=== PATIENT | female | born 1965 | race African-American/Black ===

== ENCOUNTER → 2020-03-05 09:41 | Outpatient (BNVA) | payer MEDICARE, MEDICAID, SELFPAY | PROVIDERS: PCP Internal Medicine; Visit Provider Physician Assistant | DX: K21.9 Gastro-esophageal reflux disease without esophagitis (principal); K59.09 Other constipation; Z79.899 Other long term (current) drug therapy | CPT/HCPCS: 99213 ==

== ENCOUNTER 2020-04-01 09:31 | Outpatient (REF) | payer OTHER, SELFPAY ==
[2020-04-01 11:05] LABS: TSH reflex Free T4 2.88 mIU/mL (0.32-4.0)
== END 2020-04-01 09:32 | disposition home or self-care (01) ==
LOC: HO.LAB 09:31
PROVIDERS: Visit Provider Internal Medicine
DX: E03.9 Hypothyroidism, unspecified (principal)
CPT/HCPCS: 84443

== ENCOUNTER → 2020-04-30 09:16 | Outpatient (BNVA) | payer OTHER, SELFPAY | PROVIDERS: PCP Internal Medicine; Referring Provider Internal Medicine; Visit Provider Physician Assistant | DX: K21.9 Gastro-esophageal reflux disease without esophagitis (principal); K59.09 Other constipation | CPT/HCPCS: 99212 ==

== ENCOUNTER → 2020-06-10 12:30 | Outpatient (BNVA) | payer MEDICARE, MEDICAID, SELFPAY | PROVIDERS: PCP Internal Medicine; Visit Provider Physician Assistant | DX: Z76.89 Persons encountering health services in other specified circumstances (principal) | CPT/HCPCS: Q3014 ==

== ENCOUNTER 2020-09-10 10:40 | Emergency (ER) | payer MEDICARE, MEDICAID, SELFPAY ==
--- NOTE | ~2020-09-10 | XR_ITS ---
EXAMINATION: XR ABDOMEN KUB CLINICAL INDICATION: Constipation COMPARISON: None TECHNIQUE: AP view of the abdomen. FINDINGS: There is stool throughout the colon suggestive of constipation. There are no dilated loops of bowel to suggest obstruction. There is no evidence of free air. There are surgical clips in the right upper quadrant suggestive of cholecystectomy. There are bilateral pelvic calcifications suggestive of calcified phleboliths. There are degenerative changes of the lower lumbar spine. XR/XR KUB IMPRESSION: Constipation. No evidence of obstruction.
[2020-09-10 11:15] VITALS: BP 147/82; PULSE 80; RESP 16; TEMP 36.6; O2SAT 98; BMI 31.8
[2020-09-10 12:53] LABS: MANUAL DIFF FLAG NO
[2020-09-10 12:55] LABS: Basophils Percent Auto 0.5 % (0-2); Eosinophils Absolute Auto 0.2 X10*3/uL (0.0-0.4); Eosinophils Percent Auto 2.9 % (0-4); Hematocrit 39.9 % (37-47); Hemoglobin 12.6 g/dl (12.0-16.0); Imm Gran Abs Auto 0.02 X10*3/uL (0.00-0.03); Imm Gran Pct Auto 0.3 % (0.0-0.4); Lymphocytes Absolute Auto 1.7 X10*3/uL (1.2-4.9); Lymphocytes Percent Auto 26.8 % (20-40); Mean Corpuscular HGB Conc 31.6 g/dl (31.0-35.0); Mean Corpuscular Hemoglobin 28.8 pg (27.0-33.0); Mean Corpuscular Volume 91.1 fL (80-98); Mean Platelet Volume 9.4 fL (9.4-12.3); Monocytes Absolute Auto 0.5 X10*3/uL (0.1-1.2); Monocytes Percent Auto 8.2 % (2-11); Neutrophils Percent Auto 61.3 % (45-73); Platelet Count 277 X10*3/uL (160-400); Red Blood Count 4.38 X10*6/uL (4.20-5.50); Red Cell Distribution Width 12.8 % (11.0-16.0); White Blood Count 6.5 X10*3/uL (4.8-10.8)
[2020-09-10 13:06] LABS: INTERNATIONAL NORM RATIO 1.1 (0.9-1.1); Prothrombin Time 12.6 SEC (10.8-13.0)
[2020-09-10 13:08] LABS: Partial Thromboplastin Time 36.9 SEC (24.1-38.0)
[2020-09-10 13:14] LABS: C Reactive Protein 0.49 mg/dL (< or = 0.50)
[2020-09-10 13:17] LABS: Alanine Aminotransferase 76 U/L (0-31); Albumin Level 4.4 g/dL (3.5-5.0); Alkaline Phosphatase 92 U/L (39-117); Anion Gap 13 (12-20); Aspartate Amino Transferase 37 U/L (5-31); Bilirubin Direct 0.3 mg/dL (0.0-0.5); Bilirubin Total 0.9 mg/dL (0.0-1.0); Blood Urea Nitrogen 10 mg/dL (9-16); Calcium 9.2 mg/dL (8.4-10.2); Carbon Dioxide 27 mmol/L (22-29); Chloride 104 mmol/L (96-108); Estimated Glomerular Filt Rate > 60; Glucose Random 92 mg/dL (60-115); Potassium 4.1 mmol/L (3.3-5.1); Sodium 140 mmol/L (135-145); Total Protein 7.6 g/dL (6.5-8.0)
[2020-09-10 13:40] LABS: Erythrocyte Sedimentation Rate 14 MM/HR (0-20)
--- NOTE | 2020-09-10 13:40 | ED_ITS ---
HPI - General Adult General Chief complaint: General Medical <KM Can - Last Filed: 09/10/20 16:51> Stated complaint: rash <KM Can - Last Filed: 09/10/20 16:51> Time Seen by Provider: 09/10/20 11:40 <KM Can - Last Filed: 09/10/20 16:51> Source: patient <KM Can - Last Filed: 09/10/20 16:51> Mode of arrival: ambulatory <KM Can - Last Filed: 09/10/20 16:51> History of Present Illness HPI narrative: 54-year-old female with a past medical history of hypothyroid, GERD, chronic constipation, presenting to the ED complaining of constipation x2 days, and worsening petechial rash to lower extremities x1 week. Denies having BM in 2 days, admits to passing flatness. Reports has to manually disimpact herself. States rash started as small diffuse red dots, nonpruritic, and noticed spread today to abdomen. Denies fever, chills, nausea/vomiting, diarrhea, recent travel, new medications/exposures, others with similar symptoms, history of blood disorders <KM Can - Last Filed: 09/10/20 16:51> Onset (ago): day(s) <KM Can - Last Filed: 09/10/20 16:51> Related Data Home medications: Home Medications Medication Instructions Recorded Confirmed albuterol sulfate 90 mcg/actuation 2 puff INHALATION Q6H PRN 03/02/20 04/30/20 aerosol inhaler clonazepam 0.5 mg tablet 0.5 mg PO DAILY tab 03/02/20 06/10/20 docusate sodium 100 mg capsule 100 mg PO BID cap 03/02/20 06/10/20 levothyroxine 125 mcg tablet 125 mcg PO DAILY 03/02/20 06/10/20 oxcarbazepine 300 mg tablet 300 mg PO .COMPLEX tab 03/02/20 06/10/20 polyethylene glycol 3350 17 gram 17 g PO DAILY 03/02/20 06/10/20 oral powder packet quetiapine 100 mg tablet 100 mg PO BEDTIME tab 03/02/20 06/10/20 sennosides 8.6 mg capsule 17.2 mg PO BEDTIME cap 03/02/20 03/28/20 trazodone 100 mg tablet 200 mg PO BEDTIME 03/02/20 06/10/20 Previous Rx's Medication Instructions Recorded omeprazole 20 mg capsule,delayed 20 mg PO DAILY #90 cap 04/04/20 release walker #1 ea 04/04/20 bisacodyl 10 mg rectal suppository 10 mg NJ DAILY PRN #20 ea 06/10/20 mineral oil [Fleet Mineral Oil] 118 ml NJ DAILY PRN #135 ml 09/10/20 polyethylene glycol 3350 [Miralax] 17 g PO DAILY PRN #119 g 09/10/20 prednisone 40 mg PO DAILY 5 Days #10 tab 09/10/20 sennosides [senna] 8.6 mg PO DAILY PRN #10 cap 09/10/20 <KM Can - Last Filed: 09/10/20 16:51> Allergies/adverse reactions: Allergies Allergy/AdvReac Type Severity Reaction Status Date / Time SEAFOOD Allergy Unknown DOESNT Uncoded 03/28/20 10:25 TAKE BECAUSE OF THYROID <KM Can Last Filed: 09/10/20 16:51> Review of Systems Review of Systems: Constitutional: No Fever, No Chills, No Fatigue, No Malaise Cardiovascular: No Chest Pain, No SOB Respiratory: No Cough, No Dyspnea Gastrointestinal: No Nausea, No Vomiting, No Diarrhea, + Constipation, No Abdominal pain Genitourinary: No Dysuria, No Urinary Frequency, No Hematuria, No Flank Pain Musculoskeletal: No joint pain, No Myalgias, No Joint Swelling Skin: No Skin Lesions, + rash Neuro: No Weakness, No Headache Heme/Lymph: No Bruising, No Bleeding <KM Can Last Filed: 09/10/20 16:51> Yes all other systems are reviewed and are negative <KM Can Last Filed: 09/10/20 16:51> PMFSH Past Medical History Attestation statement: The following information was validated with the patient. <KM Can Last Filed: 09/10/20 16:51> Medical History: Medical History Chronic constipation Chronic GERD Hypothyroidism Pap smear of cervix shows high risk HPV present <KM Can - Last Filed: 09/10/20 16:51> Surgical History: Surgical History (Updated 03/27/20 @ 09:30 by KIM España) History of bladder surgery History of colonoscopy History of partial hysterectomy <KM Can - Last Filed: 09/10/20 16:51> Family History Family History: Family History Father HTN (hypertension) Mother Asthma HTN (hypertension) Sister Heart disease Brother Liver cancer Son Asthma <KM Can - Last Filed: 09/10/20 16:51> Social History Social History: Social History Alcohol intake: never Smoking Status: Never smoker Advance Directives: No Advance Directives Information Provided: Yes <KM Can - Last Filed: 09/10/20 16:51> Physical Exam Vital Signs: Vital Signs: Last Vital Signs Temp 98.4 F 09/10/20 15:48 Pulse 84 09/10/20 15:48 Resp 18 09/10/20 15:48 BP 109/67 09/10/20 15:48 Pulse Ox 96 09/10/20 15:48 Body Mass Index 31.8 <KM Can - Last Filed: 09/10/20 16:51> Vital Signs: Last Vital Signs Temp 98.4 F 09/10/20 15:48 Pulse 84 09/10/20 15:48 Resp 18 09/10/20 15:48 BP 109/67 09/10/20 15:48 Pulse Ox 96 09/10/20 15:48 Body Mass Index 31.8 <Placido Hernandez MD - Last Filed: 09/10/20 14:48> Const: General: cooperative, healthy appearing, well developed, alert and awake <KM Can - Last Filed: 09/10/20 16:51> Orientation/consciousness: patient oriented x3 <KM Can - Last Filed: 09/10/20 16:51> Limitations: no limitations <KM Can - Last Filed: 09/10/20 16:51> HENMT: Other: No mucous membrane involvement <Magaly Segura MO - Last Filed: 09/10/20 16:51> Head: Yes normal to inspection <Magaly Segura PA - Last Filed: 09/10/20 16:51> Ears: hearing grossly normal bilaterally <Magaly Segura MO - Last Filed: 09/10/20 16:51> General nose exam: Normal external nose present <Magaly Segura MO - Last Filed: 09/10/20 16:51> Face and sinus: Yes normal facial exam <Magaly Segura MO - Last Filed: 09/10/20 16:51> Throat: Yes tonsils normal <Magaly Segura MO - Last Filed: 09/10/20 16:51> Eyes: General: appearance normal, both eyes and all related structures <Magaly Segura MO - Last Filed: 09/10/20 16:51> Pupils: Equal, round and reactive pupils present <Magaly Segura MO - Last Filed: 09/10/20 16:51> EOM: EOMs intact bilaterally <Magaly Segura MO - Last Filed: 09/10/20 16:51> Neck: Neck: Yes normal visual inspection and Yes no meningeal signs <Magaly Segura MO - Last Filed: 09/10/20 16:51> Resp: Effort & Inspection: normal respiratory effort <Magaly Segura [facility] Last Filed: 09/10/20 16:51> Auscultation: clear to auscultation bilaterally, no rhonchi and no wheezes <Magaly Segura MO - Last Filed: 09/10/20 16:51> Cardio: Rate: regular rate <Magaly Segura MO - Last Filed: 09/10/20 16:51> Heart sounds: S1 normal heart sound present and S2 normal heart sound present <Magaly Segura PA - Last Filed: 09/10/20 16:51> GI: Inspection: Yes normal to inspection <Magaly Segura MO - Last Filed: 09/10/20 16:51> Palpation (GI): Soft to palpation, nontender and no guarding <Magaly Segura PA - Last Filed: 09/10/20 16:51> Skin: Other: refer to images <KM Can - Last Filed: 09/10/20 16:51> Rashes: no rashes <KM Can - Last Filed: 09/10/20 16:51> Wounds: no wounds <KM Can - Last Filed: 09/10/20 16:51> Neuro: General: patient oriented x3 and no meningeal signs <KM Can - Last Filed: 09/10/20 16:51> Cranial nerves: Yes Equal, round and reactive pupils present <KM Can - Last Filed: 09/10/20 16:51> Gait exam (Neuro): Normal gait present <KM Can - Last Filed: 09/10/20 16:51> Extrem: Other: <KM Can - Last Filed: 09/10/20 16:51> General: Yes normal to inspection <KM Can - Last Filed: 09/10/20 16:51> Course Course Course Narrative: -No leukocytosis. Platelets/coags wnl, ESR/CRP wnl, AST/ALT mildly elevated labs otherwise unremarkable XR KUB IMPRESSION: Constipation. No evidence of obstruction Consulted hematology Dr. Sherman who recommended adding on collagen vascular wo rkup, initiate short course of steroids, have patient follow-up with rheumatology. This was all discussed with patient with seismic interpreter including worrisome signs and symptoms and strict return precautions. Patient was given 1st dose of prednisone in the ED <KM Can - Last Filed: 09/10/20 16:51> I agree with history, patient with vasculitic type of rash to abdomen and legs. Platelets, coags, sed rate all normal. Will discuss with rheum or heme/onc <Placido Hernandez MD - Last Filed: 09/10/20 14:48> Medical Decision Making [facility] Narrative Medical decision making narrative: 54-year-old female with a past medical history of hypothyroid, GERD, chronic constipation, presenting to the ED complaining of constipation x2 days, and worsening petechial rash to lower extremities x1 week. On exam VSS, NAD/nontoxic appearing, physical exam as above, concern for vasculitic rash and constipation vs SBO. Plan: Labs, KUB, Consult Rheum/heme/onc <KM Can - Last Filed: 09/10/20 16:51> Lab Data Result diagrams: : 09/10/20 12:46 09/10/20 12:46 <KM Can - Last Filed: 09/10/20 16:51> Labs: Lab Results 09/10/20 09/10/20 09/10/20 Range/Units 12:46 12:46 12:46 WBC 6.5 (4.8-10.8) X10*3/uL RBC 4.38 (4.20-5.50) X10*6/uL Hgb 12.6 (12.0-16.0) g/dl Hct 39.9 (37-47) % MCV 91.1 (80-98) fL MCH 28.8 (27.0-33.0) pg MCHC 31.6 (31.0-35.0) g/dl RDW 12.8 (11.0-16.0) % Plt Count 277 (160-400) X10*3/uL MPV 9.4 (9.4-12.3) fL Immature Gran % (Auto) 0.3 (0.0-0.4) % Neut % (Auto) 61.3 (45-73) % Lymph % (Auto) 26.8 (20-40) % Crenshaw % (Auto) 8.2 (2-11) % Eos % (Auto) 2.9 (0-4) % Baso % (Auto) 0.5 (0-2) % Lymph # (Auto) 1.7 (1.2-4.9) X10*3/uL Crenshaw # (Auto) 0.5 (0.1-1.2) X10*3/uL Eos # (Auto) 0.2 (0.0-0.4) X10*3/uL Baso # (Auto) 0.0 (0.0-0.2) X10*3/uL Abs Immat Gran (auto) 0.02 (0.00-0.03) X10*3/uL Absolute Neuts (auto) 4.0 (2.0-8.3) X10*3/uL Absolute Nucleated RBC 0.000 (0.0-0.012) X10*3/uL Nucleated RBC % (auto) 0.0 (0.0-0.2) /100WBC ESR (0-20) MM/HR PT 12.6 (10.8-13.0) SEC INR 1.1 (0.9-1.1) APTT 36.9 (24.1-38.0) SEC Sodium 140 (135-145) mmol/L Potassium 4.1 (3.3-5.1) mmol/L Chloride 104 (96-108) mmol/L Carbon Dioxide 27 (22-29) mmol/L Anion Gap 13 (12-20) BUN 10 (9-16) mg/dL Creatinine 0.71 (0.5-1.4) mg/dL Estim Creat Clear Calc 86.0 Estimated GFR > 60 Random Glucose 92 (60-115) mg/dL Calcium 9.2 (8.4-10.2) mg/dL Total Bilirubin 0.9 (0.0-1.0) mg/dL Direct Bilirubin 0.3 (0.0-0.5) mg/dL AST 37 H (5-31) U/L ALT 76 H (0-31) U/L Alkaline Phosphatase 92 (39-117) U/L C-Reactive Protein (< or = 0.50) mg/dL Total Protein 7.6 (6.5-8.0) g/dL Albumin 4.4 (3.5-5.0) g/dL 09/10/20 09/10/20 Range/Units 12:46 12:46 WBC (4.8-10.8) X10*3/uL RBC (4.20-5.50) X10*6/uL Hgb (12.0-16.0) g/dl Hct (37-47) % MCV (80-98) fL MCH (27.0-33.0) pg MCHC (31.0-35.0) g/dl RDW (11.0-16.0) % Plt Count (160-400) X10*3/uL MPV (9.4-12.3) fL Immature Gran % (Auto) (0.0-0.4) % Neut % (Auto) (45-73) % Lymph % (Auto) (20-40) % Crenshaw % (Auto) (2-11) % Eos % (Auto) (0-4) % Baso % (Auto) (0-2) % Lymph # (Auto) (1.2-4.9) X10*3/uL Crenshaw # (Auto) (0.1-1.2) X10*3/uL Eos # (Auto) (0.0-0.4) X10*3/uL Baso # (Auto) (0.0-0.2) X10*3/uL Abs Immat Gran (auto) (0.00-0.03) X10*3/uL Absolute Neuts (auto) (2.0-8.3) X10*3/uL Absolute Nucleated RBC (0.0-0.012) X10*3/uL Nucleated RBC % (auto) (0.0-0.2) /100WBC ESR 14 (0-20) MM/HR PT (10.8-13.0) SEC INR (0.9-1.1) APTT (24.1-38.0) SEC Sodium (135-145) mmol/L Potassium (3.3-5.1) mmol/L Chloride (96-108) mmol/L Carbon Dioxide (22-29) mmol/L Anion Gap (12-20) BUN (9-16) mg/dL Creatinine (0.5-1.4) mg/dL Estim Creat Clear Calc Estimated GFR Random Glucose (60-115) mg/dL Calcium (8.4-10.2) mg/dL Total Bilirubin (0.0-1.0) mg/dL Direct Bilirubin (0.0-0.5) mg/dL AST (5-31) U/L ALT (0-31) U/L Alkaline Phosphatase (39-117) U/L C-Reactive Protein 0.49 (< or = 0.50) mg/dL Total Protein (6.5-8.0) g/dL Albumin (3.5-5.0) g/dL <KM Can - Last Filed: 09/10/20 16:51> Lab Results 09/10/20 09/10/20 09/10/20 Range/Units 12:46 12:46 12:46 WBC 6.5 (4.8-10.8) X10*3/uL RBC 4.38 (4.20-5.50) X10*6/uL Hgb 12.6 (12.0-16.0) g/dl Hct 39.9 (37-47) % MCV 91.1 (80-98) fL MCH 28.8 (27.0-33.0) pg MCHC 31.6 (31.0-35.0) g/dl RDW 12.8 (11.0-16.0) % Plt Count 277 (160-400) X10*3/uL MPV 9.4 (9.4-12.3) fL Immature Gran % (Auto) 0.3 (0.0-0.4) % Neut % (Auto) 61.3 (45-73) % Lymph % (Auto) 26.8 (20-40) % Crenshaw % (Auto) 8.2 (2-11) % Eos % (Auto) 2.9 (0-4) % Baso % (Auto) 0.5 (0-2) % Lymph # (Auto) 1.7 (1.2-4.9) X10*3/uL Crenshaw # (Auto) 0.5 (0.1-1.2) X10*3/uL Eos # (Auto) 0.2 (0.0-0.4) X10*3/uL Baso # (Auto) 0.0 (0.0-0.2) X10*3/uL Abs Immat Gran (auto) 0.02 (0.00-0.03) X10*3/uL Absolute Neuts (auto) 4.0 (2.0-8.3) X10*3/uL Absolute Nucleated RBC 0.000 (0.0-0.012) X10*3/uL Nucleated RBC % (auto) 0.0 (0.0-0.2) /100WBC ESR (0-20) MM/HR PT 12.6 (10.8-13.0) SEC INR 1.1 (0.9-1.1) APTT 36.9 (24.1-38.0) SEC Sodium 140 (135-145) mmol/L Potassium 4.1 (3.3-5.1) mmol/L Chloride 104 (96-108) mmol/L Carbon Dioxide 27 (22-29) mmol/L Anion Gap 13 (12-20) BUN 10 (9-16) mg/dL Creatinine 0.71 (0.5-1.4) mg/dL Estim Creat Clear Calc 86.0 Estimated GFR > 60 Random Glucose 92 (60-115) mg/dL Calcium 9.2 (8.4-10.2) mg/dL Total Bilirubin 0.9 (0.0-1.0) mg/dL Direct Bilirubin 0.3 (0.0-0.5) mg/dL AST 37 H (5-31) U/L ALT 76 H (0-31) U/L Alkaline Phosphatase 92 (39-117) U/L C-Reactive Protein (< or = 0.50) mg/dL Total Protein 7.6 (6.5-8.0) g/dL Albumin 4.4 (3.5-5.0) g/dL 09/10/20 09/10/20 Range/Units 12:46 12:46 WBC (4.8-10.8) X10*3/uL RBC (4.20-5.50) X10*6/uL Hgb (12.0-16.0) g/dl Hct (37-47) % MCV (80-98) fL MCH (27.0-33.0) pg MCHC (31.0-35.0) g/dl RDW (11.0-16.0) % Plt Count (160-400) X10*3/uL MPV (9.4-12.3) fL Immature Gran % (Auto) (0.0-0.4) % Neut % (Auto) (45-73) % Lymph % (Auto) (20-40) % Crenshaw % (Auto) (2-11) % Eos % (Auto) (0-4) % Baso % (Auto) (0-2) % Lymph # (Auto) (1.2-4.9) X10*3/uL Crenshaw # (Auto) (0.1-1.2) X10*3/uL Eos # (Auto) (0.0-0.4) X10*3/uL Baso # (Auto) (0.0-0.2) X10*3/uL Abs Immat Gran (auto) (0.00-0.03) X10*3/uL Absolute Neuts (auto) (2.0-8.3) X10*3/uL Absolute Nucleated RBC (0.0-0.012) X10*3/uL Nucleated RBC % (auto) (0.0-0.2) /100WBC ESR 14 (0-20) MM/HR PT (10.8-13.0) SEC INR (0.9-1.1) APTT (24.1-38.0) SEC Sodium (135-145) mmol/L Potassium (3.3-5.1) mmol/L Chloride (96-108) mmol/L Carbon Dioxide (22-29) mmol/L Anion Gap (12-20) BUN (9-16) mg/dL Creatinine (0.5-1.4) mg/dL Estim Creat Clear Calc Estimated GFR Random Glucose (60-115) mg/dL Calcium (8.4-10.2) mg/dL Total Bilirubin (0.0-1.0) mg/dL Direct Bilirubin (0.0-0.5) mg/dL AST (5-31) U/L ALT (0-31) U/L Alkaline Phosphatase (39-117) U/L C-Reactive Protein 0.49 (< or = 0.50) mg/dL Total Protein (6.5-8.0) g/dL Albumin (3.5-5.0) g/dL <Placido Hernandez MD - Last Filed: 09/10/20 14:48> Discharge Plan Discharge Clinical Impression: Constipation, Vasculitis <KM Can - Last Filed: 09/10/20 16:51> Patient Disposition: Home, Self-Care <KM Can - Last Filed: 09/10/20 16:51> Instructions: [place] (ED) <KM Can - Last Filed: 09/10/20 16:51> Additional Instructions: Your blood work was reassuring today in the ED. It is suspected that you have a vasculitis. Additional blood work was added which will come back in a couple days, you need to follow-up with a director of nuclear medicine. Prednisone as a steroid, take as prescribed. You also very constipated, senna and MiraLax will help you have a bowel movement. In addition use Fleet enema. If he do not improve in the next 48 hours return to the ED. If he develops fever, rashes spreading/worsening, or you have persistent nausea/vomiting return to the ED [place] an?lisis de mark fue reconfortante hoy en el servicio de urgencias. Se sospecha que tiene vasculitis. Se agregaron an?lisis de mark adicionales que volver?n en un par de d?as, debe hacer un seguimiento con un reumat?logo. Prednisona drea esteroide, t?wayne seg?n lo prescrito. Tambi?n est?s muy estre?pretty, senna y MiraLax te ayudar?n a defecar. Adem?s, use el enema Fleet. Si no mejora en las pr?ximas 48 horas regrese a urgencias. Si tiene fiebre, erupciones que se extienden / empeoran, o tiene n?useas / v?mitos persistentes, regrese al servicio de urgencias. <KM Can - Last Filed: 09/10/20 16:51> Prescriptions: New prednisone 20 mg tablet 40 mg PO DAILY 5 Days Qty: 10 RF: 0 senna 8.6 mg capsule 8.6 mg PO DAILY PRN (Reason: constipation) Qty: 10 RF: 0 polyethylene glycol 3350 [Miralax] 17 gram/dose powder 17 g PO DAILY PRN (Reason: constipation) Qty: 119 RF: 0 mineral oil [Fleet Mineral Oil] Enema 118 ml NJ DAILY PRN (Reason: constipation) Qty: 135 RF: 0 No Action omeprazole 20 mg capsule,delayed release(DR/EC) 20 mg PO DAILY Qty: 90 RF: 2 (DME) Ultra-Light Rollator Misc See Rx Instructions .ROUTE .MEDSUPPLY Qty: 1 RF: 0 docusate sodium [Colace] 100 mg capsule 100 mg PO BID RF: 0 polyethylene glycol 3350 [Miralax] 17 gram powder in packet 17 g PO DAILY RF: 0 senna 8.6 mg capsule 17.2 mg PO BEDTIME RF: 0 trazodone 100 mg tablet 200 mg PO BEDTIME RF: 0 quetiapine [Seroquel] 100 mg tablet 100 mg PO BEDTIME RF: 0 clonazepam [Klonopin] 0.5 mg tablet 0.5 mg PO DAILY RF: 0 oxcarbazepine 300 mg tablet 300 mg PO .COMPLEX RF: 0 albuterol sulfate [ProAir HFA] 90 mcg/actuation HFA aerosol inhaler 2 puff inhalation Q6H PRNRF: 0 levothyroxine [Synthroid] 125 mcg tablet 125 mcg PO DAILY RF: 0 bisacodyl [Dulcolax (bisacodyl)] 10 mg suppository 10 mg NJ DAILY PRN (Reason: constipation) Qty: 20 RF: 0 <KM Can - Last Filed: 09/10/20 16:51> Referrals: Micaela Bradford MD [Primary Care Provider] - 2 days Fredo Kuo MD [Physician] - 2 days <KM Can - Last Filed: 09/10/20 16:51> Print Language: Kyrgyz <KM Can - Last Filed: 09/10/20 16:51>
[2020-09-10 15:48] VITALS: BP 109/67; PULSE 84; RESP 18; TEMP 36.9; O2SAT 96
[2020-09-10] MEDS: predniSONE 20 MG TABLET 40 MG PO (16:24)
[2020-09-10] MEDS: Sennosides 8.6 MG TABLET PO (16:24)
[2020-09-10 17:15] LABS: Glucose Urine UA NEG (NEG); Leukocyte Esterase Urine NEG (NEG); Nitrite Urine POS (NEG); Specific Gravity - Urine 1.025 (1.005-1.025); UACC Culture Trigger YES; Urine Blood 1+ (NEG); Urine Ketones NEG (NEG); Urine Protein NEG (NEG-TRACE)
[2020-09-10 17:20] LABS: Appearance Urine HAZY; Color Urine YELLOW
[2020-09-10 17:50] LABS: Bacteria Urine 2+ /LPF; RBC Urine 0-2 /HPF (0); Squamous Epithelial Cell Urine 1+ /LPF; WBC Urine 0 /HPF (0-4)
[2020-09-11 09:22] LABS: HBS Num1 0.85 mIU/mL (0-7.99); HBsAGNum1 0.31 S/CO (0.00-0.99); Hepatitis B Surface Antigen Negative (Negative); ~Hepatitis B Surface Antibody NONREACTIVE (Nonreactive)
[2020-09-11 09:55] LABS: HBc Num1 0.06 S/CO (0.00-0.79); HIV AB/AG Nonreactive (Nonreactive); HIV Num 1 0.08 S/CO (0.00-0.99); Hepatitis B Core Antibody Nonreactive (Nonreactive); ~HepC Num1 0.09 S/CO (0.00-0.79); ~Hepatitis C Antibody Nonreactive (Nonreactive)
[2020-09-11 14:22] LABS: Myeloperoxidase Antibody <1.0 AI; Proteinase 3 PR3 Antibodies <1.0 AI
[2020-09-11 15:11] LABS: Complement C3 157 mg/dL (83-193)
[2020-09-12 13:56] LABS: PTT (LAC) Screen 29 sec (< OR = 40)
[2020-09-12 14:22] LABS: Anti Nuclear Antibody Screen POSITIVE (NEGATIVE)
== END 2020-09-10 17:27 | disposition home or self-care (01) ==
PROVIDERS: Physician Assistant; Emergency Provider Emergency Medicine; PCP Internal Medicine
DX: K59.00 Constipation, unspecified (principal); I77.6 Arteritis, unspecified
CPT/HCPCS: 36415; 74018; 80048; 80076; 81001; 81003; 85025; 85597; 85610; 85613; 85652; 85730; 86021; 86038; 86039; 86140; 86160; 86704; 86706; 86803; 87086; 87088; 87186; 87340; 87389; 99283; 99284

== ENCOUNTER → 2020-10-02 09:49 | Outpatient (BNVA) | payer OTHER, SELFPAY | PROVIDERS: PCP Internal Medicine; Visit Provider Physician Assistant | CPT/HCPCS: Q3014 ==

== ENCOUNTER 2020-10-21 11:25 | Outpatient (REF) | payer OTHER, SELFPAY | END 2020-10-21 11:26 | disposition home or self-care (01) | LOC: HO.LAB 11:25 | PROVIDERS: Visit Provider Internal Medicine | DX: Z20.822 Contact with and (suspected) exposure to COVID-19 (principal) | CPT/HCPCS: C9803; U0003; U0005 ==

== ENCOUNTER → 2020-12-17 08:03 | Outpatient (BNVA) | payer OTHER, SELFPAY | PROVIDERS: Visit Provider Physician Assistant | DX: K59.09 Other constipation (principal); K62.9 Disease of anus and rectum, unspecified | CPT/HCPCS: Q3014 ==

== ENCOUNTER → 2021-01-20 15:23 | Outpatient (BNVA) | payer MEDICARE, SELFPAY | PROVIDERS: PCP Internal Medicine; Visit Provider Surgery | DX: K64.4 Residual hemorrhoidal skin tags (principal); K64.8 Other hemorrhoids | CPT/HCPCS: 46600; 99202 ==

== ENCOUNTER 2021-03-03 09:26 | Outpatient (REF) | payer MEDICARE, SELFPAY ==
[2021-03-03 11:19] LABS: Estimated Average Glucose 117 mg/dL; Hemoglobin A1c % 5.7 %
[2021-03-03 11:33] LABS: Alanine Aminotransferase 40 U/L (0-31); Alkaline Phosphatase 99 U/L (39-117); Anion Gap 12 (12-20); Aspartate Amino Transferase 28 U/L (5-31); Bilirubin Total < 0.2 mg/dL (0.0-1.0); Blood Urea Nitrogen 11 mg/dL (9-16); Carbon Dioxide 24 mmol/L (22-29); Chloride 108 mmol/L (96-108); Cholesterol 154 mg/dL; Estimated Glomerular Filt Rate > 60; Glucose Random 85 mg/dL (60-115); HDL Cholesterol 35 mg/dL; LDL Cholesterol Calculated 71 mg/dl; Sodium 140 mmol/L (135-145); Total Protein 6.9 g/dL (6.5-8.0); Triglycerides 242 mg/dL
== END 2021-03-03 09:27 | disposition home or self-care (01) ==
LOC: HO.LAB 09:26
PROVIDERS: Visit Provider Nurse Practitioner Adult Health
DX: Z51.81 Encounter for therapeutic drug level monitoring (principal)
CPT/HCPCS: 36415; 80053; 80061; 83036

== ENCOUNTER 2021-04-21 11:14 | Outpatient (REF) | payer OTHER, SELFPAY | END 2021-04-21 11:15 | disposition home or self-care (01) | LOC: HO.LAB 11:14 | PROVIDERS: PCP Internal Medicine; Visit Provider Internal Medicine | DX: Z20.822 Contact with and (suspected) exposure to COVID-19 (principal) | CPT/HCPCS: C9803; U0003; U0005 ==

== ENCOUNTER 2021-05-26 09:52 | Outpatient (REF) | payer OTHER, SELFPAY ==
--- NOTE | ~2021-05-26 | MM_ITS ---
EXAMINATION: MM SCREENING DIGITAL BREAST TOMOSYNTHESIS, BILATERAL CLINICAL INFORMATION: Screening. Asymptomatic. The lifetime risk of breast cancer based on the Tyrer-Cuzick Model is 6%. COMPARISON: Mammography: 07/19/2018, 08/24/2017; outside mammography 03/11/2017 and 03/03/2017 ([facility]). TECHNIQUE: Digital breast tomosynthesis is performed in both the craniocaudal and mediolateral oblique views along with computer-aided detection (CAD). Synthesized 2D images are generated from the tomosynthesis. FINDINGS: The breasts are heterogeneously dense, which may obscure small masses (ACR BI-RADS breast composition Category c). There are no significant masses, abnormal calcifications, or other abnormalities. Parenchymal pattern is similar to prior studies. There is no developing density or architectural abnormality. The axilla and skin contours are unremarkable. No significant changes. MM/MM tomosynthesis screening BI IMPRESSION: No mammographic evidence of malignancy. ASSESSMENT: BI-RADS 1: Negative RECOMMENDATION: Routine annual mammography screening. This patient's information was entered into a reminder system with a target due date for their next mammogram.
== END 2021-05-26 09:53 | disposition home or self-care (01) ==
LOC: HO.MAMMO 09:52
PROVIDERS: Visit Provider Internal Medicine
DX: Z12.31 Encounter for screening mammogram for malignant neoplasm of breast (principal)
CPT/HCPCS: 77063; 77067

== ENCOUNTER 2021-12-04 09:41 | Outpatient (REF) | payer OTHER, SELFPAY ==
[2021-12-04 11:21] LABS: Thyroid Stimulating Hormone 4.62 uIU/mL (0.32-4.0)
[2021-12-09 13:20] LABS: Vitamin D 25-OH, D2 <4 ng/mL; Vitamin D 25-OH, D3 23 ng/mL; Vitamin D 25-OH, Total 23 ng/mL (30-100)
== END 2021-12-04 09:42 | disposition home or self-care (01) ==
LOC: HO.LAB 09:41
PROVIDERS: PCP Internal Medicine; Visit Provider Internal Medicine
DX: E03.9 Hypothyroidism, unspecified (principal); E55.9 Vitamin D deficiency, unspecified
CPT/HCPCS: 36415; 82306; 84443

== ENCOUNTER 2021-12-25 08:50 | Outpatient (REF) | payer OTHER, SELFPAY ==
--- NOTE | 2021-12-25 08:56 | ECG_ITS ---
Test Reason : cp Blood Pressure : / mmHG Vent. Rate : 073 BPM Atrial Rate : 073 BPM P-R Int : 130 ms QRS Dur : 092 ms QT Int : 408 ms P-R-T Axes : 011 016 013 degrees QTc Int : 449 ms Normal sinus rhythm Normal ECG When compared with ECG of 24-MAR-2018 22:06, No significant change was found Referred By: Micaela Fuchs Electronically Signed By:RAJ REID
[2021-12-25 10:09] LABS: Thyroid Stimulating Hormone 2.07 uIU/mL (0.32-4.0)
[2021-12-31 16:06] LABS: Vitamin D 25-OH, D2 <4 ng/mL; Vitamin D 25-OH, D3 24 ng/mL; Vitamin D 25-OH, Total 24 ng/mL (30-100)
== END 2021-12-25 08:51 | disposition home or self-care (01) ==
LOC: HO.LAB 08:50
PROVIDERS: PCP Internal Medicine; Visit Provider Internal Medicine
DX: E03.9 Hypothyroidism, unspecified (principal); E55.9 Vitamin D deficiency, unspecified; R07.9 Chest pain, unspecified
CPT/HCPCS: 36415; 82306; 84443; 93005

== ENCOUNTER 2022-03-13 10:00 | Outpatient (REF) | payer OTHER, SELFPAY ==
[2022-03-13 12:02] LABS: Free T4 (Free Thyroxine) 1.13 ng/dL (0.71-1.85); Thyroid Stimulating Hormone 3.96 uIU/mL (0.32-4.0)
== END 2022-03-13 10:01 | disposition home or self-care (01) ==
LOC: HO.LAB 10:00
PROVIDERS: PCP Internal Medicine; Visit Provider Internal Medicine
DX: E03.9 Hypothyroidism, unspecified (principal)
CPT/HCPCS: 36415; 84439; 84443

== ENCOUNTER 2022-04-08 09:00 | Outpatient (REF) | payer OTHER, SELFPAY ==
[2022-04-08 10:42] LABS: Alanine Aminotransferase 42 U/L (0-31); Albumin Level 4.6 g/dL (3.5-5.0); Alkaline Phosphatase 99 U/L (39-117); Anion Gap 16 (12-20); Aspartate Amino Transferase 22 U/L (5-31); Bilirubin Total 0.4 mg/dL (0.0-1.0); Blood Urea Nitrogen 12 mg/dL (9-16); Calcium 9.5 mg/dL (8.4-10.2); Carbon Dioxide 26 mmol/L (22-29); Chloride 105 mmol/L (96-108); Cholesterol 143 mg/dL; Estimated Glomerular Filt Rate > 60; Glucose Fasting 95 mg/dL (60-99); HDL Cholesterol 38 mg/dL; LDL Cholesterol Calculated 81 mg/dl; Potassium 4.6 mmol/L (3.3-5.1); Sodium 142 mmol/L (135-145); Total Protein 7.6 g/dL (6.5-8.0); Triglycerides 124 mg/dL
== END 2022-04-08 09:01 | disposition home or self-care (01) ==
LOC: HO.LAB 09:00
PROVIDERS: PCP Internal Medicine; Visit Provider Internal Medicine
DX: Z00.00 Encounter for general adult medical examination without abnormal findings (principal); E55.9 Vitamin D deficiency, unspecified
CPT/HCPCS: 36415; 80053; 80061; 82306

== ENCOUNTER 2022-05-28 10:12 | Outpatient (REF) | payer OTHER, SELFPAY ==
--- NOTE | ~2022-05-28 | MM_ITS ---
EXAMINATION: MM SCREENING DIGITAL BREAST TOMOSYNTHESIS, BILATERAL CLINICAL INFORMATION: Screening. Asymptomatic. The lifetime risk of breast cancer based on the Tyrer-Cuzick Model is 6%. COMPARISON: Mammography: May 26, 2021 and studies dating back to February 21, 2016 TECHNIQUE: Digital breast tomosynthesis is performed in both the craniocaudal and mediolateral oblique views along with computer-aided detection (CAD). Synthesized 2D images are generated from the tomosynthesis. FINDINGS: The breasts are heterogeneously dense, which may obscure small masses (ACR BI-RADS breast composition Category c). There are no significant masses, abnormal calcifications, or other abnormalities. MM/MM tomosynthesis screening BI IMPRESSION: No significant changes from prior exam. ASSESSMENT: BI-RADS 1: Negative RECOMMENDATION: Routine annual mammography screening. This patient's information was entered into a reminder system with a target due date for their next mammogram.
== END 2022-05-28 10:13 | disposition home or self-care (01) ==
LOC: HO.MAMMO 10:12
PROVIDERS: Visit Provider Internal Medicine
DX: Z12.31 Encounter for screening mammogram for malignant neoplasm of breast (principal)
CPT/HCPCS: 77063; 77067

== ENCOUNTER 2022-12-08 10:05 | Outpatient (REF) | payer OTHER, SELFPAY ==
[2022-12-08 13:16] LABS: Thyroid Stimulating Hormone 1.03 uIU/mL (0.32-4.0)
== END 2022-12-08 10:06 | disposition home or self-care (01) ==
LOC: HO.LAB 10:05
PROVIDERS: PCP Internal Medicine; Visit Provider Internal Medicine
DX: E03.9 Hypothyroidism, unspecified (principal)
CPT/HCPCS: 36415; 84443

== ENCOUNTER 2023-01-03 18:02 | Emergency (ER) | payer OTHER, SELFPAY ==
--- NOTE | ~2023-01-03 | XR_ITS ---
EXAMINATION: XR KNEE, LEFT CLINICAL INFORMATION: Status post fall COMPARISON: None available. TECHNIQUE: Four views of the left knee. FINDINGS: There is loss of patellofemoral and medial compartment joint space with periarticular spurring. No visible acute fracture, dislocation or subluxation seen. There is mild suprapatellar joint effusion. XR/XR knee LT 3V IMPRESSION: Degenerative arthritic changes medial and patellofemoral compartment with mild suprapatellar joint effusion. No visible acute fracture or dislocation seen.
[2023-01-03 18:15] VITALS: BP 134/80; PULSE 80; RESP 20; TEMP 36.8; O2SAT 96
[2023-01-03 18:24] LABS: Glucose, Whole Blood 120 mg/dL (60-115)
[2023-01-03 18:27] VITALS: BP 118/78; BP 134/80; PULSE 80; PULSE 99; RESP 20; TEMP 36.8; O2SAT 96; O2SAT 99; BMI 32.5
[2023-01-03] MEDS: oxyCODONE HCl Immed Release 5 MG TABLET PO (18:58)
--- NOTE | 2023-01-03 19:33 | ED.FALL ---
HPI - Fall General Chief Complaint: Fall Stated Complaint: fall head and knee pain Time Seen by Provider: 01/03/23 18:18 Source: patient Mode of arrival: ambulatory Limitations: no limitations History of Present Illness HPI Narrative: Patient was walking on a sidewalk tripped on a drain fell down striking her left knee to the ground hitting a metal bar complaining of pain in the patella of left knee also abrasion on the right elbow no significant head injury no loss of consciousness has mild headache complaining of pain all over the body Related Data Home Medications Medication Instructions Recorded Confirmed clonazepam 0.5 mg tablet (Klonopin) 0.5 mg PO DAILY 03/02/20 08/06/22 oxcarbazepine 300 mg tablet 300 mg PO .COMPLEX 03/02/20 08/06/22 quetiapine 100 mg tablet (Seroquel) 100 mg PO BEDTIME 03/02/20 08/06/22 trazodone 100 mg tablet 200 mg PO BEDTIME 03/02/20 08/06/22 Previous Rx's Medication Instructions Recorded walker (Ultra-Light Rollator misc) #1 ea 04/04/20 sennosides 8.6 mg capsule (senna) 17.2 mg PO BEDTIME #30 caps 09/25/20 amoxicillin 500 mg tablet 500 mg PO Q12H 7 days #14 tabs 08/06/22 omeprazole 20 mg capsule,delayed 20 mg PO DAILY #90 caps 08/06/22 release Ventolin HFA 90 mcg/actuation 2 puff inhalation Q6H PRN for 11/23/22 aerosol inhaler (albuterol sulfate) wheezing #18 ea Synthroid 137 mcg tablet 137 mcg PO DAILY 90 days #90 tabs 12/05/22 (levothyroxine) oxycodone 5 mg tablet 5 mg PO Q6H PRN pain #20 tabs 01/03/23 Allergies Allergy/AdvReac Type Severity Reaction Status Date / Time levothyroxine sodium AdvReac Mild inadequeate Verified 08/06/22 08:03 [From Synthroid] response SEAFOOD Allergy Intermediate DOESNT Uncoded 08/06/22 08:03 TAKE BECAUSE OF THYROID Review of Systems Review of Systems: Yes all other systems are reviewed and are negative PMFSH Past Medical History Medical History Bloody stools Chronic constipation Chronic GERD Hypothyroidism Internal and external hemorrhoids without complication Mild persistent asthma, uncomplicated Pap smear of cervix shows high risk HPV present Surgical History History of bladder surgery History of colonoscopy History of partial hysterectomy Family History Family History Father HTN (hypertension) Mother Asthma HTN (hypertension) Sister Heart disease Brother Liver cancer Son Asthma Social History Social History Household Members: Children Housing: Apartment Alcohol intake: former Patient Tobacco Use Status: Former Tobacco user Tobacco use type: Cigarette e-Cigarette/Vaping Use: Never Used Second Hand Smoke Exposure: No Advance Directives: No Advance Directives Information Provided: No service: No Current occupational status: disabled Cognitive needs: Yes Hearing needs: No Vision needs: No Physical Exam Vital Signs: Vital Signs: Last Vital Signs Temp 98.2 F 01/03/23 18:27 Pulse 80 01/03/23 18:27 Resp 20 01/03/23 18:27 BP 134/80 01/03/23 18:27 Pulse Ox 96 01/03/23 18:27 O2 Del Method Room Air 01/03/23 18:27 BMI result Body Mass Index 32.5 Appearance: Alert. Oriented X3. No acute distress. Eyes: PERRLA, No Nystagmus ENT: Pharynx normal. Oral Mucosa moist Head AT NC Neck: Normal inspection. Neck supple. No midline tenderness CVS: Normal heart rate and rhythm. Pulses normal. Respiratory: No respiratory distress. Equal air entry bilateral, no wheezing/rales/rhonchi Abdomen: Soft and nontender. Bowel sounds are present, no mass palpable, no CVA tenderness Skin: Skin warm and dry. Normal skin color. Normal skin turgor. Extremities: No lower extremity edema. No calf tenderness mild tenderness of the patella of left knee, good range of movement of the left knee no effusion no deformity , abrasion right elbow Neuro: Oriented X 3. No motor deficit. No sensory deficit.No cerebellar signs , cranial nerves II-XII intact Medications Administered Discontinued Medications Generic Name Dose Route Start Last Admin Trade Name Freq PRN Reason Stop Dose Admin Oxycodone HCl 5 mg 01/03/23 18:42 01/03/23 18:58 Oxycodone Hcl Immed Release 5 Mg Tablet PO 01/03/23 18:43 5 mg ONCE ONE Administration Medical Decision Making Medical Decision Making MDM Narrative: Patient x-ray negative for any fracture of the left knee able to ambulate without any significant distress discharge patient home on pain management Lab Data Labs: Lab Results 01/03/23 Range/Units 18:19 POC Glucose 120 H (60-115) mg/dL Discharge Plan Discharge Clinical Impression: Contusion of knee, left Patient Disposition: Home, Self-Care Instructions: Knee Pain (ED) Additional Instructions: Wear Isiah wrap for support Tramadol for pain Follow-up PCP is needed Prescriptions: New oxycodone 5 mg tablet 5 mg PO Q6H PRN (Reason: pain) Qty: 20 0RF Rx Instructions: Partial Fill upon patient request. No Action (DME) Ultra-Light Rollator Misc See Rx Instructions .ROUTE .MEDSUPPLY Qty: 1 0RF Rx Instructions: As directed senna 8.6 mg capsule 17.2 mg PO BEDTIME Qty: 30 0RF albuterol sulfate [Ventolin HFA] 90 mcg/actuation HFA aerosol inhaler 2 puff inhalation Q6H PRN (Reason: for wheezing) Qty: 18 1RF levothyroxine [Synthroid] 137 mcg tablet 137 mcg PO DAILY 90 Days Qty: 90 0RF amoxicillin 500 mg tablet 500 mg PO Q12H 7 Days Qty: 14 0RF omeprazole 20 mg capsule,delayed release(DR/EC) 20 mg PO DAILY Qty: 90 2RF trazodone 100 mg tablet 200 mg PO BEDTIME quetiapine [Seroquel] 100 mg tablet 100 mg PO BEDTIME Patient Comments: 1/2-1 tablet PRN clonazepam [Klonopin] 0.5 mg tablet 0.5 mg PO DAILY Patient Comments: 1/2-1 tablet oxcarbazepine 300 mg tablet 300 mg PO .COMPLEX Patient Comments: 1 tablet every morning and 2 tablets at bedtime Rx Instructions: 300 mg PO take 1 tablet every morning and 2 tablets at bedtime;
[2023-01-03 20:58] VITALS: BP 124/82; PULSE 79; RESP 16; O2SAT 96
== END 2023-01-03 21:03 | disposition home or self-care (01) ==
PROVIDERS: Emergency Provider Internal Medicine; PCP Internal Medicine
DX: S80.02XA Contusion of left knee, initial encounter (principal); M25.562 Pain in left knee; W01.10XA Fall on same level from slipping, tripping and stumbling with subsequent striking against unspecified object, initial encounter; Y93.9 Activity, unspecified; Y92.480 Sidewalk as the place of occurrence of the external cause; Y99.9 Unspecified external cause status; Z79.899 Other long term (current) drug therapy
CPT/HCPCS: 73562; 82947; 99284

== ENCOUNTER 2023-02-22 13:40 | Outpatient (AMB) | payer OTHER, SELFPAY ==
[2023-02-22 13:43] VITALS: BP 132/80; BMI 31.7
--- NOTE | 2023-02-22 13:43 | MHC.PC.OV ---
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 Accompanied by: Self / Same As Patient Allergies levothyroxine sodium [From Synthroid] Adverse Reaction (Mild, Verified 02/22/23 13:58) inadequeate response SEAFOOD Allergy (Intermediate, Uncoded 02/22/23 13:58) DOESNT TAKE BECAUSE OF THYROID Medication List - Last Reconciled 02/22/23 by Micaela Fuchs MD clonazepam (Klonopin) 0.5 mg PO DAILY omeprazole 20 mg PO DAILY oxcarbazepine 300 mg PO take 1 tablet every morning and 2 tablets at bedtime; oxycodone 5 mg PO Q6H PRN quetiapine (Seroquel) 100 mg PO BEDTIME sennosides (senna) 17.2 mg (2 x 8.6 mg) PO BEDTIME Synthroid (levothyroxine) 137 mcg PO DAILY 90 days NS trazodone 200 mg PO BEDTIME Ventolin HFA 90 mcg/actuation (albuterol sulfate) 2 puffs inhalation Q6H PRN NS walker (Ultra-Light Rollator misc) As directed Tobacco use date assessed: 08/06/22 Dental Screening Dental Screen Date: 02/22/23 Did you have a dental visit in the last 12 months?: No Did you have a dental problem in the last 6 months where you did not have access to dental care?: No Was dental information given to patient?: Patient has dentist HPI HPI Comments History of Present Illness Details This is a 57-year-old female with mild persistent asthma, hypothyroidism and chronic GERD that complains of left knee pain that started about a month ago after she fell. Has full active range of motion. Right knee x-ray was discussed. Last TSH was within normal limits. GERD stable with PPIs as needed. She use rescue inhaler as needed for her asthma. [facility] Medical History Mild persistent asthma, uncomplicated Internal and external hemorrhoids without complication Bloody stools Hypothyroidism Chronic GERD Chronic constipation Pap smear of cervix shows high risk HPV present Surgical History History of bladder surgery History of colonoscopy History of partial hysterectomy Family History Father HTN (hypertension) Mother Asthma HTN (hypertension) Sister Heart disease Brother Liver cancer Son Asthma Social History Household Members: Children Housing: Apartment Alcohol intake: never Patient Tobacco Use Status: Former Tobacco user Tobacco use type: Cigarette e-Cigarette/Vaping Use: Never Used Second Hand Smoke Exposure: No service: No Current occupational status: disabled Cognitive needs: Yes Hearing needs: No Vision needs: No Questionnaire Thrive Questionnaire Date Thrive assessed: 08/06/22 STEVEN-7 AMB Questionnaire STEVEN-7 Date STEVEN - 7 assessed: 08/06/22 Source: Developed by Drs. Bacilio Rodriguez, Padmaja Peacock, Mj Ochoa and colleagues, with an educational adalberto from [employer]. Review of Systems Const All systems reviewed & are unremarkable except as noted in HPI and below Eyes Reports no additional complaints, Denies change in vision and Denies other visual disturbances Card Denies chest pain at rest, Denies chest pain with activity, Denies edema, Denies irregular heart rhythm, Denies claudication, Denies dyspnea, Denies dyspnea on exertion, Denies orthopnea, Denies paroxysmal nocturnal dyspnea and Denies slow heart rate Resp Denies cough, Denies dyspnea and Denies dyspnea on exertion GI Denies abdominal pain, Denies change in bowel habits, Denies excessive flatus, Denies nausea and Denies vomiting Denies urinary incontinence, Denies urinary hesitancy and Denies urinary urgency Musc Denies abnormal gait, Denies atrophy, Denies deformity and Reports arthralgias Skin/Breast Denies bleeding lesions, Denies changing lesions and Denies rash Neuro Denies abnormal gait Physical exam (Primary Care) Vital Signs: Last Vital Signs BP 132/80 02/22/23 13:43 BMI result Body Mass Index 31.7 Tobacco/Smoking Status: Tobacco use Status Tobacco use date assessed 08/06/22 02/22/23 13:56 Patient Tobacco Use Status Former Tobacco user 02/22/23 13:56 Tobacco use type Cigarette 02/22/23 13:56 e-Cigarette/Vaping Use Never Used 02/22/23 13:56 Thrive Assessment: Date of Thrive Assessment Date Thrive assessed 08/06/22 02/22/23 13:56 Eyes General: appearance normal, both eyes and all related structures Eyelids: Yes eyelids normal Conjunctivae: conjunctivae normal Neck Neck: Yes normal visual inspection and Yes supple Resp Effort & Inspection: normal respiratory effort Auscultation: clear to auscultation bilaterally Cardio Jugular venous distension: no JVD Rate: regular rate Rhythm: regular rhythm Heart sounds: S1 normal heart sound present and S2 normal heart sound present Extrem General: Yes full ROM Assessment and Plan Assessment & Plan (1) Left knee pain: Code(s): M25.562 - Pain in left knee Plan: X-ray ordered (2) Mild persistent asthma, uncomplicated: Code(s): J45.30 - Mild persistent asthma, uncomplicated Plan: Use rescue inhaler as needed (3) Hypothyroidism: Code(s): E03.9 - Hypothyroidism, unspecified Qualifiers: Hypothyroidism type: unspecified Qualified Code(s): E03.9 - Hypothyroidism, unspecified Plan: Continue Synthroid. (4) Chronic GERD: Comment: acid reflux well controlled with PPI and dietary modifications Code(s): K21.9 - Gastro-esophageal reflux disease without esophagitis Plan: Continue PPIs. Orders: Orders XR knee LT 2V Today M25.562 - Pain in left knee Coding Level of Care Code Est Pt Level 4 (04469) Diagnoses Left knee pain M25.562 Mild persistent asthma, uncomplicated J45.30 Hypothyroidism, unspecified type E03.9 Hypothyroidism type: unspecified Chronic GERD K21.9 Time Spent (min) 22
== END 2023-02-22 14:08 | disposition home or self-care (01) ==
PROVIDERS: PCP Internal Medicine; Visit Provider Internal Medicine
DX: M25.562 Pain in left knee (principal); J45.30 Mild persistent asthma, uncomplicated; E03.9 Hypothyroidism, unspecified; K21.9 Gastro-esophageal reflux disease without esophagitis
CPT/HCPCS: 99214

== ENCOUNTER 2023-02-23 10:20 | Outpatient (REF) | payer OTHER, SELFPAY ==
--- NOTE | ~2023-02-23 | XR_ITS ---
EXAMINATION: XR KNEE, LEFT CLINICAL INFORMATION: Pain in left knee COMPARISON: X-ray the left knee December 2022 and standing AP view both knees November 2019 TECHNIQUE: 3 views of the left knee including AP upright FINDINGS: There are marginal osteophytes without joint space narrowing involving all compartments. There is no effusion. Surrounding bone and soft tissues unremarkable XR/XR knee LT 2V IMPRESSION: Mild tricompartmental osteoarthritis unchanged
== END 2023-02-23 10:21 | disposition home or self-care (01) ==
LOC: HO.XRAY 10:20
PROVIDERS: PCP Internal Medicine; Visit Provider Internal Medicine
DX: M25.562 Pain in left knee (principal)
CPT/HCPCS: 73560

== ENCOUNTER 2023-04-26 08:14 | Outpatient (AMB) | payer OTHER, SELFPAY ==
[2023-04-26 08:24] VITALS: BP 120/80; BMI 31.4
--- NOTE | 2023-04-26 08:24 | A.OFFPC_ITS ---
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 Accompanied by: Self / Same As Patient Allergies levothyroxine sodium [From Synthroid] Adverse Reaction (Mild, Verified 04/26/23 08:41) inadequeate response SEAFOOD Allergy (Intermediate, Uncoded 04/26/23 08:41) DOESNT TAKE BECAUSE OF THYROID Medication List - Last Reconciled 04/26/23 by Micaela Fuchs MD clonazepam (Klonopin) 0.5 mg PO DAILY omeprazole 20 mg PO DAILY oxcarbazepine 300 mg PO take 1 tablet every morning and 2 tablets at bedtime; oxycodone 5 mg PO Q6H PRN quetiapine (Seroquel) 100 mg PO BEDTIME sennosides (senna) 17.2 mg (2 x 8.6 mg) PO BEDTIME Synthroid (levothyroxine) 137 mcg PO DAILY 90 days NS trazodone 200 mg PO BEDTIME Ventolin HFA 90 mcg/actuation (albuterol sulfate) 2 puffs inhalation Q6H PRN NS walker (Ultra-Light Rollator misc) As directed Tobacco use date assessed: 08/06/22 Dental Screening Dental Screen Date: 04/26/23 Did you have a dental visit in the last 12 months?: Yes Did you have a dental problem in the last 6 months where you did not have access to dental care?: No Was dental information given to patient?: Patient has dentist HPI HPI Comments History of Present Illness Details This is a 57-year-old female that comes for her physical exam. Last mammogram was April 2022. Last colonoscopy was 2019 and she complains of blood in the stool and I will order Cologuard. No need for Pap smears due to hysterectomy for benign reasons. No chest pain or shortness of breath. [facility] Medical History Mild persistent asthma, uncomplicated Internal and external hemorrhoids without complication Bloody stools Hypothyroidism Chronic GERD Chronic constipation Pap smear of cervix shows high risk HPV present Surgical History History of bladder surgery History of colonoscopy History of partial hysterectomy Family History Father HTN (hypertension) Mother Asthma HTN (hypertension) Sister Heart disease Brother Liver cancer Son Asthma Household Members: Children Housing: Apartment Alcohol intake: never Patient Tobacco Use Status: Former Tobacco user Tobacco use type: Cigarette e-Cigarette/Vaping Use: Never Used Second Hand Smoke Exposure: No service: No Current occupational status: disabled Cognitive needs: Yes Hearing needs: No Vision needs: No Questionnaire Thrive Questionnaire Date Thrive assessed: 08/06/22 STEVEN-7 AMB Questionnaire STEVEN-7 Date STEVEN - 7 assessed: 08/06/22 Source: Developed by Drs. Bacilio Rodriguez, Padmaja Peacock, Mj Ochoa and colleagues, with an educational adalberto from [employer]. Review of Systems Const All systems reviewed & are unremarkable except as noted in HPI and below Eyes Reports no additional complaints, Denies change in vision and Denies other visual disturbances Card Denies chest pain at rest, Denies chest pain with activity, Denies edema, Denies irregular heart rhythm, Denies claudication, Denies dyspnea, Denies dyspnea on exertion, Denies orthopnea, Denies paroxysmal nocturnal dyspnea and Denies slow heart rate Resp Denies cough, Denies dyspnea and Denies dyspnea on exertion GI Denies abdominal pain, Denies change in bowel habits, Denies excessive flatus, Denies nausea and Denies vomiting Denies urinary incontinence, Denies urinary hesitancy and Denies urinary urgency Musc Denies abnormal gait, Denies atrophy, Denies deformity and Denies limited range of motion Skin/Breast Denies bleeding lesions, Denies changing lesions and Denies rash Neuro Denies abnormal gait and Denies lack of coordination Physical exam (Primary Care) Vital Signs: Last Vital Signs BP 120/80 04/26/23 08:24 BMI result Body Mass Index 31.4 Tobacco/Smoking Status: Tobacco use Status Tobacco use date assessed 08/06/22 04/26/23 08:28 Patient Tobacco Use Status Former Tobacco user 04/26/23 08:28 Tobacco use type Cigarette 04/26/23 08:28 e-Cigarette/Vaping Use Never Used 04/26/23 08:28 Thrive Assessment: Date of Thrive Assessment Date Thrive assessed 08/06/22 04/26/23 08:28 Const Orientation/consciousness: patient oriented x3 HENMT Head: Yes normal to inspection, Yes normocephalic and Yes atraumatic Ears: external ears normal Eyes General: appearance normal, both eyes and all related structures Eyelids: Yes eyelids normal Conjunctivae: conjunctivae normal Neck Neck: Yes normal visual inspection and Yes supple Resp Effort & Inspection: normal respiratory effort Auscultation: clear to auscultation bilaterally Cardio Jugular venous distension: no JVD Rate: regular rate Rhythm: regular rhythm Heart sounds: S1 normal heart sound present and S2 normal heart sound present GI Inspection: Yes normal to inspection Palpation (GI): Soft to palpation and nontender Auscultation: normal bowel sounds Skin General skin exam: no rashes or lesions noted Neuro General: patient oriented x3 and no focal motor deficits Extrem General: Yes full ROM Psych Appearance: grossly normal Office Procedures Flu Questionnaire Does the patient have a severe egg allergy?: No Immunizations flu vacc [id number] 6mos up(PF) 60 mcg(15 mcgx4)/0.5 mL IM syringe Performing Provider: Micaela Fuchs MD [facility] Documented (not given) by: KIM Peña on 04/26/23 08:32 Reason Not Given: Patient Refused Assessment and Plan Assessment & Plan (1) Physical exam: Code(s): Z00.00 - Encounter for general adult medical examination without abnormal findings Plan: Repeat in a year. Orders: Orders Lipid Panel Today E78.5 - Hyperlipidemia, unspecified, Z00.00 - Encounter for general adult medical examination without abnormal findings Influenza [id number] Immunization Today Z23 - Encounter for immunization Comprehensive [place]. Panel Fast Today Z00.00 - Encounter for general adult medical examination without abnormal findings Thyroid Stimulating Hormone Today E03.9 - Hypothyroidism, unspecified Referrals Cologuard Test Z12.11 - Encounter for screening for malignant neoplasm of colon, Z12.12 - Encounter for screening for malignant neoplasm of rectum Coding Level of Care Code Est Pt Prev Care 40-64y(02392) Diagnoses Physical exam Z00.00 Time Spent (min) 32
== END 2023-04-26 08:52 | disposition home or self-care (01) ==
PROVIDERS: Visit Provider Internal Medicine
DX: Z00.00 Encounter for general adult medical examination without abnormal findings (principal)
CPT/HCPCS: 99396

== ENCOUNTER 2023-05-04 09:05 | Outpatient (REF) | payer OTHER, SELFPAY ==
[2023-05-04 11:25] LABS: Alanine Aminotransferase 42 U/L (0-31); Albumin Level 4.3 g/dL (3.5-5.0); Alkaline Phosphatase 90 U/L (39-117); Anion Gap 12 (12-20); Aspartate Amino Transferase 27 U/L (5-31); Bilirubin Total 0.8 mg/dL (0.0-1.0); Blood Urea Nitrogen 12 mg/dL (9-16); Calcium 9.6 mg/dL (8.4-10.2); Carbon Dioxide 27 mmol/L (22-29); Chloride 108 mmol/L (96-108); Cholesterol 131 mg/dL (<200); Estimated Glomerular Filt Rate > 60; Glucose Fasting 96 mg/dL (60-99); HDL Cholesterol 38 mg/dL (>40); LDL Cholesterol Calculated 75 mg/dL (<100); Potassium 4.2 mmol/L (3.3-5.1); Sodium 143 mmol/L (135-145); Total Protein 7.7 g/dL (6.5-8.0); Triglycerides 94 mg/dL (<150)
== END 2023-05-04 09:06 | disposition home or self-care (01) ==
LOC: HO.LAB 09:05
PROVIDERS: PCP Internal Medicine; Visit Provider Internal Medicine
DX: Z00.00 Encounter for general adult medical examination without abnormal findings (principal); E78.5 Hyperlipidemia, unspecified; E03.9 Hypothyroidism, unspecified
CPT/HCPCS: 36415; 80053; 80061; 84443

== ENCOUNTER 2023-06-01 11:14 | Outpatient (REF) | payer OTHER, SELFPAY ==
--- NOTE | ~2023-06-01 | MM_ITS ---
EXAMINATION: MM SCREENING DIGITAL BREAST TOMOSYNTHESIS, BILATERAL CLINICAL INFORMATION: Screening. Asymptomatic. COMPARISON: Mammography: 05/28/2022, 05/26/2021, 07/19/2018, 08/24/2017; outside mammography 03/11/2017 and 03/03/2017 ([facility]). TECHNIQUE: Digital breast tomosynthesis is performed in both the craniocaudal and mediolateral oblique views along with computer-aided detection (CAD). Synthesized 2D images are generated from the tomosynthesis. FINDINGS: The breasts are heterogeneously dense, which may obscure small masses (ACR BI-RADS breast composition Category c). There are no suspicious masses, suspicious grouped calcifications, or areas of architectural distortion in either breast. The parenchymal pattern is stable from prior exams. No skin or axillary abnormalities. MM/MM tomosynthesis screening BI IMPRESSION: No mammographic evidence of malignancy. ASSESSMENT: BI-RADS BI-RADS 1 - Negative RECOMMENDATION: Routine annual mammography screening. 1 year F/U This examination should not preclude the clinical evaluation of a suspicious palpable abnormality. This patient's information was entered into a reminder system with a target due date for their next mammogram.
== END 2023-06-01 11:15 | disposition home or self-care (01) ==
LOC: HO.MAMMO 11:14
PROVIDERS: PCP Internal Medicine; Visit Provider Internal Medicine
DX: Z12.31 Encounter for screening mammogram for malignant neoplasm of breast (principal)
CPT/HCPCS: 77063; 77067

== ENCOUNTER → 2023-06-01 11:15 | Outpatient (BNV) | payer OTHER, SELFPAY | PROVIDERS: PCP Internal Medicine; Visit Provider Radiology Diagnostic Radiology | DX: Z12.31 Encounter for screening mammogram for malignant neoplasm of breast (principal) | CPT/HCPCS: 77063; 77067 ==

== ENCOUNTER 2023-08-23 15:34 | Outpatient (AMB) | payer OTHER, SELFPAY ==
[2023-08-23 15:41] VITALS: BP 122/84; BMI 32.1
--- NOTE | 2023-08-23 15:41 | A.OFFPC_ITS ---
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 Required: No Accompanied by: Self / Same As Patient Allergies levothyroxine sodium [From Synthroid] Adverse Reaction (Mild, Verified 08/23/23 15:54) inadequeate response SEAFOOD Allergy (Intermediate, Uncoded 08/23/23 15:54) DOESNT TAKE BECAUSE OF THYROID Medication List - Last Reconciled 08/23/23 by Micaela Fuchs MD clonazepam (Klonopin) 0.5 mg PO DAILY omeprazole 20 mg PO DAILY oxcarbazepine 300 mg PO take 1 tablet every morning and 2 tablets at bedtime; oxycodone 5 mg PO Q6H PRN quetiapine (Seroquel) 100 mg PO BEDTIME sennosides (senna) 17.2 mg (2 x 8.6 mg) PO BEDTIME Synthroid (levothyroxine) 137 mcg PO DAILY 90 days NS Synthroid (levothyroxine) 125 mcg PO DAILY 90 days NS trazodone 200 mg PO BEDTIME Ventolin HFA 90 mcg/actuation (albuterol sulfate) 2 puffs inhalation Q6H PRN NS walker (Ultra-Light Rollator misc) As directed Tobacco use date assessed: 08/23/23 Dental Screening Dental Screen Date: 08/23/23 Did you have a dental visit in the last 12 months?: No Did you have a dental problem in the last 6 months where you did not have access to dental care?: No Was dental information given to patient?: Patient has dentist HPI HPI Comments History of Present Illness Details This is a 57-year-old female with hypothyroidism, chronic GERD, chronic constipation and mild persistent asthma comes today for follow-up on her conditions. TSH will be done today. GERD has been stable with PPIs as needed. Constipation stable with senna as needed. She is rescue inhaler once a month. Denies any chest pain or shortness for breath. Doing well. [facility] Medical History Mild persistent asthma, uncomplicated Internal and external hemorrhoids without complication Bloody stools Hypothyroidism Chronic GERD Chronic constipation Pap smear of cervix shows high risk HPV present Surgical History History of bladder surgery History of colonoscopy History of partial hysterectomy Family History Father HTN (hypertension) Mother Asthma HTN (hypertension) Sister Heart disease Brother Liver cancer Son Asthma Social History Household Members: Children Housing: Apartment Alcohol intake: never Patient Tobacco Use Status: Former Tobacco user Tobacco use type: Cigarette e-Cigarette/Vaping Use: Never Used Second Hand Smoke Exposure: No service: No Current occupational status: disabled Cognitive needs: Yes Hearing needs: No Vision needs: No Questionnaire PHQ-9 Over the last 2 weeks, how often have you been bothered by any of the following problems? 1. Little interest or pleasure in doing things: not at all 2. Feeling down, depressed, or hopeless: not at all 3. Trouble falling or staying asleep, or sleeping too much: not at all 4. Feeling tired or having little energy: not at all 5. Poor appetite or overeating: several days 6. Feeling bad about yourself - or that you are a failure or have let yourself or your family down: not at all 7. Trouble concentrating on things, such as reading the newspaper or watching television: not at all 8. Moving or speaking so slowly that other people could have noticed. Or the opposite - being so fidgety or restless that you have been moving around a lot more than usual: not at all 9. Thoughts that you would be better off or of hurting yourself in some way: not at all Total score: 1 Depression Screening Interpretation: Negative Depression Screening Done: Yes 81310 - PHQ-9 Billing: Yes Source: Developed by Drs. Bacilio Rodriguez, Padmaja Peacock, Mj Ochoa and colleagues, with an educational adalberto from [employer]. Thrive Questionnaire Date Thrive assessed: 08/23/23 I am a: Patient What is your living situation today?: I have a steady place to live Within the past 12 months, did the food you bought not last and you didn't have the money to get more?: Never true Within the past 12 months, did you worry whether your food would run out before you got money to buy more?: Never true Do you have trouble paying for medicines?: No Do you have trouble getting transportation to medical appointments?: No Do you have trouble paying your heating and electricity bill?: No Do you have trouble taking care of your child, family member or friend?: No Do you have trouble with day-to-day activities such as bathing, preparing meals, shopping, managing finances, etc.?: No Are you currently unemployed and looking for a job?: No Are you interested in more education?: No Please select the resources that you would like help with: None Currently or been in a relationship where the following occur: no concerns reported THRIVE Score: 0 AUDIT C Alcohol Use Questionnaire (AUDIT-C) 1. How often do you have a drink containing alcohol?: Never Total Score: 0 STEVEN-7 AMB Questionnaire STEVEN-7 Date STEVEN - 7 assessed: 08/23/23 Feeling nervous, anxious, or on edge: 1 = Several days Not being able to stop or control worryin = Not at all Worrying too much about different things: 0 = Not at all Trouble relaxin = Not at all Being so restless that it is hard to sit still: 0 = Not at all Becoming easily annoyed or irritable: 0 = Not at all Feeling afraid as if something awful might happen: 0 = Not at all Total STEVEN-7 score (0-4 normal; 5-9 mild; 10-14 moderate; 15-21 severe): 1 Source: Developed by Drs. Bacilio Rodriguez, Padmaja Peacock, Mj Ochoa and colleagues, with an educational adalberto from [employer]. STEVEN-7 Assessment Billing STEVEN-7 Assessment Tool: STEVEN-7 Assessment 37007 Review of Systems Const All systems reviewed & are unremarkable except as noted in HPI and below Eyes Reports no additional complaints, Denies change in vision and Denies other visual disturbances Card Denies chest pain at rest, Denies chest pain with activity, Denies edema, Denies irregular heart rhythm, Denies claudication, Denies dyspnea, Denies dyspnea on exertion, Denies orthopnea, Denies paroxysmal nocturnal dyspnea and Denies slow heart rate Resp Denies cough, Denies dyspnea and Denies dyspnea on exertion GI Denies abdominal pain, Denies change in bowel habits, Denies excessive flatus, Denies nausea and Denies vomiting Denies urinary incontinence, Denies urinary hesitancy and Denies urinary urgency Physical exam (Primary Care) Vital Signs: Last Vital Signs BP 122/84 08/23/23 15:41 BMI result Body Mass Index 32.1 Tobacco/Smoking Status: Tobacco use Status Tobacco use date assessed 08/23/23 08/23/23 15:48 Patient Tobacco Use Status Former Tobacco user 08/23/23 15:48 Tobacco use type Cigarette 08/23/23 15:48 e-Cigarette/Vaping Use Never Used 08/23/23 15:48 PHQ-9: PHQ-9 Score PHQ-9: Total score 1 08/23/23 15:57 Depression Screening Interpretation: Negative Thrive Assessment: Date of Thrive Assessment Date Thrive assessed 08/23/23 08/23/23 15:48 Currently or been in a relationship where the following occur: no concerns reported Resp Effort & Inspection: normal respiratory effort Auscultation: clear to auscultation bilaterally Cardio Jugular venous distension: no JVD Rate: regular rate Rhythm: regular rhythm Heart sounds: S1 normal heart sound present and S2 normal heart sound present Extrem General: Yes full ROM Assessment and Plan Assessment & Plan (1) Mild persistent asthma, uncomplicated: Code(s): J45.30 - Mild persistent asthma, uncomplicated Plan: Use rescue inhaler as needed. (2) Hypothyroidism: Code(s): E03.9 - Hypothyroidism, unspecified Qualifiers: Hypothyroidism type: unspecified Qualified Code(s): E03.9 - Hypothyroidism, unspecified Plan: Monitor TSH. Continue levothyroxine. (3) Chronic GERD: Comment: acid reflux well controlled with PPI and dietary modifications Code(s): K21.9 - Gastro-esophageal reflux disease without esophagitis Plan: Continue PPIs as needed. (4) Chronic constipation: Comment: A pleasant -54-year-old female with chronic constipation- She is up-to-date on EGD-colonoscopy, May [address] Flores-no hemorrhoids She will be due for asymptomatic screening colonoscopy no later than 2026- Fit test years 3 and 5 Encouraged to call with questions or concerns Continue to follow bowel regimen as we discussed-maintain high-fiber diet Code(s): K59.09 - Other constipation Plan: Continue senna as needed. Orders: Orders Thyroid Stimulating Hormone Today E03.9 - Hypothyroidism, unspecified Medications: Discontinued Synthroid (levothyroxine) Discontinued Reason: Patient Completed Course 137 mcg PO DAILY 90 days 90 tabs 0RF NS E03.9 - Hypothyroidism, unspecified Coding Level of Care Code Est Pt Level 4 (19780) Diagnoses Mild persistent asthma, uncomplicated J45.30 Hypothyroidism, unspecified type E03.9 Hypothyroidism type: unspecified Chronic GERD K21.9 Chronic constipation K59.09 Additional Codes STEVEN-7 Assessment Billing - STEVEN-7 Assessment Tool: STEVEN-7 Assessment 83195 ([id number]) Time Spent (min) 23
== END 2023-08-23 16:05 | disposition home or self-care (01) ==
PROVIDERS: PCP Internal Medicine; Visit Provider Internal Medicine
DX: J45.30 Mild persistent asthma, uncomplicated (principal); E03.9 Hypothyroidism, unspecified; K21.9 Gastro-esophageal reflux disease without esophagitis; K59.09 Other constipation
CPT/HCPCS: 99214

== ENCOUNTER 2023-08-23 16:10 | Outpatient (REF) | payer OTHER, SELFPAY ==
[2023-08-23 18:44] LABS: Thyroid Stimulating Hormone 2.67 uIU/mL (0.32-4.0)
== END 2023-08-23 16:11 | disposition home or self-care (01) ==
LOC: HO.LAB 16:10
PROVIDERS: PCP Internal Medicine; Visit Provider Internal Medicine
DX: E03.9 Hypothyroidism, unspecified (principal)
CPT/HCPCS: 36415; 84443

== ENCOUNTER 2023-11-01 16:52 | Outpatient (AMB) | payer OTHER, SELFPAY ==
--- NOTE | 2023-11-01 16:53 | A.OFFPC_ITS ---
Intake Visit Reasons: Bad cough, congestion Intake Note: Telehealth for cough and congestion Child Psychometrist Required: No Accompanied by: Self / Same As Patient Allergies levothyroxine sodium [From Synthroid] Adverse Reaction (Mild, Verified 11/01/23 17:11) inadequeate response SEAFOOD Allergy (Intermediate, Uncoded 11/01/23 17:11) DOESNT TAKE BECAUSE OF THYROID Medication List - Last Reconciled 11/01/23 by Micaela Fuchs MD [adult diapers pull-ups As directed] azithromycin 250 mg PO DIRECTED 5 days clonazepam (Klonopin) 0.5 mg PO DAILY omeprazole 20 mg PO DAILY oxcarbazepine 300 mg PO take 1 tablet every morning and 2 tablets at bedtime; oxycodone 5 mg PO Q6H PRN quetiapine (Seroquel) 100 mg PO BEDTIME sennosides (senna) 17.2 mg (2 x 8.6 mg) PO BEDTIME Synthroid (levothyroxine) 125 mcg PO DAILY 90 days NS trazodone 200 mg PO BEDTIME Ventolin HFA 90 mcg/actuation (albuterol sulfate) 2 puffs inhalation Q6H PRN NS walker (Ultra-Light Rollator misc) As directed Tobacco use date assessed: 08/23/23 Dental Screening Dental Screen Date: 08/23/23 HPI HPI Comments History of Present Illness Details This is a 58-year-old female with chronic GERD, chronic constipation and hypothyroidism that has tele health visit by video complaining of dry cough, nasal congestion and joint pain that started 2 days ago. No fever. No chronic contacts. GERD has been stable with PPIs. Last TSH was normal. Constipation well controlled with senna as needed. [facility] Medical History (Updated 11/01/23 @ 17:23 by Micaela Fuchs MD) Mild persistent asthma, uncomplicated Internal and external hemorrhoids without complication Bloody stools Hypothyroidism Chronic GERD Chronic constipation Pap smear of cervix shows high risk HPV present Surgical History History of bladder surgery History of colonoscopy History of partial hysterectomy Family History Father HTN (hypertension) Mother Asthma HTN (hypertension) Sister Heart disease Brother Liver cancer Son Asthma Social History Household Members: Children Housing: Apartment Alcohol intake: never Patient Tobacco Use Status: Former Tobacco user Tobacco use type: Cigarette e-Cigarette/Vaping Use: Never Used Second Hand Smoke Exposure: No service: No Current occupational status: disabled Cognitive needs: Yes Hearing needs: No Vision needs: No Questionnaire Thrive Questionnaire Date Thrive assessed: 08/23/23 STEVEN-7 AMB Questionnaire STEVEN-7 Date STEVEN - 7 assessed: 08/23/23 Source: Developed by Drs. Bacilio Rodriguez, Padmaja Peacock, Mj Ochoa and colleagues, with an educational adalberto from [employer]. Review of Systems Const All systems reviewed & are unremarkable except as noted in HPI and below Card Denies chest pain at rest, Denies chest pain with activity, Denies edema, Denies irregular heart rhythm, Denies claudication, Denies dyspnea, Denies dyspnea on exertion, Denies orthopnea, Denies paroxysmal nocturnal dyspnea and Denies slow heart rate Resp Denies cough, Denies dyspnea and Denies dyspnea on exertion Physical exam (Primary Care) Tobacco/Smoking Status: Tobacco use Status Tobacco use date assessed 08/23/23 11/01/23 16:56 Patient Tobacco Use Status Former Tobacco user 11/01/23 16:56 Tobacco use type Cigarette 11/01/23 16:56 e-Cigarette/Vaping Use Never Used 11/01/23 16:56 Thrive Assessment: Date of Thrive Assessment Date Thrive assessed 08/23/23 11/01/23 16:56 Eyes General: appearance normal, both eyes and all related structures Eyelids: Yes eyelids normal Conjunctivae: conjunctivae normal Neck Neck: Yes normal visual inspection and Yes supple Extrem General: Yes full ROM Telehealth Telehealth Telehealth Platform: Other (please specify) ([employer] [facility]) Location of provider rendering services: practice address Location of patient: address on file Patient Identification confirmed using: Name, : Yes Telehealth method: video Patient verbally consented to treatment: Yes Patient verbally consented to billing insurance company: Yes Patient informed of any privacy concerns related to visit: Yes Minutes spent on Phone/Video with Pt.: 15 Assessment and Plan Assessment & Plan (1) URI (upper respiratory infection): Code(s): J06.9 - Acute upper respiratory infection, unspecified Qualifiers: URI type: unspecified URI Qualified Code(s): J06.9 - Acute upper respiratory infection, unspecified Plan: COVID, flu and RSV ordered to be done tomorrow. If negative start Z-Anthony. (2) Chronic GERD: Comment: acid reflux well controlled with PPI and dietary modifications Code(s): K21.9 - Gastro-esophageal reflux disease without esophagitis Plan: Continue PPIs. (3) Chronic constipation: Comment: A pleasant -54-year-old female with chronic constipation- She is up-to-date on EGD-colonoscopy, May [address] Flores-no hemorrhoids She will be due for asymptomatic screening colonoscopy no later than 2026- Fit test years 3 and 5 Encouraged to call with questions or concerns Continue to follow bowel regimen as we discussed-maintain high-fiber diet Code(s): K59.09 - Other constipation Plan: Continue senna as needed. (4) Hypothyroidism: Code(s): E03.9 - Hypothyroidism, unspecified Qualifiers: Hypothyroidism type: unspecified Qualified Code(s): E03.9 - Hypothyroidism, unspecified Plan: Continue Synthroid. Monitor TSH. Orders: Orders SARS-CoV2/FLU/RSV Today R09.89 - Other specified symptoms and signs involving the circulatory and respiratory systems Medications: New azithromycin Take 2 tabs the first day,then 1 tab for the next 4 days 250 mg PO DIRECTED 6 tabs 0RF 5 days Coding Level of Care Code Tele Est Pt Level 4 (63519) Complex EM visit Add On G2211 Diagnoses Upper respiratory tract infection, unspecified type J06.9 URI type: unspecified URI Chronic GERD K21.9 Chronic constipation K59.09 Hypothyroidism, unspecified type E03.9 Hypothyroidism type: unspecified Time Spent (min) 15
== END 2023-11-01 17:35 | disposition home or self-care (01) ==
LOC: HO.HMGH 16:52
PROVIDERS: PCP Internal Medicine; Visit Provider Internal Medicine
DX: J06.9 Acute upper respiratory infection, unspecified (principal); K21.9 Gastro-esophageal reflux disease without esophagitis; K59.09 Other constipation; E03.9 Hypothyroidism, unspecified
CPT/HCPCS: 99214; G2211

== ENCOUNTER 2023-11-02 08:49 | Outpatient (REF) | payer OTHER, SELFPAY ==
[2023-11-02 09:40] LABS: Influenza A PCR NEGATIVE (Negative); Influenza B PCR NEGATIVE (Negative); Resp Syncy Virus RNA Qual PCR NEGATIVE (Negative); SARS COV2 PCR INHOUSE NEGATIVE (Negative)
== END 2023-11-02 08:50 | disposition home or self-care (01) ==
LOC: HO.LAB 08:49
PROVIDERS: PCP Internal Medicine; Visit Provider Internal Medicine
DX: R09.89 Other specified symptoms and signs involving the circulatory and respiratory systems (principal)
CPT/HCPCS: 0241U

== ENCOUNTER 2024-02-12 20:16 | Emergency (ER) | payer OTHER, SELFPAY ==
--- NOTE | ~2024-02-12 | CT_ITS ---
EXAMINATION: CT HEAD WITHOUT CONTRAST CLINICAL INFORMATION: Headache. Nausea. Lightheadedness. Change in vision. COMPARISON: CT head from 10/20/2017. TECHNIQUE: Contiguous axial imaging was performed from the skull base to vertex without intravenous administration of contrast. This CT examination was performed using dose optimization techniques as appropriate, variously including the following: *Automated exposure control. *Adjustment of mA and/or kV according to patient size (this includes techniques or standardized protocols for targeted exams where dose is matched to indication/reason for exam; i.e. extremities or head). *Use of iterative reconstruction technique. DLP: 605 mGy-cm FINDINGS: There is no evidence of acute intracranial hemorrhage or edematous territorial infarction. Campbell-white matter differentiation is preserved. A few foci of hypoattenuation in the periventricular and deep white matter are consistent with mild microangiopathy. The ventricles are normal in morphology and size. No evidence for obstructive hydrocephalus. The cerebellar tonsils are mildly low lying, positioned 0.4 cm below the foramen magnum. The suprasellar cistern remains widely patent. The CSF space of the foramen magnum is maintained. No abnormal mass effect or midline shift. No extra-axial fluid collections. No acute soft tissue or osseous abnormalities. Mild mucosal thickening of the paranasal sinuses. The mastoid air cells and middle ear cavities are clear. CT/CT head/brain wo IV con IMPRESSION: 1. No evidence of acute intracranial hemorrhage or edematous territorial infarction. 2. Mild underlying microangiopathy. 3. Mild cerebellar tonsillar ectopia. Electronically signed by: Solo Aceves DO 02/12/2024 11:57 PM EDT
[2024-02-12 20:21] VITALS: BP 138/86; BP 146/85; PULSE 88; PULSE 95; RESP 22; TEMP 36.6; O2SAT 98; BMI 26.6
[2024-02-12 22:38] VITALS: BP 118/62; PULSE 72; RESP 19; TEMP 36.4; O2SAT 97
--- NOTE | 2024-02-12 22:54 | ED.HA ---
HPI - Headache General Chief Complaint: Headache Stated Complaint: Migraine Time Seen by Provider: 02/12/24 21:24 Source: patient Mode of arrival: ambulatory Limitations: language barrier (Malay speaking only, official court interpreter used) History of Present Illness ED Provider: Dr. Guillermo Shafer HPI Narrative: 58-year-old female with a history of migraines, asthma, thyroid disease who presents emergency department for evaluation of headache with visual change, nausea and dizziness. Patient states that for the past 2 days she has had a intermittent headache. She points to the occipital area and right side of her head when asked to localize the pain. She states the pain is a pressure-like pain which was 8/10 at its worst. She states that she had associated nausea with no vomiting and occasional room spinning. Patient was at a republican when the headache came back she states that she had nausea but no vomiting. She states that she then lost her vision briefly. She closed her eyes and when she opened her eyes her vision was blurred in both eyes. She denied double vision. She states that she had a room spinning sensation. She states that noises and bright lights were bothering her eyes. Her symptoms got worse so an ambulance was called. She was given Zofran 4 mg IV and fentanyl 75 mg IV in route by the paramedics. At the time my evaluation she states that her headache is come back. She states that her vision is normal but she does have nausea and feels lightheaded. Related Data Home Medications ?Medication ?Instructions ?Recorded ?Confirmed clonazepam 0.5 mg tablet (Klonopin) 0.5 mg PO DAILY 03/02/20 11/01/23 oxcarbazepine 300 mg tablet 300 mg PO .COMPLEX 03/02/20 11/01/23 quetiapine 100 mg tablet (Seroquel) 100 mg PO BEDTIME 03/02/20 11/01/23 trazodone 100 mg tablet 200 mg PO BEDTIME 03/02/20 11/01/23 Previous Rx's ?Medication ?Instructions ?Recorded walker (Ultra-Light Rollator misc) #1 ea 04/04/20 sennosides 8.6 mg capsule (senna) 17.2 mg (2 x 8.6 mg) PO BEDTIME 09/25/20 #30 caps oxycodone 5 mg tablet 5 mg PO Q6H PRN pain #20 tabs 01/03/23 Ventolin HFA 90 mcg/actuation 2 puff inhalation Q6H PRN for 05/06/23 aerosol inhaler (albuterol sulfate) wheezing #18 ea adult diapers pull-ups #120 ea 10/05/23 Synthroid 125 mcg tablet 125 mcg PO DAILY 90 days #90 tabs 10/27/23 (levothyroxine) azithromycin 250 mg tablet 250 mg PO DIRECTED 5 days #6 11/01/23 tabs omeprazole 20 mg capsule,delayed 20 mg PO DAILY #90 caps 02/04/24 release metoclopramide HCl 10 mg tablet 10 mg PO Q6H PRN nausea and 02/13/24 (Reglan) vomiting #14 tabs Allergies Allergy/AdvReac Type Severity Reaction Status Date / Time levothyroxine sodium AdvReac Mild inadequeate Verified 02/12/24 20:26 [From Synthroid] response SEAFOOD Allergy Intermediate DOESNT Uncoded 02/12/24 20:26 TAKE BECAUSE OF THYROID Review of Systems Review of Systems: Yes all other systems are reviewed and are negative [facility] Past Medical History [facility] Narrative: Social history: She denies tobacco, alcohol and drug use. Medical History Mild persistent asthma, uncomplicated Internal and external hemorrhoids without complication Bloody stools Hypothyroidism Chronic GERD Chronic constipation Pap smear of cervix shows high risk HPV present Surgical History History of bladder surgery History of colonoscopy History of partial hysterectomy Family History Family History Father HTN (hypertension) Mother Asthma HTN (hypertension) Sister Heart disease Brother Liver cancer Son Asthma Social History Social History Household Members: Children Housing: Apartment Alcohol intake: never Patient Tobacco Use Status: Former Tobacco user Tobacco use type: Cigarette e-Cigarette/Vaping Use: Never Used Second Hand Smoke Exposure: No Advance Directives: No Advance Directives Information Provided: No Do you have a plan to hurt others: No Plan service: No Current occupational status: disabled Cognitive needs: Yes Hearing needs: No Vision needs: No Physical Exam Vital Signs: Vital Signs: Last Vital Signs Temp 97.5 F 02/13/24 00:57 Pulse 71 02/13/24 00:57 Resp 18 02/13/24 00:57 BP 111/70 02/13/24 00:57 Pulse Ox 98 02/13/24 00:57 O2 Del Method Room Air 02/13/24 00:57 BMI result Body Mass Index 26.6 Vital signs were normal Exam: General: Awake, alert in no distress Head: Normocephalic, atraumatic, no tenderness palpation over the temporal regions bilaterally, she does have tenderness palpation of the occipital region of her head EENT: PERRL, Lids normal, sclera normal, conjunctiva normal, nose normal , ears normal, throat without erythema or exudates Neck: Supple, no adenopathy Lung: breath sounds symmetric, no wheezing, rales or rhonchi Chest: symmetric movement, nontender Heart: regular rate and rhythm, normal S1, S2 no murmurs or rubs Abdomen: soft, non-tender, nondistended, normal bowel sounds Back: no vertebral tenderness, no CVAT Extremities: no deformities, moves all extremities symmetrically Neuro: Awake, alert, oriented, normal speech, cranial nerves intact, moves all extremities symmetrically Psych: Pleasant, cooperative Medications Administered Discontinued Medications Generic Name Dose Route Start Last Admin Trade Name Michelle PRN Reason Stop Dose Admin Diphenhydramine HCl 50 mg 02/12/24 22:54 02/12/24 23:10 Diphenhydramine Hcl 50 Mg/Ml Vial IVPUSH 02/12/24 22:55 50 mg ONCE STA Administration Sodium Chloride 1,000 mls @ 999 mls/hr 02/12/24 22:54 02/13/24 00:28 Ns IV 02/12/24 23:54 Infused .Q1H1M STA Infusion Ketorolac Tromethamine 15 mg 02/12/24 22:54 02/12/24 23:10 Ketorolac Tromethamine 15 Mg/Ml Vial IVPUSH 02/12/24 22:55 15 mg ONCE STA Administration Metoclopramide HCl 10 mg 02/12/24 22:54 02/12/24 23:10 Metoclopramide Hcl 10 Mg/2 Ml Vial IVPUSH 02/12/24 22:55 10 mg ONCE STA Administration Medical Decision Making Medical Decision Making MDM Narrative: 58-year-old female with a history of migraines, asthma, thyroid disease who presents emergency department for evaluation of headache with visual change, nausea and dizziness. Patient was been experiencing in his occipital headache intermittently for the past 2 days, headache occurred while she was at a republican, she lost vision briefly then developed blurred vision, nausea, photophobia, phonophobia and room spinning dizziness. At the time my evaluation the patient was having a headache which was 8/10 associated with nausea, photophobia photophobia and lightheadedness. Vital signs were normal. Physical examination was unremarkable. Differential diagnosis: ?Includes but is not limited to: Migraine headache, giant cell arteritis, intracranial bleed, stroke, TIA, electrolyte abnormalities, anemia Following evaluation was ordered: CBC, CMP, CRP, ESR, CT scan of the head without IV contrast Patient was initially treated with the following: Normal saline 1 L IV, Benadryl 50 mg IV, Toradol 15 mg IV, Reglan 10 mg IV Course: 00:[address] scan of the head without IV contrast did not reveal any significant abnormalities to explain the patient's headache. Patient's headache is completely resolved with the above treatment and her other symptoms have resolved as well. Patient's laboratory evaluation was also unremarkable. Patient will be discharged home with the following migraine regimen, Reglan 10 mg, Benadryl 50 mg and Excedrin migraine 2 tablets every 6 hours as needed for pain. She was given printed and verbal instructions and discharged home. Admission/Observation Consideration of admission/observation: Escalation of care including admission/observation considered (Yes) Lab Data [facility] Lab Attestation statement: I reviewed the patient's lab results. My interpretation patient's laboratory evaluation as follows: CBC was normal. CMP was normal. CRP is normal at 0.32. ESR was normal-giant cell arteritis is unlikely. 02/12/24 23:35 02/12/24 23:35 Labs: Lab Results 02/12/24 Range/Units 23:35 WBC 9.5 (4.8-10.8) X10*3/uL RBC 3.90 L (4.20-5.50) X10*6/uL Hgb 12.2 (12.0-16.0) g/dl Hct 37.8 (37.0-47.0) % MCV 96.9 (80.0-98.0) fL MCH 31.3 (27.0-33.0) pg MCHC 32.3 (31.0-35.0) g/dl RDW 14.5 (11.0-16.0) % Plt Count 242 (160-400) X10*3/uL MPV 9.7 (9.4-12.3) fL Immature Gran % (Auto) 0.2 (0.0-0.4) % Neut % (Auto) 77.3 H (45-73) % Lymph % (Auto) 14.3 L (20-40) % [place] % (Auto) 6.4 (2-11) % Eos % (Auto) 1.5 (0-4) % Baso % (Auto) 0.3 (0-2) % Lymph # (Auto) 1.4 (1.2-4.9) X10*3/uL [place] # (Auto) 0.6 (0.1-1.2) X10*3/uL Eos # (Auto) 0.1 (0.0-0.4) X10*3/uL Baso # (Auto) 0.0 (0.0-0.2) X10*3/uL Abs Immat Gran (auto) 0.02 (0.00-0.03) X10*3/uL Absolute Neuts (auto) 7.3 (2.0-8.3) x10*3/uL Absolute Nucleated RBC 0.000 (0.0-0.012) X10*3/uL Nucleated RBC % (auto) 0.0 (0.0-0.2) /100WBC ESR 14 (0-20) MM/HR APTT 32.2 (26.0-36.8) SEC Sodium 143 (135-145) mmol/L Potassium 4.4 (3.3-5.1) mmol/L Chloride 110 H (96-108) mmol/L Carbon Dioxide 26 (22-29) mmol/L Anion Gap 11 L (12-20) BUN 12 (9-16) mg/dL Creatinine 0.71 (0.5-1.4) mg/dL Estim Creat Clear Calc 93.2 Estimated GFR > 60 Random Glucose 104 (60-115) mg/dL Calcium 9.6 (8.4-10.2) mg/dL Total Bilirubin 0.5 (0.0-1.0) mg/dL AST 26 (5-31) U/L ALT 41 H (0-31) U/L Alkaline Phosphatase 89 (39-117) U/L C-Reactive Protein 0.32 (< or = 0.50) mg/dL Total Protein 7.3 (6.5-8.0) g/dL Albumin 4.3 (3.5-5.0) g/dL Radiology Impression Discussion of test interpretation with radiology: I have reviewed the radiologist's reading. Radiologist Impression: CT head/brain wo IV con IMPRESSION: 1. No evidence of acute intracranial hemorrhage or edematous territorial infarction. 2. Mild underlying microangiopathy. 3. Mild cerebellar tonsillar ectopia. Electronically signed by: Solo Aceves DO 02/12/2024 11:57 PM EDT RP Dictated By: Arron Aceves DO Discharge Plan Discharge Clinical Impression: Migraine Qualifiers: Status migrainosus presence: without status migrainosus Intractability: not intractable Patient Disposition: Home, Self-Care Additional Instructions: The CT scan of your head did not reveal any significant abnormalities to explain your headache. Your blood work was unremarkable. Your symptoms are consistent with a migraine.I want you to take the following 3 medications together every 6 hours as needed for headache, nausea or vomiting. Reglan (metoclopramide) in 10 mg, 1 pill Benadry (diphenhydramine) l 25 mg, 2 pills Excedrin migraine (acetaminophen, aspirin, caffeine), 2 pills. After you take these medications, lie down in a dark quiet room and try to fall asleep. ?These medications will make you sleepy, do not drive or work after taking these medications. Follow-up with your doctor in 2 days. Please return to the emergency department if your symptoms get worse or if you develop any symptoms that are concerning to you. Prescriptions: New metoclopramide HCl [Reglan] 10 mg tablet 10 mg PO Q6H PRN (Reason: nausea and vomiting) Qty: 14 0RF No Action (DME) Ultra-Light Rollator Misc See Rx Instructions .ROUTE .MEDSUPPLY Qty: 1 0RF Rx Instructions: As directed senna 8.6 mg capsule 17.2 mg PO BEDTIME Qty: 30 0RF albuterol sulfate [Ventolin HFA] 90 mcg/actuation HFA aerosol inhaler 2 puff inhalation Q6H PRN (Reason: for wheezing) Qty: 18 3RF (DME) adult diapers pull-ups large See Rx Instructions .Route .MEDSUPPLY Qty: 120 11RF Rx Instructions: As directed levothyroxine [Synthroid] 125 mcg tablet 125 mcg PO DAILY 90 Days Qty: 90 1RF omeprazole 20 mg capsule,delayed release(DR/EC) 20 mg PO DAILY Qty: 90 2RF oxycodone 5 mg tablet 5 mg PO Q6H PRN (Reason: pain) Qty: 20 0RF Rx Instructions: Partial Fill upon patient request. azithromycin 250 mg tablet 250 mg PO DIRECTED 5 Days Qty: 6 0RF Rx Instructions: Take 2 tabs the first day,then 1 tab for the next 4 days trazodone 100 mg tablet 200 mg PO BEDTIME quetiapine [Seroquel] 100 mg tablet 100 mg PO BEDTIME Patient Comments: 1/2-1 tablet PRN clonazepam [Klonopin] 0.5 mg tablet 0.5 mg PO DAILY Patient Comments: 1/2-1 tablet oxcarbazepine 300 mg tablet 300 mg PO .COMPLEX Patient Comments: 1 tablet every morning and 2 tablets at bedtime Rx Instructions: 300 mg PO take 1 tablet every morning and 2 tablets at bedtime; Interventions: ED Discharge Assessment Last Done: 02/13/24 00:57 Discharge Date/Time: 02/13/24 00:57 Print Language: Malay
[2024-02-12] MEDS: Metoclopramide HCl 10 MG/2 ML VIAL IVPUSH (23:10)
[2024-02-12] MEDS: diphenhydrAMINE HCL 50 MG/ML VIAL IVPUSH (23:10)
[2024-02-12] MEDS: Ketorolac Tromethamine 15 MG/ML VIAL IVPUSH (23:10)
[2024-02-12] MEDS: 0.9 % Sodium Chloride 1,000 ML 999 ML IV (23:27)
[2024-02-12 23:39] LABS: MANUAL DIFF FLAG NO
[2024-02-12 23:41] LABS: Basophils Percent Auto 0.3 % (0-2); Eosinophils Absolute Auto 0.1 X10*3/uL (0.0-0.4); Eosinophils Percent Auto 1.5 % (0-4); Hematocrit 37.8 % (37.0-47.0); Hemoglobin 12.2 g/dl (12.0-16.0); Imm Gran Abs Auto 0.02 X10*3/uL (0.00-0.03); Imm Gran Pct Auto 0.2 % (0.0-0.4); Lymphocytes Absolute Auto 1.4 X10*3/uL (1.2-4.9); Lymphocytes Percent Auto 14.3 % (20-40); Mean Corpuscular HGB Conc 32.3 g/dl (31.0-35.0); Mean Corpuscular Hemoglobin 31.3 pg (27.0-33.0); Mean Corpuscular Volume 96.9 fL (80.0-98.0); Mean Platelet Volume 9.7 fL (9.4-12.3); Monocytes Absolute Auto 0.6 X10*3/uL (0.1-1.2); Monocytes Percent Auto 6.4 % (2-11); Neutrophils Absolute Auto 7.3 x10*3/uL (2.0-8.3); Neutrophils Percent Auto 77.3 % (45-73); Platelet Count 242 X10*3/uL (160-400); Red Cell Distribution Width 14.5 % (11.0-16.0); White Blood Count 9.5 X10*3/uL (4.8-10.8)
[2024-02-12 23:50] LABS: Partial Thromboplastin Time 32.2 SEC (26.0-36.8)
[2024-02-12 23:55] LABS: Alanine Aminotransferase 41 U/L (0-31); Albumin Level 4.3 g/dL (3.5-5.0); Alkaline Phosphatase 89 U/L (39-117); Anion Gap 11 (12-20); Aspartate Amino Transferase 26 U/L (5-31); Bilirubin Total 0.5 mg/dL (0.0-1.0); Blood Urea Nitrogen 12 mg/dL (9-16); C Reactive Protein 0.32 mg/dL (< or = 0.50); Calcium 9.6 mg/dL (8.4-10.2); Carbon Dioxide 26 mmol/L (22-29); Chloride 110 mmol/L (96-108); Creatinine Clr Calc Pharmacy 93.2; Estimated Glomerular Filt Rate > 60; Glucose Random 104 mg/dL (60-115); Potassium 4.4 mmol/L (3.3-5.1); Sodium 143 mmol/L (135-145); Total Protein 7.3 g/dL (6.5-8.0)
[2024-02-13 00:56] VITALS: BP 111/70; PULSE 71; RESP 18; TEMP 36.4; O2SAT 98
[2024-02-13 00:57] VITALS: BP 111/70; PULSE 71; RESP 18; TEMP 36.4; O2SAT 98
[2024-02-13 01:11] LABS: Erythrocyte Sedimentation Rate 14 MM/HR (0-20)
== END 2024-02-13 00:57 | disposition home or self-care (01) ==
PROVIDERS: Emergency Provider Emergency Medicine Emergency Medical Services; PCP Internal Medicine
DX: G43.909 Migraine, unspecified, not intractable, without status migrainosus (principal); R42 Dizziness and giddiness; H53.8 Other visual disturbances; R11.0 Nausea; E03.9 Hypothyroidism, unspecified; J45.909 Unspecified asthma, uncomplicated; Z87.891 Personal history of nicotine dependence; Z79.899 Other long term (current) drug therapy; R53.1 Weakness
CPT/HCPCS: 36415; 70450; 80053; 85025; 85652; 85730; 86140; 96361; 96374; 96375; 99284; J1200; J1885; J2765

== ENCOUNTER 2024-02-17 08:49 | Outpatient (AMB) | payer OTHER, SELFPAY ==
--- NOTE | 2024-02-17 08:56 | MHC.PC.OV ---
Vital Signs 02/17/24 08:57 Height 5 ft 1 in Weight 164 lb BMI 31.0 BP 142/90 H Blood Pressure Location Lt brachial Position Sitting Intake Visit Reasons: [facility] [place] Required: No Accompanied by: Self / Same As Patient Allergies levothyroxine sodium [From Synthroid] Adverse Reaction (Mild, Verified 02/17/24 09:12) inadequeate response SEAFOOD Allergy (Intermediate, Uncoded 02/17/24 09:12) DOESNT TAKE BECAUSE OF THYROID Medication List - Last Reconciled 02/17/24 by Micaela Fuchs MD [adult diapers pull-ups As directed] clonazepam (Klonopin) 0.5 mg PO DAILY metoclopramide HCl (Reglan) 10 mg PO Q6H PRN omeprazole 20 mg PO DAILY oxcarbazepine 300 mg PO take 1 tablet every morning and 2 tablets at bedtime; quetiapine (Seroquel) 100 mg PO BEDTIME sennosides (senna) 17.2 mg (2 x 8.6 mg) PO BEDTIME Synthroid (levothyroxine) 125 mcg PO DAILY 90 days NS trazodone 200 mg PO BEDTIME Ventolin HFA 90 mcg/actuation (albuterol sulfate) 2 puffs inhalation Q6H PRN NS walker (Ultra-Light Rollator misc) As directed Tobacco use date assessed: 08/23/23 Dental Screening Dental Screen Date: 02/17/24 Did you have a dental visit in the last 12 months?: No Did you have a dental problem in the last 6 months where you did not have access to dental care?: No Was dental information given to patient?: Patient has dentist HPI HPI Comments History of Present Illness Details This is a 58-year-old female with hypothyroidism, chronic GERD and chronic constipation that comes today as hospital discharge follow-up with discharge date 02/12/2024 due to a severe headache pressure like in quality associated with photosensitivity and nausea most likely due to a migraine. Head CT was done showing no acute abnormality. I will start her on sumatriptan as needed and magnesium at bedtime. Will also refer her to Neurology. There was no neurological deficit. Last TSH was normal. GERD stable with PPIs. Constipation stable with senna as needed. [facility] Medical History (Updated 02/17/24 @ 09:20 by Micaela Fuchs MD) Mild persistent asthma, uncomplicated Internal and external hemorrhoids without complication Bloody stools Hypothyroidism Chronic GERD Chronic constipation Pap smear of cervix shows high risk HPV present Surgical History History of bladder surgery History of colonoscopy History of partial hysterectomy Family History Father HTN (hypertension) Mother Asthma HTN (hypertension) Sister Heart disease Brother Liver cancer Son Asthma Social History Household Members: Children Housing: Apartment Alcohol intake: never Patient Tobacco Use Status: Former Tobacco user Tobacco use type: Cigarette e-Cigarette/Vaping Use: Never Used Second Hand Smoke Exposure: No service: No Current occupational status: disabled Cognitive needs: Yes Hearing needs: No Vision needs: No Questionnaire Thrive Questionnaire Date Thrive assessed: 08/23/23 STEVEN-7 AMB Questionnaire STEVEN-7 Date STEVEN - 7 assessed: 08/23/23 Source: Developed by Drs. Bacilio Rodriguez, Padmaja Peacock, Mj Ochoa and colleagues, with an educational adalberto from [employer]. Review of Systems Const All systems reviewed & are unremarkable except as noted in HPI and below Reports headache(s) ENT Reports headache(s) Card Denies chest pain at rest, Denies chest pain with activity, Denies edema, Denies irregular heart rhythm, Denies claudication, Denies dyspnea, Denies dyspnea on exertion, Denies orthopnea, Denies paroxysmal nocturnal dyspnea and Denies slow heart rate Resp Denies cough, Denies dyspnea and Denies dyspnea on exertion GI Denies abdominal pain, Denies change in bowel habits, Denies excessive flatus, Denies nausea and Denies vomiting Denies urinary incontinence, Denies urinary hesitancy and Denies urinary urgency Musc Denies atrophy, Denies deformity and Denies limited range of motion Skin/Breast Denies bleeding lesions, Denies changing lesions and Denies rash Neuro Reports headache(s) Physical exam (Primary Care) Vital Signs: Last Vital Signs BP 142/90 H 02/17/24 08:57 BMI result Body Mass Index 31.0 BMI Assessment/Plan discussion: High BMI High, discussed plan: lifestyle, weight reduction, dietary and physical activity Tobacco/Smoking Status: Tobacco use Status Tobacco use date assessed 08/23/23 02/17/24 09:09 Patient Tobacco Use Status Former Tobacco user 02/17/24 09:09 Tobacco use type Cigarette 02/17/24 09:09 e-Cigarette/Vaping Use Never Used 02/17/24 09:09 Thrive Assessment: Date of Thrive Assessment Date Thrive assessed 08/23/23 02/17/24 09:09 Resp Effort & Inspection: normal respiratory effort Auscultation: clear to auscultation bilaterally Cardio Jugular venous distension: no JVD Rate: regular rate Rhythm: regular rhythm Heart sounds: S1 normal heart sound present and S2 normal heart sound present Extrem General: Yes full ROM Assessment and Plan Assessment & Plan (1) Migraine: Code(s): G43.909 - Migraine, unspecified, not intractable, without status migrainosus Plan: Start sumatriptan as needed. Start magnesium at bedtime. Referred to neurology. (2) Hypothyroidism: Code(s): E03.9 - Hypothyroidism, unspecified Qualifiers: Hypothyroidism type: unspecified Qualified Code(s): E03.9 - Hypothyroidism, unspecified Plan: Continue Synthroid. Monitor TSH. (3) Chronic GERD: Comment: acid reflux well controlled with PPI and dietary modifications Code(s): K21.9 - Gastro-esophageal reflux disease without esophagitis Plan: Continue PPIs. (4) Chronic constipation: Comment: A pleasant -54-year-old female with chronic constipation- She is up-to-date on EGD-colonoscopy, May [address] Flores-no hemorrhoids She will be due for asymptomatic screening colonoscopy no later than 2026- Fit test years 3 and 5 Encouraged to call with questions or concerns Continue to follow bowel regimen as we discussed-maintain high-fiber diet Code(s): K59.09 - Other constipation Plan: Continue senna as needed. Orders: Referrals Neurology Referral G43.909 - Migraine, unspecified, not intractable, without status migrainosus Medications: New magnesium oxide 400 mg PO BEDTIME 90 days 90 caps 1RF sumatriptan succinate do not exceed 8 doses per 24 hrs 25 mg PO Q2-4H 30 days PRN 9 tabs 1RF migraine headache Coding Level of Care Code Est Pt Level 4 (24596) Complex EM visit Add On G2211 Diagnoses Migraine G43.909 Hypothyroidism, unspecified type E03.9 Hypothyroidism type: unspecified Chronic GERD K21.9 Chronic constipation K59.09 Time Spent (min) 23
[2024-02-17 08:57] VITALS: BP 142/90; BMI 31.0
== END 2024-02-17 09:31 | disposition home or self-care (01) ==
PROVIDERS: PCP Internal Medicine; Visit Provider Internal Medicine
DX: G43.909 Migraine, unspecified, not intractable, without status migrainosus (principal); E03.9 Hypothyroidism, unspecified; K21.9 Gastro-esophageal reflux disease without esophagitis; K59.09 Other constipation

== ENCOUNTER → 2024-02-17 08:49 | Outpatient (BNVA) | payer OTHER, SELFPAY | PROVIDERS: PCP Internal Medicine; Visit Provider Internal Medicine | DX: G43.909 Migraine, unspecified, not intractable, without status migrainosus (principal); E03.9 Hypothyroidism, unspecified; K21.9 Gastro-esophageal reflux disease without esophagitis; K59.09 Other constipation | CPT/HCPCS: 99212 ==

== ENCOUNTER → 2024-03-02 08:38 | Outpatient (BNVA) | payer OTHER, SELFPAY | PROVIDERS: PCP Internal Medicine ==

== ENCOUNTER 2024-06-02 10:23 | Outpatient (REF) | payer OTHER, SELFPAY ==
--- NOTE | ~2024-06-02 | MM_ITS ---
EXAMINATION: MM SCREENING DIGITAL BREAST TOMOSYNTHESIS, BILATERAL CLINICAL INFORMATION: Screening. Asymptomatic. COMPARISON: Mammography: Comparison is made with available priors TECHNIQUE: Digital breast mammography with tomosynthesis is performed in both the craniocaudal and mediolateral oblique views along with computer-aided detection (CAD). FINDINGS: The breasts are heterogeneously dense, which may obscure small masses (ACR BI-RADS breast composition Category c). There are no significant masses, abnormal calcifications, or other abnormalities. MM/MM tomosynthesis screening BI IMPRESSION: No mammographic evidence of malignancy. ASSESSMENT: BI-RADS BI-RADS 1 - Negative RECOMMENDATION: Routine annual mammography screening. 1 year F/U This examination should not preclude the clinical evaluation of a suspicious palpable abnormality. This patient's information was entered into a reminder system with a target due date for their next mammogram. Electronically signed by: Irene Jeff DO 06/11/2024 09:01 AM EDUARDA
== END 2024-06-02 10:24 | disposition home or self-care (01) ==
LOC: HO.MAMMO 10:23
PROVIDERS: PCP Internal Medicine; Visit Provider Internal Medicine
DX: Z12.31 Encounter for screening mammogram for malignant neoplasm of breast (principal)
CPT/HCPCS: 77063; 77067

== ENCOUNTER → 2024-06-02 11:00 | Outpatient (BNV) | payer OTHER, SELFPAY | PROVIDERS: PCP Internal Medicine; Visit Provider Internal Medicine | DX: Z12.31 Encounter for screening mammogram for malignant neoplasm of breast (principal) | CPT/HCPCS: 77063; 77067 ==

== ENCOUNTER 2024-06-20 08:11 | Outpatient (AMB) | payer OTHER, SELFPAY ==
[2024-06-20 08:24] VITALS: BP 128/80; BMI 30.8
--- NOTE | 2024-06-20 08:24 | A.OFFPC_ITS ---
Vital Signs 06/20/24 08:24 Height 5 ft 1 in Weight 163 lb BMI 30.8 BP 128/80 Blood Pressure Location Lt brachial Position Sitting Intake Visit Reasons: F/U, concerns about results Wind Turbine Electrical Engineer Required: Yes Wind Turbine Electrical Engineer Language: Farm Equipment Engineer Name: Micaela Fuchs MD Information Interpreted: non-clinical & clinical Accompanied by: Self / Same As Patient Allergies levothyroxine sodium [From Synthroid] Adverse Reaction (Mild, Verified 06/20/24 08:46) inadequeate response SEAFOOD Allergy (Intermediate, Uncoded 06/20/24 08:46) DOESNT TAKE BECAUSE OF THYROID Medication List - Last Reconciled 06/20/24 by Micaela Fuchs MD [adult diapers pull-ups As directed] clonazepam (Klonopin) 0.5 mg PO DAILY magnesium oxide 400 mg PO BEDTIME 90 days metoclopramide HCl (Reglan) 10 mg PO Q6H PRN omeprazole 20 mg PO DAILY oxcarbazepine 300 mg PO take 1 tablet every morning and 2 tablets at bedtime; quetiapine (Seroquel) 100 mg PO BEDTIME sennosides (senna) 17.2 mg (2 x 8.6 mg) PO BEDTIME sumatriptan succinate 25 mg PO Q2-4H PRN 30 days Synthroid (levothyroxine) 125 mcg PO DAILY 90 days NS trazodone 200 mg PO BEDTIME Ventolin HFA 90 mcg/actuation (albuterol sulfate) 2 puffs inhalation Q6H PRN NS walker (Ultra-Light Rollator misc) As directed Tobacco use date assessed: 06/20/24 Dental Screening Dental Screen Date: 06/20/24 Did you have a dental visit in the last 12 months?: No Did you have a dental problem in the last 6 months where you did not have access to dental care?: No Was dental information given to patient?: Patient has dentist HPI HPI Comments History of Present Illness Details The patient is a 58-year-old female presenting with cerebellar tonsillar ectopia. She experiences headaches associated with her diagnosed condition of migraines which has been ongoing. The migraines have been managed by a neurologist who has previously discharged her with medications. The patient reports occasional dizziness episodes that may be linked to her cerebellar tonsillar ectopia. A head CT conducted in January confirmed this diagnosis. Currently, she is seeking a surgical evaluation as advised. The patient also has a history of hypothyroidism, for which management details were not discussed during the visit. Additionally, she suffers from chronic constipation and insomnia. The patient reports experiencing anxiety and has been followed by psychiatry for mild major depression. She has urge urinary incontinence and I will start her on oxybutynin. Will also refer her to Urology. [facility] Medical History (Updated 06/20/24 @ 10:14 by Micaela Fuchs MD) Mild persistent asthma, uncomplicated Internal and external hemorrhoids without complication Bloody stools Hypothyroidism Chronic GERD Chronic constipation Pap smear of cervix shows high risk HPV present Surgical History History of bladder surgery History of colonoscopy History of partial hysterectomy Family History Father HTN (hypertension) Mother Asthma HTN (hypertension) Sister Heart disease Brother Liver cancer Son Asthma Social History Household Members: Children Housing: Apartment Alcohol intake: never Patient Tobacco Use Status: Former Tobacco user Tobacco use type: Cigarette e-Cigarette/Vaping Use: Never Used Second Hand Smoke Exposure: No service: No Current occupational status: disabled Cognitive needs: Yes Hearing needs: No Vision needs: No Questionnaire PHQ-9 Over the last 2 weeks, how often have you been bothered by any of the following problems? 1. Little interest or pleasure in doing things: not at all 2. Feeling down, depressed, or hopeless: several days 3. Trouble falling or staying asleep, or sleeping too much: several days 4. Feeling tired or having little energy: not at all 5. Poor appetite or overeating: not at all 6. Feeling bad about yourself - or that you are a failure or have let yourself or your family down: not at all 7. Trouble concentrating on things, such as reading the newspaper or watching television: not at all 8. Moving or speaking so slowly that other people could have noticed. Or the opposite - being so fidgety or restless that you have been moving around a lot more than usual: not at all 9. Thoughts that you would be better off or of hurting yourself in some way: not at all Total score: 2 Depression Screening Interpretation: Positive Depression Screening Follow-up: Existing condition, In treatment, Community Mental Health Worker F/U and Follow- up Visit Requested Depression Screening Done: Yes 20899 - PHQ-9 Billing: Yes Source: Developed by Drs. Bacilio Rodriguez, Padmaja Peacock, Mj Ochoa and colleagues, with an educational adalberto from [employer]. Thrive Questionnaire Date Thrive assessed: 06/20/24 I am a: Patient What is your living situation today?: I have a steady place to live Within the past 12 months, did the food you bought not last and you didn't have the money to get more?: Never true Within the past 12 months, did you worry whether your food would run out before you got money to buy more?: Never true Do you have trouble paying for medicines?: No Do you have trouble getting transportation to medical appointments?: No Do you have trouble paying your heating and electricity bill?: No Do you have trouble taking care of your child, family member or friend?: No Do you have trouble with day-to-day activities such as bathing, preparing meals, shopping, managing finances, etc.?: No Are you currently unemployed and looking for a job?: No Are you interested in more education?: No Please select the resources that you would like help with: None Currently or been in a relationship where the following occur: No concerns reported THRIVE Score: 0 AUDIT C Alcohol Use Questionnaire (AUDIT-C) 1. How often do you have a drink containing alcohol?: Never Total Score: 0 STEVEN-7 AMB Questionnaire STEVEN-7 Date STEVEN - 7 assessed: 06/20/24 Feeling nervous, anxious, or on edge: 1 = Several days Not being able to stop or control worryin = Not at all Worrying too much about different things: 0 = Not at all Trouble relaxin = Not at all Being so restless that it is hard to sit still: 0 = Not at all Becoming easily annoyed or irritable: 0 = Not at all Feeling afraid as if something awful might happen: 0 = Not at all Total STEVEN-7 score (0-4 normal; 5-9 mild; 10-14 moderate; 15-21 severe): 1 Source: Developed by Drs. Bacilio Rodriguez, Padmaja Peacock, Mj Ochoa and colleagues, with an educational adalberto from [employer]. STEVEN-7 Assessment Billing STEVEN-7 Assessment Tool: STEVEN-7 Assessment 57716 Review of Systems Const All systems reviewed & are unremarkable except as noted in HPI and below Card Denies chest pain at rest, Denies chest pain with activity, Denies edema, Denies irregular heart rhythm, Denies claudication, Denies dyspnea, Denies dyspnea on exertion, Denies orthopnea, Denies paroxysmal nocturnal dyspnea and Denies slow heart rate Resp Denies cough, Denies dyspnea and Denies dyspnea on exertion GI Denies abdominal pain, Denies change in bowel habits, Denies excessive flatus, Denies nausea and Denies vomiting Physical exam (Primary Care) Vital Signs: Last Vital Signs BP 128/80 06/20/24 08:24 BMI result Body Mass Index 30.8 Tobacco/Smoking Status: Tobacco use Status Tobacco use date assessed 06/20/24 06/20/24 08:30 Patient Tobacco Use Status Former Tobacco user 06/20/24 08:30 Tobacco use type Cigarette 06/20/24 08:30 e-Cigarette/Vaping Use Never Used 06/20/24 08:30 PHQ-9: PHQ-9 Score PHQ-9: Total score 2 06/20/24 08:50 Depression Screening Interpretation: Positive Depression Screening Follow-up: Existing condition, In treatment, Community Mental Health Worker F/U and Follow- up Visit Requested Thrive Assessment: Date of Thrive Assessment Date Thrive assessed 06/20/24 06/20/24 08:30 Currently or been in a relationship where the following occur: No concerns reported Resp Effort & Inspection: normal respiratory effort Auscultation: clear to auscultation bilaterally Cardio Jugular venous distension: no JVD Rate: regular rate Rhythm: regular rhythm Heart sounds: S1 normal heart sound present and S2 normal heart sound present Extrem General: Yes full ROM Office Procedures Flu Questionnaire Does the patient have a severe egg allergy?: No Immunizations Fluarix Triv [id number] (PF) 45 mcg (15 mcg x 3)/0.5 mL IM syringe Performing Provider: Micaela Fuchs MD [facility] [place] [facility] Documented (not given) by: KIM Peña on 06/20/24 08:30 Reason Not Given: Patient Refused Coding Level of Care Code Est Pt Level 4 (18165) Complex EM visit Add On G2211 Diagnoses Cerebellar tonsillar ectopia Q04.8 Migraine G43.909 Hypothyroidism, unspecified type E03.9 Hypothyroidism type: unspecified Chronic constipation K59.09 STEVEN (generalized anxiety disorder) F41.1 Insomnia G47.00 Mild major depression F32.0 Urge urinary incontinence N39.41 Additional Codes STEVEN-7 Assessment Billing - STEVEN-7 Assessment Tool: STEVEN-7 Assessment 99273 ([id number]) PHQ-9 - 90695 - PHQ-9 Billing: Yes ([id number]) Time Spent (min) 24 Assessment & Plan Assessment & Plan (1) Cerebellar tonsillar ectopia: Code(s): Q04.8 - Other specified congenital malformations of brain Category: Medical (2) Migraine: Code(s): G43.909 - Migraine, unspecified, not intractable, without status migrainosus Category: Medical (3) Hypothyroidism: Code(s): E03.9 - Hypothyroidism, unspecified Category: Medical Qualifiers: Hypothyroidism type: unspecified Qualified Code(s): E03.9 - Hypothyroidism, unspecified (4) Chronic constipation: Comment: A pleasant -54-year-old female with chronic constipation- She is up-to-date on EGD-colonoscopy, May [address] Flores-no hemorrhoids She will be due for asymptomatic screening colonoscopy no later than 2026- Fit test years 3 and 5 Encouraged to call with questions or concerns Continue to follow bowel regimen as we discussed-maintain high-fiber diet Code(s): K59.09 - Other constipation Category: Medical (5) STEVEN (generalized anxiety disorder): Code(s): F41.1 - Generalized anxiety disorder Category: Medical (6) Insomnia: Code(s): G47.00 - Insomnia, unspecified Category: Medical (7) Mild major depression: Code(s): F32.0 - Major depressive disorder, single episode, mild Category: Medical (8) Urge urinary incontinence: Code(s): N39.41 - Urge incontinence Category: Medical Plan - A surgical evaluation is planned for cerebellar tonsillar ectopia following confirmation via CT imaging. - Continue current management for hypothyroidism, constipation, insomnia, anxi ety, and mild major depression as previously established, with follow-up with respective care providers. - Reinforce adherence to neurologist-recommended medications for migraine management. Patient was informed and verbally consented to the use of an ambient scribe for clinic note documentation during this visit. I discussed the diagnosis of cerebellar tonsillar ectopia with the patient and t he potential need for surgical intervention. The patient understands the condition as confirmed by CT imaging. We reviewed the normal mammogram results from April, and I reassured her regarding these findings. I emphasized coordinating with the surgeon for further evaluation and intervention. Follow-up care with neurology and psychiatry was advised for continuous management of migraines and depression, respectively. Orders: Orders Vitamin B12 and Folate Today E53.8 - Deficiency of other specified B group vitamins Complete Blood Count Auto Diff Today D64.9 - Anemia, unspecified Comprehensive [place]. Panel Fast Today K21.9 - Gastro-esophageal reflux disease without esophagitis Influenza 5065-8560 Immunization Today Z23 - Encounter for immunization Lipid Panel Today E78.5 - Hyperlipidemia, unspecified Vitamin D 25-OH Total Today E55.9 - Vitamin D deficiency, unspecified IRON PROFILE Today D64.9 - Anemia, unspecified Thyroid Stimulating Hormone Today E03.9 - Hypothyroidism, unspecified Referrals Urology Referral N39.41 - Urge incontinence Neurosurgery Referral Q04.8 - Other specified congenital malformations of brain Medications: New oxybutynin chloride ER 10 mg PO DAILY 90 tabs 0RF 90 days Patient Instructions: - Follow up with the surgical department for evaluation and potential intervention for cerebellar tonsillar ectopia. - Continue current treatments for hypothyroidism, constipation, insomnia, and mental health conditions. - Ensure adherence to prescribed medications for migraines as advised by the neurologist. - Engage in follow-up appointments with respective specialists and report any exacerbations of symptoms promptly.
== END 2024-06-20 08:56 | disposition home or self-care (01) ==
PROVIDERS: PCP Internal Medicine; Visit Provider Internal Medicine
DX: G43.909 Migraine, unspecified, not intractable, without status migrainosus (principal); Q04.8 Other specified congenital malformations of brain; F32.0 Major depressive disorder, single episode, mild; E03.9 Hypothyroidism, unspecified; K59.09 Other constipation; F41.1 Generalized anxiety disorder; G47.00 Insomnia, unspecified; N39.41 Urge incontinence; Z23 Encounter for immunization

== ENCOUNTER → 2024-06-20 08:11 | Outpatient (BNVA) | payer OTHER, SELFPAY | PROVIDERS: PCP Internal Medicine; Visit Provider Internal Medicine | DX: Q04.8 Other specified congenital malformations of brain (principal); G43.909 Migraine, unspecified, not intractable, without status migrainosus; E03.9 Hypothyroidism, unspecified; K59.09 Other constipation; F41.1 Generalized anxiety disorder; G47.00 Insomnia, unspecified; F32.0 Major depressive disorder, single episode, mild; N39.41 Urge incontinence | CPT/HCPCS: 96127; 99212 ==

== ENCOUNTER 2024-07-03 12:32 | Outpatient (AMB) | payer OTHER, SELFPAY ==
--- NOTE | 2024-07-03 13:28 | AM.OFFWIN_ITS ---
Intake Vital Signs 07/03/24 13:29 Height 5 ft 1 in Weight 162 lb BMI 30.6 BP 122/80 Blood Pressure Location Lt brachial Position Sitting Pulse 115 H Pulse Source Pulse Oximeter Temp 102.7 F H Temp Source Oral Pulse Oximetry (%) 98 Oxygen Delivery Method Room Air Intake Visit Reasons: EP-cough, headaches, body & stomach ache Intake Note: Patient here for cough headaches and body aches that has been present since beginning of May. 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 History - The patient is a 58-year-old female pr esenting with flu-like symptoms for three days. - Symptoms include cough, fatigue, heada juliet, body and stomach aches, high fever, and nausea, with no vomiting or diarrhea. - She has asthma, managed partially with an inhaler for shortness of breath. One episode of sob last evening with relief after using inhaler. Reports swollen vein on left forehead with headaches. - The patient?s fever contributes to tac hycardia, with dehydration as a concern. - Reports of longstanding insomnia and c ough-induced sleep disturbances; history of frequent Tylenol use has made it ineffective . - A previous emergency visit indicated a possible congenital head issue, with neurology follow-up pending. Patient wants follow up on the issue. Physical Exam General: Cooperative, healthy appearing, comfortable and no acute distress Orientation/consciousness: Patient oriented x3 Limitations: romanian speaking Head: Normal to inspection, no TTP along temporal vein on left side Ears: Hearing grossly normal bilaterally, external ears normal and TM's normal bilaterally Nose: Normal external nose present, Normal nares present and No nasal discharge present Face and sinus: Normal facial exam and No sinuses nontender, patient reports pain on one side when pressure is applied Mouth: Normal oral and palatal mucosa present and moist mucous membranes Throat: Yes tonsils normal, Yes uvula midline. Posterior oropharynx erythema Eyes: Appearance normal, both eyes and all related structures Neck: Normal visual inspection Respiratory: Clear to auscultation bilaterally. Normal respiratory effort, able to speak in complete sentences, Actively coughing, no respiratory distress, not tachypneic, no tripod positioning and no use of accessory muscles Cardiovascular: tachycardic rate and regular rhythm. Normal S1 and S2 Skin: No rashes or lesions noted Neuro: Patient oriented x3 Extremities: Normal to inspection and Yes no clubbing, cyanosis or edema PFSH Medical History Mild persistent asthma, uncomplicated Internal and external hemorrhoids without complication Bloody stools Hypothyroidism Chronic GERD Chronic constipation Pap smear of cervix shows high risk HPV present Surgical History History of bladder surgery History of colonoscopy History of partial hysterectomy Family History Father HTN (hypertension) Mother Asthma HTN (hypertension) Sister Heart disease Brother Liver cancer Son Asthma Social History Household Members: Children Housing: Apartment Alcohol intake: never Patient Tobacco Use Status: Former Tobacco user Tobacco use type: Cigarette e-Cigarette/Vaping Use: Never Used Second Hand Smoke Exposure: No service: No Current occupational status: disabled Cognitive needs: Yes Hearing needs: No Vision needs: No Review of Systems Const All systems reviewed & are unremarkable except as noted in HPI and below Physical Exam Vital Signs: Last Vital Signs Temp 102.7 F H 07/03/24 13:29 Pulse 122 H 07/03/24 13:29 BP 122/80 07/03/24 13:29 Pulse Ox 98 07/03/24 13:29 Oxygen Delivery Method Room Air 07/03/24 13:29 BMI result Body Mass Index 30.6 Assessment & Plan Assessment & Plan (1) Acute viral syndrome: Code(s): B34.9 - Viral infection, unspecified Plan: Likely influenza based on symptoms, I will prescribe Xofluza as an antiviral treatment. Sent flu, covid and rsv testing, advised if not flu positive to not take the Xofluza. Increasing fluid intake is essential to address current dehydration concerns with elevated HR and fevers. Merry-D or Benadryl may be utilized to mitigate congestion and associated sleep disturbances. To alleviate the patient's nocturnal cough, Tessalon Perles will be dispensed. The patient should continue her asthma management plan with available inhalers to prevent respiratory exacerbations. Tylenol is recommended for fever control, pt was given 975mg acetaminophen in office for 102.7F. Educated pt that it may not work for her headaches but it will help reduce her fevers. Further evaluation will be required if the patient's respiratory status worsens by either returning to this clinic or ED visit. Follow-up with her primary care provider for insomnia and thyroid medication refills is necessary. Neurology referral concerning her previous head issue should be pursued. Gave pt referral info to follow up. Patient was informed and verbally consented to the use of an ambient scribe for clinic note documentation during this visit Orders: Orders AMB Acetaminophen Adult Dose Today B34.9 - Viral infection, unspecified SARS-CoV2/FLU/RSV Today B34.9 - Viral infection, unspecified Medications: New acetaminophen 325 mg PO ONCE 3 tabs 0RF fever B34.9 - Viral infection, unspecified baloxavir marboxil (Xofluza) 40 mg PO ONCE 1 tab 0RF benzonatate 200 mg PO TID PRN 14 caps 0RF cough Coding Level of Care Code Est Pt Level 4 (40539) Diagnoses Acute viral syndrome B34.9
[2024-07-03 13:29] VITALS: BP 122/80; PULSE 115; TEMP 39.3; O2SAT 98; BMI 30.6
--- OUTSIDE RECORDS SUMMARY | 2024-07-03 13:51 | XMS_ITS | Clinical Summary ---
Author Organization [address] [place] [address] [address] [place] [address] Phone Care Team Providers Care Oil Well Driller Name Role Phone Micaela Fuchs MD Primary Care Provider [phone] Social History Tobacco Use Types Packs/Day Years Used Date Smoking Tobacco: Never Assessed Sex and Gender Information Value Date Recorded Sex Assigned at Not on file Gender Identity Not on file Sexual Orientation Not on file Job Start Date Occupation Industry Not on file Not on file Not on file Plan of Treatment Upcoming Encounters Date Type Department Care Team ([facility] Contact Info) Description 07/07/2024 10:30 AM EST Consult Neurosurgery [address] [id number] Lee Ann Kraus PA [address] [place] [address] [phone] Health Maintenance Due Date Last Done Comments Breast Cancer Screening 1965 DTaP,Tdap,and Td Vaccines (1 - Tdap) 10/28/1982 Cervical Cancer Screening: P ap Smear 10/28/1984 Zoster Vaccines (1 of 2) 10/28/2013 COVID-19 Vaccine ( - 2023-2 5 season) 2024 Influenza Vaccine (#1) 2024 Colorectal Cancer Screening: Colonoscopy 06/27/2024 Depression Screening 06/27/2024 HIV Screening 06/27/2024 Hepatitis C Screening 06/27/2024 Medicare Annual Wellness Visit 06/27/2024 Social Influencers of Health Screening 06/27/2024 RSV Immunization Patients 60 + Years Old (1 - 1-dose 75+ series) 10/28/2038 HIB Vaccines Aged Out No longer eligi ble based on patient's age to complete this topic HPV Vaccines Aged Out No longer eligi ble based on patient's age to complete this topic Hepatitis A Vaccines Aged Out No long er eligible based on patient's age to complete this topic Hepatitis B Vaccines Aged Out No long er eligible based on patient's age to complete this topic IPV Vaccines Aged Out No longer eligi ble based on patient's age to complete this topic MMR Vaccines Aged Out No longer eligi ble based on patient's age to complete this topic Meningococcal ACWY Vaccine Aged Out N o longer eligible based on patient's age to complete this topic Pneumococcal Vaccine: Pediat rics (0 to 5 Years) and At-Risk Patients (6 to 64 Years) Aged Out No longer eligible b ased on patient's age to complete this topic RSV Immunization Patients Un khushboo 20 months Aged Out No longer eligible b ased on patient's age to complete this topic Varicella Vaccines Aged Out No longer eligible based on patient's age to complete this topic Care Teams Oil Well Driller Relationship Specialty Start Date End Date Micaela Fuchs MD [address] [place] [address] , [address] [facility] D/B/A: [facility] FERNANDO Stuart PCP - General Internal Medicine 06/26/24
--- OUTSIDE RECORDS SUMMARY | 2024-07-03 13:51 | XMS_ITS | Clinical Summary ---
Author Organization [facility] Address [address] [place] [address] Care Team Providers Care Gluing Machine Operator Automatic Name Role Phone Faye Adams PA-C Primary Care Provider Source Comments PLEASE NOTE, if this patient is a minor, it may be UNLAWFUL to discuss sensitive information that is contained in these records (such as FAMILY PLANNING, MENTAL HEALTH or SUBSTANCE ABUSE) with the minor patient's parent or other person without the patient's specific authorization.[facility] Allergies No known active allergies Medications spacerIndication s:Asthma exacerbation For use with albuterol inhaler 1 Inhaler 0 03/20/20 14 Active albuterol sulfate hfa (PROVENTIL,TABITHA KANNAN,PROAIR) 90 mcg/actuation inhalerIndicatio ns:Asthma in adult Inhale 2 Puffs into the lungs every 6 (six) hours as needed for shortness of breath or wheezing. 1 Inhaler 6 03/20/20 14 Active polyethylene glycol (GLYCOLAX, MIRALAX) 17 gram/dose powderIndication s:Constipation - functional Take 17 g by mouth once daily. Dissolve in a glass (8 oz) of water. 510 g 6 06/12/19 15 Active docusate sodium (COLACE) 100 mg capsuleIndicatio ns:Constipation - functional Take 2 Caps by mouth nightly at bedtime. 60 Cap 5 06/12/19 15 Active omeprazole (PRILOSEC OTC) 20 mg EC tabletIndication s:Dyspepsia Take 1 Tab by mouth once daily. Swallow whole. Do not crush or chew. 30 Tab 2 06/12/19 15 Active traZODone (DESYREL) 50 mg tablet 07/26/19 15 Active sertraline (ZOLOFT) 50 mg tablet 07/26/19 15 Active albuterol (PROVENTIL) 2.5 mg /3 mL (0.083 %) nebulizer solutionIndicati ons:Asthma exacerbation,Ast hma, mild intermittent Take 3 mL by nebulization every 6 (six) hours as needed for wheezing. 30 Vial 1 09/11/19 15 Active beclomethasone (QVAR) 80 mcg/actuation inhalerIndicatio ns:Asthma, mild intermittent Inhale 1 Puff into the lungs 2 (two) times daily. 1 Inhaler 1 09/11/19 15 Active lidocaine 5 % ointIndications: Plantar fasciitis of left foot Apply 1 g topically once daily. 35.44 g 5 12/14/19 15 Active Miscellaneous Medical Supply miscIndications: Plantar fasciitis of left foot by miscellaneous route once daily. Heel cups, disp 1 pair, dx bilateral plantar fasciits 1 Each 0 12/14/19 15 Active gabapentin (NEURONTIN) 300 mg capsuleIndicatio ns:Bilateral low back pain with sciatica, sciatica laterality unspecified,Gene ralized muscle ache Take 1 Cap by mouth 3 (three) times daily. 90 Cap 0 03/13/20 15 Active QUEtiapine (SEROQUEL) 25 mg tabletIndication s:Anxiety and depression TAKE 1/2 - 2 TABS AT BEDTIME NEEDED FOR SLEEP 1 12/19/19 16 Active oxCARBAZEPINE (TRILEPTAL) 300 mg tabletIndication s:Anxiety and depression TOME CALEB TABLETA CADA MANANA AND TOME DOS TABLETAS AL ACOSTARSE 1 12/19/19 16 Active clonazePAM (KLONOPIN) 0.5 mg tabletIndication s:Anxiety and depression TAKE 1/2 -1 TAB TWICE A DAY NEEDED FOR ANXIETY 1 12/19/19 16 Active aspirin 81 mg chewable tablet CHEW 1 TABLET BY MOUTH DAILY 0 01/28/20 16 Active nabumetone (RELAFEN) 500 mg tablet Take 1 Tab by mouth 2 (two) times daily. HOLD MELOXICAM 60 Tab 0 02/05/20 16 Active diclofenac (VOLTAREN) 1 % gelIndications:P lantar fasciitis of left foot Apply topically 2 (two) times daily. Apply to most painful area. 100 g 5 03/06/20 16 Active orphenadrine (NORFLEX ER) 100 mg 12 hr tablet Take 1 Tab by mouth nightly at bedtime Swallow whole. Do not crush or chew. 30 Tab 0 05/26/20 16 Active SYNTHROID 150 mcg tablet Take 1 tablet by mouth once daily. 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 TECHNIQUE: Grayscale and color ultrasound evaluation of the thyroid. COMPARISONS: None FINDINGS: Thyroid Gland: Normal homogeneous echotexture and vascularity. Right lobe measurements: 3.7 x 0.9 x 1.3 cm, volume 2.3 cm3. Left lobe measurements: 4 x 0.7 x 1.1 cm, volume 1.6 cm3. There is a 0.5 cm well-circumscribed homogeneous, hypoechoic nodule in the left upper pole. No microcalcifications were demonstrated within the lesion. Isthmus thickness: 0.2 cm. Lymph Nodes: No cervical lymphadenopathy noted. IMPRESSION: 1. Small thyroid gland bilaterally, compatible with burned-out Collette's disease. 2. 0.5 cm homogeneous, hypoechoic nodule in the left thyroid. This is almost certainly benign in etiology. No need for follow up. By undersigning and finalizing the report, the attending radiologist has personally reviewed the images and the resident's interpretation and agrees with the description of the findings. Signature Line Dictated By: An MD , Montse Dictated Date/Time: 04/12/13 11:25 a Reviewed By: Shanw Grover MD Signed By: Shawn Grover MD Signed Date/Time: 04/12/13 12:06 pm Transcribed By: SUZANNA Transcribed Date/Time: 04/12/13 12:01 pm US Soft Tissue Head/Neck This document has an image H/O: hysterectomy 2011 due to fibroid in [place] 03/01 Diverticulosis 03/28/2013 Overview (12/07/2013): Colonoscopy Done Int and Ext hemorrhoids Immunizations Name Administration Dates Next Due INFLUENZA, SEASONAL, INJECTABLE 03/28/2013 Social History Tobacco Use Types Packs/Day Years Used Date Smoking Tobacco: Never Smokeless Tobacco: Never Alcohol Use Standard Drinks/Week Comments No 0 (1 standard drink = 0.6 oz pur e alcohol) Social Connections Answer Date Recorded Social Connections and Isolation 0 01/21/2019 Financial Resource Strain Answer Date R ecorded Financial Resource Strain 0 2018 Stress Answer Date Recorded Stress 0 01/21/2019 Physical Activity Answer Date Recorded Physical Activity 0 01/21/2019 Food Insecurity Answer Date Recorded Food 0 01/21/2019 Transportation Needs Answer Date Record ed Transportation 0 01/21/2019 Housing Stability Answer Date Recorded Housing 0 01/21/2019 Safety and Environment Answer Date Hamzah rded Safety 0 01/21/2019 Utilities Answer Date Recorded Utilities 0 01/21/2019 Employment Answer Date Recorded Employment 0 01/21/2019 Comments No Sex and Gender Information Value Date Recorded Sex Assigned at Not on file Legal Sex Female 5:43 PM PDT Gender Identity Not on file Sexual Orientation Not on file Last Filed Vital Signs Vital Sign Reading Time Taken Comments Blood Pressure 112/64 05/05/2016 2:51 PM EST Pulse 78 05/05/2016 2:51 PM EST Temperature 36.7 ??C (98 ??F) 05/05/2016 2:51 PM EST Respiratory Rate 18 05/05/2016 2:51 PM EST Oxygen Saturation 95% 12/13/2014 2:56 PM EDT Inhaled Oxygen Concentration - - Weight 73.9 kg (163 lb) 05/05/2016 2:51 PM EST Height 154.9 cm (5' 1 ) 08/15/2015 3:07 PM EDT Body Mass Index 30.8 08/15/2015 3:07 PM EDT Plan of Treatment Not on file Insurance [place] MEDICAID Care Teams Gluing Machine Operator Automatic Relationship Specialty Start Date End Date Faye Adams PA-C [address] [place] [address] PCP - General 03/28/13
== END 2024-07-03 14:37 | disposition home or self-care (01) ==
PROVIDERS: PCP Internal Medicine; Visit Provider Physician Assistant
DX: B34.9 Viral infection, unspecified (principal)

== ENCOUNTER 2024-07-03 12:32 | Outpatient (REF) | payer OTHER, SELFPAY ==
--- OUTSIDE RECORDS SUMMARY | 2024-07-03 15:42 | XMS_ITS | Clinical Summary ---
Author Organization [facility] Address [address] [place] [address] Care Team Providers Care Sheet Metal Shop Foreman Name Role Phone Faye Adams PA-C Primary Care Provider [phone] Source Comments PLEASE NOTE, if this patient [...] on 12 April 2013 12:06 Encounter info: [id number], [facility] [facility] [place]12[place] - 04/12/2013 * [...] Dictated Date/Time: 04/12/13 11:25 a Reviewed By: Shawn Grover MD Signed By: Shawn Grover MD Signed Date/Time: 04/12/13 12:06 pm Transcribed By: SUZANNA Transcribed Date/Time: 04/12/13 12:01 pm US Soft Tissue Head/Neck This document has an image H/O: hysterectomy 2011 due to fibroid in [place] 03/01 Diverticulosis 03/28/2013 Overview (12/07/2013): Colonoscopy Done [...] on file Insurance [place] Care Teams Sheet Metal Shop Foreman Relationship Specialty Start Date End Date Faye Adams PA-C [address] [place] [address] PCP - General 03/28/13
--- OUTSIDE RECORDS SUMMARY | 2024-07-03 15:42 | XMS_ITS | Clinical Summary ---
Author Organization [address] [place] [address] Address [address] [place] [address] Phone Care Team Providers Care Mud Mixer Helper Name Role Phone Micaela Fuchs MD Primary Care Provider [phone] Social History Tobacco Use Types Packs/Day Years Used Date Smoking Tobacco: Never Assessed Sex and Gender Information Value Date Recorded Sex Assigned at Not on file Gender Identity Not on file Sexual Orientation Not on file Job Start Date Occupation Industry Not on file Not on file Not on file Plan of Treatment Upcoming Encounters Date Type Department Care Team ([facility] Contact Info) Description 07/07/2024 10:30 AM EST Consult Neurosurgery [address] [id number] Lee Ann Kraus PA [address] [place] [address] [phone] Health Maintenance Due Date Last Done Comments [...] age to complete this topic Care Teams Mud Mixer Helper Relationship Specialty Start Date End Date Micaela Fuchs MD [address] [place] [address] , [address] [facility] D[facility]A: [facility] FERNANDO Stuart PCP - General Internal Medicine 06/26/24
[2024-07-03 18:23] LABS: Influenza A PCR POSITIVE (Negative); Influenza B PCR NEGATIVE (Negative); Resp Syncy Virus RNA Qual PCR NEGATIVE (Negative); SARS COV2 PCR INHOUSE NEGATIVE (Negative)
== END 2024-07-03 12:33 | disposition home or self-care (01) ==
LOC: HO.LAB 12:32
PROVIDERS: PCP Internal Medicine; Visit Provider Physician Assistant
DX: B34.9 Viral infection, unspecified (principal); R05.8 Other specified cough
CPT/HCPCS: 0241U; 99212

== ENCOUNTER → 2024-07-06 12:39 | Outpatient (BNVA) | payer OTHER, SELFPAY | PROVIDERS: PCP Internal Medicine; Visit Provider Internal Medicine | DX: Z00.00 Encounter for general adult medical examination without abnormal findings (principal); E03.9 Hypothyroidism, unspecified; J45.30 Mild persistent asthma, uncomplicated | CPT/HCPCS: 99396 ==

== ENCOUNTER 2024-07-11 13:07 | Inpatient (IN) | payer OTHER, SELFPAY ==
--- NOTE | ~2024-07-11 | NM_ITS ---
EXAMINATION: CO LUNG IMAGE PERFUSION CLINICAL INFORMATION: Tachycardia, hypoxia, elevated d-dimer, rule out PE. COMPARISON: None available. Chest radiograph dated 07/11/2024. TECHNIQUE: Pulmonary perfusion nuclear examination performed after the IV administration of 4.6 mCi technetium 99m-MAA. Images obtained in anterior, posterior, bilateral lateral, BYRD, RPO, BOLIVIAN, and LPO positions. No corresponding ventilation study was obtained. FINDINGS: Perfusion examination demonstrates no perfusion deficits. Examination is normal. CO/CO pul perfusion IMPRESSION: 1. No perfusion defects. Normal examination. Electronically signed by: Abimael Linares MD 07/12/2024 11:59 AM [facility] [place]
--- NOTE | ~2024-07-11 | XR_ITS ---
CLINICAL HISTORY: cough, sob 2 view chest x-ray Comparison: CR/HI - CHEST 1 VIEW [id number] - 01/27/16 12:42 EDT Findings: No pleural effusion. There is opacity of the lung base. Normal size heart. No acute fracture. IMPRESSION: Atelectasis/infiltrate of the lung base. This document has been electronically signed by: Mike Cazares MD on 07/11/2024 17:37:19
--- NOTE | 2024-07-11 13:10 | ECG_ITS ---
Test Reason : DYSPNEA Blood Pressure : */* mmHG Vent. Rate : 130 BPM Atrial Rate : 130 BPM P-R Int : 118 ms QRS Dur : 86 ms QT Int : 322 ms P-R-T Axes : 35 18 28 degrees QTcB Int : 473 ms Sinus tachycardia Nonspecific ST and T wave abnormality Abnormal ECG When compared with ECG of 25-Dec-2021 09:05, Vent. rate has increased by [address] now depressed in Lateral leads Referred By: Aldo Meredith Electronically Signed By: AD KINNEY MD
--- NOTE | 2024-07-11 13:10 | ED_ITS ---
HPI - General Adult General Chief complaint: Dyspnea Stated complaint: chest pain, sob Time Seen by Provider: 07/11/24 13:24 Source: patient, RN notes reviewed and old records reviewed Mode of arrival: ambulatory History of Present Illness ED Provider: Magaly Ceja PA-C HPI narrative: 58-year-old female with a past medical history of asthma, GERD, hypothyroid, chronic constipation, recent Influenza A and B infection on 07/07/24, presenting to ED complaining of persistent cough, SOB, and chest tightness worsening over the past few days. Also reports abdominal pain, nausea and vomiting. Denies fever, pedal edema, recent travel. Finished Tamiflu without relief Related Data Home Medications ?Medication ?Instructions ?Recorded ?Confirmed clonazepam 0.5 mg tablet (Klonopin) 0.5 mg PO DAILY 03/02/20 07/06/24 oxcarbazepine 300 mg tablet 300 mg PO .COMPLEX 03/02/20 07/06/24 quetiapine 100 mg tablet (Seroquel) 100 mg PO BEDTIME 03/02/20 07/06/24 trazodone 100 mg tablet 200 mg PO BEDTIME 03/02/20 07/06/24 Previous Rx's ?Medication ?Instructions ?Recorded walker (Ultra-Light Rollator misc) #1 ea 04/04/20 sennosides 8.6 mg capsule (senna) 17.2 mg (2 x 8.6 mg) PO BEDTIME 09/25/20 #30 caps omeprazole 20 mg capsule,delayed 20 mg PO DAILY #90 caps 02/04/24 release metoclopramide HCl 10 mg tablet 10 mg PO Q6H PRN nausea and 02/13/24 (Reglan) vomiting #14 tabs magnesium oxide 400 mg PO BEDTIME 90 days #90 caps 02/17/24 adult diapers pull-ups #120 ea 02/21/24 Synthroid 125 mcg tablet 125 mcg PO DAILY 90 days #90 tabs 04/21/24 (levothyroxine) sumatriptan succinate 25 mg tablet 25 mg PO Q2-4H PRN migraine 04/23/24 headache 30 days #9 tabs Ventolin HFA 90 mcg/actuation 2 puff inhalation Q6H PRN for 06/04/24 aerosol inhaler (albuterol sulfate) wheezing #18 ea oxybutynin chloride 10 mg 10 mg PO DAILY 90 days #90 tabs 06/20/24 tablet,extended release 24 hr benzonatate 200 mg capsule 200 mg PO TID PRN cough #14 caps 07/03/24 Allergies Allergy/AdvReac Type Severity Reaction Status Date / Time levothyroxine sodium AdvReac Mild inadequeate Verified 07/11/24 13:14 [From Synthroid] response SEAFOOD Allergy Intermediate DOESNT Uncoded 07/06/24 12:54 TAKE BECAUSE OF THYROID Review of Systems 2 Review of Systems: Yes all other systems are reviewed and are negative Constitutional: Constitutional: Reports as per [facility] Past Medical History Attestation statement: The following information was validated with the patient. Source: old records reviewed Medical History Mild persistent asthma, uncomplicated Internal and external hemorrhoids without complication Bloody stools Hypothyroidism Chronic GERD Chronic constipation Pap smear of cervix shows high risk HPV present Surgical History History of bladder surgery History of colonoscopy History of partial hysterectomy Family History Family History Father HTN (hypertension) Mother Asthma HTN (hypertension) Sister Heart disease Brother Liver cancer Son Asthma Social History Social History Household Members: Children Housing: Apartment Unable to assess alcohol history related to: Unknown Alcohol intake: never Patient Tobacco Use Status: Former Tobacco user Tobacco use type: Cigarette e-Cigarette/Vaping Use: Never Used Second Hand Smoke Exposure: No Use of substances other than those prescribed or required for medical reasons: Unknown Advance Directives: No Advance Directives Information Provided: Yes service: No Current occupational status: disabled Cognitive needs: Yes Hearing needs: No Vision needs: No Physical Exam ED Vital Signs: Vital Signs - 24 hr 07/11/24 13:12 07/11/24 13:36 07/11/24 16:00 Temperature 97.6 F 99.3 F Pulse Rate 129 H 124 H 115 H Respiratory Rate 22 H 26 H 16 Blood Pressure 145/92 H 136/74 Pulse Oximetry 90 L 95 Oxygen Delivery Method Room Air Nasal Cannula Oxygen Flow Rate 2 07/11/24 19:12 07/11/24 19:16 Temperature 98.0 F 97.9 F Pulse Rate 96 97 Respiratory Rate 25 H 22 H Blood Pressure 126/77 122/77 Pulse Oximetry 90 L 88 L Oxygen Delivery Method Room Air Room Air Oxygen Flow Rate BMI result Body Mass Index 25.0 Const General: cooperative, healthy appearing and no acute distress Orientation/consciousness: patient oriented x3 Limitations: no limitations HENMT Head: Yes normal to inspection and Yes atraumatic Ears: hearing grossly normal bilaterally General nose exam: Normal external nose present Face and sinus: Yes normal facial exam Eyes General: appearance normal, both eyes and all related structures EOM: EOMs intact bilaterally Neck Neck: Yes normal visual inspection and Yes no meningeal signs Resp Effort & Inspection: normal respiratory effort and no respiratory distress Auscultation: clear to auscultation bilaterally and no wheezes Cardio Rate: regular rate and tachycardic Heart sounds: S1 normal heart sound present and S2 normal heart sound present GI Inspection: Yes normal to inspection Palpation (GI): Soft to palpation, nontender, no guarding and not rigid General: Yes no CVA tenderness Back/Spine/Pelvis Back: no CVA tenderness Skin Rashes: no rashes Wounds: no wounds Neuro General: patient oriented x3, tone normal and no meningeal signs Cranial nerves: Yes CN's II-XII intact bilaterally Gait exam (Neuro): Normal gait present Extrem General: Yes normal to inspection, Yes no pedal edema and Yes no calf tenderness Course Course Course Narrative: RME: 58-year-old female recently treated with fluids presents to ED with shortness of breath. Patient is hypoxic tachycardic. Lungs are tight. Patient has history of asthma. Nurse went to talk to charge nurse to bring patient to the ED meds ordered. -1538--leukocytosis of 13.2. Infection now suspected. Will obtain lactic and give empiric Rocephin. -T bilirubin, AST/ALT mildly elevated. -initial troponin negative. COVID/flu/RSV negative -1608--D-dimer elevated to 353 > will obtain CTA to rule out PE 1800--XR chest 2V IMPRESSION: Atelectasis/infiltrate of the lung base. > Azithromycin added to regimen. CTA pending. -1900--ED care transferred to [facility] pending CTA and admission Reevaluation(s) Reevaluation #1: Person staff has may be aware that when CT cane to bring the patient for imaging she endorses history of anaphylaxis with IV contrast in the past. V/Q scan has been ordered. I have spoke with hospitalist service, Dr. Eric about admission to medicine, patient and family updated with plan of care Time: 19:45 Medications Administered Discontinued Medications Generic Name Dose Route Start Last Admin Trade Name Michelle PRN Reason Stop Dose Admin Acetaminophen 650 mg 07/11/24 15:13 07/11/24 15:54 Acetaminophen 325 Mg Tablet PO 07/11/24 15:14 650 mg ONCE ONE Administration Ceftriaxone Sodium 1 gm 07/11/24 15:36 07/11/24 15:53 Ceftriaxone Sodium 1 Gm Vial IVPUSH 07/11/24 15:37 1 gm ONCE ONE Administration Levalbuterol HCl 3.75 mg/ 0 mg 07/11/24 13:30 07/11/24 13:35 Ipratropium [place] 0.5 mg INHALE 07/11/24 13:31 1 dose ONCE ONE Administration Magnesium Sulfate 2 gm in 50 mls @ 25 mls/hr 07/11/24 13:08 07/11/24 19:13 Magnesium Sulfate/H2o IV 07/11/24 15:07 Infused ONCE ONE Infusion Sodium Chloride 1,000 mls @ 999 mls/hr 07/11/24 15:45 07/11/24 19:13 Ns IV 07/11/24 16:45 Infused .Q1H1M JUDSON Infusion Azithromycin 500 mg/ Sodium 250 mls @ 125 mls/hr 07/11/24 18:03 07/11/24 19:09 Chloride IV 07/11/24 20:02 125 mls/hr ONCE ONE Administration Methylprednisolone Sodium Succinate 60 mg 07/11/24 13:29 07/11/24 14:51 Methylprednisolone Sod Succ 125 Mg/2 Ml Vial IVPUSH 07/11/24 13:30 60 mg ONCE ONE Administration Medical Decision Making Medical Decision Making [facility] Narrative: 1425: 58-year-old female with a past medical history of asthma, GERD, hypothyroid, chronic constipation, recent Influenza A and B infection on 07/07/24, presenting to ED complaining of persistent cough, SOB, and chest tightness worsening over the past few days. Also reports abdominal pain, nausea and vomiting. On exam tachycardic, tachypneic, hypoxic desats to 84% on RA with cough, lungs CTA, no pedal edema/calf tenderness, abdomen soft/nontender. Concern for continued viral illness vs pneumonia vs bronchitis vs pulmonary embolism. Lower suspicion for DVT/dissection or intra-abdominal pathology including cholecystitis/pancreatitis appendicitis/diverticulitis without acute abdominal tenderness. Low suspicion for severe sepsis as likely viral etiology Plan: EKG, labs, UA, CXR, viral testing, IV Solu-Medrol, IV magnesium, anticipated admission Please refer to course for remaining clinical decision making, interpretation of labs/imaging results, and discussions with consultants and/or family members. Differential Diagnosis Differential Diagnoses: The differential diagnosis associated with the presentation includes As above Admission/Observation Consideration of admission/observation: Escalation of care including admission/observation considered Lab Data MDM Lab Attestation statement: I reviewed the patient's lab results. 07/11/24 14:30 07/11/24 14:30 Labs: Lab Results 07/11/24 07/11/24 07/11/24 Range/Units 14:30 15:57 18:59 WBC 13.2 H (4.8-10.8) X10*3/uL RBC 4.17 L (4.20-5.50) X10*6/uL Hgb 12.7 (12.0-16.0) g/dl Hct 38.9 (37.0-47.0) % MCV 93.3 (80.0-98.0) fL MCH 30.5 (27.0-33.0) pg MCHC 32.6 (31.0-35.0) g/dl RDW 12.9 (11.0-16.0) % Plt Count 261 (160-400) X10*3/uL MPV 10.3 (9.4-12.3) fL Immature Gran % (Auto) 0.6 H (0.0-0.4) % Neut % (Auto) 82.3 H (45-73) % Lymph % (Auto) 10.2 L (20-40) % Tucker % (Auto) 6.5 (2-11) % Eos % (Auto) 0.2 (0-4) % Baso % (Auto) 0.2 (0-2) % Lymph # (Auto) 1.4 (1.2-4.9) X10*3/uL Tucker # (Auto) 0.9 (0.1-1.2) X10*3/uL Eos # (Auto) 0.0 (0.0-0.4) X10*3/uL Baso # (Auto) 0.0 (0.0-0.2) X10*3/uL Abs Immat Gran (auto) 0.08 H (0.00-0.03) X10*3/uL Absolute Neuts (auto) 10.9 H (2.0-8.3) x10*3/uL Absolute Nucleated RBC 0.000 (0.0-0.012) X10*3/uL Nucleated RBC % (auto) 0.0 (0.0-0.2) /100WBC PT 13.9 H (10.9-12.4) SEC INR 1.2 H (0.9-1.1) APTT 25.5 L D (26.0-36.8) SEC D-Dimer High Sensitivty 353 NG/ML Sodium 141 (135-145) mmol/L Potassium 3.7 (3.3-5.1) mmol/L Chloride 107 (96-108) mmol/L Carbon Dioxide 24 (22-29) mmol/L Anion Gap 14 (12-20) BUN 9 (9-16) mg/dL Creatinine 0.76 (0.5-1.4) mg/dL Estim Creat Clear Calc 70.8 Estimated GFR > 60 Random Glucose 110 (60-115) mg/dL Lactic Acid 0.9 (0.5-2.0) mmol/L Calcium 9.3 (8.4-10.2) mg/dL Magnesium 2.0 (1.6-2.6) mg/dL Total Bilirubin 1.4 H (0.0-1.0) mg/dL AST 46 H (5-31) U/L ALT 95 H (0-31) U/L Alkaline Phosphatase 81 (39-117) U/L Troponin I High Sens 3.6 5.0 (<3.5-17.0) ng/L B-Natriuretic Peptide < 10 (<100) pg/mL Total Protein 8.5 H (6.5-8.0) g/dL Albumin 4.1 (3.5-5.0) g/dL Influenza Type A (PCR) NEGATIVE (Negative) Influenza Type B (PCR) NEGATIVE (Negative) RSV RNA Qual (PCR) NEGATIVE (Negative) SARS-CoV-2 RNA (RT-PCR) NEGATIVE (Negative) Independent Interpretation I performed an independent interpretation of an: EKG (My interpretation EKG sinus tachycardia rate of 130. ST no depressant lateral leads. No STEMI. ) and Plain X-Ray Radiology Impression Discussion of test interpretation with radiology: I have reviewed the radiologist's reading. Independent Historian Clinical information obtained from an independent historian. History obtained from or confirmed by: Other External Record Review External record reviewed: Inpatient record, Office record, Outpatient record, Prior outpatient labs, Prior outpatient radiology, Primary care record and Outside ED record Tests considered The following testing was considered but not selected: As above Prescription Management I considered prescription management with: Other Chronic Conditions Patient?s care impacted by: Other Social Determinants Patient?s care significantly limited by Social Determinants of Health including: Other Social Determinant of Health Critical Care Time Critical Care Time Critical Care Time: Yes Total Critical Care Time: 40 Attestation: I have personally provided critical care time exclusive of time spent on separately billable procedures. Time includes review of lab data, radiology results, discussion with consultants, and monitoring for potential decompensation. Intervention performed as documented. Discharge Plan Discharge Clinical Impression: Pneumonia, Hypoxia, Shortness of breath Patient Disposition: Admitted As Inpatient Print Language: Chinese
[2024-07-11 13:12] VITALS: BP 145/92; PULSE 129; RESP 22; TEMP 36.4; O2SAT 90; BMI 25.0
[2024-07-11] MEDS: levalbuterol HCL 3.75 MG, Ipratropium Bromide 0.5 MG INHALE (13:35)
[2024-07-11 13:36] VITALS: PULSE 124; RESP 26; O2SAT 90
[2024-07-11 14:37] LABS: MANUAL DIFF FLAG NO
[2024-07-11 14:40] LABS: Basophils Percent Auto 0.2 % (0-2); Eosinophils Percent Auto 0.2 % (0-4); Hematocrit 38.9 % (37.0-47.0); Hemoglobin 12.7 g/dl (12.0-16.0); Imm Gran Abs Auto 0.08 X10*3/uL (0.00-0.03); Imm Gran Pct Auto 0.6 % (0.0-0.4); Lymphocytes Absolute Auto 1.4 X10*3/uL (1.2-4.9); Lymphocytes Percent Auto 10.2 % (20-40); Mean Corpuscular HGB Conc 32.6 g/dl (31.0-35.0); Mean Corpuscular Hemoglobin 30.5 pg (27.0-33.0); Mean Corpuscular Volume 93.3 fL (80.0-98.0); Mean Platelet Volume 10.3 fL (9.4-12.3); Monocytes Absolute Auto 0.9 X10*3/uL (0.1-1.2); Monocytes Percent Auto 6.5 % (2-11); Neutrophils Absolute Auto 10.9 x10*3/uL (2.0-8.3); Neutrophils Percent Auto 82.3 % (45-73); Platelet Count 261 X10*3/uL (160-400); Red Blood Count 4.17 X10*6/uL (4.20-5.50); Red Cell Distribution Width 12.9 % (11.0-16.0); White Blood Count 13.2 X10*3/uL (4.8-10.8)
--- OUTSIDE RECORDS SUMMARY | 2024-07-11 14:42 | XMS_ITS | Clinical Summary ---
Author Organization [facility] Address [address] [place] [address] Phone Care Team Providers Care Institutional Commodity Analyst Name Role Phone Micaela Fuchs MD Primary Care Provider [phone] Allergies Active Allergy Reactions Criticality Noted Date Comments Iodine 07/07/2024 Iodinated contrast media Medications clonazePAM (KlonoPIN) 0.5 mg tablet Take 1 tablet (0.5 mg total) by mouth 2 (two) times a day. Active magnesium oxide (MAG-OX) 400 mg magnesium tablet Take 1 tablet (400 mg total) by mouth 1 (one) time each day. Active metoclopramide (REGLAN) 10 mg tablet Take by mouth. Active omeprazole (PriLOSEC) [address] capsule Take 1 capsule (20 mg total) by mouth 1 (one) time each day. Do not crush or chew. Active OXcarbazepine (TRILEPTAL) 300 mg tablet Take 1 tablet (300 mg total) by mouth 2 (two) times a day. Active QUEtiapine (SEROquel) 100 mg tablet Take 1 tablet (100 mg total) by mouth at bedtime. Active senna (SENOKOT) 8.6 mg tablet Take 1 tablet (8.6 mg total) by mouth 1 (one) time each day. Active SUMAtriptan (IMITREX) 25 mg tablet Take 1 tablet (25 mg total) by mouth 1 (one) time if needed for migraine. May repeat dose once in 2 hours if no relief. Do not exceed 2 doses in 24 hours. Active levothyroxine (SYNTHROID, LEVOTHROID) 125 mcg tablet Take by mouth 1 (one) time each day before breakfast. Active traZODone (DESYREL) 100 mg tablet Take 1 tablet (100 mg total) by mouth at bedtime. Active albuterol HFA (PROAIR HFA ; PROVENTIL HFA ; VENTOLIN HFA) 90 mcg/actuation inhaler Inhale 2 puffs by mouth every 6 (six) hours if needed for wheezing. Active walker misc Active Active Problems Problem Noted Date Diagnosed Date Cerebellar tonsillar ectopia 07/07/2024 Assessment & Plan (07/07/2024 4:20 PM EST): Patient describes posterior and temporal head pressure, worse with laying down, has seen neurology for migraines. She states when she gets the temporal headaches her head feels swollen. She states the head pressure has been worse since approximately 4 months ago, she went to the ED because her head felt full of air and inflated, was blind for a moment , had 1 episode of vomiting. Symptoms have not been that severe since the ED visit, no further nausea or vomiting or vision issues. She states that she did see her eye doctor after this episode and was cleared for any abnormalities on exam. She denies neck pain, swallowing difficulty, choking, balance issues, bowel incontinence. She does have history of urinary incontinence, had bladder lift 2 years ago but does not feel it helped her symptoms, is on oxybutynin and was referred to urology for urge urinary incontinence. She wears an adult diaper. Patient had head CT [place] [facility] acute findings at the time, there was mention of low-lying cerebellar tonsils, mild, measured 4 mm below foramen magnum. I reviewed head CT images with Dr. Pabon and patient. On the sagittal view there did not appear to be Chiari malformation or compression on the tonsils, but image was cut off just toward the bottom of the tonsils. Ms. Riki Hillman has posterior and temporal head pressure, is not really complaining of Chiari symptoms other than headache, mild findings on imaging, neuro exam intact. For thorough evaluation, I will order C-spine MRI with cine flow to rule out Chiari malformation. She also seems to be describing occipital neuralgia, has some tenderness and spasm in the upper trapezius, I gave her a prescription for physical therapy to see if that can help. She is Turkish-speaking, we used [employer] compliance officer Haseeb #[id number]. Chronic left-sided low back pain 03/06/2016 Anxiety and depression 06/12/2014 Asthma, mild intermittent 06/12/2014 Hypothyroid 05/23/2013 Overview (07/07/2024): Result type: US Soft Tissue Head/Neck Result date: 12 April 2013 10:47 Result status: Auth (Verified) Result title: US Soft Tissue Head/Neck Performed by: Montse Hernandez MD on 12 April 2013 12:01 Verified by: Shawn Grover MD on 12 April 2013 12:06 Encounter info: [id number], [facility] [place], One Time OP, 04/12/2013 - 04/12/2013 * [...] of the findings. Signature Line Dictated By: Montse Hernandez MD Dictated Date/Time: 04/12/13 11:25 a Reviewed By: Shawn Grover MD Signed By: Shawn Grover MD Signed Date/Time: 04/12/13 12:06 pm Transcribed By: SUZANNA Transcribed Date/Time: 04/12/13 12:01 pm US Soft Tissue Head/Neck This document has an image H/O: hysterectomy 03/28/2013 Encounters Date Type Department Care Team Description 07/11/2024 Telephone Neurosurgery [facility] [address] [place] [address] Sarah Acevedo MA Appointment ([facility] Auth # [id number] for C/Spine MRI faxed over to [facility] MRI. Will contact pt w/appt) 07/07/2024 10:30 AM EST Consult Neurosurgery [facility] [address] [place] [address] Lee Ann Kraus PA Cerebellar tonsillar ectopia (CMS/HCC) from Last 3 Months Immunizations Name Administration Dates Next Due Influenza Quadrivalent, 0.5m l, preservative free (Fluarix; FluLaval; Fluzone) ages 6mo and older (Afluria) 3yo and older 04/07/2021 Influenza Quadrivalent, with preservative (Fluzone; Afluria) 6mo and older 03/20/2019 Influenza trivalent, with pr eservative (Fluzone; Afluria) 6mo and older 03/28/2013 Tdap Tetanus diptheria acell ular pertussis (Boostrix; Adacel) 7yo and older 03/20/2019 Surgical History Surgery Date Site/Laterality Comments BLADDER SURGERY 05/31/2022 - 05/30/2023 N/A bladder lift, + persistent urinary incontinence COLONOSCOPY N/A PARTIAL HYSTERECTOMY N/A Medical History Medical History Date Comments Mild persistent asthma Internal and external hemorrhoids without compli cation Bloody stools Hypothyroidism Chronic GERD Chronic constipation Pap smear of cervix shows high risk HPV present Cerebellar tonsillar ectopia (CMS/HCC) Migraine STEVEN (generalized anxiety disorder) Mild major depression (CMS/HCC) Insomnia Chronic constipation Urge urinary incontinence Family History Medical History Relation Name Comments Liver cancer Brother Hypertension Father Asthma Mother Hypertension Mother Heart disease Sister Relation Name Status Comments Brother Father Mother Sister Social History Tobacco Use Types Packs/Day Years Used Date Smoking Tobacco: Former Cigarettes Smokeless Tobacco: Never Comments Unknown Sex and Gender Information Value Date Recorded Sex Assigned at Not on file Legal Sex Female 3:37 PM EST Gender Identity Not on file Sexual Orientation Not on file Obstetrics History Last Filed Vital Signs Vital Sign Reading Time Taken Comments Blood Pressure - - Pulse - - Temperature - - Respiratory Rate - - Oxygen Saturation - - Inhaled Oxygen Concentration - - Weight 73.9 kg (163 lb) 07/07/2024 10:34 AM EST Height 157.5 cm (5' 2 ) 07/07/2024 10:34 AM EST Body Mass Index 29.81 07/07/2024 10:34 AM EST Plan of Treatment Health Maintenance Due Date Last Done Comments Breast Cancer Screening 1965 Pneumococcal Vaccine: 50+ Years (1 of 2 - PCV) 10/28/1982 Pneumococcal Vaccine: Pediatrics (0 to 5 Years) and At-Risk Patients (6 to 64 Years) (1 of 2 - PCV) 10/28/1982 Cervical Cancer Screening: P ap Smear 10/28/1984 Zoster Vaccines (1 of 2) 10/28/2013 DTaP,Tdap,and Td Vaccines (2 - Td or Tdap) 04/17/2019 03/20/2019 RSV Immunization Patients 60 + Years Old (1 - Risk 60-74 years 1-dose series) 2023 COVID-19 Vaccine (1 - 2023-2 5 season) 2024 Influenza Vaccine (#1) 2024 , 03/20/2019, 03/28/2013 Colorectal Cancer Screening: Colonoscopy 06/27/2024 Depression Screening 06/27/2024 HIV Screening 06/27/2024 Hepatitis C Screening 06/27/2024 Medicare Annual Wellness Visit 06/27/2024 Social Influencers of Health Screening 06/27/2024 HIB Vaccines Aged Out No longer eligi [...] patient's age to complete this topic Meningococcal B Vacine Aged Out No lo nger eligible based on patient's age to complete this topic RSV Immunization Patients Under 20 months Aged Out No longer eligible b ased on patient's age to complete this topic Varicella Vaccines Aged Out No longer eligible based on patient's age to complete this topic Insurance [employer] MEDICARE Member Subscriber Plan / Payer (Ef fective 2020-Present) Name:Sharon Hahn Relation to Subscriber:Self Name:Sharon Hahn Payer ID:[id number] Group ID:[id number] Type:Not on file Address: [place] [address] [address] [place] [id number] Care Teams Institutional Commodity Analyst Relationship Specialty Start Date End Date Micaela Fuchs MD [address] [place] [address] , [address] [facility] Physician Associ D/B/A: [facility] FERNANDO Stuart PCP - General Internal Medicine 06/26/24
--- OUTSIDE RECORDS SUMMARY | 2024-07-11 14:43 | XMS_ITS | Encounter Summary ---
Author Organization [facility] Address [address] [place] [address] Care Team Providers Care Explosive Operator Fuse Name Role Phone Micaela Fuchs MD Primary Care Provider [phone] Reason for Referral * Imaging (Routine) - Authorized Specialty Diagnoses / Procedures Referred By Pollo haines Referred To Contact Radiology Diagnoses Cerebellar tonsillar ectopia (CMS/HCC) Procedures MR Cervical Spine wo Contrast Yogesh Kraus PA [address] [facility], [address] [address] Phone: tel: fax: [facility] [address] [place] [address] Phone: tel: Referral ID Status Reason Start Date Expiration Date V isits Requested Visits Authorized [id number] Authorized 07/10/2024 07/10/2025 1 1 * Consultation (Routine) - Pending Review Specialty Diagnoses / Procedures Referred By Pollo haines Referred To Contact Physical Therapy Diagnoses Other specified congenital malformations of brain (CMS/HCC) Yogesh Kraus PA [address] [facility], [address] [place] [address] Phone: tel: fax: Referral ID Status Reason Start Date Expiration Date Visits Requested Visits Authorized [id number] Pending Review Consult and Treat 07/07/2024 07/07/2025 1 1 Reason for Visit * Reason Comments congenital malformation of brain Headach es, nauseas, blurred vision * Consultation (Routine) - Closed Specialty Diagnoses / Procedures Referred By Contac t Referred To Contact Neurosurgery Diagnoses Other specified congenital malformations of brain (CMS/HCC) Micaela Fuchs MD [address] [place] [address] [address], [address] [facility] Physician Associ D/B/A: [facility] [place], [place] Phone: tel: fax: Praveena Pabon MD [address] [place] [address] Phone: tel: fax: Referral ID Status Reason Start Date Expiration Date V isits Requested Visits Authorized [id number] Closed Specialty Services Required 06/26/2024 06/26/2025 1 1 Encounter Details Date Type Department Care Team ([facility] Contact Info) Description 07/07/2024 10:30 AM EST Consult Neurosurgery [place] [facility] [address] [address] Yogesh Kraus PA [address] [facility] [address] [place] [address] Cerebellar tonsillar ectopia (CMS/HCC) Social History Tobacco Use Types Packs/Day Years Used Date Smoking Tobacco: Former Cigarettes Smokeless Tobacco: Never Comments Unknown Sex and Gender Information Value Date Recorded Sex Assigned at Not on file Legal Sex Female 3:37 PM EST Gender Identity Not on file Sexual Orientation Not on file documented as of this encounter Last Filed Vital Signs Vital Sign Reading Time Taken Comments Blood Pressure - - Pulse - - Temperature - - Respiratory Rate - - Oxygen Saturation - - Inhaled Oxygen Concentration - - Weight 73.9 kg (163 lb) 07/07/2024 10:34 AM EST Height 157.5 cm (5' 2 ) 07/07/2024 10:34 AM EST Body Mass Index 29.81 07/07/2024 10:34 AM EST documented in this encounter Progress Notes * KM Isaac - 07/07/2024 4:20 PM ESTAssociated Problem(s): Cerebellar tonsillar ectopia (CMS/HCC) Patient describes posterior and temporal head pressure, [...] was cleared for any abnormalities on exam. Shedenies neck pain, swallowing difficulty, choking, balance issues, bowel incontinence. She does havehistory of urinary incontinence, had bladder lift 2 years ago but does not feel it helped her symptoms, is on oxybutynin and was referred to urology for urge urinary incontinence. She wears an adult diaper. Patient had head CT 02/12/2024 at [facility] [place], no acute findings at the time, there was mention of low-lyingcerebellar tonsils, mild, measured 4 mm below foramen [...] see if that can help. She is Citizen [place]- speaking, we used [employer] adult basic education teacher Haseeb #[id number]. * KM Isaac - 07/07/2024 10:30 AM ESTAddended by: YOGESH KRAUS on: 07/10/2024 03:50 PM Modules accepted: Orders * KM Isaac - 07/07/2024 10:30 AM EST NEW PATIENT CONSULTATION Date of Visit: 07/07/2024 Referring Physician: Micaela Fuchs MD Primary Care Physician: Micaela Fuchs MD RE: Sharon Hillman : 1965 Chief Complaint Patient presents with congenital malformation of brain Headaches, nauseas, blurred vision Dear Micaela Hudson MD Thank you for referring Riki Hillman to our office today. Sharon Hillman is a 58 y.o. female who presents to our office with posterior and temporal head pressure, worse with [...] no further nausea or vomiting or vision issues.She states that she did see her eye doctor after this episode and was cleared for any abnormalitieson exam. She denies neck pain, swallowing difficulty, choking, balance issues, bowel incontinence. She does have history of urinary incontinence, had bladder lift 2 years ago but does not feel it helped her symptoms, is on oxybutynin and was referred to urology for urge urinary incontinence. She wears an adult diaper. Past Medical History: Diagnosis Date Bloody stools Cerebellar tonsillar ectopia (CMS/HCC) Chronic constipation Chronic constipation Chronic GERD STEVEN (generalized anxiety disorder) Hypothyroidism Insomnia Internal and external hemorrhoids without complication Migraine Mild major depression (CMS/HCC) Mild persistent asthma Pap smear of cervix shows high risk HPV present Urge urinary incontinence Past Surgical History: Procedure Laterality Date BLADDER SURGERY N/A 2022 bladder lift, + persistent urinary incontinence COLONOSCOPY N/A PARTIAL HYSTERECTOMY N/A Allergies Allergen Reactions Iodine Iodinated contrast media Current Outpatient Medications Medication Instructions albuterol HFA (PROAIR HFA ; PROVENTIL HFA ; VENTOLIN HFA) 90 mcg/actuation inhaler 2 puffs, inhalation, Every 6 hours PRN clonazePAM (KLONOPIN) 0.5 mg, oral, 2 times daily levothyroxine (SYNTHROID, LEVOTHROID) 125 mcg tablet oral, Every morning before breakfast magnesium oxide (MAG-OX) 400 mg, oral, Daily metoclopramide (REGLAN) 10 mg tablet oral omeprazole (PRILOSEC) 20 mg, oral, Daily, Do not crush or chew. OXcarbazepine (TRILEPTAL) 300 mg, oral, 2 times daily QUEtiapine (SEROQUEL) 100 mg, oral, Nightly senna (SENOKOT) 8.6 mg tablet 1 tablet, oral, Daily SUMAtriptan (IMITREX) 25 mg, oral, Once as needed, May repeat dose once in 2 hours if no relief. Donot exceed 2 doses in 24 hours. traZODone (DESYREL) 100 mg, oral, Nightly walker misc miscellaneous Social History Tobacco Use Smoking status: Former Types: Cigarettes Smokeless tobacco: Never Vaping Use Vaping status: Never Used Social History Social History Narrative Not on file Family History Problem Relation Name Age of Onset Hypertension Mother Asthma Mother Hypertension Father Heart disease Sister Liver cancer Brother Review of Systems + Depression and anxiety, thyroid disease, arthritis, asthma Physical Exam Pt is awake and alert. Speech and comprehension is intact. Respirations are unlabored, heart has regular rate. CN 2-12 grossly intact. No pronator drift. Motor exam reveals 5/5 strength to resistencebilaterally in UE's and Le's. Reflexes are WNL, no hyperreflexia, Sawyer's or clonus. No cutaneous abnormalities noted over the neck. + pain with palpation over the upper trapezius muscles b/l, posterior scalp. Good cervical ROM- without cervical spine pain. Pt is ambulating independently. Imaging Full report scanned into media section. Assessment/Plan Problem List Items Addressed This Visit Cerebellar tonsillar ectopia (CMS/HCC) Patient describes posterior and temporal head pressure, [...] was cleared for any abnormalities on exam. Shedenies neck pain, swallowing difficulty, choking, balance issues, bowel incontinence. She does havehistory of urinary incontinence, had bladder lift 2 years ago but does not feel it helped her symptoms, is on oxybutynin and was referred to urology for urge urinary incontinence. She wears an adult diaper. Patient had head CT 02/12/2024 at [facility] [place], no acute findings at the time, there was mention of low-lyingcerebellar tonsils, mild, measured 4 mm below foramen [...] see if that can help. She is Citizen [place]- speaking, we used [employer] adult basic education teacher [employer] #[id number]. Relevant Orders Ambulatory referral to Physical Therapy and Athletic Training Thank you for allowing us to care for your patient. The total time spent was 45 minutes, time spent includes reviewing history, outside notes, imaging,exam, plan, patient counseling. KM Isaac on 07/07/2024 at 4:20 PM EST CC: Micaela Fuchs MD Ana R Mattei, MD [facility] Neuro[facility] [place] documented in this encounter Plan of Treatment Scheduled Orders Name Type Priority Associated Diagnoses Orde r Schedule MR Cervical Spine wo Contrast Imaging Routine Cerebellar tonsillar ectopia (CMS/HCC) Expected: 07/10/2024, Expires: 07/10/2025 Scheduled Referrals Name Type Priority Associated Diagnoses Order Schedule Ambulatory referral to Physical Therapy and Athletic Training Outpatient Referral Routine Cerebellar tonsillar ectopia (CMS/HCC) Expected: 07/07/2024, Expires: 07/07/2025 documented as of this encounter Visit Diagnoses Diagnosis Cerebellar tonsillar ectopia (CMS/HCC) documented in this encounter Historical Medications * This list may reflect changes made after this encounter. walker misc albuterol HFA (PROAIR HFA ; PROVENTIL HFA ; VENTOLIN HFA) 90 mcg/actuation inhaler Inhale 2 puffs by mouth every 6 (six) hours if needed for wheezing. traZODone (DESYREL) 100 mg tablet Take 1 tablet (100 mg total) by mouth at bedtime. levothyroxine (SYNTHROID, LEVOTHROID) 125 mcg tablet Take by mouth 1 (one) time each day before breakfast. SUMAtriptan (IMITREX) 25 mg tablet Take 1 tablet (25 mg total) by mouth 1 (one) time if needed for migraine. May repeat dose once in 2 hours if no relief. Do not exceed 2 doses in 24 hours. senna (SENOKOT) 8.6 mg tablet Take 1 tablet (8.6 mg total) by mouth 1 (one) time each day. QUEtiapine (SEROquel) 100 mg tablet Take 1 tablet (100 mg total) by mouth at bedtime. OXcarbazepine (TRILEPTAL) 300 mg tablet Take 1 tablet (300 mg total) by mouth 2 (two) times a day. omeprazole (PriLOSEC) [address] capsule Take 1 capsule (20 mg total) by mouth 1 (one) time each day. Do not crush or chew. metoclopramide (REGLAN) 10 mg tablet Take by mouth. magnesium oxide (MAG-OX) 400 mg magnesium tablet Take 1 tablet (400 mg total) by mouth 1 (one) time each day. clonazePAM (KlonoPIN) 0.5 mg tablet Take 1 tablet (0.5 mg total) by mouth 2 (two) times a day. added in this encounter Orders Outpatient Referral Count Last Ordered Date Fir st Ordered Date AMB REFERRAL TO NEUROSURGERY 07/07/2024 documented in this encounter Care Teams Explosive Operator Fuse Relationship Specialty Start Date End Date Micaela Fuchs MD [address] [place] [address] , [address] [facility] Physician Associ D/B/A: [facility] FERNANDO Stuart PCP - General Internal Medicine 06/26/24 documented as of this encounter
--- OUTSIDE RECORDS SUMMARY | 2024-07-11 14:43 | XMS_ITS | Clinical Summary ---
Author Organization [facility] Address [address] [place] [address] Care Team Providers Care Patient Accounts Specialist Name Role Phone Faye Adams PA-C Primary [...] on 12 April 2013 12:06 Encounter info: [id number], [facility] [place], 04/12/2013 [...] H/O: hysterectomy 2011 due to fibroid in [place] 03/01 Diverticulosis 03/28/2013 Overview (12/07/2013): Colonoscopy Done [...] on file Insurance [place] MEDICAID Care Teams Patient Accounts Specialist Relationship Specialty Start Date End Date Faye Adams PA-C [address] [place] [address] PCP - General 03/28/13
--- OUTSIDE RECORDS SUMMARY | 2024-07-11 14:43 | XMS_ITS | Encounter Summary ---
Author Organization [facility] Address [address] [place] [address] Care Team Providers Care Mines Inspector Name Role Phone Micaela Fuchs MD Primary Care Provider [phone] Reason for Visit * Reason Onset Date Comments Appointment 07/11/2024 [facility] Auth # [id number] for C/Spine MRI faxed over to [facility] MRI. Will contact pt w/appt Encounter Details Date Type Department Care Team ([facility] st Contact Info) Description 07/11/2024 Telephone Neurosurgery [facility] [address] [place] [address] Sarah Acevedo [place] Appointment ([facility] Auth # [id number] for C/Spine MRI faxed over to [facility] MRI. Will contact pt w/appt) Social History Tobacco Use Types Packs/Day Years Used Date Smoking Tobacco: Former Cigarettes Smokeless Tobacco: Never Comments Unknown Sex and Gender Information Value Date Recorded Sex Assigned at Not on file Legal Sex Female 3:37 PM EST Gender Identity Not on file Sexual Orientation Not on file documented as of this encounter Plan of Treatment Not on file documented as of this encounter Visit Diagnoses Not on filedocumented in this encounter Care Teams Mines Inspector Relationship Specialty Start Date End Date Micaela Fuchs MD [facility] , [facility] [address] [facility] Physician Associ D/B/A: [facility] In Internal Medicine FERNANDO Stuart PCP - General Internal Medicine 06/26/24 documented as of this encounter
[2024-07-11 14:46] LABS: INTERNATIONAL NORM RATIO 1.2 (0.9-1.1); Prothrombin Time 13.9 SEC (10.9-12.4)
[2024-07-11 14:48] LABS: Partial Thromboplastin Time 25.5 SEC (26.0-36.8)
[2024-07-11] MEDS: methylPREDNISolone Sod Succ 125 MG/2 ML VIAL 60 MG IVPUSH (14:51)
[2024-07-11 15:03] LABS: B Type Natriuretic Peptide < 10 pg/mL (<100)
[2024-07-11 15:07] LABS: Troponin-I High Sensitivity 3.6 ng/L (<3.5-17.0)
[2024-07-11] MEDS: Magnesium Sulfate/H2O 2 GM/50 ML PIGGYBACK IV (15:09)
[2024-07-11 15:16] LABS: Influenza A PCR NEGATIVE (Negative); Influenza B PCR NEGATIVE (Negative); Resp Syncy Virus RNA Qual PCR NEGATIVE (Negative); SARS COV2 PCR INHOUSE NEGATIVE (Negative)
[2024-07-11 15:20] LABS: Alanine Aminotransferase 95 U/L (0-31); Albumin Level 4.1 g/dL (3.5-5.0); Anion Gap 14 (12-20); Aspartate Amino Transferase 46 U/L (5-31); Bilirubin Total 1.4 mg/dL (0.0-1.0); Blood Urea Nitrogen 9 mg/dL (9-16); Calcium 9.3 mg/dL (8.4-10.2); Carbon Dioxide 24 mmol/L (22-29); Chloride 107 mmol/L (96-108); Creatinine Clr Calc Pharmacy 70.8; Estimated Glomerular Filt Rate > 60; Glucose Random 110 mg/dL (60-115); Potassium 3.7 mmol/L (3.3-5.1); Sodium 141 mmol/L (135-145); Total Protein 8.5 g/dL (6.5-8.0)
[2024-07-11 15:38] LABS: D Dimer High Sensitivity 353 NG/ML
[2024-07-11] MEDS: cefTRIAXone sodium 1 GM VIAL IVPUSH (15:53)
[2024-07-11] MEDS: Acetaminophen 325 MG TABLET 650 MG PO (15:54)
[2024-07-11] MEDS: 0.9 % Sodium Chloride 1,000 ML 999 ML IV (15:54)
[2024-07-11 16:00] VITALS: BP 136/74; PULSE 115; RESP 16; TEMP 37.4; O2SAT 95
--- NOTE | 2024-07-11 16:06 | PC.NURSE ---
report taken from emc rn. pt is in stach in lead 2 and her resps are nonlabored with clear ls in all paulino she was medicated for headche a sepsis alert has been initiated per report bcx2 were sent. 2nd iv 22 ga in r hand was started and lactic was sent. a cxr has to be performed.
[2024-07-11 16:24] LABS: Lactic Acid 0.9 mmol/L (0.5-2.0)
[2024-07-11 17:10] LABS: Alkaline Phosphatase 81 U/L (39-117)
--- NOTE | 2024-07-11 18:59 | PC.NURSE ---
assumed care of the pt at 1900. report received from Juan BINGHAM.
[2024-07-11] MEDS: Azithromycin 500 MG in 0.9 % Sodium Chloride 250 ML 125 MG IV (19:09)
[2024-07-11 19:12] VITALS: BP 126/77; PULSE 96; RESP 25; TEMP 36.7; O2SAT 90
[2024-07-11 19:16] VITALS: BP 122/77; PULSE 97; RESP 22; TEMP 36.6; O2SAT 88
--- NOTE | 2024-07-11 19:53 | MHC.EDTECH ---
This tech took over care of pt at 1900,rounded and introduced self to pt,vitals taken,patient's O2 is at 88% on room air,RN aware and placed pt back on 2L VNC,pt is at 94% at this time,pt appears comfortable family at bedside call araujo in reach
--- NOTE | 2024-07-11 21:38 | PM.IMHP ---
History of Present Illness Date of Service: 07/11/24 Attending physician on admission: Reji Eric Chief Complaint: Worsening shortness of breath, cough Patient is a 58-year-old Latvian-speaking female with a past medical history significant for asthma unspecified, GERD, hypothyroid, chronic constipation and recent influenza a/B infection on 07/07/2024, who presented to the ED complaining of persistent cough, worsening shortness of breath and chest tightness over the past few days. She is also reporting abdominal soreness, nausea and vomiting phlegm with her cough. She denies any hematemesis or hematochezia. She has had some solitary episodes of diarrhea. No hemoptysis. She has been unable to tolerate much by mouth for the past few days due to her nausea and abdominal discomfort. Additionally she complains of malodorous urine and dysuria. Her history was difficult to obtain due to multiple family members giving history well associate program manager also present. Review of Systems Constitutional: Constitutional: Denies body ache(s), Denies chills, Denies fatigue and Denies headache(s) Eyes: Eyes: Denies change in vision and Denies photophobia ENT: Denies headache(s), Denies nasal congestion, Denies nasal discharge and Denies sore throat Cardiovascular: Cardiovascular: Reports chest pain (with cough), Denies rapid heart rate, Denies leg edema and Reports dyspnea Respiratory: Respiratory: Reports chest congestion, Reports cough, Reports dyspnea and Reports wheezing Gastrointestinal: Gastrointestinal: Reports abdominal pain, Denies melena, Denies hematochezia, Denies coffee ground emesis, Denies constipation, Reports diarrhea, Reports nausea, Reports vomiting and Denies hematemesis Genitourinary: Genitourinary: Reports dysuria Musculoskeletal: Musculoskeletal: Denies myalgias Integumentary/Breasts: Skin/Breast: Denies rash Neurologic: Denies confusion and Denies headache(s) Psychiatric: Psychiatric: Denies confusion Endocrine: Endocrine: Denies fatigue Hematologic/Lymphatic: Hematologic/Lymphatic: Denies easy bleeding and Denies easy bruising Allergic/Immunologic: Allergic/Immunologic: Reports wheezing [facility] Medical History Mild persistent asthma, uncomplicated Internal and external hemorrhoids without complication Bloody stools Hypothyroidism Chronic GERD Chronic constipation Pap smear of cervix shows high risk HPV present Family History Father HTN (hypertension) Mother Asthma HTN (hypertension) Sister Heart disease Brother Liver cancer Son Asthma Surgical History History of bladder surgery History of colonoscopy History of partial hysterectomy Social History Household Members: Children Housing: Apartment Unable to assess alcohol history related to: Unknown Alcohol intake: never Patient Tobacco Use Status: Former Tobacco user Tobacco use type: Cigarette e-Cigarette/Vaping Use: Never Used Second Hand Smoke Exposure: No Use of substances other than those prescribed or required for medical reasons: Unknown Advance Directives: No Advance Directives Information Provided: Yes Do you have a plan to hurt others: No Plan service: No Current occupational status: disabled Cognitive needs: Yes Hearing needs: No Vision needs: No Narrative: No smoking, alcohol or drug use Meds Allergies Allergy/AdvReac Type Severity Reaction Status Date / Time levothyroxine sodium AdvReac Mild inadequeate Verified 07/11/24 13:14 [From Synthroid] response SEAFOOD Allergy Intermediate DOESNT Uncoded 07/06/24 12:54 TAKE BECAUSE OF THYROID Active Medications: Current Medications Acetaminophen (Acetaminophen 325 Mg Tablet) 650 mg PO Q6H PRN PRN Reason: Pain, Mild 1-3,fever,headache Albuterol/Ipratropium (Albuterol/Iprat 2.5/0.5mg 3 Ml Ampul.Neb) 3 ml INHALE Q4H PRN PRN Reason: Shortness of Breath/Wheezing Albuterol/Ipratropium (Albuterol/Iprat 2.5/0.5mg 3 Ml Ampul.Neb) 3 ml INHALE RQ4H WHILE AWAKE [facility] Benzonatate (Benzonatate 100 Mg Capsule) 100 mg PO TID PRN PRN Reason: Cough Calcium Carbonate (Calcium Carbonate 750 Mg Tab.Chew) 750 mg PO Q4H PRN PRN Reason: Heartburn Ceftriaxone Sodium (Ceftriaxone Sodium 1 Gm Vial) 1 gm IVPUSH Q24H [place] Enoxaparin Sodium (Enoxaparin Sodium 40 Mg/0.4 Ml Syringe) 40 mg SUBCUT Q24H [place] Azithromycin 500 mg/ Sodium (Chloride) 250 mls @ 125 mls/hr IV Q24H ON LICENSE OF [facility] Magnesium Hydroxide (Milk Of Magnesia 30 Ml Oral.Susp) 30 ml PO DAILY PRN PRN Reason: Constipation Melatonin (Melatonin 3 Mg Tablet) 6 mg PO BEDTIME PRN PRN Reason: Insomnia Ondansetron HCl (Ondansetron Hcl 4 Mg/2 Ml Vial) 4 mg IVPUSH Q8H PRN PRN Reason: Nausea and Vomiting Prednisone (Prednisone 20 Mg Tablet) 40 mg PO DAILY ON LICENSE OF [facility] Sodium Chloride (0.9 % Sodium Chloride Flush 3 Ml Syringe) 3 ml IVFLUSH QSHIFT ON LICENSE OF [facility] Home Medications ?Medication ?Instructions ?Recorded ?Confirmed ?Last Taken ?Type acetaminophen 325 mg tablet 325 mg PO Q4H PRN Migraine 07/11/24 07/11/24 Unknown History rlmryun-qwtftzsarderw-xbvxycnt 250 1 tab PO Q4H PRN Migraine Headache 07/11/24 07/11/24 07/11/24 History mg-250 mg-65 mg tablet (Excedrin Migraine) levothyroxine 125 mcg tablet 125 mcg PO DAILY@0600 07/11/24 07/11/24 Unknown History (Synthroid) Physical Exam Vital Signs and Narrative: Vital Signs: Last Vital Signs Temp 97.9 F 07/11/24 19:16 Pulse 97 07/11/24 19:16 Resp 22 H 07/11/24 19:16 BP 122/77 07/11/24 19:16 Pulse Ox 88 L 07/11/24 19:16 O2 Del Method Room Air 07/11/24 19:16 O2 Flow Rate 2 07/11/24 16:00 BMI result Body Mass Index 25.0 General: AOx3, no acute distress, to family members assisting with history as well as associate program manager present, patient able to give history herself as well Resp: Rhonchi bilaterally, no crackles, mild expiratory wheezing CVS: Tachycardic, normal rhythm, no murmur GI: +BS, NT, no distention Skin: Warm, dry Neuro: Cranial nerves II-XII grossly intact bilaterally. Motor grossly intact bilaterally Extremities: No lower extremity edema Psych: Appropriate affect Const: General: No confusion Orientation/consciousness: No confusion Eyes: Direct Ophthalmoscopy: No photophobia Neuro: General: No confusion Results Labs 07/11/24 14:30 07/11/24 14:30 Labs: Laboratory Results - last 24 hr 07/11/24 07/11/24 14:30 15:57 MCV 93.3 MCH 30.5 MCHC 32.6 RDW 12.9 Plt Count 261 MPV 10.3 Immature Gran % (Auto) 0.6 H Neut % (Auto) 82.3 H Lymph % (Auto) 10.2 L [place] % (Auto) 6.5 Eos % (Auto) 0.2 Baso % (Auto) 0.2 Lymph # (Auto) 1.4 [place] # (Auto) 0.9 Eos # (Auto) 0.0 Baso # (Auto) 0.0 Abs Immat Gran (auto) 0.08 H Absolute Neuts (auto) 10.9 H Absolute Nucleated RBC 0.000 Nucleated RBC % (auto) 0.0 PT 13.9 H INR 1.2 H APTT 25.5 L D D-Dimer High Sensitivty 353 Anion Gap 14 Estim Creat Clear Calc 70.8 Estimated GFR > 60 Random Glucose 110 Lactic Acid 0.9 Calcium 9.3 Magnesium 2.0 Total Bilirubin 1.4 H AST 46 H ALT 95 H Alkaline Phosphatase 81 B-Natriuretic Peptide < 10 Total Protein 8.5 H Albumin 4.1 Influenza Type A (PCR) NEGATIVE Influenza Type B (PCR) NEGATIVE RSV RNA Qual (PCR) NEGATIVE SARS-CoV-2 RNA (RT-PCR) NEGATIVE Assessment and Plan (1) Acute respiratory failure with hypoxia: Status: Acute (2) Sepsis: Status: Acute (3) Pneumonia: Status: Acute (4) Acute asthma exacerbation: Status: Acute (5) Dysuria: Status: Acute Plan Patient is a 58-year-old Latvian-speaking female with a past medical history significant for asthma unspecified, GERD, hypothyroid, chronic constipation and recent influenza a/B infection on 07/07/2024, who presented to the ED complaining of persistent cough, worsening shortness of breath and chest tightness over the past few days. Acute hypoxic respiratory failure, sepsis secondary to recent influenza with superimposed bacterial pneumonia - WBC 13.2, lactic acid 0.9, tachycardic and tachypneic, blood cultures x2 pending, not severe sepsis - chest x-ray with pneumonia - COVID/flu/RSV negative now - unable to obtain CTA to rule out PE due to contrast allergy, V/Q scan ordered - started on ceftriaxone and azithromycin in ED, continue - given 1 L NS in ED - monitor CBC and BMP Acute asthma exacerbation - received levalbuterol/ipratropium in ED, continue Q4H PRN - started on Solu-Medrol 60 mg, continue 40mg PO QD Dysuria - UA with reflex culture ordered GERD - continue home meds Hypothyroid - continue home meds Chronic constipation - continue home meds DNR/DNI VTE prophylaxis: Lovenox Patient with acute hypoxic respiratory failure and sepsis secondary to recent influenza with superimposed bacterial pneumonia as well as acute asthma exacerbation, requiring admission for at least 2 midnights stay for IV antibiotics, breathing treatments and monitoring. Quality Stroke Does the patient have a stroke diagnosis?: No VTE Prior VTE?: No VTE Risk Level:: Medical - moderate - high VTE Device Contraindication: Treatment Not Indicated VTE Drug Contraindication: N/A - Med Ordered
[2024-07-11 22:00] VITALS: BP 113/68; PULSE 97; RESP 18; TEMP 36.7; O2SAT 96
--- NOTE | 2024-07-11 22:08 | PHA.MEDREC ---
Addendum entered by Ollie Tarango [facility] 07/11/24 22:20: med rec reviewed Original Note: Pharmacy Consult ? Medication Reconciliation Pharmacy has completed the medication reconciliation. Spoke with patient and family at bedside who was able to interpret. The family stated the patient has not been taking any psych/mood medications in a while due to the patient having problems with her prescriber and not finding a new one yet. The patient confirmed she has not been taking the Oxybutanin 10mg tab due to having problems while taking it. She confirmed she is still taking the Synthroid 125mcg tab and confirmed she took it this morning.
--- NOTE | 2024-07-11 22:11 | MHC.EDTECH ---
Rounds,vitals and belongings list completed
[2024-07-12] VITALS (11 sets, daily range): BP systolic 110–135; BP diastolic 63–83; PULSE 74–97; RESP 13–25; TEMP 36.1–37.1; O2SAT 92–97
[2024-07-12 00:40] LABS: Appearance Urine Clear; Color Urine Yellow; Glucose Urine UA 500 mg/dL (Negative); Leukocyte Esterase Urine Negative (Negative); Nitrite Urine Positive (Negative); PH 6.5 (5.0-9.0); UMIC TRIGGER UACC YES; Urine Blood Small (1+) (Negative); Urine Ketones 15 mg/dL (Negative); Urine Protein 30 (1+) mg/dL (Neg-Trace)
[2024-07-12 00:42] LABS: Bacteria Urine 1+ (None Seen); Hyaline Casts Urine 0-2 /LPF (0-2); UACC Culture Trigger YES
[2024-07-12] MEDS: Enoxaparin Sodium 40 MG/0.4 ML SYRINGE SUBCUT ×2 (00:42→19:47)
--- NOTE | 2024-07-12 06:11 | PC.NURSE ---
pt resting comfortably on stretcher in no apparent distress, wearing 2L O2 via NC. denies current pain or complaints. family at bedside. call araujo within reach, plan of care ongoing
[2024-07-12 06:13] LABS: MANUAL DIFF FLAG NO
[2024-07-12 06:14] LABS: Basophils Percent Auto 0.1 % (0-2); Hemoglobin 11.6 g/dl (12.0-16.0); Imm Gran Abs Auto 0.11 X10*3/uL (0.00-0.03); Imm Gran Pct Auto 0.8 % (0.0-0.4); Lymphocytes Absolute Auto 0.9 X10*3/uL (1.2-4.9); Lymphocytes Percent Auto 6.2 % (20-40); Mean Corpuscular HGB Conc 33.1 g/dl (31.0-35.0); Mean Corpuscular Hemoglobin 30.9 pg (27.0-33.0); Mean Corpuscular Volume 93.1 fL (80.0-98.0); Monocytes Absolute Auto 1.1 X10*3/uL (0.1-1.2); Monocytes Percent Auto 7.3 % (2-11); Neutrophils Absolute Auto 12.4 x10*3/uL (2.0-8.3); Neutrophils Percent Auto 85.6 % (45-73); Platelet Count 280 X10*3/uL (160-400); Red Blood Count 3.76 X10*6/uL (4.20-5.50); White Blood Count 14.5 X10*3/uL (4.8-10.8)
[2024-07-12 06:30] LABS: Anion Gap 10 (12-20); Blood Urea Nitrogen 13 mg/dL (9-16); Carbon Dioxide 24 mmol/L (22-29); Chloride 111 mmol/L (96-108); Creatinine Clr Calc Pharmacy 80.3; Estimated Glomerular Filt Rate > 60; Glucose Random 127 mg/dL (60-115); Potassium 3.9 mmol/L (3.3-5.1); Sodium 141 mmol/L (135-145)
--- NOTE | 2024-07-12 07:07 | MHC.EDTECH ---
this tech assumed care of pt at 0700, breakfast tray given, pt eating and comfortable, all needs met at this time
[2024-07-12] MEDS: Albuterol/Iprat 2.5/0.5MG 3 ML AMPUL.NEB INHALE ×4 (07:36→19:23)
[2024-07-12] MEDS: 0.9 % Sodium Chloride Flush 3 ML SYRINGE IVFLUSH ×2 (08:09→19:52)
[2024-07-12] MEDS: predniSONE 20 MG TABLET 40 MG PO (09:35)
[2024-07-12] MEDS: Benzonatate 100 MG CAPSULE PO (09:37)
--- NOTE | 2024-07-12 11:00 | MHC.CM.PN ---
IMM 07/12/24, Pt lives with her dtr and gr dtrs, her dtr is her WORKING FOREMAN, and she takes care of her all of the time. For DME, she has a walker, and a cane. She has a nurse that comes to the home once a month from [facility]. HCP is on file, her dtr: Meir Gamble. PCP is Micaela Lanier. Family to transport home at DC. DCP: home with services. CM to follow for DC needs.
--- NOTE | 2024-07-12 13:29 | P.PNIM_ITS ---
Subjective Subjective Date of Service: 07/12/24 Review of Systems Follow up resp failure flu, PNA still feeling weak and congested Physical Exam 2 Vital Signs: Vital Signs: Last Vital Signs Temp 98.1 F 07/12/24 11:47 Pulse 82 07/12/24 11:47 Resp 25 H 07/12/24 11:47 BP 135/83 07/12/24 11:47 Pulse Ox 96 07/12/24 11:47 O2 Del Method Aerosol Mask 07/12/24 11:47 O2 Flow Rate 2 07/12/24 07:13 BMI result Body Mass Index 25.0 Appearing in no acute distress lung sounds are clear to auscultation heart regular rate rhythm, clear S1, S2 positive bowel sounds, abdomen is soft, nontender neuro patient is alert x3, no focal deficits Objective Data Active Medications Acetaminophen (Acetaminophen 325 Mg Tablet) 650 mg PO Q6H PRN PRN Reason: Pain, Mild 1-3,fever,headache Albuterol/Ipratropium (Albuterol/Iprat 2.5/0.5mg 3 Ml Ampul.Neb) 3 ml INHALE Q4H PRN PRN Reason: Shortness of Breath/Wheezing Albuterol/Ipratropium (Albuterol/Iprat 2.5/0.5mg 3 Ml Ampul.Neb) 3 ml INHALE RQ4H WHILE AWAKE [facility] Last Admin: 07/12/24 11:37 Dose: 3 ml Documented By: KIMANI Benzonatate (Benzonatate 100 Mg Capsule) 100 mg PO TID PRN PRN Reason: Cough Last Admin: 07/12/24 09:37 Dose: 100 mg Documented By: EBEN Calcium Carbonate (Calcium Carbonate 750 Mg Tab.Chew) 750 mg PO Q4H PRN PRN Reason: Heartburn Ceftriaxone Sodium (Ceftriaxone Sodium 1 Gm Vial) 1 gm IVPUSH Q24H [facility] Enoxaparin Sodium (Enoxaparin Sodium 40 Mg/0.4 Ml Syringe) 40 mg SUBCUT Q24H [facility] Last Admin: 07/12/24 00:42 Dose: 40 mg Documented By: FÁTIMA Guaifenesin (Guaifenesin [place] 600 Mg Tab.Er.12h) 600 mg PO BID [facility] Azithromycin 500 mg/ Sodium (Chloride) 250 mls @ 125 mls/hr IV Q24H [facility] Levothyroxine Sodium (Levothyroxine Sodium 125 Mcg Tablet) 125 mcg PO DAILY@0600 [facility] Magnesium Hydroxide (Milk Of Magnesia 30 Ml Oral.Susp) 30 ml PO DAILY PRN PRN Reason: Constipation Magnesium Oxide (Magnesium Oxide 400 Mg Tablet) 400 mg PO BEDTIME [facility] Melatonin (Melatonin 3 Mg Tablet) 6 mg PO BEDTIME PRN PRN Reason: Insomnia Omeprazole (Omeprazole 20 Mg Capsule.Dr) 20 mg PO DAILY [facility] Ondansetron HCl (Ondansetron Hcl 4 Mg/2 Ml Vial) 4 mg IVPUSH Q8H PRN PRN Reason: Nausea and Vomiting Oxcarbazepine (Oxcarbazepine 300 Mg Tablet) 300 mg PO DAILY [facility] Oxcarbazepine (Oxcarbazepine 300 Mg Tablet) 600 mg PO BEDTIME [facility] Prednisone (Prednisone 20 Mg Tablet) 40 mg PO DAILY [facility] Last Admin: 07/12/24 09:35 Dose: 40 mg Documented By: EBEN Quetiapine Fumarate (Quetiapine Fumarate 100 Mg Tablet) 100 mg PO BEDTIME [facility] Sodium Chloride (0.9 % Sodium Chloride Flush 3 Ml Syringe) 3 ml IVFLUSH QSHIFT [facility] Last Admin: 07/12/24 08:09 Dose: 3 ml Documented By: EBEN Labs 07/12/24 06:09 07/12/24 06:09 Labs: Laboratory Results - last 24 hr 07/11/24 07/11/24 07/12/24 14:30 15:57 00:33 MCV 93.3 MCH 30.5 MCHC 32.6 RDW 12.9 Plt Count 261 MPV 10.3 Immature Gran % (Auto) 0.6 H Neut % (Auto) 82.3 H Lymph % (Auto) 10.2 L [place] % (Auto) 6.5 Eos % (Auto) 0.2 Baso % (Auto) 0.2 Lymph # (Auto) 1.4 [place] # (Auto) 0.9 Eos # (Auto) 0.0 Baso # (Auto) 0.0 Abs Immat Gran (auto) 0.08 H Absolute Neuts (auto) 10.9 H Absolute Nucleated RBC 0.000 Nucleated RBC % (auto) 0.0 PT 13.9 H INR 1.2 H APTT 25.5 L D D-Dimer High Sensitivty 353 Anion Gap 14 Estim Creat Clear Calc 70.8 Estimated GFR > 60 Random Glucose 110 Lactic Acid 0.9 Calcium 9.3 Magnesium 2.0 Total Bilirubin 1.4 H AST 46 H ALT 95 H Alkaline Phosphatase 81 B-Natriuretic Peptide < 10 Total Protein 8.5 H Albumin 4.1 Urine Color Yellow Urine Appearance Clear Urine pH 6.5 Ur Specific [place] 1.020 Urine Protein 30 (1+) H Urine Glucose (UA) 500 H Urine Ketones 15 Urine Blood Small (1+) H Urine Nitrite Positive H Ur Leukocyte Esterase Negative Urine RBC 6-10 H Urine WBC 6-10 H Ur Squamous Epith Cells 3-5 Urine Bacteria 1+ Hyaline Casts 0-2 Influenza Type A (PCR) NEGATIVE Influenza Type B (PCR) NEGATIVE RSV RNA Qual (PCR) NEGATIVE SARS-CoV-2 RNA (RT-PCR) NEGATIVE 07/12/24 06:09 MCV 93.1 MCH 30.9 MCHC 33.1 RDW 13.0 Plt Count 280 MPV 10.0 Immature Gran % (Auto) 0.8 H Neut % (Auto) 85.6 H Lymph % (Auto) 6.2 L [place] % (Auto) 7.3 Eos % (Auto) 0.0 Baso % (Auto) 0.1 Lymph # (Auto) 0.9 L [place] # (Auto) 1.1 Eos # (Auto) 0.0 Baso # (Auto) 0.0 Abs Immat Gran (auto) 0.11 H Absolute Neuts (auto) 12.4 H Absolute Nucleated RBC 0.000 Nucleated RBC % (auto) 0.0 PT INR APTT D-Dimer High Sensitivty Anion Gap 10 L Estim Creat Clear Calc 80.3 Estimated GFR > 60 Random Glucose 127 H Lactic Acid Calcium 9.0 Magnesium Total Bilirubin AST ALT Alkaline Phosphatase B-Natriuretic Peptide Total Protein Albumin Urine Color Urine Appearance Urine pH Ur Specific [place] Urine Protein Urine Glucose (UA) Urine Ketones Urine Blood Urine Nitrite Ur Leukocyte Esterase Urine RBC Urine WBC Ur Squamous Epith Cells Urine Bacteria Hyaline Casts Influenza Type A (PCR) Influenza Type B (PCR) RSV RNA Qual (PCR) SARS-CoV-2 RNA (RT-PCR) Assessment and Plan (1) Hypothyroidism: Status: Acute Plan Patient is a 58-year-old Persian-speaking female with a past medical history significant for asthma unspecified, GERD, hypothyroid, chronic constipation and recent influenza a/B infection on 07/07/2024, who presented to the ED complaining of persistent cough, worsening shortness of breath and chest tightness over the past few days. Acute hypoxic respiratory failure, sepsis secondary to recent influenza with superimposed bacterial pneumonia WBC 13.2, lactic acid 0.9, tachycardic and tachypneic, blood cultures x2 pending, not severe sepsis chest x-ray with pneumonia COVID/flu/RSV negative now unable to obtain CTA to rule out PE due to contrast allergy, V/Q scan negative ceftriaxone and azithromycin mucinex for dry cough Acute asthma exacerbation continue albuterol Q4H PRN Prednisone 40 mg daily Dysuria UA with reflex culture ordered GERD continue home meds Hypothyroid continue home meds Chronic constipation continue home meds DNR/DNI Attending Dr. Jamil VTE prophylaxis: Lovenox Patient with acute hypoxic respiratory failure and sepsis secondary to recent influenza with superimposed bacterial pneumonia as well as acute asthma exacerbation, requiring admission for at least 2 midnights stay for IV antibiotics, breathing treatments and monitoring. Quality Stroke Does the patient have a stroke diagnosis?: No VTE Prior VTE?: No VTE Risk Level:: Medical - moderate - high VTE Device Contraindication: Treatment Not Indicated VTE Drug Contraindication: N/A - Med Ordered
[2024-07-12] MEDS: guaiFENesin LA 600 MG TAB.ER.12H PO ×2 (14:35→19:49)
[2024-07-12] MEDS: cefTRIAXone sodium 1 GM VIAL IVPUSH (14:35)
[2024-07-12] MEDS: Azithromycin 500 MG in 0.9 % Sodium Chloride 250 ML 125 MG IV (18:47)
[2024-07-12] MEDS: Magnesium Oxide 400 MG TABLET PO (19:49)
[2024-07-13] VITALS (10 sets, daily range): BP systolic 118–148; BP diastolic 63–89; PULSE 77–102; RESP 16–20; TEMP 36.1–37.1; O2SAT 92–96
[2024-07-13] MEDS: Levothyroxine Sodium 125 MCG TABLET PO (06:20)
[2024-07-13] MEDS: Omeprazole 20 MG CAPSULE.DR PO (06:20)
[2024-07-13] MEDS: Albuterol/Iprat 2.5/0.5MG 3 ML AMPUL.NEB INHALE ×4 (07:41→19:12)
[2024-07-13] MEDS: predniSONE 20 MG TABLET 40 MG PO (08:41)
[2024-07-13] MEDS: 0.9 % Sodium Chloride Flush 3 ML SYRINGE IVFLUSH ×3 (08:42→21:09)
[2024-07-13] MEDS: Doxycycline Hyclate 100 MG in 0.9 % Sodium Chloride 250 ML 166.67 MG IV ×2 (08:42→21:08)
[2024-07-13] MEDS: guaiFENesin LA 600 MG TAB.ER.12H PO ×2 (10:17→21:09)
[2024-07-13] MEDS: cefTRIAXone sodium 1 GM VIAL IVPUSH (16:06)
--- NOTE | 2024-07-13 16:52 | HO.PM.IMPN ---
Subjective Subjective Date of Service: 07/13/24 Interval History: seen and examined this morning follow up for pneumonia patient reports while walking she felt sob she has requested to keep oxygen in place Review of Systems Review of Systems: Yes all other systems are reviewed and are negative Constitutional Constitutional: Denies chills and Denies fever(s) Physical Exam Vital Signs: Vital Signs: Last Vital Signs Temp 97.6 F 07/13/24 15: Pulse 96 07/13/24 15:31 Resp 16 07/13/24 15:31 BP 118/72 07/13/24 15:25 Pulse Ox 93 07/13/24 15:25 O2 Del Method Nasal Cannula 07/13/24 15: O2 Flow Rate 2 07/13/24 15:25 BMI result Body Mass Index 25.0 Const: General: comfortable, no acute distress, alert, awake and Physically active Nutritional Appearance: average body habitus Orientation/consciousness: patient oriented x3 Resp: Effort & Inspection: normal respiratory effort, able to speak in complete sentences, no respiratory distress and no use of accessory muscles Cardio: Rate: regular rate GI: Inspection: No distended Neuro: General: patient oriented x3, moves all extremities and CN's II-XI intact bilaterally Extrem: General: Yes no pedal edema Objective Data Active Medications Acetaminophen (Acetaminophen 325 Mg Tablet) 650 mg PO Q6H PRN PRN Reason: Pain, Mild 1-3,fever,headache Albuterol/Ipratropium (Albuterol/Iprat 2.5/0.5mg 3 Ml Ampul.Neb) 3 ml INHALE Q4H PRN PRN Reason: Shortness of Breath/Wheezing Albuterol/Ipratropium (Albuterol/Iprat 2.5/0.5mg 3 Ml Ampul.Neb) 3 ml INHALE RQ4H WHILE AWAKE [facility] Last Admin: 07/13/24 15:31 Dose: 3 ml Documented By: MIKEY Benzonatate (Benzonatate 100 Mg Capsule) 100 mg PO TID PRN PRN Reason: Cough Last Admin: 07/12/24 09:37 Dose: 100 mg Documented By: EBEN Calcium Carbonate (Calcium Carbonate 750 Mg Tab.Chew) 750 mg PO Q4H PRN PRN Reason: Heartburn Ceftriaxone Sodium (Ceftriaxone Sodium 1 Gm Vial) 1 gm IVPUSH Q24H [facility] Last Admin: 07/13/24 16:06 Dose: 1 gm Documented By: JENNIFER Enoxaparin Sodium (Enoxaparin Sodium 40 Mg/0.4 Ml Syringe) 40 mg SUBCUT Q24H [facility] Last Admin: 07/12/24 19:47 Dose: 40 mg Documented By: JOAQUÍN Guaifenesin (Guaifenesin La 600 Mg Tab.Er.12h) 600 mg PO BID [facility] Last Admin: 07/13/24 10:17 Dose: 600 mg Documented By: JENNIFER Doxycycline Hyclate 100 mg/ (Sodium Chloride) 250 mls @ 166.67 mls/hr IV Q12H [facility] Last Infusion: 07/13/24 10:17 Dose: Infused Documented By: JENNIFER Levothyroxine Sodium (Levothyroxine Sodium 125 Mcg Tablet) 125 mcg PO DAILY@0600 [facility] Last Admin: 07/13/24 06:20 Dose: 125 mcg Documented By: JOAQUÍN Magnesium Hydroxide (Milk Of Magnesia 30 Ml Oral.Susp) 30 ml PO DAILY PRN PRN Reason: Constipation Magnesium Oxide (Magnesium Oxide 400 Mg Tablet) 400 mg PO BEDTIME [facility] Last Admin: 07/12/24 19:49 Dose: 400 mg Documented By: JOAQUÍN Melatonin (Melatonin 3 Mg Tablet) 6 mg PO BEDTIME PRN PRN Reason: Insomnia Omeprazole (Omeprazole 20 Mg Capsule.Dr) 20 mg PO DAILY@0630 [facility] Last Admin: 07/13/24 06:20 Dose: 20 mg Documented By: JOAQUÍN Ondansetron HCl (Ondansetron Hcl 4 Mg/2 Ml Vial) 4 mg IVPUSH Q8H PRN PRN Reason: Nausea and Vomiting Oxcarbazepine (Oxcarbazepine 300 Mg Tablet) 300 mg PO DAILY [facility] Last Admin: 07/13/24 08:49 Dose: Not Given Documented By: JENNIFER Non-Admin Reason: Patient Refused Oxcarbazepine (Oxcarbazepine 300 Mg Tablet) 600 mg PO BEDTIME [facility] Last Admin: 07/12/24 19:51 Dose: Not Given Documented By: JOAQUÍN Non-Admin Reason: Patient Refused Prednisone (Prednisone 20 Mg Tablet) 40 mg PO DAILY [facility] Last Admin: 07/13/24 08:41 Dose: 40 mg Documented By: JENNIFER Quetiapine Fumarate (Quetiapine Fumarate 100 Mg Tablet) 100 mg PO BEDTIME [facility] Last Admin: 07/12/24 19:51 Dose: Not Given Documented By: JOAQUÍN Non-Admin Reason: Patient Refused Sodium Chloride (0.9 % Sodium Chloride Flush 3 Ml Syringe) 3 ml IVFLUSH QSHIFT [facility] Last Admin: 07/13/24 16:07 Dose: 3 ml Documented By: JENNIFER Labs 07/12/24 06:09 07/12/24 06:09 Microbiology Microbiology Results: Microbiology 07/11/24 14:30 Blood Culture - Preliminary Blood - Venous No growth after 48 hours. 07/12/24 Unknown Urine Culture - Final Urine clean catch - Clean Catch Midstream 07/11/24 14:39 Blood Culture - Preliminary Blood - Venous No growth after 24 hours. Assessment and Plan (1) Acute respiratory failure with hypoxia: Status: Acute Plan Patient is a 58-year-old Faroese-speaking female with a past medical history significant for asthma unspecified, GERD, hypothyroid, chronic constipation and recent influenza a/B infection on 07/07/2024, who presented to the ED complaining of persistent cough, worsening shortness of breath and chest tightness over the past few days. Acute hypoxic respiratory failure, sepsis secondary to recent influenza with superimposed bacterial pneumonia met sepsis criteria with wbc count, tachycardic and tachypneic, no severe features. tachycardia and tachypnea resolved chest x-ray with pneumonia COVID/flu/RSV negative now unable to obtain CTA to rule out PE due to contrast allergy, V/Q scan negative ceftriaxone and change azithromycin to doxycycline to cover for possible staph in setting of recent influenza infection mucinex for dry cough Acute asthma exacerbation continue albuterol Q4H PRN Prednisone 40 mg daily Dysuria urine culture negative GERD continue home meds Hypothyroid continue home meds Chronic constipation continue home meds DNR/DNI Attending Dr. Jamil VTE prophylaxis: Lovenox Patient with acute hypoxic respiratory failure and sepsis secondary to recent influenza with superimposed bacterial pneumonia as well as acute asthma exacerbation, requiring ongoing inpatient stay for IV antibiotics, breathing treatments and monitoring. Quality Stroke Does the patient have a stroke diagnosis?: No VTE Prior VTE?: No VTE Risk Level:: Medical - moderate - high VTE Device Contraindication: Treatment Not Indicated VTE Drug Contraindication: N/A - Med Ordered
[2024-07-13] MEDS: Enoxaparin Sodium 40 MG/0.4 ML SYRINGE SUBCUT (21:09)
[2024-07-13] MEDS: Magnesium Oxide 400 MG TABLET PO (21:09)
[2024-07-14 03:35] VITALS: BP 139/75; PULSE 78; RESP 18; TEMP 36.2; O2SAT 98
[2024-07-14] MEDS: Omeprazole 20 MG CAPSULE.DR PO (05:52)
[2024-07-14] MEDS: Levothyroxine Sodium 125 MCG TABLET PO (05:52)
[2024-07-14 06:17] LABS: Alanine Aminotransferase 44 U/L (0-31); Albumin Level 3.4 g/dL (3.5-5.0); Alkaline Phosphatase 75 U/L (39-117); Aspartate Amino Transferase 21 U/L (5-31); Bilirubin Direct 0.1 mg/dL (0.0-0.5); Bilirubin Total 0.3 mg/dL (0.0-1.0); Total Protein 6.9 g/dL (6.5-8.0)
[2024-07-14 07:36] VITALS: BP 148/79; PULSE 84; RESP 16; TEMP 36.6; O2SAT 95
[2024-07-14] MEDS: Doxycycline Hyclate 100 MG in 0.9 % Sodium Chloride 250 ML 166.67 MG IV (08:04)
[2024-07-14] MEDS: 0.9 % Sodium Chloride Flush 3 ML SYRINGE IVFLUSH (08:04)
[2024-07-14] MEDS: predniSONE 20 MG TABLET 40 MG PO (08:09)
[2024-07-14] MEDS: guaiFENesin LA 600 MG TAB.ER.12H PO (08:09)
[2024-07-14] MEDS: Albuterol/Iprat 2.5/0.5MG 3 ML AMPUL.NEB INHALE ×2 (08:15→12:16)
[2024-07-14 08:18] VITALS: PULSE 84; RESP 18; O2SAT 97
--- NOTE | 2024-07-14 11:17 | P.DS_ITS ---
DS: Providers Provider Date of Service: 07/14/24 Date of admission: 07/11/24 21:03 Date of discharge: 07/14/24 Primary care physician: Micaela Fuchs MD Attending physician on discharge: Alexx Jamil Discharging clinician: Lee Ann Lyons DS: Diagnosis Discharge Diagnosis (1) Acute respiratory failure with hypoxia: Status: Acute DS: Summary Hospital Course Hospital Course: From H&P on the day of admission Patient is a 58-year-old Mozambican-speaking female with a past medical history significant for asthma unspecified, GERD, hypothyroid, chronic constipation and recent influenza a/B infection on 07/07/2024, who presented to the ED complaining of persistent cough, worsening shortness of breath and chest tightness over the past few days. She is also reporting abdominal soreness, nausea and vomiting phlegm with her cough. She denies any hematemesis or hematochezia. She has had some solitary episodes of diarrhea. No hemoptysis. She has been unable to tolerate much by mouth for the past few days due to her nausea and abdominal discomfort. Additionally she complains of malodorous urine and dysuria. 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 tachycardia and tachypnea resolved chest x-ray with pneumonia, recenly had influenza infection. COVID/flu/RSV negative now. unable to obtain CTA to rule out PE due to contrast allergy, V/Q scan negative Treated wiht IV ceftriaxone and doxycycline to cover for possible staph in setting of recent influenza infection. she was weaned off oxygen and is feeling much better mucinex for dry cough Acute exacerbation of mild intermittent asthma continue albuterol Q4H PRN Prednisone 40 mg daily Dysuria urine culture negative Mild elevation in the LFTs. Repeat improving, likely due to recent viral illness versus sepsis Time Attestation Discharge Coordination Time (in mins): 36 Quality: Safe Use of Opioids Does Pt have an Active Cancer Diagnosis on the Problem List?: No Quality: Stroke Does the patient have a stroke diagnosis?: No Physical Exam Vital Signs: Vital Signs: Last Vital Signs Temp 97.9 F 07/14/24 07:36 Pulse 84 07/14/24 08:18 Resp 18 07/14/24 08:18 BP 148/79 H 07/14/24 07:36 Pulse Ox 95 07/14/24 07:36 O2 Del Method Nasal Cannula 07/14/24 07:36 O2 Flow Rate 2 07/14/24 07:36 BMI result Body Mass Index 25.0 Const: General: comfortable, no acute distress, alert, awake and Physically active Nutritional Appearance: average body habitus Orientation/consciousness: patient oriented x3 Resp: Effort & Inspection: normal respiratory effort, able to speak in complete sentences, no respiratory distress and no use of accessory muscles Cardio: Rate: regular rate GI: Inspection: No distended Neuro: General: patient oriented x3, moves all extremities and CN's II-XI intact bilaterally Extrem: General: Yes no pedal edema DS: Data Data Completed and Pending Labs on day of discharge: Laboratory Results - last 24 hr 07/14/24 05:12 Hold Purple Top SEE NOTE Total Bilirubin 0.3 Direct Bilirubin 0.1 AST 21 ALT 44 H Alkaline Phosphatase 75 Total Protein 6.9 Albumin 3.4 L Preliminary micro results at discharge 07/11/24 14:39 Blood Culture - Preliminary Blood - Venous No growth after 48 hours. 07/11/24 14:30 Blood Culture - Preliminary Blood - Venous No growth after 48 hours. Discharge Plan Discharge Anticipated Discharge Date/Time: 07/14/24 11:21 Patient Disposition: Home, Self-Care Discharge Diagnosis: Acute respiratory failure due to pneumonia Mild exacerbation of underlying CHF Referrals: Micaela Bradford MD [Primary Care Provider] - 1 Week Discharge Medications: New prednisone 20 mg Tablet 40 mg PO DAILY 3 Days Qty: 6 0RF benzonatate 100 mg Capsule 100 mg PO TID PRN (Reason: Cough) Qty: 20 0RF doxycycline monohydrate 100 mg tablet 100 mg PO BID 4 Days Qty: 8 0RF cefuroxime axetil 500 mg tablet 500 mg PO BID 4 Days Qty: 8 0RF Continued (DME) Ultra-Light Rollator Misc See Rx Instructions .ROUTE .MEDSUPPLY Qty: 1 0RF Rx Instructions: As directed (DME) adult diapers pull-ups large See Rx Instructions .Route .MEDSUPPLY Qty: 120 11RF Rx Instructions: As directed albuterol sulfate [Ventolin HFA] 90 mcg/actuation HFA aerosol inhaler 2 puff inhalation Q6H PRN (Reason: for wheezing) Qty: 18 3RF acetaminophen 325 mg Tablet 325 mg PO Q4H PRN (Reason: Migraine) Excedrin Migraine 250-250-65 mg Tablet 1 tab PO Q4H PRN (Reason: Migraine Headache) levothyroxine [Synthroid] 125 mcg tablet 125 mcg PO DAILY@0600 oxcarbazepine 300 mg tablet 600 mg PO BEDTIME oxcarbazepine 300 mg tablet 300 mg PO DAILY quetiapine 100 mg tablet 100 mg PO BEDTIME omeprazole 20 mg capsule,delayed release(DR/EC) 20 mg PO DAILY magnesium oxide 400 mg magnesium tablet 400 mg PO BEDTIME Discharge Orders: Discharge Order (Routine); Ordered 07/14/24 Ordered By: Lee Ann Lyons Activity on Discharge: As tolerated Stand Alone Forms: Patient Portal Discharge page Print Language: Mozambican Care Plan Goals: See below Health Concerns: Acute respiratory failure due to pneumonia and mild asthma exacerbation You do not have a urinary tract infection, your urine culture was negative Plan of Treatment: Complete course of antibiotics for pneumonia Complete course of prednisone for asthma Call to schedule a follow-up appointment with your PCP Assessment: See discharge summary
[2024-07-14 11:38] VITALS: BP 149/82; PULSE 102; RESP 16; TEMP 36.5; O2SAT 92
[2024-07-14 12:16] VITALS: PULSE 87; RESP 18; O2SAT 93
--- NOTE | 2024-07-14 12:21 | MHC.CM.PN ---
Patient medically cleared for dc home w/ resump of [employer], daughter to transport.
--- NOTE | 2024-07-14 14:29 | P.CDIM_ITS ---
PROVIDER RESPONSE TEXT: To clarify, the appropriate diagnosis supported by the clinical indicators: Mild intermittent QUERY TEXT: PHYSICIAN'S DOCUMENTATION REQUEST Date of Query: 07/14/2024 07:48 AM EST Patient Name: Sharon Hahn Admit Date: 07/12/2024 Dear Lee Ann BARBOUR, A review of the medical record indicates additional documentation may be needed. Please review below and update the documentation accordingly. Clinical indicators: Progress notes 07/13 - Acute Asthma exacerbation Continue Albuterol Q4H PRN Prednisone 40 mg daily Based on the above, please clarify in the Progress Notes further specificity regarding the type of as thma: Mild intermittent Mild persistent Moderate persistent Severe persistent Exercise induced Other (explain) Clinically unable to determine (explain) Thank you, Tayla Ramirez, CCS, CDIS Use of terms such as suspected, likely, concern for, or probable (associated with a specific diagnosi s that is being evaluated, monitored, or treated as if it exists) are acceptable and can be coded in the inpatient se tting, when documented at the time of discharge. Please use your independent medical judgment in providing your response. THIS QUERY IS PART OF THE PERMANENT MEDICAL RECORD
== END 2024-07-14 13:01 | disposition home or self-care (01) | DRG 871 ==
LOC: HO.ED 18:28 → HO.EDOVER 21:08 → HO.S3 07-12 16:54
PROVIDERS: Physician Assistant; Admitting Provider Student in an Organized Health Care Education/Training Program; Emergency Provider Emergency Medicine; PCP Internal Medicine; Visit Provider Physician Assistant Medical
DX: A41.9 Sepsis, unspecified organism (principal); J15.9 Unspecified bacterial pneumonia; J96.01 Acute respiratory failure with hypoxia; J45.21 Mild intermittent asthma with (acute) exacerbation; K21.9 Gastro-esophageal reflux disease without esophagitis; R30.0 Dysuria; Z66 Do not resuscitate; E03.9 Hypothyroidism, unspecified; K59.09 Other constipation; Z20.822 Contact with and (suspected) exposure to COVID-19; Z91.041 Radiographic dye allergy status; Z87.891 Personal history of nicotine dependence; Z79.890 Hormone replacement therapy; Z79.899 Other long term (current) drug therapy
CPT/HCPCS: 0241U; 36415; 71046; 78580; 80048; 80053; 80076; 81001; 83605; 83735; 83880; 84484; 85025; 85379; 85610; 85730; 87040; 87086; 93005; 94640; 99285; A9540; J0456; J0696; J1650; J2919; J3475

== ENCOUNTER → 2024-07-11 13:10 | Outpatient (BNV) | payer OTHER, SELFPAY | PROVIDERS: Emergency Provider Emergency Medicine; Visit Provider Internal Medicine Cardiovascular Disease | DX: R00.0 Tachycardia, unspecified (principal) | CPT/HCPCS: 93010 ==

== ENCOUNTER → 2024-07-11 15:37 | Outpatient (BNV) | payer OTHER, SELFPAY | PROVIDERS: Emergency Provider Emergency Medicine; Visit Provider Nuclear Medicine | DX: R06.02 Shortness of breath (principal) | CPT/HCPCS: 71046 ==

== ENCOUNTER 2024-07-11 21:03 | Outpatient (BNV) | payer OTHER, SELFPAY | END 2024-07-12 20:06 | PROVIDERS: Admitting Provider Student in an Organized Health Care Education/Training Program; Emergency Provider Emergency Medicine; Visit Provider Radiology Diagnostic Radiology | DX: R06.00 Dyspnea, unspecified (principal) | CPT/HCPCS: 78580 ==

== ENCOUNTER → 2024-07-11 21:03 | Outpatient (BNV) | payer OTHER, SELFPAY | PROVIDERS: Admitting Provider Student in an Organized Health Care Education/Training Program; Emergency Provider Emergency Medicine; Visit Provider Physician Assistant | DX: J96.01 Acute respiratory failure with hypoxia (principal) | CPT/HCPCS: 99223; 99232; 99239 ==

== ENCOUNTER 2024-07-21 08:04 | Outpatient (AMB) | payer OTHER, SELFPAY ==
--- OUTSIDE RECORDS SUMMARY | 2024-07-21 08:10 | XMS_ITS | Clinical Summary ---
Author Organization [address] [facility] Address [address] [place] [address] Phone Care Team Providers Care Inside Sales Professional Name Role Phone Micaela Fuchs MD Primary Care Provider [phone] Allergies Active Allergy Reactions Criticality Noted Date [...] diaper. Patient had head CT 02/12/2024 at [facility], no acute findings at the time, there [...] see if that can help. 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 Chronic left-sided low back pain 03/06/2016 Anxiety and depression 06/12/2014 Asthma, mild intermittent 06/12/2014 Hypothyroid 05/23/2013 Overview (07/07/2024): Result type: US Soft Tissue Head/Neck Result date: 12 April 2013 10:47 Result status: Auth (Verified) Result title: US Soft Tissue Head/Neck Performed by: Montse Hernandez MD on 12 April 2013 12:01 Verified by: Shawn Grover MD on 12 April 2013 12:06 Encounter info: [id number], [facility] [place] [facility] [place], 04/12/2013 - 04/12/2013 * [...] Department Care Team Description 07/11/2024 Telephone Neurosurgery [facility] [address] [facility] [address] [place] [address] Sarah Acevedo MA Appointment ([facility] Auth # [id number] for C/Spine MRI faxed over to [facility]. Will contact pt w/appt) 07/07/2024 10:30 AM EST Consult Neurosurgery [facility] [address] [place] [address] Lee Ann Kraus PA Cerebellar [...] 10/28/1984 Zoster Vaccines (1 of 2) 10/28/2013 RSV Immunization Patients 60 + Years Old (1 - Risk 60-74 years 1-dose series) 2023 COVID-19 Vaccine ( - 2023-2 5 season) 2024 Influenza Vaccine (#1) 2024 , 03/20/2019, 03/28/2013 Colorectal Cancer Screening: Colonoscopy 06/27/2024 Depression Screening 06/27/2024 HIV Screening 06/27/2024 Hepatitis C Screening 06/27/2024 Medicare Annual Wellness Visit 06/27/2024 Social Influencers of Health Screening 06/27/2024 DTaP,Tdap,and Td Vaccines (2 - Td or Tdap) 03/20/2029 03/20/2019 HIB Vaccines Aged Out No longer eligi [...] ID:[id number] Group ID:[id number] Type:Not on file Address: [place] [address] [place] [address] Care Teams Inside Sales Professional Relationship Specialty Start Date End Date Micaela Fuchs MD [address] [place] [address] , [address] [facility] D/B/A: [facility] FERNANDO Stuart PCP - General Internal Medicine 06/26/24
--- OUTSIDE RECORDS SUMMARY | 2024-07-21 08:10 | XMS_ITS | Encounter Summary ---
Author Organization [facility] Address [address] [place] [address] Care Team Providers Care Debt Counselor Name Role Phone Micaela Fuchs MD Primary Care Provider [phone] Reason for Visit * Reason Onset Date Comments Appointment 07/11/2024 [facility] Auth # [id number] for C/Spine MRI faxed over to [facility] MRI. Will contact pt w/appt Encounter Details Date Type Department Care Team ([facility] st Contact Info) Description 07/11/2024 Telephone Neurosurgery [place] [address] [place] [address] Sarah Acevedo MA Appointment ([facility] Auth # [id number] for C/Spine MRI faxed over to [facility] MRI. Will contact pt w/appt) Social History [...] on filedocumented in this encounter Care Teams Debt Counselor Relationship Specialty Start Date End Date Micaela Fuchs MD [address] [facility] , [facility] [address] [facility] Physician Associ D/B/A: [facility] FERNANDO Stuart PCP - General Internal Medicine 06/26/24 documented as of this encounter
--- OUTSIDE RECORDS SUMMARY | 2024-07-21 08:10 | XMS_ITS | Encounter Summary ---
Author Organization [facility] Address [address] [place] [address] Care Team Providers Care Operator Electronic Warfare Name Role Phone Micaela Fuchs MD Primary Care Provider [phone] Reason for Referral * Imaging (Routine) - Authorized Specialty Diagnoses / Procedures Referred By Pollo haines Referred To Contact Radiology Diagnoses Cerebellar tonsillar ectopia (CMS/HCC) Procedures MR Cervical Spine wo Contrast Yogesh Kraus PA [address] [facility], [address] [address] Phone: tel: fax: [facility] [address] [place] [address] Phone: tel: Referral ID Status Reason Start Date Expiration Date V isits Requested Visits Authorized [id number] Authorized 07/10/2024 07/10/2025 1 1 * Consultation (Routine) - Pending Review Specialty Diagnoses / Procedures Referred By Pollo haines Referred To Contact Physical Therapy Diagnoses Other specified congenital malformations of brain (CMS/HCC) Yogesh Kraus PA [address] [facility], [address] [place] [address] Phone: tel: fax: Referral ID Status Reason Start Date Expiration Date Visits Requested Visits Authorized [id number] Pending Review Consult and Treat 07/07/2024 07/07/2025 1 1 Reason for Visit * Reason Comments congenital malformation of brain Headach es, nauseas, blurred vision * Consultation (Routine) - Closed Specialty Diagnoses / Procedures Referred By Contac t Referred To Contact Neurosurgery Diagnoses Other specified congenital malformations of brain (CMS/HCC) Micaela Fuchs MD [address] [place] [address] [address], [address] [facility] D/B/A: [facility] [place], [place] Phone: tel: fax: Praveena Pabon MD [address] [place] [address] Phone: tel: fax: Referral ID Status Reason Start Date Expiration Date V isits Requested Visits Authorized [id number] Closed Specialty Services Required 06/26/2024 06/26/2025 1 1 Encounter Details Date Type Department Care Team ([facility] Contact Info) Description 07/07/2024 10:30 AM EST Consult Neurosurgery [facility] [address] [address] Yogesh Kraus PA 175 [facility] [address] [place] [address] Cerebellar tonsillar ectopia (CMS/HCC) Social History Tobacco [...] diaper. Patient had head CT 02/12/2024 at [facility], no acute findings at the time, there [...] see if that can help. 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 * KM Isaac - 07/07/2024 10:30 AM [...] diaper. Patient had head CT 02/12/2024 at [facility], no acute findings at the time, there [...] see if that can help. 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 Relevant Orders Ambulatory referral to Physical Therapy and Athletic Training Thank you for allowing us to care for your patient. The total time spent was 45 minutes, time spent includes reviewing history, outside notes, imaging,exam, plan, patient counseling. KM Isaac on 07/07/2024 at 4:20 PM EST CC: Micaela Fuchs MD Ana R Mattei, MD [facility] Neurosurgical [place] documented in this encounter Plan of Treatment [...] 07/07/2024 documented in this encounter Care Teams Operator Electronic Warfare Relationship Specialty Start Date End Date Micaela Fuchs MD [address] [place] [address] , [address] [facility] D/B/A: [facility] FERNANDO Stuart PCP - General Internal Medicine 06/26/24 documented as of this encounter
--- OUTSIDE RECORDS SUMMARY | 2024-07-21 08:10 | XMS_ITS | Clinical Summary ---
Author Organization [facility] Address [address] [place] [address] Care Team Providers Care Retail Merchandiser Name Role Phone Faye Adams PA-C Primary [...] on 12 April 2013 12:06 Encounter info: [id number], [facility] [place], 04/12/2013 - 04/12/2013 * [...] H/O: hysterectomy 2011 due to fibroid in [place] 03/01 Diverticulosis 03/28/2013 Overview (12/07/2013): Colonoscopy Done [...] on file Insurance [place] MEDICAID Care Teams Retail Merchandiser Relationship Specialty Start Date End Date Faye Adams PA-C [address] [place] [address] PCP - General 03/28/13
--- NOTE | 2024-07-21 08:17 | A.OFFPC_ITS ---
Vital Signs 07/21/24 08:20 Height 5 ft 5 in Weight 158 lb 2 oz BMI 26.3 BP 112/80 Blood Pressure Location Lt brachial Position Sitting Pulse 76 Pulse Source Pulse Oximeter Temp 97.3 F Temp Source Temporal Artery Scan Pulse Oximetry (%) 97 Oxygen Delivery Method Room Air Intake Visit Reasons: tcm dyspnea 07/12 discharge Intake Note: Patient is here for hospital discharge follow up. [place] [facility] [place]. Control Center Operator Required: No Auditor: Not Required per policy Accompanied by: Self / Same As Patient Allergies levothyroxine sodium [From Synthroid] Adverse Reaction (Mild, Verified 07/21/24 08:20) inadequeate response SEAFOOD Allergy (Intermediate, Uncoded 07/21/24 08:20) DOESNT TAKE BECAUSE OF THYROID Tobacco use date assessed: 07/21/24 Dental Screening Dental Screen Date: 06/20/24 [facility] TCM TCM Information Date of Discharge 07/14/24 Discharged From [facility] Interactive Contact Date (Reference documentation from this date) 07/18/24 HPI Comments History of Present Illness Details 58 y/o female patient who presents to [facility] for TCM. Pmhx significant for asthma unspecified, GERD, hypothyroid, chronic constipation and recent influenza infection on 07/07/2024; presents to ED on 07/11/2024 complaining of persistent cough, worsening shortness of breath and chest tightness over the past few days.She was admitted in the hospital 07/11 and discharged home 07/15/24 due to Acute respiratory Failure with Hypoxia. She completed her Abx course. Today Pt reports coughing, SOB and chest tightness. Denies fevers, chills, nausea or vomiting. [facility] Medical History (Updated 07/21/24 @ 08:51 by Elodia Crockett NP) Influenza A Mild persistent asthma, uncomplicated Internal and external hemorrhoids without complication Bloody stools Hypothyroidism Chronic GERD Chronic constipation Pap smear of cervix shows high risk HPV present Surgical History History of bladder surgery History of colonoscopy History of partial hysterectomy Family History Father HTN (hypertension) Mother Asthma HTN (hypertension) Sister Heart disease Brother Liver cancer Son Asthma Social History Household Members: Family and Children Housing: Apartment Do you presently have visiting nurse or other home services: Yes (visitng nurse once a month, 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 Bacilio Rodriguez, Padmaja Peacock, Mj Ochoa and colleagues, with an educational adalberto from [employer]. Review of Systems Const All systems reviewed & are unremarkable except as noted in HPI and below Physical exam (Primary Care) Vital Signs: Last Vital Signs Temp 97.3 F 07/21/24 08:20 Pulse 76 07/21/24 08:20 BP 112/80 07/21/24 08:20 Pulse Ox 97 07/21/24 08:20 Oxygen Delivery Method Room Air 07/21/24 08:20 BMI result Body Mass Index 26.3 Tobacco/Smoking Status: Tobacco use Status Tobacco use date assessed 07/21/24 07/21/24 08:25 Patient Tobacco Use Status Former Tobacco user 07/21/24 08:25 Tobacco use type Cigarette 07/21/24 08:25 e-Cigarette/Vaping Use Never Used 07/21/24 08:25 Thrive Assessment: Date of Thrive Assessment Date Thrive assessed 07/12/24 07/21/24 08:25 Const General: cooperative and no acute distress Nutritional Appearance: overweight Orientation/consciousness: patient oriented x3 HENMT Head: Yes normocephalic Ears: external ears normal and TM abnormal with fluid behind the TM bilateral General nose exam: Normal external nose present Resp Effort & Inspection: normal respiratory effort, able to speak in complete sentences and Actively coughing Auscultation: no crackles, no rales, no rhonchi and wheezes Cardio Heart sounds: S1 normal heart sound present and S2 normal heart sound present Neuro General: patient oriented x3 Coding Level of Care Code TCM Mod MDM <= 14 Days Diagnoses Acute respiratory failure with hypoxia J96.01 Influenza A J10.1 Moderate persistent asthma with acute exacerbation J45.41 Asthma persistence: persistent Asthma severity: moderate Time Spent (min) 20 Assessment & Plan Assessment & Plan (1) Acute respiratory failure with hypoxia: Code(s): J96.01 - Acute respiratory failure with hypoxia Category: Medical Plan: Continue with Home Treatment with Albuterol Neb Use rescue inhaler as prescribed for SOB and wheezing. Ordered Symbicort for daily use. (2) Influenza A: Code(s): J10.1 - Influenza due to other identified influenza virus with other respiratory manifestations Category: Medical Plan: Continue with Home Treatment with Albuterol Neb Use rescue inhaler as prescribed for SOB and wheezing. Ordered Symbicort for daily use. (3) Acute asthma exacerbation: Code(s): J45.901 - Unspecified asthma with (acute) exacerbation Category: Medical Qualifiers: Asthma persistence: persistent Asthma severity: moderate Qualified Code(s): J45.41 - Moderate persistent asthma with (acute) exacerbation Plan: Continue with Home Treatment with Albuterol Neb Use rescue inhaler as prescribed for SOB and wheezing. Ordered Symbicort for daily use. Medications: New budesonide-formoterol 80-4.5 mcg/actuation (Symbicort) 2 puffs inhalation Q12H 10.2 grams 0RF J45.41 - Moderate persistent asthma with (acute) exacerbation, J96.01 - Acute respiratory failure with hypoxia ipratropium-albuterol 0.5 mg-3 mg(2.5 mg base)/3 mL 3 mL inhalation Q4-6H PRN 90 mL 0RF wheezing J45.41 - Moderate persistent asthma with (acute) exacerbation, J96.01 - Acute respiratory failure with hypoxia Changed From Ventolin HFA 90 mcg/actuation (albuterol sulfate) 2 puffs inhalation Q6H PRN 18 ea 3RF for wheezing NS J10.1 - Influenza due to other identified influenza virus with other respiratory manifestations, J45.41 - Moderate persistent asthma with (acute) exacerbation To Ventolin HFA 90 mcg/actuation (albuterol sulfate) 2 puffs inhalation Q4-6H PRN 18 ea 0RF for wheezing NS J10.1 - Influenza due to other identified influenza virus with other respiratory manifestations, J45.41 - Moderate persistent asthma with (acute) exacerbation Refilled benzonatate 100 mg PO TID PRN 90 caps 0RF Cough J10.1 - Influenza due to other identified influenza virus with other respiratory manifestations, J45.41 - Moderate persistent asthma with (acute) exacerbation, J96.01 - Acute respiratory failure with hypoxia Discontinued doxycycline monohydrate Discontinued Reason: Patient Completed Course 100 mg PO BID 4 days 8 tabs 0RF cefuroxime axetil Discontinued Reason: Patient Completed Course 500 mg PO BID 4 days 8 tabs 0RF
[2024-07-21 08:20] VITALS: BP 112/80; PULSE 76; TEMP 36.3; O2SAT 97; BMI 26.3
== END 2024-07-21 08:58 | disposition home or self-care (01) ==
PROVIDERS: PCP Internal Medicine; Visit Provider Nurse Practitioner Family
DX: J96.01 Acute respiratory failure with hypoxia (principal); J10.1 Influenza due to other identified influenza virus with other respiratory manifestations; J45.41 Moderate persistent asthma with (acute) exacerbation

== ENCOUNTER → 2024-07-21 08:04 | Outpatient (BNVA) | payer OTHER, SELFPAY | PROVIDERS: PCP Internal Medicine; Visit Provider Nurse Practitioner Family | DX: J96.01 Acute respiratory failure with hypoxia (principal); J10.1 Influenza due to other identified influenza virus with other respiratory manifestations; J45.41 Moderate persistent asthma with (acute) exacerbation; Z87.891 Personal history of nicotine dependence | CPT/HCPCS: 99495 ==

== ENCOUNTER 2024-08-08 13:51 | Outpatient (AMB) | payer OTHER, SELFPAY ==
[2024-08-08 14:20] VITALS: BP 116/64; PULSE 78; O2SAT 97; BMI 25.8
--- NOTE | 2024-08-08 14:20 | MHC.OFFVIS ---
Vital Signs 08/08/24 14:20 Height 5 ft 5 in Weight 155 lb BMI 25.8 BP 116/64 Blood Pressure Location Rt brachial Position Sitting Pulse 78 Pulse Source Pulse Oximeter Pulse Oximetry (%) 97 Oxygen Delivery Method Room Air Intake Visit Reasons: Shortness of breath Timber Estimator Required: No Timber Estimator Services: Timber Estimator Present Timber Estimator Name: Lee Ann Benítez Accounting Systems Analyst: Accounting Systems Analyst offered & declined Accompanied by: Grand Child Allergies levothyroxine sodium [From Synthroid] Adverse Reaction (Mild, Verified 08/08/24 14:25) inadequeate response IV contrast Allergy (Severe, Uncoded 08/08/24 15:03) Anaphylaxis SEAFOOD Allergy (Intermediate, Uncoded 08/08/24 15:03) DOESNT TAKE BECAUSE OF THYROID Medication List - Last Reconciled 08/08/24 by Francesca Garcia LPN acetaminophen 325 mg PO Q4H PRN [adult diapers pull-ups As directed] nsykrdw-kzmszrqmhmpbl-kfdfricl 250-250-65 mg (Excedrin Migraine) 1 tab PO Q4H PRN benzonatate 100 mg PO TID PRN budesonide-formoterol 80-4.5 mcg/actuation (Symbicort) 2 puffs inhalation Q12H ipratropium-albuterol 0.5 mg-3 mg(2.5 mg base)/3 mL 3 mL inhalation Q4-6H PRN levothyroxine (Synthroid) 125 mcg PO DAILY@0600 magnesium oxide 400 mg PO BEDTIME omeprazole 20 mg PO DAILY oxcarbazepine 600 mg PO BEDTIME oxcarbazepine 300 mg PO DAILY prednisone 40 mg (2 x 20 mg) PO DAILY 3 days quetiapine 100 mg PO BEDTIME Ventolin HFA 90 mcg/actuation (albuterol sulfate) 2 puffs inhalation Q4-6H PRN NS walker (Ultra-Light Rollator misc) As directed HPI HPI Shortness of breath: Details: Sharon is a pleasant 58 year old female, former minimal smoker, with less than 5 pack year history with underlying asthma, GERD and anxiety. She was referred by PCP for pulmonary evaluation after recent admission to [facility]. She was admitted 07/11-07/14/24 for acute hypoxic respiratory failure, sepsis secondary to recent influenza with superimposed bacterial pneumonia. CXR and VQ scan unremarkable, unable to obtain CTA due contrast allergy. She was treated with IV steroids/abx,weaned off supplemental oxygen, discharged with doxycycline, cefuroxime and prednisone. She reports significant improvements in cough however continues with dyspnea on moderate exertion, chest tightness and intermittent wheezing. She has been using symbicort 80 mcg with suboptimal effect, requiring nebulized albuterol frequently. She reports asthma dx as a teenager, with recurrent exacerbations, never requiring intubation. Respiratory symptoms were controlled until moving to the [facility], about 14 years ago. She is unsure of any seasonal allergies however notes post nasal drip and chronic sinus symptoms. No recent allergy testing. Has dogs at home. She reports mother and maternal grandmother with asthma, otherwise no pertinent family history. [facility] Medical History (Updated 08/08/24 @ 15:04 by Temitope Akhtar NP) Influenza A Mild persistent asthma, uncomplicated Internal and external hemorrhoids without complication Bloody stools Hypothyroidism Chronic GERD Chronic constipation Pap smear of cervix shows high risk HPV present Surgical History History of bladder surgery History of colonoscopy History of partial hysterectomy Family History Father HTN (hypertension) Mother Asthma HTN (hypertension) Sister Heart disease Brother Liver cancer Son Asthma Social History (Updated 08/08/24 @ 14:30 by Francesca Garcia LPN) Household Members: Family and Children Housing: Apartment Do you presently have visiting nurse or other home services: Yes (visitng nurse once a month, 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) Unable to assess alcohol history related to: Unknown Alcohol intake: never Patient Tobacco Use Status: Former Tobacco user Tobacco use type: Cigarette Cigarette Packs Per Day: 2 Years Smoked: 10 years e-Cigarette/Vaping Use: Never Used Second Hand Smoke Exposure: Yes service: No Current occupational status: disabled Cognitive needs: Yes Hearing needs: No Vision needs: No Review of Systems Const Denies chills, Denies excessive sweating, Denies fever(s), Denies headache(s) and Denies night sweats Eyes Denies dry eyes, Denies irritation and Denies itchy eyes ENT Reports Normal hearing present and Denies headache(s) Card Denies chest pain, Denies chest pain at rest, Denies chest pain with activity, Denies claudication, Denies leg edema, Reports dyspnea on exertion, Denies orthopnea and Reports paroxysmal nocturnal dyspnea Resp Denies chest congestion, Denies cough, Denies hemoptysis, Denies excessive phlegm production, Denies pain on inspiration, Denies pain with cough, Reports dyspnea on exertion, Denies stridor and Reports wheezing Musc Denies myalgias Neuro Reports Normal hearing present and Denies headache(s) Endo Denies excessive sweating Nikos/Lymph Denies lymphadenopathy Aller/Immun Denies itchy eyes, Denies seasonal rhinorrhea and Reports wheezing Physical Exam Vital Signs: Last Vital Signs Pulse 78 08/08/24 14:20 BP 116/64 08/08/24 14:20 Pulse Ox 97 08/08/24 14:20 Oxygen Delivery Method Room Air 08/08/24 14:20 BMI result Body Mass Index 25.8 Const General: cooperative, healthy appearing, comfortable, no acute distress, well developed and alert Orientation/consciousness: patient oriented x3 Limitations: no limitations HEENT Head: Yes normal to inspection, Yes normocephalic and Yes atraumatic Ears: hearing grossly normal bilaterally and external ears normal Eyes General: appearance normal, both eyes and all related structures Eyelids: Yes eyelids normal Sclerae: sclerae normal EOM: EOMs intact bilaterally Neck Neck: Yes normal visual inspection and Yes no lymphadenopathy Lymphatic: no lymphadenopathy noted Chest Chest palpation & inspection: normal inspection of the chest Resp Effort & Inspection: normal respiratory effort, able to speak in complete sentences, no audible wheezes, no cough, no stridor, not tachypneic, no tripod positioning and no use of accessory muscles Auscultation: clear to auscultation bilaterally Cardio Jugular venous distension: no JVD Rate: regular rate Rhythm: regular rhythm Skin Other: warm, dry General skin exam: no rashes or lesions noted Neuro General: patient oriented x3 Cranial nerves: Yes Normal hearing present Cognition (Neuro): normal cognition Gait exam (Neuro): Normal gait present Extrem General: Yes normal to inspection, Yes capillary refill normal, Yes no clubbing, cyanosis or edema and Yes no pedal edema Psych Appearance: grossly normal and well kempt Speech and movement: Normal speech and movement present and Clear speech present Affect: normal affect Attitude: cooperative Thought process: Normal thought process present Thought content: Normal thought content present Insight: Good insight present (Psych) Judgement: Good judgement present (Psych) Assessment & Plan Assessment & Plan (1) Asthma: Code(s): J45.909 - Unspecified asthma, uncomplicated Category: Medical (2) Environmental allergies: Code(s): Z91.09 - Other allergy status, other than to drugs and biological substances Category: Medical (3) History of acute respiratory failure: Code(s): Z87.09 - Personal history of other diseases of the respiratory system Category: Medical Plan Sharon presents for pulmonary evaluation after recent admission for acute hypoxic respiratory failure secondary to recent influenza with superimposed bacterial pneumonia. She reports improvements in cough since treated with abx/steroids however continues with suboptimal response with Symbicort 80mcg, will increase to 160 mcg. Disucssed importance of good oral hygiene to prevent thrush. Will also send for PFT to assess severity of obstructive defect as well as RAST to assess for an allergic component. Will repeat CXR to assess for resolution of PNA at follow up visit. All questions were answered and patient is in agreement of plan. Will follow up in 6-8 weeks or sooner if needed. Orders: Orders Immunoglobulin E Today Z91.09 - Other allergy status, other than to drugs and biological substances Resp Allergy Profile Region I Today Z91.09 - Other allergy status, other than to drugs and biological substances Complete Blood Count Auto Diff Today Z91.09 - Other allergy status, other than to drugs and biological substances PFT pulmonary function test Today J45.909 - Unspecified asthma, uncomplicated XR chest 2V 6 Weeks J18.9 - Pneumonia, unspecified organism Medications: New budesonide-formoterol 160-4.5 mcg/actuation (Symbicort) 2 puffs inhalation Q12H 10.2 grams 6RF Discontinued budesonide-formoterol 80-4.5 mcg/actuation (Symbicort) Discontinued Reason: More recent result 2 puffs inhalation Q12H 10.2 grams 0RF J45.41 - Moderate persistent asthma with (acute) exacerbation, J96.01 - Acute respiratory failure with hypoxia Coding Level of Care Code New Pt Level 4 (85513) Diagnoses Asthma J45.909 Environmental allergies Z91.09 History of acute respiratory failure Z87.09
--- OUTSIDE RECORDS SUMMARY | 2024-08-08 16:50 | XMS_ITS | Clinical Summary ---
Author Organization [facility] Address [address] [place] [address] Care Team Providers Care Sonography Technician Name Role Phone Faye Adams PA-C Primary [...] on 12 April 2013 12:06 Encounter info: [id number][place] [facility] [place]/12/2013 * [...] H/O: hysterectomy 2011 due to fibroid in [place] 03/01 Diverticulosis 03/28/2013 Overview (12/07/2013): Colonoscopy Done [...] on file Insurance [place] MEDICAID Care Teams Sonography Technician Relationship Specialty Start Date End Date Faye Adams PA-C [address] [place] [id number] PCP - General 03/28/13
--- OUTSIDE RECORDS SUMMARY | 2024-08-08 16:50 | XMS_ITS | Clinical Summary ---
Author Organization [facility] Address [address] [place] [address] Phone Care Team Providers Care Property Underwriter Name Role Phone Micaela Fuchs MD Primary Care Provider [phone] Allergies Active Allergy Reactions Criticality Noted Date [...] diaper. Patient had head CT 02/12/2024 at [facility], no acute findings at the time, there [...] see if that can help. She is Liberian-speaking, we used [employer] per diem interpreter Haseeb #[id number]. Chronic left-sided low back pain 03/06/2016 Anxiety and depression 06/12/2014 Asthma, mild intermittent 06/12/2014 Hypothyroid 05/23/2013 Overview (07/07/2024): Result type: US Soft Tissue Head/Neck Result date: 12 April 2013 10:47 Result status: Auth (Verified) Result title: US Soft Tissue Head/Neck Performed by: Montse Hernandez MD on 12 April 2013 12:01 Verified by: Shawn Grover MD on 12 April 2013 12:06 Encounter info: [id number], [facility] [place], One Time OP, 04/12/2013 - 04/12/2013 * [...] Encounters Date Type Department Care Team Description 08/06/2024 9:00 AM EDT - 08/06/2024 11:59 PM EDT Hospital Encounter [facility] MRI [address] [place] [address] Cerebellar tonsillar ectopia (CMS/HCC) Discharge Disposition: Home or Self Care 07/11/2024 Telephone Neurosurgery [facility] [address] [facility] [address] [place] [phone] Sarah Acevedo [place] Appointment ([facility] Auth # [id number] for C/Spine MRI faxed over to [facility] MRI. Will contact pt w/appt) 07/07/2024 10:30 AM EST Consult Neurosurgery [facility] [address] [facility] [address] [place] [phone] Lee Ann Kraus PA Cerebellar tonsillar [...] on patient's age to complete this topic Procedures Procedure Name Priority Date/Time Associated Diagnosis Comments MR CERVICAL SPINE WO CONTRAST Routine 08/06/2024 11:13 AM EDT Cerebellar tonsillar ectopia (CMS/HCC) from Last 3 Months Results * MR Cervical Spine wo Contrast (08/06/2024 11:13 AM EDT) Anatomical Region Laterality Modality C-spine, Spine Magnetic Resonan ce 08/06/2024 4:18 PM EDT Impressions 08/07/2024 9:21 AM EDT The cerebellar tonsils are slightly low-lying, but lack the typical peglike configuration of a Chiari malformation. ??A CSF flow study demonstrates normal flow at the foramen magnum. -------- FINAL REPORT -------- Dictated By: Jomar Calderón Dictated Date: 08/06/2024 16:18 ET Assigned Physician: Jomar Calderón Reviewed and Electronically Signed By: Jomar Calderón Signed Date: 08/07/2024 09:21 ET Workstation ID: [id number] Transcribed By: Self Edit Transcribed Date: 08/07/2024 08:49 ET Narrative 08/07/2024 9:21 AM EDT PROCEDURE: MRI of the cervical spine without intravenous contrast. TECHNIQUE: Sagittal and axial multisequence MRI of the cervical spine without intravenous contrast administration. ??A phase contrast CSF flow study was also performed. HISTORY: C-spine MRI with cine flow to rule out Chiari malformation. COMPARISON: None. FINDINGS: The cerebellar tonsils are slightly low-lying, but lack the typical peglike configuration of a Chiari malformation. ??Visible portions of the brain and skull base are otherwise unremarkable. Paraspinous soft tissues are normal. Straightening of the typical cervical lordosis. ??No listhesis. ??No concerning marrow infiltrative lesion. The cervical cord is normal in caliber and signal. There is normal CSF flow at the level of the foramen magnum, cerebral aqueduct, 4th ventricle, and foramen of Magendie. Cervical disc levels: C2-3: No significant disc or facet abnormality. ??No spinal or foraminal stenosis. C3-4: No significant disc or facet abnormality. ??No spinal or foraminal stenosis. C4-5: Minimal endplate irregularity. ??Small uncovertebral spurs with mild bilateral foraminal stenosis. ??No significant spinal stenosis. C5-6: Small left central focal protrusion which indents the cord. ??No spinal or foraminal stenosis. C6-7: No significant disc or facet abnormality. ??No spinal or foraminal stenosis. C7-T1: Mild bilateral facet arthropathy. ??No spinal or foraminal stenosis. Procedure Note Jomar Calderón MD - 08/07/2024 PROCEDURE: MRI of the cervical spine without intravenous contrast. TECHNIQUE: Sagittal and axial multisequence MRI of the cervical spinewithout intravenous contrast administration. A phase contrast CSF flowstudy was also performed. HISTORY: C-spine MRI with cine flow to rule out Chiari malformation. COMPARISON: None. FINDINGS: The cerebellar tonsils are slightly low-lying, but lack the typicalpeglike configuration of a Chiari malformation. Visible portions of thebrain and skull base are otherwise unremarkable. Paraspinous soft tissues are normal. Straightening of the typical cervical lordosis. No listhesis. Noconcerning marrow infiltrative lesion. The cervical cord is normal in caliber and signal. There is normal CSF flow at the level of the foramen magnum, cerebralaqueduct, 4th ventricle, and foramen of Magendie. Cervical disc levels: C2-3: No significant disc or facet abnormality. No spinal or foraminalstenosis. C3-4: No significant disc or facet abnormality. No spinal or foraminalstenosis. C4-5: Minimal endplate irregularity. Small uncovertebral spurs with mildbilateral foraminal stenosis. No significant spinal stenosis. C5-6: Small left central focal protrusion which indents the cord. Nospinal or foraminal stenosis. C6-7: No significant disc or facet abnormality. No spinal or foraminalstenosis. C7-T1: Mild bilateral facet arthropathy. No spinal or foraminalstenosis. IMPRESSION: The cerebellar tonsils are slightly low-lying, but lack the typicalpeglike configuration of a Chiari malformation. A CSF flow studydemonstrates normal flow at the foramen magnum. -------- FINAL REPORT -------- Dictated By: Jomar Calderón Dictated Date: 08/06/2024 16:18 ET Assigned Physician: Jomar Calderón Reviewed and Electronically Signed By: Jomar Calderón Signed Date: 08/07/2024 09:21 ET Workstation ID: [id number] Transcribed By: Self Edit Transcribed Date: 08/07/2024 08:49 ET Lee Ann [facility] MRI PROCEDURES Final R esult from Last 3 Months Insurance [facility] MEDICARE Member Subscriber Plan / Payer (Ef fective 2020-Present) Name:Sharon Hahn Relation to Subscriber:Self Name:Sharon Hahn Payer ID:[id number] Group ID:[id number] Type:Not on file Address: [place] [address] [place] [address] Care Teams Property Underwriter Relationship Specialty Start Date End Date Micaela Fuchs MD [address] [place] [address] , [address] [facility] Physician Associ D/B/A: [facility] FERNANDO Stuart PCP - General Internal Medicine 06/26/24
--- OUTSIDE RECORDS SUMMARY | 2024-08-08 16:50 | XMS_ITS | Encounter Summary ---
Author Organization [facility] Address [address] [place] [address] Care Team Providers Care Tele Grout Sewer Line Repairer Name Role Phone Micaela Fuchs MD Primary Care Provider [phone] Reason for Referral * Imaging (Routine) - Authorized Specialty Diagnoses / Procedures Referred By Pollo haines Referred To Contact Radiology Diagnoses Cerebellar tonsillar ectopia (CMS/HCC) Procedures MR Cervical Spine wo Contrast Yogesh Kraus PA 175 [facility], [address] [address] Phone: tel: fax: [facility] MRI [address] [place] [address] Phone: tel: Referral ID Status Reason Start Date Expiration Date V isits Requested Visits Authorized [id number] Authorized 07/10/2024 07/10/2025 1 1 * Consultation (Routine) - Pending Review Specialty Diagnoses / Procedures Referred By Pollo haines Referred To Contact Physical Therapy Diagnoses Other specified congenital malformations of brain (CMS/HCC) Yogesh Kraus PA 175 [facility], [address] [place] [address] Phone: tel: fax: Referral ID Status Reason Start Date Expiration Date Visits Requested Visits Authorized [id number] Pending Review Consult and Treat 07/07/2024 07/07/2025 1 1 Reason for Visit * Reason Comments congenital malformation of brain Headach es, nauseas, blurred vision * Consultation (Routine) - Closed Specialty Diagnoses / Procedures Referred By Contac t Referred To Contact Neurosurgery Diagnoses Other specified congenital malformations of brain (CMS/HCC) Micaela Fuchs MD [address] [place] [address] [address], [address] [facility] D/B/A: [facility] [place], [place] Phone: tel: fax: Praveena Pabon MD [address] [place] [address] Phone: tel: fax: Referral ID Status Reason Start Date Expiration Date V isits Requested Visits Authorized [id number] Closed Specialty Services Required 06/26/2024 06/26/2025 1 1 Encounter Details Date Type Department Care Team ([facility] Contact Info) Description 07/07/2024 10:30 AM EST Consult Neurosurgery [facility] [address] [address] Yogesh Kraus PA 175 [facility] [address] [place] [address] Cerebellar tonsillar ectopia (CMS/HCC) Social History Tobacco [...] diaper. Patient had head CT 02/12/2024 at [facility] [place], no acute findings at [...] see if that can help. She is Luxembourger- speaking, we used [employer] ic designer standard cells Haseeb #[id number]. * KM Isaac - 07/07/2024 10:30 AM [...] diaper. Patient had head CT 02/12/2024 at [facility] [place], no acute findings at [...] see if that can help. She is Luxembourger- speaking, we used [employer] ic designer standard cells [employer] #[id number]. Relevant Orders Ambulatory referral to Physical Therapy and Athletic Training Thank you for allowing us to care for your patient. The total time spent was 45 minutes, time spent includes reviewing history, outside notes, imaging,exam, plan, patient counseling. KM Isaac on 07/07/2024 at 4:20 PM EST CC: Micaela Fuchs MD Ana R Mattei, MD [facility] Neurosurgical [place] documented in this encounter Plan of Treatment Scheduled Referrals Name Type Priority Associated Diagnoses Order Schedule Ambulatory referral to Physical Therapy and Athletic Training Outpatient Referral Routine Cerebellar tonsillar ectopia (CMS/HCC) Expected: 07/07/2024, Expires: 07/07/2025 documented as of this encounter Results * MR Cervical Spine wo Contrast [...] Signed Date: 08/07/2024 09:21 ET Workstation ID: [id number] Transcribed By: Self Edit Transcribed Date: 08/07/2024 [...] Signed Date: 08/07/2024 09:21 ET Workstation ID: [id number] Transcribed By: Self Edit Transcribed Date: 08/07/2024 08:49 ET us Yogesh BARBOUR IMG MRI PROCEDURES Final R esult documented in this encounter Visit Diagnoses Diagnosis Cerebellar tonsillar ectopia (CMS/HCC) Cerebellar tonsillar ectopia (CMS/HCC) documented in this encounter Historical Medications * This list may reflect changes made after this encounter. walker [facility] albuterol HFA (PROAIR HFA ; PROVENTIL HFA [...] 07/07/2024 documented in this encounter Care Teams Tele Grout Sewer Line Repairer Relationship Specialty Start Date End Date Micaela Fuchs MD [address] [place] [address] , [address] [facility] D/B/A: [facility] FERNANDO Stuart PCP - General Internal Medicine 06/26/24 documented as of this encounter
--- OUTSIDE RECORDS SUMMARY | 2024-08-08 16:50 | XMS_ITS | Encounter Summary ---
Author Organization [facility] Address [address] [place] [address] Care Team Providers Care Squad Boss Name Role Phone Micaela Fuchs MD Primary Care Provider [phone] Reason for Referral * Imaging (Routine) - Authorized Specialty Diagnoses / Procedures Referred By Pollo haines Referred To Contact Radiology Diagnoses Cerebellar tonsillar ectopia (CMS/HCC) Procedures MR Cervical Spine wo Contrast Lee Ann Kraus PA 175 [facility], [address] [address] Phone: tel: fax: [facility] [address] [place] [address] Phone: tel: Referral ID Status Reason Start Date Expiration Date V isits Requested Visits Authorized [id number] Authorized 07/10/2024 07/10/2025 1 1 Reason for Visit * Imaging (Routine) - Authorized Specialty Diagnoses / Procedures Referred By Pollo t Referred To Contact Radiology Diagnoses Cerebellar tonsillar ectopia (CMS/HCC) Procedures MR Cervical Spine wo Contrast Lee Ann Kraus PA 175 [facility], [address] [place] [address] Phone: tel: fax: [facility] MRI [address] [place] [address] Phone: tel: Referral ID Status Reason Start Date Expiration Date V isits Requested Visits Authorized [id number] Authorized 07/10/2024 07/10/2025 1 1 Encounter Details Date Type Department Care Team (Latest Contact Info) Description 08/06/2024 9:00 AM EDT - 08/06/2024 11:59 PM EDT Hospital Encounter [facility] MRI [address] [place] [address] Cerebellar tonsillar ectopia ([facility]/HCC) Discharge Disposition: Home or Self Care Social History Tobacco Use Types Packs/Day Years Used Date Smoking Tobacco: Former Cigarettes Smokeless Tobacco: Never Comments Unknown Sex and Gender Information Value Date Recorded Sex Assigned at Not on file Legal Sex Female 3:37 PM EST Gender Identity Not on file Sexual Orientation Not on file documented as of this encounter Medications at Time of Discharge albuterol HFA (PROAIR HFA ; PROVENTIL HFA ; VENTOLIN HFA) 90 mcg/actuation inhaler Inhale 2 puffs by mouth every 6 (six) hours if needed for wheezing. clonazePAM (KlonoPIN) 0.5 mg tablet Take 1 tablet (0.5 mg total) by mouth 2 (two) times a day. levothyroxine (SYNTHROID, LEVOTHROID) 125 mcg tablet Take by mouth 1 (one) time each day before breakfast. magnesium oxide (MAG-OX) 400 mg magnesium tablet Take 1 tablet (400 mg total) by mouth 1 (one) time each day. metoclopramide (REGLAN) 10 mg tablet Take by mouth. omeprazole (PriLOSEC) [address] capsule Take 1 capsule (20 mg total) by mouth 1 (one) time each day. Do not crush or chew. OXcarbazepine (TRILEPTAL) 300 mg tablet Take 1 tablet (300 mg total) by mouth 2 (two) times a day. QUEtiapine (SEROquel) 100 mg tablet Take 1 tablet (100 mg total) by mouth at bedtime. senna (SENOKOT) 8.6 mg tablet Take 1 tablet (8.6 mg total) by mouth 1 (one) time each day. SUMAtriptan (IMITREX) 25 mg tablet Take 1 tablet (25 mg total) by mouth 1 (one) time if needed for migraine. May repeat dose once in 2 hours if no relief. Do not exceed 2 doses in 24 hours. traZODone (DESYREL) 100 mg tablet Take 1 tablet (100 mg total) by mouth at bedtime. walker misc documented as of this encounter Discharge Disposition Disposition Code Departure Means Destination Home or Self Care documented in this encounter Plan of Treatment Not on file documented as of this encounter Procedures Procedure Name Priority Date/Time Associated Diagnosis Comments MR CERVICAL SPINE WO CONTRAST Routine 08/06/2024 11:13 AM EDT Cerebellar tonsillar ectopia (CMS/HCC) documented in this encounter Results * MR Cervical Spine [...] Signed Date: 08/07/2024 09:21 ET Workstation ID: [id number] Transcribed By: Self Edit Transcribed Date: 08/07/2024 [...] Signed Date: 08/07/2024 09:21 ET Workstation ID: [id number] Transcribed By: Self Edit Transcribed Date: 08/07/2024 08:49 ET Lee Ann BARBOUR IMG MRI PROCEDURES Final R esult documented in this encounter Visit Diagnoses Diagnosis Cerebellar tonsillar ectopia (CMS/HCC) documented in this encounter Care Teams Squad Boss Relationship Specialty Start Date End Date Micaela Fuchs MD 2 [facility] , [address] [facility] Physician Associ D/B/A: [facility] FERNANDO Stuart PCP - General Internal Medicine 06/26/24 documented as of this encounter
--- OUTSIDE RECORDS SUMMARY | 2024-08-08 16:50 | XMS_ITS | Encounter Summary ---
Author Organization [facility] Address [address] [place] [address] Care Team Providers Care Mixer Operator Name Role Phone Micaela Fuchs MD Primary Care Provider [phone] Reason for Visit * Reason Onset Date Comments Appointment 07/11/2024 CCA Auth # [id number] for C/Spine MRI faxed over to [facility] MRI. Will contact pt w/appt Encounter Details Date Type Department Care Team ([facility] st Contact Info) Description 07/11/2024 Telephone Neurosurgery [place] [address] [place] [address] Sarah Acevedo [place] Appointment ([facility] Auth # [id number] for C/Spine MRI faxed over to [facility] MRI. Will contact pt w/appt) Social [...] on filedocumented in this encounter Care Teams Mixer Operator Relationship Specialty Start Date End Date Micaela Fuchs MD 2 [facility] , [facility] 101 [facility] Physician Associ D/B/A: Narciso Associatish[facility] In Internal Medicine FERNANDO Stuart PCP - General Internal Medicine 06/26/24 documented as of this encounter
== END 2024-08-08 14:53 | disposition home or self-care (01) ==
LOC: HO.HPSW 13:52
PROVIDERS: PCP Internal Medicine; Referring Provider Internal Medicine; Visit Provider Nurse Practitioner Family
DX: J45.909 Unspecified asthma, uncomplicated (principal); Z91.09 Other allergy status, other than to drugs and biological substances; Z87.09 Personal history of other diseases of the respiratory system
CPT/HCPCS: 99204

== ENCOUNTER 2024-08-08 14:58 | Outpatient (REF) | payer OTHER, SELFPAY ==
--- OUTSIDE RECORDS SUMMARY | 2024-08-08 18:17 | XMS_ITS | Encounter Summary ---
Author Organization [facility] Address [address] [place] [address] Care Team Providers Care Him Clerk Name Role Phone Micaela Fuchs MD Primary Care Provider [phone] Reason for Referral * Imaging (Routine) - Authorized Specialty Diagnoses / Procedures Referred By Pollo haines Referred To Contact Radiology Diagnoses Cerebellar tonsillar ectopia (CMS/HCC) Procedures MR Cervical Spine wo Contrast Lee Ann Kraus PA 175 [facility], [address] [address] Phone: tel: fax: [facility] [address] [place] [address] Phone: tel: Referral ID Status Reason Start Date Expiration Date V isits Requested Visits Authorized [id number] Authorized 07/10/2024 07/10/2025 1 1 Reason for Visit * Imaging (Routine) - Authorized Specialty Diagnoses / Procedures Referred By Pollo t Referred To Contact Radiology Diagnoses Cerebellar tonsillar ectopia (CMS/HCC) Procedures MR Cervical Spine wo Contrast Lee Ann Kraus PA 175 [facility], [address] [place] [address] Phone: tel: fax: [facility] MRI [address] [place] [address] Phone: tel: Referral ID Status Reason Start Date Expiration Date V isits Requested Visits Authorized [id number] Authorized 07/10/2024 07/10/2025 1 1 Encounter Details Date Type Department Care Team (Latest Contact Info) Description 08/06/2024 9:00 AM EDT - 08/06/2024 11:59 PM EDT Hospital Encounter [facility] MRI [address] [place] [address] Cerebellar tonsillar ectopia ([facility]/HCC) Discharge Disposition: Home or Self Care Social [...] Signed Date: 08/07/2024 09:21 ET Workstation ID: [id number] Transcribed By: Self Edit Transcribed Date: 08/07/2024 [...] Signed Date: 08/07/2024 09:21 ET Workstation ID: [id number] Transcribed By: Self Edit Transcribed Date: 08/07/2024 08:49 ET Lee Ann BARBOUR IMG MRI PROCEDURES Final R esult documented in this encounter Visit Diagnoses Diagnosis Cerebellar tonsillar ectopia (CMS/HCC) documented in this encounter Care Teams Him Clerk Relationship Specialty Start Date End Date Micaela Fuchs MD 2 [facility] , [address] [facility] Physician Associ D/B/A: [facility] FERNANDO Stuart PCP - General Internal Medicine 06/26/24 documented as of this encounter
--- OUTSIDE RECORDS SUMMARY | 2024-08-08 18:17 | XMS_ITS | Encounter Summary ---
Author Organization [facility] Address [address] [place] [address] Care Team Providers Care Handbag Parts Cutter Name Role Phone Micaela Fuchs MD Primary Care Provider [phone] Reason for Referral * Imaging (Routine) - Authorized Specialty Diagnoses / Procedures Referred By Pollo haines Referred To Contact Radiology Diagnoses Cerebellar tonsillar ectopia (CMS/HCC) Procedures MR Cervical Spine wo Contrast Yogesh Kraus PA 175 [facility], [address] [address] Phone: tel: fax: [facility] MRI [address] [place] [address] Phone: tel: Referral ID Status Reason Start Date Expiration Date V isits Requested Visits Authorized [id number] Authorized 07/10/2024 07/10/2025 1 1 * Consultation (Routine) - Pending Review Specialty Diagnoses / Procedures Referred By Pollo haines Referred To Contact Physical Therapy Diagnoses Other specified congenital malformations of brain (CMS/HCC) Yogesh Kraus PA 175 [facility], [address] [place] [address] Phone: tel: fax: Referral ID Status Reason Start Date Expiration Date Visits Requested Visits Authorized [id number] Pending Review Consult and Treat 07/07/2024 07/07/2025 1 1 Reason for Visit * Reason Comments congenital malformation of brain Headach es, nauseas, blurred vision * Consultation (Routine) - Closed Specialty Diagnoses / Procedures Referred By Contac t Referred To Contact Neurosurgery Diagnoses Other specified congenital malformations of brain (CMS/HCC) Micaela Fuchs MD [address] [place] [address] [address], [address] [facility]ician [facility] D/B/A: [facility] [place], [place] Phone: tel: fax: Praveena Pabon MD [address] [place] [address] Phone: tel: fax: Referral ID Status Reason Start Date Expiration Date V isits Requested Visits Authorized [id number] Closed Specialty Services Required 06/26/2024 06/26/2025 1 1 Encounter Details Date Type Department Care Team ([facility] Contact Info) Description 07/07/2024 10:30 AM EST Consult Neurosurgery [place] [facility] [address] [address] Yogesh Kraus PA 175 [facility] [address] [place] [address] Cerebellar tonsillar ectopia (CMS/HCC) Social History Tobacco [...] Patient [place] head [place] [facility] [place] [...] see if that can help. She is Afghan- speaking, we used [employer] revolving field assembler Haseeb #[id number]. * KM Isaac - 07/07/2024 10:30 AM [...] Patient had head CT 02/12[place]20[place] [facility] [place] at [...] see if that can help. She is Afghan- speaking, we used [employer] revolving field assembler [employer] #[id number]. Relevant Orders Ambulatory referral to Physical Therapy and Athletic Training Thank you for allowing us to care for your patient. The total time spent was 45 minutes, time spent includes reviewing history, outside notes, imaging,exam, plan, patient counseling. KM Isaac on 07/07/2024 at 4:20 PM EST CC: Micaela Fuchs MD Ana R Mattei, MD [facility] Neurosurgical [place] documented in this encounter Plan of Treatment [...] Signed Date: 08/07/2024 09:21 ET Workstation ID: [id number] Transcribed By: Self Edit Transcribed Date: 08/07/2024 [...] Signed Date: 08/07/2024 09:21 ET Workstation ID: [id number] Transcribed By: Self Edit Transcribed Date: 08/07/2024 08:49 ET us Yogesh BARBOUR IMG MRI PROCEDURES Final R esult documented in this encounter Visit Diagnoses Diagnosis Cerebellar tonsillar ectopia (CMS/HCC) Cerebellar tonsillar ectopia (CMS/HCC) documented in this encounter Historical Medications * This list may reflect changes made after this encounter. [place] [facility] [place] albuterol HFA (PROAIR HFA ; PROVENTIL HFA [...] 07/07/2024 documented in this encounter Care Teams Handbag Parts Cutter Relationship Specialty Start Date End Date Micaela Fuchs MD [address] [place] [address] , [address] [facility] D/B/A: [facility] FERNANDO Stuart PCP - General Internal Medicine 06/26/24 documented as of this encounter
--- OUTSIDE RECORDS SUMMARY | 2024-08-08 18:17 | XMS_ITS | Clinical Summary ---
Author Organization [facility] Address [address] [place] [address] Care Team Providers Care Power Shovel Mechanic Name Role Phone Faye Adams PA-C Primary [...] on 12 April 2013 12:06 Encounter info: [id number], [facility], One Time OP, 04/12/2013 - 04/12/2013 * [...] H/O: hysterectomy 2011 due to fibroid in [place] 03/01 Diverticulosis 03/28/2013 Overview (12/07/2013): Colonoscopy Done [...] on file Insurance [place] MEDICAID Care Teams Power Shovel Mechanic Relationship Specialty Start Date End Date Faye Adams PA-C [address] [place] [address] PCP - General 03/28/13
--- OUTSIDE RECORDS SUMMARY | 2024-08-08 18:17 | XMS_ITS | Clinical Summary ---
Author Organization 175 [facility] Address [address] [place] [address] Phone Care Team Providers Care Cyber Transport Systems Specialist Name Role Phone Micaela Fuchs MD Primary Care Provider [phone] Allergies Active Allergy Reactions Criticality Noted Date [...] diaper. Patient had head CT 02/12/2024 at [facility] [place] acute findings at the time, there [...] see if that can help. She is Bulgarian-speaking, we used [employer] scaffold builder Haseeb #[id number]. Chronic left-sided low back pain 03/06/2016 Anxiety and depression 06/12/2014 Asthma, mild intermittent 06/12/2014 Hypothyroid 05/23/2013 Overview (07/07/2024): Result type: US Soft Tissue Head/Neck Result date: 12 April 2013 10:47 Result status: Auth (Verified) Result title: US Soft Tissue Head/Neck Performed by: Montse Hernandez MD on 12 April 2013 12:01 Verified by: Shawn Grover MD on 12 April 2013 12:06 Encounter info: [id number], [facility] [place] One Time OP, 04/12/2013 [...] - 08/06/2024 11:59 PM EDT Hospital Encounter [facility] MRI [address] [place] [address] Cerebellar tonsillar ectopia (CMS/HCC) Discharge Disposition: Home or Self Care 07/11/2024 Telephone Neurosurgery [facility] 175 [facility] [address] [place] [address] Sarah Acevedo [place] Appointment ([facility] Auth # [id number] for C/Spine MRI faxed over to [facility] MRI. Will contact pt w/appt) 07/07/2024 10:30 AM EST Consult Neurosurgery [facility] 175 [facility] [address] [place] [address] Lee Ann Kraus PA Cerebellar tonsillar [...] Signed Date: 08/07/2024 09:21 ET Workstation ID: [id number] Transcribed By: Self Edit Transcribed Date: 08/07/2024 [...] Signed Date: 08/07/2024 09:21 ET Workstation ID: [id number] Transcribed By: Self Edit Transcribed Date: 08/07/2024 08:49 ET Lee Ann BARBOUR IMG MRI PROCEDURES Final R esult from Last 3 Months Insurance [facility] MEDICARE Member Subscriber Plan / Payer (Ef fective 2020-Present) Name:Sharon Hahn Relation to Subscriber:Self Name:Sharon Hahn Payer ID:[id number] Group ID:[id number] Type:Not on file Address: [place] [address] [place] [address] Care Teams Cyber Transport Systems Specialist Relationship Specialty Start Date End Date Micaela Fuchs MD [address] [place] [address] , [address] [facility] Physician Associ D/B/A: Narciso Castatishavonne In Internal Medicine FERNANDO Stuart PCP - General Internal Medicine 06/26/24
--- OUTSIDE RECORDS SUMMARY | 2024-08-08 18:17 | XMS_ITS | Encounter Summary ---
Author Organization [facility] Address [address] [place] [address] Care Team Providers Care Ultrasound Supervisor Name Role Phone Micaela Fuchs MD Primary Care Provider [phone] Reason for Visit * Reason Onset Date Comments Appointment 07/11/2024 [facility] Auth # [id number] for C/Spine MRI faxed over to [facility] MRI. Will contact pt w/appt Encounter Details Date Type Department Care Team ([facility] st Contact Info) Description 07/11/2024 Telephone Neurosurgery [place] [address] [place] [address] Sarah Acevedo [place] Appointment ([facility] Auth # [id number] for C/Spine MRI faxed over to [facility] MRI. Will contact pt w/appt) Social [...] on filedocumented in this encounter Care Teams Ultrasound Supervisor Relationship Specialty Start Date End Date Micaela Fuchs MD 2 [facility] , [facility] 101 [facility] Physician Associ D/B/A: Narciso Associatishavonne In Internal Medicine FERNANDO Stuart PCP - General Internal Medicine 06/26/24 documented as of this encounter
[2024-08-08 18:28] LABS: MANUAL DIFF FLAG NO
[2024-08-08 18:44] LABS: Basophils Percent Auto 0.6 % (0-2); Eosinophils Absolute Auto 0.3 X10*3/uL (0.0-0.4); Eosinophils Percent Auto 4.7 % (0-4); Hematocrit 37.5 % (37.0-47.0); Hemoglobin 12.1 g/dl (12.0-16.0); Imm Gran Abs Auto 0.02 X10*3/uL (0.00-0.03); Imm Gran Pct Auto 0.3 % (0.0-0.4); Lymphocytes Absolute Auto 1.7 X10*3/uL (1.2-4.9); Lymphocytes Percent Auto 26.6 % (20-40); Mean Corpuscular HGB Conc 32.3 g/dl (31.0-35.0); Mean Corpuscular Volume 93.1 fL (80.0-98.0); Mean Platelet Volume 10.4 fL (9.4-12.3); Monocytes Absolute Auto 0.5 X10*3/uL (0.1-1.2); Monocytes Percent Auto 8.5 % (2-11); Neutrophils Absolute Auto 3.7 x10*3/uL (2.0-8.3); Neutrophils Percent Auto 59.3 % (45-73); Platelet Count 270 X10*3/uL (160-400); Red Blood Count 4.03 X10*6/uL (4.20-5.50); Red Cell Distribution Width 12.8 % (11.0-16.0); White Blood Count 6.2 X10*3/uL (4.8-10.8)
[2024-08-08 19:27] LABS: Alanine Aminotransferase 37 U/L (0-31); Albumin Level 4.2 g/dL (3.5-5.0); Alkaline Phosphatase 69 U/L (39-117); Anion Gap 9 (12-20); Aspartate Amino Transferase 24 U/L (5-31); Bilirubin Total 0.6 mg/dL (0.0-1.0); Blood Urea Nitrogen 11 mg/dL (9-16); Calcium 9.5 mg/dL (8.4-10.2); Carbon Dioxide 27 mmol/L (22-29); Chloride 111 mmol/L (96-108); Cholesterol 139 mg/dL (<200); Estimated Glomerular Filt Rate > 60; Glucose Fasting 89 mg/dL (60-99); HDL Cholesterol 38 mg/dL (>40); Iron 45 mcg/dL (30-160); LDL Cholesterol Calculated 69 mg/dL (<100); Percent Iron Saturation 21 % (15-50); Sodium 143 mmol/L (135-145); Total Iron Binding Capacity 216 mcg/dL (228-428); Total Protein 7.5 g/dL (6.5-8.0); Triglycerides 164 mg/dL (<150); Unsaturated Iron Binding 171 ug/dL
[2024-08-08 19:44] LABS: Thyroid Stimulating Hormone 0.31 uIU/mL (0.32-4.0); Vitamin D 25-OH Total 16.8 ng/mL (>30)
[2024-08-08 19:53] LABS: Folate 9.8 ng/mL (> or = 4.0); Vitamin B12 163 pg/mL (200-900)
[2024-08-11 14:28] LABS: Class Alternaria alternata 0; Class Aspergillus fumigatus 0; Class Bermuda Grass 0; Class Birch 0; Class Cat Dander 0; Class Cladosporium herbarum 0; Class Cockroach 0; Class Common Ragweed 0; Class Cottonwood 0; Class Derm. pterony 1; Class Dermatophagoides farinae 1; Class Dog Dander 0; Class Elm 0; Class Maple Box Elder 0; Class Mountain Cedar 0; Class Mouse Urine Protein 0; Class Mugwort 0; Class Oak 0; Class Penicillium crysogenum 0; Class Rough Pigweed 0; Class Sheep Sorrel 0; Class Sycamore 0; Class Timothy Grass 0; Class Walnut Tree 0; Class White Ash 0; Class White Mulberry 0; D001 IgE D pteronyssinus 0.39 kU/L; D002 - IgE D farinae 0.63 kU/L; E001 - IgE Cat Dander <0.10 kU/L; E005 - IgE Dog Dander <0.10 kU/L; E072-IgE Mouse Urine <0.10 kU/L; G002 IgE Bermuda Grass <0.10 kU/L; G006 - IgE Timothy Grass <0.10 kU/L; I006-IgE Cockroach, German <0.10 kU/L; Immunoglobulin E 23 kU/L (<OR=114); M001 IgE Penicillium chrysogen <0.10 kU/L; M002 - IgE Cladosporium herbar <0.10 kU/L; M003 - IgE Aspergillus fumigat <0.10 kU/L; M006 - IgE Alternaria alternat <0.10 kU/L; T001 IgE Maple/Box Elder <0.10 kU/L; T003 IgE Common Silver Birch <0.10 kU/L; T006 - IgE Cedar, Mountain <0.10 kU/L; T007 - IgE Oak, White <0.10 kU/L; T008 IgE Elm, American <0.10 kU/L; T010 - IgE Walnut <0.10 kU/L; T011 - IgE Maple Leaf Sycamore <0.10 kU/L; T014 - IgE Cottonwood <0.10 kU/L; T015 - IgE Ash, White <0.10 kU/L; T070 - IgE White Mulberry <0.10 kU/L; W001 - IgE Ragweed, Short <0.10 kU/L; W006 - IgE Mugwort <0.10 kU/L; W014 IgE Pigweed, Common <0.10 kU/L; W018 IgE Sheep Sorrel <0.10 kU/L
== END 2024-08-08 14:59 | disposition home or self-care (01) ==
LOC: HO.WFDLDS 14:58
PROVIDERS: Referring Provider Internal Medicine; Visit Provider Nurse Practitioner Family
DX: D64.9 Anemia, unspecified (principal); E78.5 Hyperlipidemia, unspecified; E55.9 Vitamin D deficiency, unspecified; E03.9 Hypothyroidism, unspecified; E53.8 Deficiency of other specified B group vitamins; K21.9 Gastro-esophageal reflux disease without esophagitis; Z91.09 Other allergy status, other than to drugs and biological substances; J45.909 Unspecified asthma, uncomplicated; Z87.09 Personal history of other diseases of the respiratory system
CPT/HCPCS: 36415; 80053; 80061; 82306; 82607; 82746; 82785; 83540; 84443; 85025; 86003; 99202

== ENCOUNTER 2024-08-10 13:51 | Outpatient (AMB) | payer OTHER, SELFPAY ==
--- NOTE | 2024-08-10 14:12 | A.OFFVIS_ITS ---
Intake Visit Reasons: urinary incontinence Intake Note: New Patient presents for initial visit for incontinence Urology Medications: none Blood Thinner: none PVR: 37ml's Surfboard Maker Required: Yes Surfboard Maker Name: Christian [id number] Accompanied by: Daughter Allergies levothyroxine sodium [From Synthroid] Adverse Reaction (Mild, Verified 08/10/24 16:12) inadequeate response IV contrast Allergy (Severe, Uncoded 08/10/24 16:12) Anaphylaxis SEAFOOD Allergy (Intermediate, Uncoded 08/10/24 16:12) DOESNT TAKE BECAUSE OF THYROID Medication List - Last Reconciled 08/10/24 by ELYSE Degroot-YOANDY acetaminophen 325 mg PO Q4H PRN [adult diapers pull-ups As directed] alfukvs-pbrfjfjwjombr-uyclaamu 250-250-65 mg (Excedrin Migraine) 1 tab PO Q4H PRN benzonatate 100 mg PO TID PRN budesonide-formoterol 160-4.5 mcg/actuation (Symbicort) 2 puffs inhalation Q12H ipratropium-albuterol 0.5 mg-3 mg(2.5 mg base)/3 mL 3 mL inhalation Q4-6H PRN levothyroxine (Synthroid) 125 mcg PO DAILY@0600 magnesium oxide 400 mg PO BEDTIME omeprazole 20 mg PO DAILY oxcarbazepine 600 mg PO BEDTIME oxcarbazepine 300 mg PO DAILY prednisone 40 mg (2 x 20 mg) PO DAILY 3 days quetiapine 100 mg PO BEDTIME Ventolin HFA 90 mcg/actuation (albuterol sulfate) 2 puffs inhalation Q4-6H PRN NS walker (Ultra-Light Rollator misc) As directed HPI Comments Details: Sharon is a very pleasant 58-year-old Sri Lankan-speaking female patient of Dr. Lanier who was accompanied by her daughter at today's office visit. She has a past medical history of asthma, hemorrhoids, hypothyroidism, GERD, and constipation. She presents to the office today as a new patient for longstanding history of u rinary issues. In discussion with the patient today she discusses having had surgical procedure in [place] for abdominal pain she had been experiencing at which time she describes her bladder needing to be operated on for a possible repair. She is vague when discussing this surgical procedure. She reports since this surgical procedure she has had issues with lower urinary tract symptoms of urinary urgency, urinary frequency, and mixed urinary incontinence. She discusses having followed up with a provider here a few years ago and underwent bladder lift with mesh procedure . In review of previous medical records it appears patient underwent surgical procedure with Dr. Garrett in 2018 and had Pubovaginal sling/lynx procedure. She reports feeling lower urinary tract symptoms had been manageable after surgical procedure however more recently has been needing to utilize 4-5 Beatrice pads per day for mixed urinary incontinence. In office urinalysis results reviewed with the patient today. PVR 37 mL. We discussed further treatment options of mixed urinary incontinence and risks and benefits of these treatment options. She otherwise denies hematuria, dysuria, foul smelling urine, changes to urinary stream, flank pain, fever, and or chills. We discussed obtaining retroperitoneal ultrasound for further assessment evaluation [facility] Medical History Influenza A Mild persistent asthma, uncomplicated Internal and external hemorrhoids without complication Bloody stools Hypothyroidism Chronic GERD Chronic constipation Pap smear of cervix shows high risk HPV present Surgical History History of bladder surgery History of colonoscopy History of partial hysterectomy Family History Father HTN (hypertension) Mother Asthma HTN (hypertension) Sister Heart disease Brother Liver cancer Son Asthma Social History Household Members: Family and Children Housing: Apartment Do you presently have visiting nurse or other home services: Yes (visitng nurse once a month, 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) Unable to assess alcohol history related to: Unknown Alcohol intake: never Patient Tobacco Use Status: Former Tobacco user Tobacco use type: Cigarette Cigarette Packs Per Day: 2 Years Smoked: 10 years e-Cigarette/Vaping Use: Never Used Second Hand Smoke Exposure: Yes service: No Current occupational status: disabled Cognitive needs: Yes Hearing needs: No Vision needs: No Review of Systems Const All systems reviewed & are unremarkable except as noted in HPI and below Physical Exam Const General: cooperative, healthy appearing, comfortable, no acute distress, well developed, alert and awake Orientation/consciousness: patient oriented x3 Limitations: language barrier HEENT Head: Yes normal to inspection, Yes normocephalic and Yes atraumatic Ears: hearing grossly normal bilaterally Eyes General: appearance normal, both eyes and all related structures Neck Neck: Yes normal visual inspection and Yes trachea midline Chest Chest palpation & inspection: normal inspection of the chest Resp Effort & Inspection: normal respiratory effort and able to speak in complete sentences Cardio Rate: regular rate GI Inspection: Yes normal to inspection General: Yes no CVA tenderness Back/Spine/Pelvis Back: no CVA tenderness Skin General skin exam: no rashes or lesions noted Neuro General: patient oriented x3 Extrem General: Yes normal to inspection Psych Appearance: grossly normal and well kempt Mental Status: mental status grossly normal Speech and movement: Normal speech and movement present and Clear speech present Affect: normal affect Attitude: cooperative Thought process: Normal thought process present Thought content: Normal thought content present Insight: Fair insight present (Psych) Judgement: Fair judgement present (Psych) Office Procedures Post Void Residual Post Residual Void Post Void Residual (PVR): 37 [id number] Void Residual by ultrasound Results AMB Urinalysis, Automated UA Leukoctes 0 Valdez/uL Last Edit by Wedding Party TabbyJasonDB on 08/10/24 14:26 UA Nitrite Last Edit by Wedding Party Remberto on 08/10/24 14:26 UA Urobilinogen 0.2 mg/dL Last Edit by Stormpath on 08/10/24 14:26 UA Protein 15 mg/dL Last Edit by Stormpath on 08/10/24 14:26 UA pH 7.0 Last Edit by Stormpath on 08/10/24 14:26 UA Blood 10 Johnny/uL Last Edit by Stormpath on 08/10/24 14:26 UA Specific Upton 1.015 Last Edit by Stormpath on 08/10/24 14:26 UA Ketone Last Edit by Stormpath on 08/10/24 14:26 UA Bilirubin 0 mg/dL Last Edit by Mendy Sr on 08/10/24 14:26 UA Glucose 0 mg/dL Last Edit by Mendy Sr on 08/10/24 14:26 Results Reviewed Results Reviewed: Laboratory Last Values Urine pH (Auto) 7.0 08/10/24 14:25 Specific Upton (Auto) 1.015 08/10/24 14:25 Urine Protein (Auto) 15 mg/dL 08/10/24 14:25 Glucose (UA)(Auto) 0 mg/dL 08/10/24 14:25 Urine Blood (Auto) 10 Johnny/uL 08/10/24 14:25 Urine Bilirubin (Auto) 0 mg/dL 08/10/24 14:25 Urine Urobilinogen (Auto) 0.2 mg/dL 08/10/24 14:25 Leukocyte Esterase (Auto) 0 Valdez/uL 08/10/24 14:25 Assessment & Plan Assessment & Plan (1) Mixed incontinence urge and stress: Code(s): N39.46 - Mixed incontinence Category: Medical Plan In office urinalysis results reviewed with the patient today; as noted above. PVR 37 mL. We discussed at length potential causes of lower urinary tract symptoms patient was experiencing as well as further treatment options and risks and benefits of these treatment options. Previous records were reviewed. Will obtain retroperitoneal ultrasound for further assessment evaluation. Information provided regarding pelvic floor exercises/ pelvic floor therapy as well as in office urodynamics. All questions were answered. Follow-up in 1-3 months with imaging to be completed prior; or sooner with any issues, concerns, and or questions. Orders: Orders AMB Post Void Residual by ultrasound Today N39.41 - Urge incontinence US retroperitoneal comp Today N39.46 - Mixed incontinence AMB Urinalysis Automated Today Z13.9 - Encounter for screening, unspecified Patient Instructions: The patient had an opportunity to ask questions regarding the treatment plan. All questions were answered. Physical exam, labs, and imaging were discussed and reviewed in detail. As well as risks, benefits, and discussion of treatment choices. No major barriers to understanding were identified. The patient expressed understanding and agreement with the above treatment plan. The patient was made aware they should contact our office by phone for worsening of their current condition, the appearance of new symptoms, or with any questions or concerns. Compliance is encouraged with any medications and follow up testing that is ordered. It is a privilege to be allowed the opportunity to participate in? your urological care.? Again, if you have any questions or concerns If you have any questions or concerns please do not hesitate to contact me. The office is [phone]. This note is constructed using voice recognition software. While every effort has been made to ensure accuracy airfreight loading supervisor errors may have been included. Yours sincerely, JOEL Degroot Coding Level of Care Code New Pt Level 4 (58437) Diagnoses Mixed incontinence urge and stress N39.46 CPT Codes Post Residual Void - PVR CPT Code: 29373-Mwsv Void Residual by ultrasound ([id number]) Time Spent (min) 35
--- OUTSIDE RECORDS SUMMARY | 2024-08-10 17:33 | XMS_ITS | Clinical Summary ---
Author Organization 175 [facility] Address [address] [place] [address] Phone Care Team Providers Care Hand Shoes Sewer Name Role Phone Micaela Fuchs MD Primary Care Provider [phone] Allergies Active Allergy Reactions Criticality Noted Date [...] diaper. Patient had head CT 02/12/20[facility] at [facility], no acute findings at [...] see if that can help. She is Macedonian-speaking, we used [facility] specialist Haseeb #[id number]. Chronic left-sided low back pain 03/06/2016 Anxiety and depression 06/12/2014 Asthma, mild intermittent 06/12/2014 Hypothyroid 05/23/2013 Overview (07/07/2024): Result type: US Soft Tissue Head/Neck Result date: 12 April 2013 10:47 Result status: Auth (Verified) Result title: US Soft Tissue Head/Neck Performed by: Montse Hernandez MD on 12 April 2013 12:01 Verified by: Shawn Grover MD on 12 April 2013 12:06 Encounter info: [id number], [facility], One Time OP, 04/12/2013 - 04/12/2013 * [...] - 08/06/2024 11:59 PM EDT Hospital Encounter [facility] MRI [address] [place] [address] Cerebellar tonsillar ectopia (CMS/HCC) Discharge Disposition: Home or Self Care 07/11/2024 Telephone Neurosurgery [facility] 175 [facility] [address] [place] [address] Sarah Acevedo [place] Appointment ([facility] Auth # [id number] for C/Spine MRI faxed over to [facility] MRI. Will contact pt w/appt) 07/07/2024 10:30 AM EST Consult Neurosurgery [facility] [address] [facility] [address] [place] [address] Lee Ann Kraus PA Cerebellar tonsillar [...] Signed Date: 08/07/2024 09:21 ET Workstation ID: [id number] Transcribed By: Self Edit Transcribed Date: 08/07/2024 [...] Signed Date: 08/07/2024 09:21 ET Workstation ID: [id number] Transcribed By: Self Edit Transcribed Date: 08/07/2024 08:49 ET Lee Ann [facility] IMG MRI PROCEDURES Final R esult from Last 3 Months Insurance [facility] MEDICARE Member Subscriber Plan / Payer (Ef fective 2020-Present) Name:Sharon Hahn Relation to Subscriber:Self Name:Sharon Hahn Payer ID:[id number] Group ID:[id number] Type:Not on file Address: [place] [address] [place] [id number] Care Teams Hand Shoes Sewer Relationship Specialty Start Date End Date Micaela Fuchs MD [address] [place] [address] , [address] [facility] Physician Associ D/B/A: Narciso Castatishavonne In Internal Medicine FERNANDO Stuart PCP - General Internal Medicine 06/26/24
--- OUTSIDE RECORDS SUMMARY | 2024-08-10 17:33 | XMS_ITS | Encounter Summary ---
Author Organization [facility] Address [address] [place] [address] Care Team Providers Care Third Helper Name Role Phone Micaela Fuchs MD Primary Care Provider [phone] Reason for Visit * Reason Onset Date Comments Appointment 07/11/2024 [facility] Auth # [id number] for C/Spine MRI faxed over to [facility] MRI. Will contact pt w/appt Encounter Details Date Type Department Care Team ([facility] st Contact Info) Description 07/11/2024 Telephone Neurosurgery [place] [address] [place] [address] Sarah Acevedo [place] Appointment ([facility] Auth # [id number] for C/Spine MRI faxed over to [facility] MRI. Will contact pt w/appt) [...] on filedocumented in this encounter Care Teams Third Helper Relationship Specialty Start Date End Date Micaela Fuchs MD 2 [facility] , [facility] 101 [facility] Physician Associ D/B/A: Narciso Associatishavonne In Internal Medicine FERNANDO Stuart PCP - General Internal Medicine 06/26/24 documented as of this encounter
--- OUTSIDE RECORDS SUMMARY | 2024-08-10 17:33 | XMS_ITS | Encounter Summary ---
Author Organization [facility] Address [address] [place] [address] Care Team Providers Care Wearing Apparel Shaker Name Role Phone Micaela Fuchs MD Primary Care Provider [phone] Reason for Referral * Imaging (Routine) - Closed Specialty Diagnoses / Procedures Referred By Pollo haines Referred To Contact Radiology Diagnoses Cerebellar tonsillar ectopia (CMS/HCC) Procedures MR Cervical Spine wo Contrast Lee Ann Kraus PA [address] [address] Phone: tel: fax: [facility] [address] [place] [address] Phone: tel: Referral ID Status Reason Start Date Expiration Date Visits Re quested Visits Authorized [id number] Closed 07/10/2024 07/10/2025 1 1 Reason for Visit * Imaging (Routine) - Closed Specialty Diagnoses / Procedures Referred By Pollo haines Referred To Contact Radiology Diagnoses Cerebellar tonsillar ectopia (CMS/HCC) Procedures MR Cervical Spine wo Contrast Lee Ann Kraus PA 175 [facility], [address] [address] Phone: tel: fax: [facility] [address] [place] [address] Phone: tel: Referral ID Status Reason Start Date Expiration Date Visits Re quested Visits Authorized [id number] Closed 07/10/2024 07/10/2025 1 1 Encounter Details Date Type Department Care Team (Latest Contact Info) Description 08/06/2024 9:00 AM EDT - 08/06/2024 11:59 PM EDT Hospital Encounter [facility] MRI [address] [place] [address] Cerebellar tonsillar ectopia ([facility]/HCC) Discharge Disposition: Home or Self Care Social [...] Signed Date: 08/07/2024 09:21 ET Workstation ID: [id number] Transcribed By: Self Edit Transcribed Date: 08/07/2024 [...] Signed Date: 08/07/2024 09:21 ET Workstation ID: [id number] Transcribed By: Self Edit Transcribed Date: 08/07/2024 08:49 ET Lee Ann [facility] IMG MRI PROCEDURES Final R esult documented in this encounter Visit Diagnoses Diagnosis Cerebellar tonsillar ectopia (CMS/HCC) documented in this encounter Care Teams Wearing Apparel Shaker Relationship Specialty Start Date End Date Micaela Fuchs MD [facility] [address] [facility] Physician Associ D/B/A: Narcsio Associaties In Internal Medicine FERNANDO Stuart PCP - General Internal Medicine 06/26/24 documented as of this encounter
--- OUTSIDE RECORDS SUMMARY | 2024-08-10 17:33 | XMS_ITS | Clinical Summary ---
Author Organization [facility] Address [address] [place] [address] Care Team Providers Care Child Health Associate Name Role Phone Faye Adams PA-C Primary Care Provider [phone] Source Comments PLEASE NOTE, if this patient [...] on 12 April 2013 12:06 Encounter info: [id number], [facility], 04/12/2013 - 04/12/2013 [...] H/O: hysterectomy 2011 due to fibroid in [place] 03/01 Diverticulosis 03/28/2013 Overview (12/07/2013): Colonoscopy Done [...] on file Insurance [place] MEDICAID Care Teams Child Health Associate Relationship Specialty Start Date End Date Faye Adams PA-C [address] [place] [address] PCP - General 03/28/13
== END 2024-08-10 15:10 | disposition home or self-care (01) ==
LOC: HO.HUSH 13:51
PROVIDERS: PCP Internal Medicine; Visit Provider Nurse Practitioner Family
DX: N39.46 Mixed incontinence (principal); Z13.9 Encounter for screening, unspecified
CPT/HCPCS: 99204

== ENCOUNTER → 2024-08-10 13:51 | Outpatient (BNVA) | payer OTHER, SELFPAY | PROVIDERS: PCP Internal Medicine; Visit Provider Nurse Practitioner Family | DX: N39.46 Mixed incontinence (principal) | CPT/HCPCS: 51798; 81003; 99202 ==

== ENCOUNTER 2024-09-15 10:46 | Outpatient (REF) | payer OTHER, SELFPAY ==
--- NOTE | 2024-09-15 10:49 | PFT_ITS ---
Indication: Asthma Spirometry [FEV1 to FVC 80%; FEV1 1.63 L; FVC 2.05 L. there is a significant response to bronchodilators noted] Lung Volumes [The patient was not able to perform the maneuvers adequately for lung volumes.] Diffusion Capacity [DLCO 98% predicted] Comparisons [None] Interpretation [No evidence of any obstructive ventilatory defects. The patient did have a significant response to bronchodilators. Lung volumes could not be measures, however, the patient likely has a component of restrictive lung disease based on the decreased FVC. Diffusing capacity is within normal limits. Clinical correlation warranted] MTDD
[2024-09-15 11:36] VITALS: PULSE 76; O2SAT 99
--- OUTSIDE RECORDS SUMMARY | 2024-09-15 11:48 | XMS_ITS | Clinical Summary ---
Author Organization 175 [facility] Address [address] [place] [address] Phone Care Team Providers Care Security Solutions Engineer Name Role Phone Micaela Fuchs MD Primary Care Provider [phone] Allergies Active Allergy Reactions Criticality Noted Date [...] Noted Date Diagnosed Date Cerebellar tonsillar ectopia (CMS/HCC V24, CMS/H CC V28) 07/07/2024 Assessment & Plan (07/07/2024 4:20 PM [...] Patient had head CT [place] [facility] findings at [place], there [...] see if that can help. She is Romansh-speaking, we used Cash Check Card superintendent maintenance Haseeb #[id number]. Chronic left-sided low back pain 03/06/2016 Anxiety and depression 06/12/2014 Asthma, mild intermittent 06/12/2014 Hypothyroid 05/23/2013 Overview (07/07/2024): Result type: US Soft Tissue Head/Neck Result date: 12 April 2013 10:47 Result status: Auth (Verified) Result title: US Soft Tissue Head/Neck Performed by: Montse Hernandez MD on 12 April 2013 12:01 Verified by: Shawn Grover MD on 12 April 2013 12:06 [place]: [id number][place] [facility] [place] [...] - 08/06/2024 11:59 PM EDT Hospital Encounter [facility] MRI [address] [place] [address] Cerebellar tonsillar ectopia ([facility]/HCC V24, [facility] V28) Discharge Disposition: Home or Self Care 07/11/2024 Telephone Neurosurgery [facility] [address] [address] Sarah Acevedo [place] Appointment ([facility] Auth # [id number] for C/Spine MRI faxed over to [facility] MRI. Will contact pt w/appt) 07/07/2024 10:30 AM EST Consult Neurosurgery [facility] [address] [address] Lee Ann Kraus PA Cerebellar tonsillar ectopia ([facility] V24, [facility] V28) from Last 3 Months Immunizations Name Administration [...] high risk HPV present Cerebellar tonsillar ectopia (CMS/HCC V24, CMS/H CC V28) Migraine STEVEN (generalized anxiety disorder) Mild major depression ([facility] V24) Insomnia Chronic constipation Urge urinary incontinence Family [...] Vaccines (1 of 2) 10/28/2013 RSV Immunization Adult Patients (1 - Risk 60-74 years 1-dose series) 2023 COVID-19 Vaccine (2023-2 5 season) 2024 Colorectal Cancer Screening: Colonoscopy 06/27/2024 Depression Screening 06/27/2024 HIV Screening 06/27/2024 Hepatitis C Screening 06/27/2024 Medicare Annual Wellness Visit 06/27/2024 Social Influencers of Health Screening 06/27/2024 Influenza Vaccine (Season Ended) 2025 04/07/2021, 03/20/2019, 03/28/2013 DTaP,Tdap,and Td Vaccines (2 - Td or [...] age to complete this topic Meningococcal B Vaccine Aged Out No l onger eligible based on patient's age to complete [...] 08/06/2024 11:13 AM EDT Cerebellar tonsillar ectopia (CMS/HCC V24, CMS/HCC V28) from Last 3 Months Results * MR [...] Signed Date: 08/07/2024 09:21 ET Workstation ID: [id number] Transcribed By: Self Edit Transcribed Date: 08/07/2024 [...] Signed Date: 08/07/2024 09:21 ET Workstation ID: [id number] Transcribed By: Self Edit Transcribed Date: 08/07/2024 08:49 ET Lee Ann [facility] IMG MRI PROCEDURES Final R esult from Last 3 Months Insurance [id number] AVILEZ [id number] [facility] MEDICARE Member Subscriber Plan / Payer (Ef fective 2020-Present) Name:Sharon Hahn Relation to Subscriber:Self Name:Sharon Hahn Payer ID:[id number] Group ID:[id number] Type:Not on file Address: [place] [address] [place] [address] Care Teams Security Solutions Engineer Relationship Specialty Start Date End Date Micaela Fuchs MD [address] [place] [address] , [facility] [address] [facility] Physician Associ D/B/A: Narciso Tomlin In Internal Medicine Narciso ND PCP - General Internal Medicine 06/26/24
--- OUTSIDE RECORDS SUMMARY | 2024-09-15 11:48 | XMS_ITS | Clinical Summary ---
Author Organization [facility] Address [address] [place] [address] Care Team Providers Care Coin Machine Operator Name Role Phone Faye Adams PA-C Primary [...] known active allergies Medications spacerIndication s:Asthma exacerbation ([facility]) For use with albuterol inhaler 1 Inhaler 0 03/20/20 14 Active albuterol sulfate hfa (PROVENTIL,TABITHA KANNAN,PROAIR) 90 mcg/actuation inhalerIndicatio ns:Asthma in adult ([facility]) Inhale 2 Puffs into the lungs every [...] /3 mL (0.083 %) nebulizer solutionIndicati ons:Asthma exacerbation (HHS-HCC),Asthma , mild intermittent (HHS-HCC) Take 3 mL by nebulization every 6 (six) hours as needed for wheezing. 30 Vial 1 09/11/19 15 Active beclomethasone (QVAR) 80 mcg/actuation inhalerIndicatio ns:Asthma, mild intermittent (HHS-HCC) Inhale 1 Puff into the lungs 2 [...] to most painful area. 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 3 Overview (06/12/2014): Result type: US Soft Tissue Head/Neck Result date: 12 April 2013 10:47 Result status: Auth (Verified) Result title: US Soft Tissue Head/Neck Performed by: Montse Hernandez MD on 12 April 2013 12:01 Verified by: Shawn Grover MD on 12 April 2013 12:06 Encounter info: [id number], [facility], One Time [...] H/O: hysterectomy 2011 due to fibroid in [place] 03/01 Diverticulosis 03/28/2013 Overview (12/07/2013): Colonoscopy Done Int and Ext hemorrhoids Immunizations Immunization Administration Dates Next Due INFLUENZA, SEASONAL, INJECTABLE [...] Plan of Treatment Not on file Insurance [place] MEDICAID Care Teams Coin Machine Operator Relationship Specialty Start Date End Date Faye Adams PA-C [address] [place] [address] PCP - General 03/28/13
== END 2024-09-15 10:47 | disposition home or self-care (01) ==
LOC: HO.RESP 10:46
PROVIDERS: PCP Internal Medicine; Visit Provider Nurse Practitioner Family
DX: J45.909 Unspecified asthma, uncomplicated (principal)
CPT/HCPCS: 94010; 94640; 94727; 94729

== ENCOUNTER → 2024-09-15 10:49 | Outpatient (BNV) | payer OTHER, SELFPAY | PROVIDERS: PCP Internal Medicine; Visit Provider Hospitalist | DX: J45.909 Unspecified asthma, uncomplicated (principal) | CPT/HCPCS: 94060; 94727; 94729 ==

== ENCOUNTER 2024-09-19 14:24 | Outpatient (AMB) | payer OTHER, SELFPAY ==
[2024-09-19 14:41] VITALS: BP 122/68; PULSE 76; O2SAT 97; BMI 26.6
--- NOTE | 2024-09-19 14:41 | A.OFFVIS_ITS ---
Vital Signs 09/19/24 14:41 Height 5 ft 5 in Weight 160 lb BMI 26.6 BP 122/68 Pulse 76 Pulse Source Pulse Oximeter Pulse Oximetry (%) 97 Oxygen Delivery Method Room Air Intake Visit Reasons: Shortness of breath Aba Tutor Required: Yes Aba Tutor Name: Lee Ann Benítez Plastic Tile Setter: Plastic Tile Setter offered & declined Accompanied by: Daughter Allergies levothyroxine sodium [From Synthroid] Adverse Reaction (Mild, Verified 09/19/24 14:44) inadequeate response IV contrast Allergy (Severe, Uncoded 09/19/24 14:44) Anaphylaxis SEAFOOD Allergy (Intermediate, Uncoded 09/19/24 14:44) DOESNT TAKE BECAUSE OF THYROID Medication List - Last Reconciled 09/19/24 by Francesca Garcia LPN acetaminophen 325 mg PO Q4H PRN [adult diapers pull-ups As directed] eglqqhm-amyuucihhmgmb-fckdkyae 250-250-65 mg (Excedrin Migraine) 1 tab PO Q4H PRN benzonatate 100 mg PO TID PRN budesonide-formoterol 160-4.5 mcg/actuation (Symbicort) 2 puffs inhalation Q12H cholecalciferol (vitamin D3) 50 mcg PO DAILY 90 days cyanocobalamin (vitamin B-12) 1,000 mcg PO DAILY 90 days folic acid 1 mg PO DAILY 90 days ipratropium-albuterol 0.5 mg-3 mg(2.5 mg base)/3 mL 3 mL inhalation Q4-6H PRN levothyroxine (Synthroid) 125 mcg PO DAILY@0600 magnesium oxide 400 mg PO BEDTIME omeprazole 20 mg PO DAILY oxcarbazepine 600 mg PO BEDTIME oxcarbazepine 300 mg PO DAILY prednisone 40 mg (2 x 20 mg) PO DAILY 3 days quetiapine 100 mg PO BEDTIME Ventolin HFA 90 mcg/actuation (albuterol sulfate) 2 puffs inhalation Q4-6H PRN NS walker (Ultra-Light Rollator misc) As directed HPI HPI Shortness of breath: Details: Sharon is a pleasant 58 year old female, former minimal smoker, with less than 5 pack year history with underlying asthma, GERD and anxiety. She was initially referred by PCP [place] [facility] [place] for acute hypoxic respiratory failure, sepsis secondary to recent influenza with superimposed bacterial pneumonia. CXR and VQ scan unremarkable, unable to obtain CTA due contrast allergy. She was treated with IV steroids/abx,weaned off supplemental oxygen, discharged with doxycycline, cefuroxime and prednisone. She had significant improvements in cough however continues with dyspnea on moderate exertion, chest tightness and intermittent wheezing. At the last visit, Symbicort 80 mcg was increased to 160 mcg, now with excellent control of respiratory symptoms, requiring JOSEPH infrequently. Today she presents to review PFT results. She denies any visits to urgent care or hospitalizations related to respiratory distress since the last visit. [facility] Medical History Influenza A Mild persistent asthma, uncomplicated Internal and external hemorrhoids without complication Bloody stools Hypothyroidism Chronic GERD Chronic constipation Pap smear of cervix shows high risk HPV present Surgical History History of bladder surgery History of colonoscopy History of partial hysterectomy Family History Father HTN (hypertension) Mother Asthma HTN (hypertension) Sister Heart disease Brother Liver cancer Son Asthma Social History Household Members: Family and Children Housing: Apartment Do you presently have visiting nurse or other home services: Yes (visitng nurse once a month, 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 specialist 12 hours 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) Unable to assess alcohol history related to: Unknown Alcohol intake: never Patient Tobacco Use Status: Former Tobacco user Tobacco use type: Cigarette Cigarette Packs Per Day: 2 Years Smoked: 10 years e-Cigarette/Vaping Use: Never Used Second Hand Smoke Exposure: Yes service: No Current occupational status: disabled Cognitive needs: Yes Hearing needs: No Vision needs: No Review of Systems Const Denies chills, Denies excessive sweating, Denies fever(s), Denies headache(s) and Denies night sweats Eyes Denies dry eyes, Denies irritation and Denies itchy eyes ENT Reports Normal hearing present, Denies headache(s), Denies nasal congestion, Denies nasal discharge, Denies post nasal drip and Denies sore throat Card Denies chest pain, Denies chest pain at rest, Denies chest pain with activity, Denies claudication, Denies leg edema, Denies dyspnea, Denies dyspnea on exertio n, Denies orthopnea and Denies paroxysmal nocturnal dyspnea Resp Denies chest congestion, Denies cough, Denies excessive phlegm production, Denies pain on inspiration, Denies pain with cough, Denies dyspnea, Denies dyspnea on exertion, Denies stridor and Denies wheezing Musc Denies myalgias Neuro Reports Normal hearing present and Denies headache(s) Endo Denies excessive sweating Nikos/Lymph Denies lymphadenopathy Aller/Immun Denies itchy eyes, Denies seasonal rhinorrhea and Denies wheezing Physical Exam Vital Signs: Last Vital Signs Pulse 76 09/19/24 14:41 BP 122/68 09/19/24 14:41 Pulse Ox 97 09/19/24 14:41 Oxygen Delivery Method Room Air 09/19/24 14:41 BMI result Body Mass Index 26.6 Const General: cooperative, healthy appearing, comfortable, no acute distress, well developed and alert Orientation/consciousness: patient oriented x3 Limitations: no limitations HEENT Head: Yes normal to inspection, Yes normocephalic and Yes atraumatic Ears: hearing grossly normal bilaterally and external ears normal Eyes General: appearance normal, both eyes and all related structures Eyelids: Yes eyelids normal Sclerae: sclerae normal EOM: EOMs intact bilaterally Neck Neck: Yes normal visual inspection and Yes no lymphadenopathy Lymphatic: no lymphadenopathy noted Chest Chest palpation & inspection: normal inspection of the chest Resp Effort & Inspection: normal respiratory effort, able to speak in complete sentences, no audible wheezes, no cough, no stridor, not tachypneic, no tripod positioning and no use of accessory muscles Auscultation: clear to auscultation bilaterally Cardio Jugular venous distension: no JVD Rate: regular rate Rhythm: regular rhythm Skin Other: warm, dry General skin exam: no rashes or lesions noted Neuro General: patient oriented x3 Cranial nerves: Yes Normal hearing present Cognition (Neuro): normal cognition Gait exam (Neuro): Normal gait present Extrem General: Yes normal to inspection, Yes capillary refill normal, Yes no clubbing, cyanosis or edema and Yes no pedal edema Psych Appearance: grossly normal and well kempt Speech and movement: Normal speech and movement present and Clear speech present Affect: normal affect Attitude: cooperative Thought process: Normal thought process present Thought content: Normal thought content present Insight: Good insight present (Psych) Judgement: Good judgement present (Psych) Assessment & Plan Assessment & Plan (1) Asthma: Code(s): J45.909 - Unspecified asthma, uncomplicated Category: Medical (2) Environmental allergies: Code(s): Z91.09 - Other allergy status, other than to drugs and biological substances Category: Medical (3) History of acute respiratory failure: Code(s): Z87.09 - Personal history of other diseases of the respiratory system Category: Medical Plan Reviewed PFT which revealed no evidence of any obstructive ventilatory defects. The patient did have a significant response to bronchodilators. Lung volumes could not be measures, however, the patient likely has a component of restrictive lung disease based on the decreased FVC. Diffusing capacity is within normal limits. RAST + dust mites, discussed ways to minimize allergen exposure. Will repeat CXR to assess for resolution of PNA and further assess for underlying parenchymal condition contributing to decreased FVC, will consider chest CT. Advised to continue on Symbicort 160 mcg and albuterol MDI. All questions were answered and patient is in agreement of plan. Will follow up in 3 months or sooner if needed. Coding Level of Care Code Est Pt Level 4 (01706) Diagnoses Asthma J45.909 Environmental allergies Z91.09 History of acute respiratory failure Z87.09
--- OUTSIDE RECORDS SUMMARY | 2024-09-19 17:15 | XMS_ITS | Clinical Summary ---
Author Organization 175 [facility] Address [address] [place] [address] Phone Care Team Providers Care Piecer Name Role Phone Micaela Fuchs MD Primary Care Provider Allergies Active Allergy Reactions Criticality Noted Date [...] diaper. Patient had head CT [place]12[place]20[place] [facility] [place] acute findings at the time, there [...] see if that can help. She is Faroese-speaking, we used [employer] official court interpreter Haseeb #[id number]. Chronic left-sided low back pain 03/06/2016 Anxiety and depression 06/12/2014 Asthma, mild intermittent 06/12/2014 Hypothyroid 05/23/2013 Overview (07/07/2024): Result type: US Soft Tissue Head/Neck Result date: 12 April 2013 10:47 Result status: Auth (Verified) Result title: US Soft Tissue Head/Neck Performed by: Montse Hernandez MD on 12 April 2013 12:01 Verified by: Shanw Grover MD on 12 April 2013 12:06 Encounter info: [id number], [facility] [place], 04/12/2013 - 04/12/2013 * [...] - 08/06/2024 11:59 PM EDT Hospital Encounter [facility] MRI [address] [place] [address] Cerebellar tonsillar ectopia ([facility]/HCC V24, [facility] V28) Discharge Disposition: Home or Self Care 07/11/2024 Telephone Neurosurgery [facility] [address] [address] Sarah Acevedo [place] Appointment ([facility] Auth # [id number] for C/Spine MRI faxed over to [facility] MRI. Will contact pt w/appt) 07/07/2024 10:30 AM EST Consult Neurosurgery [facility] [address] [address] Lee Ann Kraus PA Cerebellar tonsillar ectopia ([facility] V24, [facility] V28) from Last 3 Months Immunizations Name [...] STEVEN (generalized anxiety disorder) Mild major depression ([facility] V24) Insomnia Chronic constipation Urge urinary incontinence [...] Signed Date: 08/07/2024 09:21 ET Workstation ID: [id number] Transcribed By: Self Edit Transcribed Date: 08/07/2024 [...] Signed Date: 08/07/2024 09:21 ET Workstation ID: [id number] Transcribed By: Self Edit Transcribed Date: 08/07/2024 08:49 ET Lee Ann [facility] MRI PROCEDURES Final R esult from Last 3 Months Insurance OMKARFERNANDO AVILEZ [id number] [facility] MEDICARE Member Subscriber Plan / Payer (Ef fective 2020-Present) Name:Sharon Hahn Relation to Subscriber:Self Name:Sharon Hahn Payer ID:[id number] Group ID:[id number] Type:Not on file Address: [place] [address] [place] [address] Care Teams Piecer Relationship Specialty Start Date End Date Micaela Fuchs MD [address] [place] [address] , [facility] [address] [facility] Physician Associ D/B/A: [facility] Narciso [place] PCP - General Internal Medicine 06/26/24
--- OUTSIDE RECORDS SUMMARY | 2024-09-19 17:15 | XMS_ITS | Clinical Summary ---
Author Organization [facility] Address [address] [place] [address] Care Team Providers Care Maintenance Dispatcher Name Role Phone Faye Adams PA-C Primary [...] known active allergies Medications spacerIndication s:Asthma exacerbation ([facility]) For use with albuterol inhaler 1 Inhaler 0 03/20/20 14 Active albuterol sulfate hfa (PROVENTIL,TABITHA KANNAN,PROAIR) 90 mcg/actuation inhalerIndicatio ns:Asthma in adult ([facility]) Inhale 2 Puffs into the lungs every [...] on 12 April 2013 12:06 Encounter info: [id number], [place], One Time OP, 04/12/2013 - 04/12/2013 * [...] H/O: hysterectomy 2011 due to fibroid in [place] 03/01 Diverticulosis 03/28/2013 Overview (12/07/2013): Colonoscopy Done [...] Plan of Treatment Not on file Insurance [place] MEDICAID Care Teams Maintenance Dispatcher Relationship Specialty Start Date End Date Faye Adams PA-C [address] [place] [address] PCP - General 03/28/13
== END 2024-09-19 15:25 | disposition home or self-care (01) ==
LOC: HO.HPSW 14:24
PROVIDERS: PCP Internal Medicine; Visit Provider Nurse Practitioner Family
DX: J45.909 Unspecified asthma, uncomplicated (principal); Z91.09 Other allergy status, other than to drugs and biological substances; Z87.09 Personal history of other diseases of the respiratory system
CPT/HCPCS: 99214

== ENCOUNTER → 2024-09-19 14:24 | Outpatient (BNVA) | payer OTHER, SELFPAY | PROVIDERS: PCP Internal Medicine; Visit Provider Nurse Practitioner Family | DX: J45.909 Unspecified asthma, uncomplicated (principal); Z91.09 Other allergy status, other than to drugs and biological substances; Z87.09 Personal history of other diseases of the respiratory system | CPT/HCPCS: 99212 ==

== ENCOUNTER 2024-10-12 07:28 | Outpatient (REF) | payer OTHER, SELFPAY ==
--- NOTE | ~2024-10-12 | XR_ITS ---
EXAMINATION: XR CHEST CLINICAL INFORMATION: J18.9 - Pneumonia, unspecified organism COMPARISON: None available. TECHNIQUE: 2 views of the chest were obtained. FINDINGS: No significant abnormality is noted involving the heart, lungs, mediastinum, bony thorax or soft tissues. XR/XR chest 2V IMPRESSION: Unremarkable chest examination. Electronically signed by: Joshua Diaz MD 10/12/2024 08:28 AM EDT RP
--- OUTSIDE RECORDS SUMMARY | 2024-10-12 07:32 | XMS_ITS | Clinical Summary ---
Author Organization [facility] Address [address] [place] [address] Care Team Providers Care Inspecting Machine Adjuster Name Role Phone Faye Adams PA-C Primary [...] known active allergies Medications spacerIndication s:Asthma exacerbation ([facility]) For use with albuterol inhaler 1 Inhaler 0 03/20/20 14 Active albuterol sulfate hfa (PROVENTIL,TABITHA KANNAN,PROAIR) 90 mcg/actuation inhalerIndicatio ns:Asthma in adult ([facility]) Inhale 2 Puffs into the lungs every [...] on 12 April 2013 12:06 Encounter info: [id number], [facility] [place], 04/12/2013 - [...] H/O: hysterectomy 2011 due to fibroid in [place] 03/01 Diverticulosis 03/28/2013 Overview (12/07/2013): Colonoscopy Done [...] Plan of Treatment Not on file Insurance [place] MEDICAID Care Teams Inspecting Machine Adjuster Relationship Specialty Start Date End Date Faye Adams PA-C [address] [place] [address] PCP - General 03/28/13
== END 2024-10-12 07:29 | disposition home or self-care (01) ==
LOC: HO.XRAY 07:28
PROVIDERS: PCP Internal Medicine; Visit Provider Nurse Practitioner Family
DX: J18.9 Pneumonia, unspecified organism (principal)
CPT/HCPCS: 71046

== ENCOUNTER → 2024-10-12 07:32 | Outpatient (BNV) | payer OTHER, SELFPAY | PROVIDERS: PCP Internal Medicine; Visit Provider Radiology Diagnostic Radiology | DX: J18.9 Pneumonia, unspecified organism (principal) | CPT/HCPCS: 71046 ==

== ENCOUNTER 2024-12-26 14:50 | Outpatient (AMB) | payer OTHER, SELFPAY ==
--- NOTE | 2024-12-26 15:12 | MHC.OFFVIS ---
Vital Signs 12/26/24 15:14 Height 5 ft 5 in Weight 166 lb 2 oz BMI 27.6 BP 118/76 Blood Pressure Location Rt brachial Position Sitting Pulse 86 Pulse Source Pulse Oximeter Pulse Oximetry (%) 96 Oxygen Delivery Method Room Air Intake Visit Reasons: Shortness of breath Case Management Associate Required: Yes Case Management Associate Language: Medical And Scientific Illustrator Services: Case Management Associate Present Case Management Associate Name: Lee Ann Oconnor LM Allergies levothyroxine sodium (From Synthroid) Adverse Reaction (Mild, Verified 12/26/24 15:17) inadequeate response IV contrast Allergy (Severe, Uncoded 12/26/24 15:17) Anaphylaxis SEAFOOD Allergy (Intermediate, Uncoded 12/26/24 15:17) DOESNT TAKE BECAUSE OF THYROID HPI HPI Shortness of breath: Details: Sharon is a pleasant 58 year old female, former minimal smoker, with less than 5 pack year history with underlying asthma, GERD and anxiety. She was initially referred by PCP after admission to [facility] [place]/11-07[place]14/24 for acute hypoxic respiratory failure, sepsis secondary to recent influenza with superimposed bacterial pneumonia. CXR and VQ scan unremarkable, unable to obtain CTA due contrast allergy. She was treated with IV steroids/abx,weaned off supplemental oxygen, discharged with doxycycline, cefuroxime and prednisone. Repeat CXR 09/2024 revealed resolution of PNA. She had significant improvements in cough however continued with dyspnea on moderate exertion, chest tightness and intermittent wheezing. Since the last visit, she has maintained on Symbicort 160 mcg with good control of respiratory symptoms, using albuterol MDI infrequently. She denies any visits to urgent care or hospitalizations related to respiratory distress since the last visit. [facility] Medical History Influenza A Mild persistent asthma, uncomplicated Internal and external hemorrhoids without complication Bloody stools Hypothyroidism Chronic GERD Chronic constipation Pap smear of cervix shows high risk HPV present Surgical History History of bladder surgery History of colonoscopy History of partial hysterectomy Family History Father HTN (hypertension) Mother Asthma HTN (hypertension) Sister Heart disease Brother Liver cancer Son Asthma Social History Household Members: Family and Children Housing: Apartment Do you presently have visiting nurse or other home services: Yes (visitng nurse once a month, 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) Unable to assess alcohol history related to: Unknown Alcohol intake: never Patient Tobacco Use Status: Former Tobacco user Tobacco use type: Cigarette Cigarette Packs Per Day: 2 Years Smoked: 10 years e-Cigarette/Vaping Use: Never Used Second Hand Smoke Exposure: Yes service: No Current occupational status: disabled Cognitive needs: Yes Hearing needs: No Vision needs: No Review of Systems Const Denies chills, Denies excessive sweating, Denies fever(s), Denies headache(s) and Denies night sweats Eyes Denies dry eyes, Denies irritation and Denies itchy eyes ENT Reports Normal hearing present, Denies headache(s), Denies nasal congestion, Denies nasal discharge, Denies post nasal drip and Denies sore throat Card Denies chest pain, Denies chest pain at rest, Denies chest pain with activity, Denies claudication, Denies leg edema, Denies dyspnea, Denies orthopnea and Denies paroxysmal nocturnal dyspnea Resp Denies chest congestion, Denies cough, Denies excessive phlegm production, Denies pain on inspiration, Denies pain with cough, Denies dyspnea, Denies stridor and Denies wheezing Musc Denies myalgias Neuro Reports Normal hearing present and Denies headache(s) Endo Denies excessive sweating Nikos/Lymph Denies lymphadenopathy Aller/Immun Denies itchy eyes, Denies seasonal rhinorrhea and Denies wheezing Physical Exam Vital Signs: Last Vital Signs Pulse 86 12/26/24 15:14 BP 118/76 12/26/24 15:14 Pulse Ox 96 12/26/24 15:14 Oxygen Delivery Method Room Air 12/26/24 15:14 BMI result Body Mass Index 27.6 Const General: cooperative, healthy appearing, comfortable, no acute distress, well developed and alert Orientation/consciousness: patient oriented x3 Limitations: no limitations HEENT Head: Yes normal to inspection, Yes normocephalic and Yes atraumatic Ears: hearing grossly normal bilaterally and external ears normal Eyes General: appearance normal, both eyes and all related structures Eyelids: Yes eyelids normal Sclerae: sclerae normal EOM: EOMs intact bilaterally Neck Neck: Yes normal visual inspection and Yes no lymphadenopathy Lymphatic: no lymphadenopathy noted Chest Chest palpation & inspection: normal inspection of the chest Resp Effort & Inspection: normal respiratory effort, able to speak in complete sentences, no audible wheezes, no cough, no stridor, not tachypneic, no tripod positioning and no use of accessory muscles Auscultation: clear to auscultation bilaterally Cardio Jugular venous distension: no JVD Rate: regular rate Rhythm: regular rhythm Skin Other: warm, dry General skin exam: no rashes or lesions noted Neuro General: patient oriented x3 Cranial nerves: Yes Normal hearing present Cognition (Neuro): normal cognition Gait exam (Neuro): Normal gait present Extrem General: Yes normal to inspection, Yes capillary refill normal, Yes no clubbing, cyanosis or edema and Yes no pedal edema Psych Appearance: grossly normal and well kempt Speech and movement: Normal speech and movement present and Clear speech present Affect: normal affect Attitude: cooperative Thought process: Normal thought process present Thought content: Normal thought content present Insight: Good insight present (Psych) Judgement: Good judgement present (Psych) Assessment & Plan Assessment & Plan (1) Asthma: Code(s): J45.909 - Unspecified asthma, uncomplicated Category: Medical (2) Environmental allergies: Code(s): Z91.09 - Other allergy status, other than to drugs and biological substances Category: Medical (3) History of acute respiratory failure: Code(s): Z87.09 - Personal history of other diseases of the respiratory system Category: Medical Plan At this time, Sharon reports good control of respiratory symptoms using Symbicort 160 mcg and albuterol MDI PRN, advised to continue. If symptoms become less controlled will consider Trelegy. All questions were answered and patient is in agreement of plan. Will follow up in 3 months or sooner if needed. Coding Level of Care Code Est Pt Level 4 (05225) Diagnoses Asthma J45.909 Environmental allergies Z91.09 History of acute respiratory failure Z87.09
[2024-12-26 15:14] VITALS: BP 118/76; PULSE 86; O2SAT 96; BMI 27.6
--- OUTSIDE RECORDS SUMMARY | 2024-12-26 15:40 | XMS_ITS | Clinical Summary ---
Author Organization 175 [facility] Address [address] [place] [address] Phone Care Team Providers Care Security Vehicle Patrol Officer Name Role Phone Micaela Fuchs MD Primary Care Provider [phone] Allergies Active Allergy Reactions Criticality Noted Date [...] diaper. Patient had head CT [place]12[place] [facility] [place] findings at the time, there [...] see if that can help. She is Hebrew-speaking, we used [employer] resolution specialist Haseeb #[id number]. Chronic left-sided low back pain 03/06/2016 Anxiety and depression 06/12/2014 Asthma, mild intermittent 06/12/2014 Hypothyroid 05/23/2013 Overview (07/07/2024): Result type: US Soft Tissue Head/Neck Result date: 12 April 2013 10:47 Result status: Auth (Verified) Result title: US Soft Tissue Head/Neck Performed by: Montse Hernandez MD on 12 April 2013 12:01 Verified by: Shawn Grover MD on 12 April 2013 12:06 Encounter info: [id number], [facility] [place], 04/12/2013 - [...] document has an image H/O: hysterectomy 03/28/2013 Immunizations Name Administration Dates Next Due Influenza [...] STEVEN (generalized anxiety disorder) Mild major depression (CMS/HCC V24) Insomnia Chronic constipation Urge urinary incontinence [...] Years (1 of 2 - PCV) 10/28/1982 Cervical Cancer Screening: P ap Smear 10/28/1984 Zoster Vaccines (1 of 2) 10/28/2013 RSV Immunization Adult Patients (1 - Risk 60-74 years 1-dose series) 2023 COVID-19 Vaccine (1 - 2023-2 5 season) 2024 Depression Screening 05/31/2024 Colorectal Cancer Screening: Colonoscopy 06/27/2024 HIV Screening 06/27/2024 Hepatitis C Screening 06/27/2024 Medicare Annual Wellness Visit 06/27/2024 Social Influencers of Health Screening 06/27/2024 Influenza Vaccine (#1) 2025 , 03/20/2019, 03/28/2013 DTaP,Tdap,and Td Vaccines (2 - [...] patient's age to complete this topic Insurance [facility] MEDICARE Member Subscriber Plan / Payer (Ef fective 2020-Present) Name:Sharon Hahn Relation to Subscriber:Self Name:Sharon Hahn Payer ID:[id number] Group ID:[id number] Type:Not on file Address: [address] [place] [address] Care Teams Security Vehicle Patrol Officer Relationship Specialty Start Date End Date Micaela Fuchs MD 2 [facility] , [address] Physician Associ D/B/A: [facility] FERNANDO Stuart PCP - General Internal Medicine 06/26/24
--- OUTSIDE RECORDS SUMMARY | 2024-12-26 15:40 | XMS_ITS | Clinical Summary ---
Author Organization [facility] Address [address] [place] [address] Care Team Providers Care Production Packager Name Role Phone Faye Adams PA-C Primary [...] known active allergies Medications spacerIndication s:Asthma exacerbation ([facility]) For use with albuterol inhaler 1 Inhaler 0 03/20/20 14 Active albuterol sulfate hfa (PROVENTIL,TABITHA KANNAN,PROAIR) 90 mcg/actuation inhalerIndicatio ns:Asthma in adult ([facility]) Inhale 2 Puffs into the [...] on 12 April 2013 12:06 Encounter info: [id number], [facility] [place], [...] H/O: hysterectomy 2011 due to fibroid in [place] 03/01 Diverticulosis 03/28/2013 Overview (12/07/2013): Colonoscopy Done [...] 78 05/05/2016 2:51 PM EST Temperature 36.7 C (98 F) 05/05/2016 2:51 PM EST Respiratory Rate 18 05/05/2016 2:51 PM EST Oxygen Saturation 95% 12/13/2014 2:56 PM EDT Inhaled Oxygen Concentration - - Weight 73.9 kg (163 lb) 05/05/2016 2:51 PM EST Height 154.9 cm (5' 1 ) 08/15/2015 3:07 PM EDT Body Mass Index 30.8 08/15/2015 3:07 PM EDT Plan of Treatment Not on file Insurance [place] MEDICAID Care Teams Production Packager Relationship Specialty Start Date End Date Faye Adams PA-C [address] [place] [address] PCP - General 03/28/13
== END 2024-12-26 15:37 | disposition home or self-care (01) ==
LOC: HO.HPSW 14:51
PROVIDERS: PCP Internal Medicine; Visit Provider Nurse Practitioner Family
DX: J45.909 Unspecified asthma, uncomplicated (principal); Z91.09 Other allergy status, other than to drugs and biological substances; Z87.09 Personal history of other diseases of the respiratory system
CPT/HCPCS: 99214

== ENCOUNTER → 2024-12-26 14:50 | Outpatient (BNVA) | payer OTHER, SELFPAY | PROVIDERS: PCP Internal Medicine; Visit Provider Nurse Practitioner Family | DX: R06.02 Shortness of breath (principal); J45.909 Unspecified asthma, uncomplicated; Z91.09 Other allergy status, other than to drugs and biological substances; Z87.09 Personal history of other diseases of the respiratory system | CPT/HCPCS: 99212 ==

== ENCOUNTER 2025-01-03 15:44 | Outpatient (AMB) | payer OTHER, SELFPAY ==
--- NOTE | 2025-01-03 15:51 | MHC.PC.OV ---
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 Required: No Accompanied by: Self / Same As Patient Allergies levothyroxine sodium (From Synthroid) Adverse Reaction (Mild, Verified 01/03/25 15:59) inadequeate response IV contrast Allergy (Severe, Uncoded 01/03/25 15:59) Anaphylaxis SEAFOOD Allergy (Intermediate, Uncoded 01/03/25 15:59) DOESNT TAKE BECAUSE OF THYROID Medication List - Last Reconciled 01/03/25 by Micaela Fuchs MD acetaminophen 325 mg PO Q4H PRN [adult diapers pull-ups As directed] mdwtdgc-lrlenkcgsbcqk-jfssgwno 250-250-65 mg (Excedrin Migraine) 1 tab PO Q4H PRN budesonide-formoterol 160-4.5 mcg/actuation (Symbicort) 2 puffs inhalation Q12H cholecalciferol (vitamin D3) 50 mcg PO DAILY 90 days cyanocobalamin (vitamin B-12) 1,000 mcg PO DAILY 90 days folic acid 1 mg PO DAILY 90 days ipratropium-albuterol 0.5 mg-3 mg(2.5 mg base)/3 mL 3 mL inhalation Q4-6H PRN magnesium oxide 400 mg PO BEDTIME omeprazole 20 mg PO DAILY oxcarbazepine 600 mg PO BEDTIME oxcarbazepine 300 mg PO DAILY quetiapine 100 mg PO BEDTIME Synthroid (levothyroxine) 125 mcg PO DAILY@0600 NS Ventolin HFA 90 mcg/actuation (albuterol sulfate) 2 puffs inhalation Q4-6H PRN NS walker (Ultra-Light Rollator misc) As directed Tobacco use date assessed: 07/21/24 Dental Screening Dental Screen Date: 06/20/24 HPI HPI Comments History of Present Illness Details The patient is a 59-year-old female presenting with insomnia and knee pain. The patient reports insomnia, characterized by waking at 3:00 AM and difficulty returning to sleep, often waking again at 8:00 AM. Her psychologist advised consulting her doctor for a sleep aid, as the issue remains unresolved. The patient has osteoarthritis in her knees, with the right knee being particularly painful and swollen. A past fall resulted in knee trauma, but imaging showed no fracture. Pain is exacerbated by walking and using stairs, and she uses a walker for mobility. The patient has hypothyroidism, managed with Synthroid 125 mg. She has allergies to generic levothyroxine, IV contrast, and seafood, with past anaphylaxis. She experiences migraines, using Excedrin Migraine for relief, and has asthma managed with Symbicort. She takes vitamin D, vitamin B12, and folic acid supplements. The patient has a history of depression and anxiety, previously managed with oxcarbazepine and Seroquel, but is not currently taking these medications due to psychiatrist issues. She has been advised to seek a new psychiatrist. The patient reports GERD symptoms, including chest pain after spicy foods. She has been advised to avoid late-night eating and consume meals three hours before bedtime. [facility] Medical History (Updated 01/03/25 @ 16:09 by Micaela Fuchs MD) Hypothyroidism Influenza A Mild persistent asthma, uncomplicated Internal and external hemorrhoids without complication Bloody stools Chronic GERD Chronic constipation Pap smear of cervix shows high risk HPV present Surgical History History of bladder surgery History of colonoscopy History of partial hysterectomy Family History Father HTN (hypertension) Mother Asthma HTN (hypertension) Sister Heart disease Brother Liver cancer Son Asthma Social History Household Members: Family and Children Housing: Apartment Do you presently have visiting nurse or other home services: Yes (visitng nurse once a month, 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 Bacilio Rodriguez, Padmaja Peacock, Mj Ochoa and colleagues, with an educational adalberto from [employer]. Review of Systems Const All systems reviewed & are unremarkable except as noted in HPI and below Card Denies chest pain at rest, Denies chest pain with activity, Denies edema, Denies irregular heart rhythm, Denies claudication, Denies dyspnea, Denies dyspnea on exertion, Denies orthopnea, Denies paroxysmal nocturnal dyspnea and Denies slow heart rate Resp Denies cough, Denies dyspnea and Denies dyspnea on exertion GI Denies abdominal pain, Denies change in bowel habits, Denies excessive flatus, Denies nausea and Denies vomiting Denies urinary incontinence, Denies urinary hesitancy and Denies urinary urgency Musc Denies abnormal gait, Denies atrophy, Denies deformity, Reports arthralgias and Denies limited range of motion Skin/Breast Denies bleeding lesions, Denies changing lesions and Denies rash Neuro Denies abnormal gait, Denies behavioral changes and Denies lack of coordination Psych Denies behavioral changes Physical exam (Primary Care) Vital Signs: Last Vital Signs BP 126/80 01/03/25 15:53 BMI result Body Mass Index 27.3 Tobacco/Smoking Status: Tobacco use Status Tobacco use date assessed 07/21/24 07/21/24 08:25 Patient Tobacco Use Status Former Tobacco user 08/08/24 14:30 Tobacco use type Cigarette 08/08/24 14:30 e-Cigarette/Vaping Use Never Used 08/08/24 14:30 Thrive Assessment: Date of Thrive Assessment Date Thrive assessed 07/12/24 07/21/24 08:25 Resp Effort & Inspection: normal respiratory effort Auscultation: clear to auscultation bilaterally Cardio Jugular venous distension: no JVD Rate: regular rate Rhythm: regular rhythm Heart sounds: S1 normal heart sound present and S2 normal heart sound present Extrem General: Yes full ROM Right lower extremity: knee Details: tenderness Coding Level of Care Code Est Pt Level 4 (95177) Complex EM visit Add On G2211 Diagnoses Mild major depression F32.0 STEVEN (generalized anxiety disorder) F41.1 Chronic GERD K21.9 Hypothyroidism, unspecified type E03.9 Hypothyroidism type: unspecified Right knee pain M25.561 Time Spent (min) 23 Assessment & Plan Assessment & Plan (1) Mild major depression: Code(s): F32.0 - Major depressive disorder, single episode, mild Category: Medical (2) STEVEN (generalized anxiety disorder): Code(s): F41.1 - Generalized anxiety disorder Category: Medical (3) Chronic GERD: Comment: acid reflux well controlled with PPI and dietary modifications Code(s): K21.9 - Gastro-esophageal reflux disease without esophagitis Category: Medical (4) Hypothyroidism: Code(s): E03.9 - Hypothyroidism, unspecified Category: Medical Qualifiers: Hypothyroidism type: unspecified Qualified Code(s): E03.9 - Hypothyroidism, unspecified (5) Right knee pain: Code(s): M25.561 - Pain in right knee Category: Medical Plan The patient will be referred to a psychiatrist for further management of depression and anxiety, as she is not currently on medication due to issues with her previous psychiatrist. For insomnia, a sleep aid will be prescribed for 30 days to help manage her sleep disturbances. The patient will be advised to continue using Excedrin Migraine for migraine relief and Symbicort for asthma management. She will also continue her current regimen of vitamin D, vitamin , and folic acid supplements. For her knee osteoarthritis, a referral to orthopedics will be made to assess the need for further intervention. She will be advised to use supportive footwear to aid in stability and reduce the risk of falls. The patient will be instructed to avoid eating late at night and to consume meals at least three hours before bedtime to manage GERD symptoms. Patient was informed and verbally consented to the use of an ambient scribe for clinic note documentation during this visit. Orders: Orders Vitamin D 25-OH Total Today E55.9 - Vitamin D deficiency, unspecified Lipid Panel 7 Months E03.9 - Hypothyroidism, unspecified, E78.5 - Hyperlipidemia, unspecified XR knee RT 2V Today M25.561 - Pain in right knee Vitamin B12 and Folate Today E53.8 - Deficiency of other specified B group vitamins Thyroid Stimulating Hormone Today E03.9 - Hypothyroidism, unspecified Thyroid Stimulating Hormone 7 Months E03.9 - Hypothyroidism, unspecified Comprehensive [place]. Panel Fast 7 Months J45.30 - Mild persistent asthma, uncomplicated Vitamin B12 and Folate 7 Months E53.8 - Deficiency of other specified B group vitamins Vitamin D 25-OH Total 7 Months E55.9 - Vitamin D deficiency, unspecified Referrals Orthopedics Referral M25.561 - Pain in right knee Medications: Changed From oxcarbazepine 600 mg PO BEDTIME To oxcarbazepine 600 mg (2 x 300 mg) PO BEDTIME 180 tabs 1RF 90 days From oxcarbazepine 300 mg PO DAILY To oxcarbazepine 300 mg PO DAILY 90 tabs 1RF 90 days From quetiapine 100 mg PO BEDTIME To quetiapine 100 mg PO BEDTIME 90 tabs 1RF 90 days
[2025-01-03 15:53] VITALS: BP 126/80; BMI 27.3
--- OUTSIDE RECORDS SUMMARY | 2025-01-03 16:08 | XMS_ITS | Clinical Summary ---
Author Organization [facility] Address [address] [place] [address] Care Team Providers Care Rotary Soil Stabilizer Operator Name Role Phone Faye Adams PA-C Primary Care Provider [phone] Source Comments PLEASE NOTE, if this patient is a minor, it may be UNLAWFUL to discuss sensitive information that is contained in these records (such as FAMILY PLANNING, MENTAL HEALTH or SUBSTANCE ABUSE) with the minor patient's parent or other person without the patient's specific authorization.[facility] Allergies No known active allergies Medications spacerIndication s:Asthma exacerbation ([facility]) For use with albuterol inhaler 1 Inhaler 0 03/20/20 14 Active albuterol sulfate hfa (PROVENTIL,TABITHA KANNAN,PROAIR) 90 mcg/actuation inhalerIndicatio ns:Asthma in adult ([facility]) Inhale 2 Puffs into the lungs every [...] on 12 April 2013 12:06 Encounter info: [id number], [facility] [place], 04/12/2013 - 04/12/2013 * [...] H/O: hysterectomy 2011 due to fibroid in [place] 03/01 Diverticulosis 03/28/2013 Overview (12/07/2013): Colonoscopy Done [...] Plan of Treatment Not on file Insurance [place]ICA[place] Care Teams Rotary Soil Stabilizer Operator Relationship Specialty Start Date End Date Faye Adams PA-C [address] [place] [address] PCP - General 03/28/13
--- OUTSIDE RECORDS SUMMARY | 2025-01-03 16:08 | XMS_ITS | Clinical Summary ---
Author Organization [address] [facility] Address [address] [place] [address] Phone Care Team Providers Care Microwave Supervisor Name Role Phone Micaela Fuchs MD Primary Care Provider [phone] Allergies Active Allergy Reactions Criticality Noted Date [...] diaper. Patient had head CT [place]12[place]24 [place] [facility] [place] [facility] [place] acute findings at [...] can help. She is Greek-speaking, we used [employer] science interpreter Haseeb #[id number]. Chronic left-sided low back pain 03/06/2016 Anxiety and depression 06/12/2014 Asthma, mild intermittent 06/12/2014 Hypothyroid 05/23/2013 Overview (07/07/2024): Result type: US Soft Tissue Head/Neck Result date: 12 April 2013 10:47 Result status: Auth (Verified) Result title: US Soft Tissue Head/Neck Performed by: Montse Hernandez MD on 12 April 2013 12:01 Verified by: Shawn Grover MD on 12 April 2013 12:06 Encounter info: [id number], [facility] [place], 04/12/2013 [...] patient's age to complete this topic Insurance [facility] MEDICARE Member Subscriber Plan / Payer (Ef fective 2020-Present) Name:Sharon Hahn Relation to Subscriber:Self Name:Sharon Hahn Payer ID:[id number] Group ID:[id number] Type:Not on file Address: [address] [place] [address] Care Teams Microwave Supervisor Relationship Specialty Start Date End Date Micaela Fuchs MD 2 [facility] , [address] Physician Associ D/B/A: [facility] FERNANDO Stuart PCP - General Internal Medicine 06/26/24
== END 2025-01-03 16:12 | disposition home or self-care (01) ==
LOC: HO.HMCH 15:44
PROVIDERS: PCP Internal Medicine; Visit Provider Internal Medicine
DX: F32.0 Major depressive disorder, single episode, mild (principal); F41.1 Generalized anxiety disorder; K21.9 Gastro-esophageal reflux disease without esophagitis; E03.9 Hypothyroidism, unspecified; M25.561 Pain in right knee

== ENCOUNTER → 2025-01-03 15:44 | Outpatient (BNVA) | payer OTHER, SELFPAY | PROVIDERS: PCP Internal Medicine; Visit Provider Internal Medicine | DX: M17.0 Bilateral primary osteoarthritis of knee (principal); G47.00 Insomnia, unspecified; E03.9 Hypothyroidism, unspecified; G43.909 Migraine, unspecified, not intractable, without status migrainosus; K21.9 Gastro-esophageal reflux disease without esophagitis; F32.0 Major depressive disorder, single episode, mild; F41.1 Generalized anxiety disorder; E53.8 Deficiency of other specified B group vitamins; J45.30 Mild persistent asthma, uncomplicated; E55.9 Vitamin D deficiency, unspecified; Z79.899 Other long term (current) drug therapy | CPT/HCPCS: 99212 ==

== ENCOUNTER 2025-01-04 09:06 | Outpatient (REF) | payer OTHER, SELFPAY ==
--- OUTSIDE RECORDS SUMMARY | 2025-01-04 09:29 | XMS_ITS | Clinical Summary ---
Author Organization [facility] Address [address] [place] [address] Care Team Providers Care Hemodialysis Rn Name Role Phone Faye Adams PA-C Primary Care Provider [phone] Source Comments PLEASE NOTE, if this patient is a minor, it may be UNLAWFUL to discuss sensitive information that is contained in these records (such as FAMILY PLANNING, MENTAL HEALTH or SUBSTANCE ABUSE) with the minor patient's parent or other person without the patient's specific authorization.[facility] Allergies No known active allergies Medications spacerIndication s:Asthma exacerbation ([facility]) For use with albuterol inhaler 1 Inhaler 0 03/20/20 14 Active albuterol sulfate hfa (PROVENTIL,TABITHA KANNAN,PROAIR) 90 mcg/actuation inhalerIndicatio ns:Asthma in adult ([facility]) Inhale 2 Puffs into the [...] on 12 April 2013 12:06 Encounter info: [id number], [facility] [place], 04/12/2013 - 04/12/2013 * [...] H/O: hysterectomy 2011 due to fibroid in [place] 03/01 Diverticulosis 03/28/2013 Overview (12/07/2013): Colonoscopy Done [...] Plan of Treatment Not on file Insurance [place] Care Teams Hemodialysis Rn Relationship Specialty Start Date End Date Faye Adams PA-C [address] [place] [address] PCP - General 03/28/13
--- OUTSIDE RECORDS SUMMARY | 2025-01-04 09:29 | XMS_ITS | Clinical Summary ---
Author Organization 175 [facility] Address [address] [place] [address] Phone Care Team Providers Care Burrer Machine Name Role Phone Micaela Fuchs MD Primary Care Provider [phone] Allergies Active Allergy Reactions Criticality Noted Date [...] diaper. Patient had head CT 02/12/2024 at [facility] [place], no acute findings at the time, there [...] see if that can help. She is Greenlandic-speaking, we used [employer] sba business development officer Haseeb #[id number]. Chronic left-sided low back pain 03/06/2016 Anxiety and depression 06/12/2014 Asthma, mild intermittent 06/12/2014 Hypothyroid 05/23/2013 Overview (07/07/2024): Result type: US Soft Tissue Head/Neck Result date: 12 April 2013 10:47 Result status: Auth (Verified) Result title: US Soft Tissue Head/Neck Performed by: Montse Hernandez MD on 12 April 2013 12:01 Verified by: Shawn Grover MD on 12 April 2013 12:06 En[place]: [id number][place] [facility] [place]12[place]/12/2013 * [...] patient's age to complete this topic Insurance [facility] MEDICARE Member Subscriber Plan / Payer (Ef fective 2020-Present) Name:Sharon Hahn Relation to Subscriber:Self Name:Sharon Hahn Payer ID:[id number] Group ID:[id number] Type:Not on file Address: [address] [place] [address] Care Teams Burrer Machine Relationship Specialty Start Date End Date Micaela Fuchs MD 2 [facility] , [address] Physician Associ D/B/A: [facility] In Internal Medicine FERNANDO Stuart PCP - General Internal Medicine 06/26/24
[2025-01-04 11:12] LABS: Thyroid Stimulating Hormone 0.57 uIU/mL (0.32-4.0)
[2025-01-04 11:15] LABS: Folate 12.2 ng/mL (> or = 4.0); Vitamin B12 < 148 pg/mL (200-900)
== END 2025-01-04 09:07 | disposition home or self-care (01) ==
LOC: HO.LAB 09:06
PROVIDERS: PCP Internal Medicine; Visit Provider Internal Medicine
DX: E53.8 Deficiency of other specified B group vitamins (principal); E55.9 Vitamin D deficiency, unspecified; E03.9 Hypothyroidism, unspecified
CPT/HCPCS: 36415; 82306; 82607; 82746; 84443

== ENCOUNTER 2025-01-08 10:36 | Outpatient (AMB) | payer OTHER, SELFPAY ==
--- NOTE | 2025-01-08 10:45 | AM.OFFVISNUR ---
Intake Visit Reasons: B12 injection Allergies levothyroxine sodium (From Synthroid) Adverse Reaction (Mild, Verified 01/03/25 15:59) inadequeate response IV contrast Allergy (Severe, Uncoded 01/03/25 15:59) Anaphylaxis SEAFOOD Allergy (Intermediate, Uncoded 01/03/25 15:59) DOESNT TAKE BECAUSE OF THYROID Office Meds cyanocobalamin (vitamin B-12) 1,000 mcg/mL injection solution Performing Provider: Micaela Fuchs MD Performing Location: [facility] Primary [facility] Administered by: Amara Mata RN on 01/08/25 10:46 Dose Route Admin Location Dispensed Lot Number Expiration Date NDC Doctor Of Chiropractic 1,000 mcg IM left deltoid 1 mL [id number] 04/29/26 47942-893-56 [employer] Total Dispensed Waste 1 mL 0 % Assessment & Plan Assessment & Plan Orders: Orders AMB Vitamin B12 Injection Patient Supplied Today E53.8 - Deficiency of other specified B group vitamins Coding
--- OUTSIDE RECORDS SUMMARY | 2025-01-08 11:18 | XMS_ITS | Clinical Summary ---
Author Organization [facility] Address [address] [place] [address] Care Team Providers Care Director Distribution Name Role Phone Faye Adams PA-C Primary [...] active allergies Medications spacerIndication s:Asthma exacerbation ([facility]) For use with albuterol inhaler 1 Inhaler 0 03/20/20 14 Active albuterol sulfate hfa (PROVENTIL,TABITHA KANNAN,PROAIR) 90 mcg/actuation inhalerIndicatio ns:Asthma in adult ([facility]) Inhale 2 Puffs into the [...] on 12 April 2013 12:06 Encounter info: [id number], [facility] [place] [...] H/O: hysterectomy 2011 due to fibroid in [place] 03/01 Diverticulosis 03/28/2013 Overview (12/07/2013): Colonoscopy Done [...] Plan of Treatment Not on file Insurance [place] MEDICAID Care Teams Director Distribution Relationship Specialty Start Date End Date Faye Adams PA-C [address] [place] [address] PCP - General 03/28/13
--- OUTSIDE RECORDS SUMMARY | 2025-01-08 11:18 | XMS_ITS | Clinical Summary ---
Author Organization 175 [facility] Address [address] [place] [address] Phone Care Team Providers Care Finished Stock Inspector Name Role Phone Micaela Fuchs MD Primary Care Provider [phone] Allergies Active Allergy Reactions Criticality Noted Date [...] had head CT [place] [facility] [place] [...] see if that can help. She is Kyrgyz-speaking, we used [employer] bark scaler Haseeb #[id number]. Chronic left-sided low back pain 03/06/2016 Anxiety and depression 06/12/2014 Asthma, mild intermittent 06/12/2014 Hypothyroid 05/23/2013 Overview (07/07/2024): Result type: US Soft Tissue Head/Neck Result date: 12 April 2013 10:47 Result status: Auth (Verified) Result title: US Soft Tissue Head/Neck Performed by: Montse Hernandez MD on 12 April 2013 12:01 Verified by: Shawn Grover MD on 12 April 2013 12:06 [place]: [id number][place] [facility] [place]/12/2013 * [...] patient's age to complete this topic Insurance [facility] MEDICARE Member Subscriber Plan / Payer (Ef fective 2020-Present) Name:Sharon Hahn Relation to Subscriber:Self Name:Sharon Hahn Payer ID:[id number] Group ID:[id number] Type:Not on file Address: [address] [place] [address] Care Teams Finished Stock Inspector Relationship Specialty Start Date End Date Micaela Fuchs MD 2 [facility] , [address] Physician Associ D/B/A: [facility]arc[facility] Tom[facility] In Internal Medicine FERNANDO Stuart PCP - General Internal Medicine 06/26/24
== END 2025-01-08 10:45 | disposition home or self-care (01) ==
LOC: HO.HMCH 10:37
PROVIDERS: PCP Internal Medicine; Visit Provider Internal Medicine
DX: E53.8 Deficiency of other specified B group vitamins (principal)

== ENCOUNTER → 2025-01-08 10:36 | Outpatient (BNVA) | payer OTHER, SELFPAY | PROVIDERS: PCP Internal Medicine; Visit Provider Internal Medicine | DX: E53.8 Deficiency of other specified B group vitamins (principal) | CPT/HCPCS: 96372; J3420 ==

== ENCOUNTER 2025-01-10 09:26 | Outpatient (REF) | payer OTHER, SELFPAY ==
--- NOTE | ~2025-01-10 | XR_ITS ---
EXAMINATION: XR KNEE, RIGHT CLINICAL INFORMATION: M25.561 - Pain in right knee COMPARISON: December 11, 2019 and November 07, 2018 TECHNIQUE: AP and lateral views of the right knee. FINDINGS: Marginal osteophyte formation both femoral condyles and the lateral tibial plateau. Asymmetric joint space narrowing involving mostly the medial compartment with sclerosis articular surface of the medial tibial plateau. No acute cortical disruption or malalignment. No suprapatellar bursa joint effusion. No lytic or blastic lesions. XR/XR knee RT 2V IMPRESSION: Bicompartmental osteoarthrosis involving mostly the medial compartment. Slightly worsened. Electronically signed by: Marcial Deng MD 01/10/2025 09:53 AM EDT
--- OUTSIDE RECORDS SUMMARY | 2025-01-10 09:54 | XMS_ITS | Clinical Summary ---
Author Organization [facility] Address [address] [place] [address] Care Team Providers Care Custom Feed Corn Operator Name Role Phone Faye Adams PA-C [...] on 12 April 2013 12:06 Encounter info: [id number], [facility] [place], One Time OP, 04/12/2013 - 04/12/2013 * [...] H/O: hysterectomy 2011 due to fibroid in [place] 03/01 Diverticulosis 03/28/2013 Overview (12/07/2013): Colonoscopy Done [...] Plan of Treatment Not on file Insurance [place] MEDICA[place] Care Teams Custom Feed Corn Operator Relationship Specialty Start Date End Date Faye Adams PA-C [address] [place] [address] PCP - General 03/28/13
--- OUTSIDE RECORDS SUMMARY | 2025-01-10 09:54 | XMS_ITS | Clinical Summary ---
Author Organization 175 [facility] Address [address] [place] [address] Phone Care Team Providers Care Critical Care Registered Nurse Name Role Phone Micaela Fuchs MD Primary Care Provider [phone] Allergies Active Allergy Reactions Criticality Noted Date [...] diaper. Patient had head CT 02/12[place]20[place] [facility] [place], [place] acute findings [...] see if that can help. She is Israeli-speaking, we used [employer] medical interpreter Haseeb #[id number]. Chronic left-sided low back pain 03/06/2016 Anxiety and depression 06/12/2014 Asthma, mild intermittent 06/12/2014 Hypothyroid 05/23/2013 Overview (07/07/2024): Result type: US Soft Tissue Head/Neck Result date: 12 April 2013 10:47 Result status: Auth (Verified) Result title: US Soft Tissue Head/Neck Performed by: Montse Hernandez MD on 12 April 2013 12:01 Verified by: Shawn Grover MD on 12 April 2013 12:06 Encounter info: [id number], [facility] [place], One Time OP, 04/12/2013 - 04/12/2013 * [...] patient's age to complete this topic Insurance [facility] MEDICARE Member Subscriber Plan / Payer (Ef fective 2020-Present) Name:Sharon Hahn Relation to Subscriber:Self Name:Sharon Hahn Payer ID:[id number] Group ID:[id number] Type:Not on file Address: [address] [place] [address] Care Teams Critical Care Registered Nurse Relationship Specialty Start Date End Date Micaela Fuchs MD 2 [facility] , [address] Physician Associ D/B/A: Narciso Tomlin In Internal Medicine FERNANDO Stuart PCP - General Internal Medicine 06/26/24
== END 2025-01-10 09:27 | disposition home or self-care (01) ==
LOC: HO.XRAY 09:26
PROVIDERS: PCP Internal Medicine; Visit Provider Internal Medicine
DX: M25.561 Pain in right knee (principal)
CPT/HCPCS: 73560

== ENCOUNTER → 2025-01-10 09:31 | Outpatient (BNV) | payer OTHER, SELFPAY | PROVIDERS: PCP Internal Medicine; Visit Provider Radiology Diagnostic Radiology | DX: M25.561 Pain in right knee (principal) | CPT/HCPCS: 73560 ==

== ENCOUNTER 2025-02-05 10:28 | Outpatient (AMB) | payer OTHER, SELFPAY ==
--- NOTE | 2025-02-05 10:34 | AM.OFFVISNUR ---
Intake Visit Reasons: b12 Allergies levothyroxine sodium (From Synthroid) Adverse Reaction (Mild, Verified 01/03/25 15:59) inadequeate response IV contrast Allergy (Severe, Uncoded 01/03/25 15:59) Anaphylaxis SEAFOOD Allergy (Intermediate, Uncoded 01/03/25 15:59) DOESNT TAKE BECAUSE OF THYROID Office Meds cyanocobalamin (vitamin B-12) 1,000 mcg/mL injection solution Performing Provider: Micaela Fuchs MD Performing Location: [facility] Primary [facility] Administered by: Amara Mata RN on 02/05/25 10:34 Dose Route Admin Location Dispensed Lot Number Expiration Date NDC Water Supervisor 1,000 mcg IM 1 mL [id number] 04/29/26 63964-508-55 [employer] Total Dispensed Waste 1 mL 0 % Assessment & Plan Assessment & Plan Orders: Orders AMB Vitamin B12 Injection Patient Supplied Today E53.8 - Deficiency of other specified B group vitamins Coding
--- OUTSIDE RECORDS SUMMARY | 2025-02-05 12:33 | XMS_ITS | Clinical Summary ---
Author Organization 175 [facility] Address [address] [place] [address] Phone Care Team Providers Care Normalizer Name Role Phone Micaela Fuchs MD Primary Care Provider [phone] Allergies Active Allergy Reactions Criticality Noted Date [...] diaper. Patient had head CT 02/12/2024 at [facility] [place], no acute findings at the time, [...] see if that can help. She is Namibian-speaking, we used [employer] loader operator Haseeb #[id number]. Chronic left-sided low back pain 03/06/2016 Anxiety and depression 06/12/2014 Asthma, mild intermittent 06/12/2014 Hypothyroid 05/23/2013 Overview (07/07/2024): Result type: US Soft Tissue Head/Neck Result date: 12 April 2013 10:47 Result status: Auth (Verified) Result title: US Soft Tissue Head/Neck Performed by: Montse Hernandez MD on 12 April 2013 12:01 Verified by: Shawn Grover MD on 12 April 2013 12:06 Encounter info: [id number], [facility] [place], 04/12/2013 - 04/12/2013 * [...] - Risk 60-74 years 1-dose series) 2023 Depression Screening 05/31/2024 Colorectal Cancer Screening: Colonoscopy 06/27/2024 HIV Screening 06/27/2024 Hepatitis C Screening 06/27/2024 Medicare Annual Wellness Visit 06/27/2024 Social Influencers of Health Screening 06/27/2024 COVID-19 Vaccine (1 - 2023-2 5 season) 2025 Influenza Vaccine (#1) 2025 , 03/20/2019, 03/28/2013 [...] patient's age to complete this topic Insurance [facility] MEDICARE Member Subscriber Plan / Payer (Ef fective 2020-Present) Name:Sharon Hahn Relation to Subscriber:Self Name:Sharon Hahn Payer ID:[id number] Group ID:[id number] Type:Not on file Address: [address] [place] [address] Care Teams Normalizer Relationship Specialty Start Date End Date Micaela Fuchs MD 2 [facility] , [address] Physician Associ D/B/A: [facility] FERNANDO Stuart PCP - General Internal Medicine 06/26/24
== END 2025-02-05 10:42 | disposition home or self-care (01) ==
LOC: HO.HMCH 10:29
PROVIDERS: PCP Internal Medicine; Visit Provider Internal Medicine
DX: E53.8 Deficiency of other specified B group vitamins (principal)

== ENCOUNTER → 2025-02-05 10:28 | Outpatient (BNVA) | payer OTHER, SELFPAY | PROVIDERS: PCP Internal Medicine; Visit Provider Internal Medicine | DX: M79.672 Pain in left foot (principal); R20.0 Anesthesia of skin; M54.16 Radiculopathy, lumbar region; E55.9 Vitamin D deficiency, unspecified; E53.8 Deficiency of other specified B group vitamins | CPT/HCPCS: 96372; J3420 ==

== ENCOUNTER 2025-02-05 12:31 | Outpatient (AMB) | payer OTHER, SELFPAY ==
[2025-02-05 13:00] VITALS: BMI 31.0
--- NOTE | 2025-02-05 13:00 | A.OFFVIS_ITS ---
Vital Signs 02/05/25 13:00 Height 5 ft 1 in Weight 164 lb BMI 31.0 Intake Visit Reasons: New Pt- Right foot pain Intake Note: Sharon is a 59 year old female who presents today as a new patient for an evaluation of left foot pain. Patient reports having pain in her left foot and her toes fall asleep.She mentions having the pain for about 3 years and would not like to have injections due to prior experience from a different office. Allergies levothyroxine sodium (From Synthroid) Adverse Reaction (Mild, Verified 02/05/25 13:02) inadequeate response IV contrast Allergy (Severe, Uncoded 01/03/25 15:59) Anaphylaxis SEAFOOD Allergy (Intermediate, Uncoded 01/03/25 15:59) DOESNT TAKE BECAUSE OF THYROID Medication List - Last Reconciled 02/05/25 by Bari Dunne DPM acetaminophen 325 mg PO Q4H PRN [adult diapers pull-ups As directed] blvclbf-qdczkddeozorj-jokimbfs 250-250-65 mg (Excedrin Migraine) 1 tab PO Q4H PRN budesonide-formoterol 160-4.5 mcg/actuation (Symbicort) 2 puffs inhalation Q12H cholecalciferol (vitamin D3) 50 mcg PO DAILY 90 days cyanocobalamin (vitamin B-12) 1,000 mcg PO DAILY 90 days cyanocobalamin (vitamin B-12) 1,000 mcg IM QMONTH 30 days folic acid 1 mg PO DAILY 90 days ipratropium-albuterol 0.5 mg-3 mg(2.5 mg base)/3 mL 3 mL inhalation Q4-6H PRN magnesium oxide 400 mg PO BEDTIME omeprazole 20 mg PO DAILY oxcarbazepine 600 mg (2 x 300 mg) PO BEDTIME 90 days oxcarbazepine 300 mg PO DAILY 90 days quetiapine 100 mg PO BEDTIME 90 days Synthroid (levothyroxine) 125 mcg PO DAILY@0600 NS syringe with needle ([employer] Luer Slip Syringe-Needle) use 1 needle once a month Ventolin HFA 90 mcg/actuation (albuterol sulfate) 2 puffs inhalation Q4-6H PRN NS walker (Ultra-Light Rollator misc) As directed zinc oxide 20% (Endit (zinc oxide)) 1 appl topical TID 2 weeks HPI HPI New Pt- Right foot pain: Details: 59-year-old female past medical history of lumbar spondylosis presents today for initial evaluation of left foot pain. She has a history of back pain for 3+ years. She states over the past 1.5 weeks she started experiencing left foot numbness to her toes. She denies any acute injuries or onset. The symptoms are worst after getting up and walking for 5-8 minutes. She denies any motor weakness to her left foot, denies any right lower extremity symptoms. Patient states she also had a severe left thigh cramp last night. Patient notes she has not seen her back/spine doctor or neurologist in a long time. [facility] Medical History (Updated 02/05/25 @ 13:33 by Bari Dunne DPM) Hypothyroidism Influenza A Mild persistent asthma, uncomplicated Internal and external hemorrhoids without complication Bloody stools Chronic GERD Chronic constipation Pap smear of cervix shows high risk HPV present Surgical History History of bladder surgery History of colonoscopy History of partial hysterectomy Family History Father HTN (hypertension) Mother Asthma HTN (hypertension) Sister Heart disease Brother Liver cancer Son Asthma Social History Household Members: Family and Children Housing: Apartment Do you presently have visiting nurse or other home services: Yes (visitng nurse once a month, 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 Physical Exam Vital Signs: BMI result Body Mass Index 31.0 Extrem Other: *Bilateral Lower Extremity Focused Exam Vascular: DP/PT 2/4, CFT<3s to digits, TG warm to cool, no pedal edema Derm: No open wounds, lacerations, or ecchymosis. Neuro: Negative Tinel sign to the common peroneal nerve, PT nerve, 18 nerve, intermediate dorsal cutaneous nerve. No deep peroneal nerve or intermetatarsal nerve symptoms on forefoot compression. Positive straight leg raise test left lower extremity at approximately 45-60 degrees. MSK: No pain on palpation or range of motion of left foot. Normal muscle strength 5/5 to all compartments. Assessment & Plan Assessment & Plan (1) Numbness of left foot: Code(s): R20.0 - Anesthesia of skin Category: Medical Plan: * Discussed possible etiology of her lower extremity symptoms. Differential diagnosis including spinal radiculopathy, tarsal tunnel syndrome, CP nerve compression. * Referred to neuro spine for evaluation of radiculopathy. * Recommended patient to see neuro spine due to likely new worsening symptoms. No indication for left foot injections or treatment at this time, however will follow up to review ordered tests. * Rx EMG/NCV to left lower extremity * Rx X-ray left foot (2) Lumbar back pain with radiculopathy affecting left lower extremity: Code(s): M54.16 - Radiculopathy, lumbar region Category: Medical Plan: * Referred to neuro-spine. Orders: Orders XR foot LT min 3V Today R20.0 - Anesthesia of skin NE electromyogram (EMG) Today M54.16 - Radiculopathy, lumbar region, R20.0 - Anesthesia of skin Referrals Neuro Spine Referral M54.16 - Radiculopathy, lumbar region Coding Level of Care Code New Pt Level 3 (75511) Diagnoses Numbness of left foot R20.0 Lumbar back pain with radiculopathy affecting left lower extremity M54.16 Time Spent (min) 35
== END 2025-02-05 13:36 | disposition home or self-care (01) ==
LOC: HO.HPODS 12:32
PROVIDERS: PCP Internal Medicine; Visit Provider Student in an Organized Health Care Education/Training Program
DX: R20.0 Anesthesia of skin (principal); M54.16 Radiculopathy, lumbar region
CPT/HCPCS: 99203

== ENCOUNTER 2025-02-20 08:43 | Outpatient (REF) | payer OTHER, SELFPAY ==
--- NOTE | 2025-02-20 08:47 | EMG_ITS ---
Chief complaint: Lumbar back pain affecting left extremity Reason for referral: Evaluate for lumbar radiculopathy Referred by:?Bari Dunne MD Procedure done: Left lower extremity NCS Left tibial and peroneal motor study was performed left superficial peroneal and sural sensory study was performed tibial H-reflex was obtained but needle examination could not be performed as patient refused the test. Superficial peroneal sensory amplitude was diminished with slow conduction velocity. Peroneal motor response was normal. Tibial motor distal latencies was prolonged with slow conduction velocity. Median and lateral mixed plantars amplitudes were somewhat diminished. F response for peroneal stimulation was delayed. Impression: This is a somewhat limited study as patient refused needle examination. Nerve conduction studies were somewhat suggestive of lower lumbar radiculopathy but without needle examination that could not be confirmed. MTDD
--- OUTSIDE RECORDS SUMMARY | 2025-02-20 09:44 | XMS_ITS | Clinical Summary ---
Author Organization 175 [facility] Address [address] [place] [address] Phone Care Team Providers Care Day Care Attendant Name Role Phone Micaela Fuchs MD Primary Care Provider [phone] Allergies Active Allergy Reactions Criticality Noted Date [...] diaper. Patient had head CT 02/12/2024 at [facility] [place], no acute findings at the time, there [...] see if that can help. She is Martiniquais-speaking, we used [employer] deburrer strip Haseeb #[id number]. Chronic left-sided low back pain 03/06/2016 Anxiety and depression 06/12/2014 Asthma, mild intermittent 06/12/2014 Hypothyroid 05/23/2013 Overview (07/07/2024): Result type: US Soft Tissue Head/Neck Result date: 12 April 2013 10:47 Result status: Auth (Verified) Result title: US Soft Tissue Head/Neck Performed by: Montse Hernandez MD on 12 April 2013 12:01 Verified by: Shawn Grover MD on 12 April 2013 12:06 Encounter info: [id number], [facility] [place], One Time OP, 04/12/2013 - 04/12/2013 * [...] patient's age to complete this topic Insurance [facility] MEDICARE Member Subscriber Plan / Payer (Ef fective 2020-Present) Name:Sharon Hahn Relation to Subscriber:Self Name:Sharon Hahn Payer ID:[id number] Group ID:[id number] Type:Not on file Address: [address] [place] [address] Care Teams Day Care Attendant Relationship Specialty Start Date End Date Micaela Fuchs MD 2 [facility] , [address] Physician Associ D/B/A: [facility] In Internal Medicine FERNANDO Stuart PCP - General Internal Medicine 06/26/24
--- OUTSIDE RECORDS SUMMARY | 2025-02-20 09:45 | XMS_ITS | Clinical Summary ---
Author Organization [facility] Address [address] [place] [address] Care Team Providers Care Mis Director Name Role Phone Faye Adams PA-C Primary [...] known active allergies Medications spacerIndication s:Asthma exacerbation ([facility]) For use with albuterol inhaler 1 Inhaler 0 03/20/20 14 Active albuterol sulfate hfa (PROVENTIL,TABITHA KANNAN,PROAIR) 90 mcg/actuation inhalerIndicatio ns:Asthma in adult ([facility]) Inhale 2 Puffs into the lungs every [...] on 12 April 2013 12:06 Encounter info: [id number], [facility] [place] [...] on file Insurance [place] Care Teams Mis Director Relationship Specialty Start Date End Date Faye Adams PA-C [address] [place] [address] PCP - General 03/28/13
== END 2025-02-20 08:44 | disposition home or self-care (01) ==
LOC: HO.NEURO 08:43
PROVIDERS: PCP Internal Medicine; Visit Provider Student in an Organized Health Care Education/Training Program
DX: M54.16 Radiculopathy, lumbar region (principal); R20.0 Anesthesia of skin
CPT/HCPCS: 95910

== ENCOUNTER → 2025-02-20 08:47 | Outpatient (BNV) | payer OTHER, SELFPAY | PROVIDERS: PCP Internal Medicine; Visit Provider Psychiatry & Neurology Neurology | DX: M54.16 Radiculopathy, lumbar region (principal) | CPT/HCPCS: 95910 ==

== ENCOUNTER 2025-03-05 14:46 | Outpatient (REF) | payer OTHER, SELFPAY | END 2025-03-05 14:47 | disposition home or self-care (01) | LOC: HO.LNP 14:46 | PROVIDERS: PCP Internal Medicine; Visit Provider Student in an Organized Health Care Education/Training Program | DX: B35.1 Tinea unguium (principal); M54.16 Radiculopathy, lumbar region; R20.0 Anesthesia of skin; M79.671 Pain in right foot | CPT/HCPCS: 87101; 87220; 88304; 88312; 99212 ==

== ENCOUNTER 2025-03-05 14:46 | Outpatient (AMB) | payer OTHER, SELFPAY ==
--- NOTE | 2025-03-05 14:56 | A.OFFVIS_ITS ---
Vital Signs 03/05/25 15:01 Height 5 ft 1 in Weight 164 lb BMI 31.0 Intake Visit Reasons: Follow Up Right foot pain Intake Note: Sharon is a 59 year old female who presents today as a follow up on her X-ray results. Pt states she had forgotten to get her X-ray done but she had completed her EMG and has her MRI scheduled. She states she has been doing stretching exercises before bed and found slight relief. She mentions she has requested her PCP to send a referral for PT. Allergies levothyroxine sodium (From Synthroid) Adverse Reaction (Mild, Verified 03/05/25 15:01) inadequeate response IV contrast Allergy (Severe, Uncoded 01/03/25 15:59) Anaphylaxis SEAFOOD Allergy (Intermediate, Uncoded 01/03/25 15:59) DOESNT TAKE BECAUSE OF THYROID HPI HPI Follow Up Right foot pain: Details: 59-year-old female past medical history of lumbar spondylosis presents today for follow up evaluation of left foot numbness and pain. She received her EMG NCV study however she was unable to completed due to the needle pain. She has started doing stretching exercises for legs at night which has been helping her pain symptoms. She is scheduled for a lumbar MRI later this week. She is also working with her primary care doctor on vitamin-B treatment. She has a history of back pain for 3+ years. She states since early January she started experiencing left foot numbness to her toes. She denies any acute injuries or onset. The symptoms are worst after getting up and walking for 5-8 minutes. She denies any motor weakness to her left foot, denies any right lower extremity symptoms. Patient states she also had a severe left thigh cramp last night. Patient notes she has not seen her back/spine doctor or neurologist in a long time. [facility] Medical History (Updated 03/05/25 @ 15:14 by Bari Dunne DPM) Hypothyroidism Influenza A Mild persistent asthma, uncomplicated Internal and external hemorrhoids without complication Bloody stools Chronic GERD Chronic constipation Pap smear of cervix shows high risk HPV present Surgical History History of bladder surgery History of colonoscopy History of partial hysterectomy Family History Father HTN (hypertension) Mother Asthma HTN (hypertension) Sister Heart disease Brother Liver cancer Son Asthma Social History Household Members: Family and Children Housing: Apartment Do you presently have visiting nurse or other home services: Yes (visitng nurse once a month, 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) Alcohol intake: never Patient Tobacco Use Status: Former Tobacco user Tobacco use type: Cigarette Cigarette Packs Per Day: 2 Years Smoked: 10 years e-Cigarette/Vaping Use: Never Used Second Hand Smoke Exposure: Yes service: No Current occupational status: disabled Cognitive needs: Yes Hearing needs: No Vision needs: No Review of Systems Const All systems reviewed & are unremarkable except as noted in HPI and below Physical Exam Extrem Other: *Bilateral Lower Extremity Focused Exam Vascular: DP/PT 2/4, CFT<3s to digits, TG warm to cool, no pedal edema Derm: Dystrophic discolored right hallux nail 50% white yellow discoloration with mild subungual debris. Neuro: Negative Tinel sign to the common peroneal nerve, PT nerve, AT nerve, intermediate dorsal cutaneous nerve. No deep peroneal nerve or intermetatarsal nerve symptoms on forefoot compression. Positive straight leg raise test left lower extremity at approximately 45-60 degrees. MSK: No pain on palpation or range of motion of left foot. Normal muscle strength 5/5 to all compartments. Results Reviewed Results Reviewed: EMG/NCV 02/20/2025: Impression: This is a somewhat limited study as patient refused needle examination. Nerve conduction studies are somewhat suggestive a lower lumbar radiculopathy. Assessment & Plan Assessment & Plan (1) Tinea unguium: Code(s): B35.1 - Tinea unguium Category: Medical Plan: * Nail biopsy performed of right hallux nail. * Discussed treatment options including topical treatment versus oral antifungal medications. * Explained that oral antifungals such as terbinafine (Lamisil) may cause gastrointestinal upset, headache, rash, taste disturbances, and hepatotoxicity. Baseline and monthly liver function monitoring is recommended during therapy. Patients should be advised to report symptoms such as jaundice, dark urine, or persistent nausea. * Patient was counseled on the importance of anti-fungal foot hygiene, including daily washing and thorough drying of feet, regular changing of socks, and use of breathable footwear. Recommended antifungal sprays shoes. Education provided on keeping toenails trimmed and clean to reduce risk of fungal infections. Preventive strategies discussed to minimize recurrence of fungal infections. * Follow up in 3 weeks to review the nail culture results. (2) Numbness of left foot: Code(s): R20.0 - Anesthesia of skin Category: Medical Plan: * Discussed possible etiology of her lower extremity symptoms. Differential diagnosis including spinal radiculopathy, tarsal tunnel syndrome, CP nerve compression. * EMG NCV reviewed with the patient. * She is planned for physical therapy as per PCP. * Discussed that she will likely need neuro spine referral in the future if her symptoms persist. * Patient was advised she no longer needs left foot x-rays. (3) Lumbar back pain with radiculopathy affecting left lower extremity: Code(s): M54.16 - Radiculopathy, lumbar region Category: Medical Plan: * Pending MRI lumbar spine as per PCP Orders: Orders Fungus Cult Hair/Skin/Nail Today B35.1 - Tinea unguium Surgical Today B35.1 - Tinea unguium Coding Level of Care Code Est Pt Level 3 (02174) Diagnoses Tinea unguium B35.1 Numbness of left foot R20.0 Lumbar back pain with radiculopathy affecting left lower extremity M54.16 Time Spent (min) 30
[2025-03-05 15:01] VITALS: BMI 31.0
--- OUTSIDE RECORDS SUMMARY | 2025-03-05 17:11 | XMS_ITS | Clinical Summary ---
Author Organization 175 [facility] Address [address] [place] [address] Phone Care Team Providers Care Family Preservation Caseworker Name Role Phone Micaela Fuchs MD Primary Care Provider [phone] Allergies Active Allergy Reactions Criticality Noted Date [...] diaper. Patient had head CT 02/12/2024 at [facility] [place], no acute findings at the time, there [...] see if that can help. She is Tristanian-speaking, we used [employer] bundle wrapper Haseeb #[id number]. Chronic left-sided low back pain 03/06/2016 Anxiety and depression 06/12/2014 Asthma, mild intermittent 06/12/2014 Hypothyroid 05/23/2013 Overview (07/07/2024): Result type: US Soft Tissue Head/Neck Result date: 12 April 2013 10:47 Result status: Auth (Verified) Result title: US Soft Tissue Head/Neck Performed by: Montse Hernandez MD on 12 April 2013 12:01 Verified by: Shawn Grover MD on 12 April 2013 12:06 Encounter info: [id number], [facility] [place], One Time OP, 04/12/2013 - 04/12/2013 * [...] has an image H/O: hysterectomy 03/28/2013 Immunizations Immunization Administration Dates Next Due Influenza Quadrivalent, 0.5m [...] Last Done Comments Breast Cancer Screening 1965 Colorectal Cancer Screening: Colonoscopy 1965 Pneumococcal Vaccine: 50+ Years (1 of 2 - PCV) 10/28/1982 Cervical Cancer Screening: P ap Smear 10/28/1984 Zoster Vaccines (1 of 2) 10/28/2013 RSV Immunization Adult Patients (1 - Risk 60-74 years 1-dose series) 2023 Depression Screening 05/31/2024 HIV Screening 06/27/2024 Hepatitis C Screening 06/27/2024 [...] patient's age to complete this topic Insurance [facility] MEDICARE Member Subscriber Plan / Payer (Ef fective 2020-Present) Name:Riki Hillman Sharon Relation to Subscriber:Self Name:Sharon Hahn Payer ID:[id number] Group ID:[id number] Type:Not on file Address: [address] [place] [address] Care Teams Family Preservation Caseworker Relationship Specialty Start Date End Date Micaela Fuchs MD 2 [facility] , [address] Physician Associ D/B/A: [facility]arc[facility] Castatish[facility] In Internal Medicine FERNANDO Stuart PCP - General Internal Medicine 06/26/24
--- OUTSIDE RECORDS SUMMARY | 2025-03-05 17:11 | XMS_ITS | Clinical Summary ---
Author Organization [facility] Address [address] [place] [address] Care Team Providers Care Radiator Repairer Name Role Phone Faye Adams PA-C Primary [...] on 12 April 2013 12:06 Encounter info: [id number], [facility] [place], One Time OP, 04/12/2013 [...] on file Insurance [place] MED[place]ID Care Teams Radiator Repairer Relationship Specialty Start Date End Date Faye Adams PA-C [address] [place] [id number] PCP - General 03/28/13
== END 2025-03-05 15:13 | disposition home or self-care (01) ==
LOC: HO.HPODS 14:46
PROVIDERS: PCP Internal Medicine; Visit Provider Student in an Organized Health Care Education/Training Program
DX: B35.1 Tinea unguium (principal); R20.0 Anesthesia of skin; M54.16 Radiculopathy, lumbar region
CPT/HCPCS: 99213

== ENCOUNTER 2025-03-06 10:48 | Outpatient (AMB) | payer OTHER, SELFPAY ==
--- NOTE | 2025-03-06 10:53 | MHC.OFFVIS ---
Vital Signs 03/06/25 11:03 Height 5 ft 1 in Weight 164 lb BMI 31.0 Intake Visit Reasons: Right knee pain and giving way Intake Note: Sharon is a 59 year old female who presents today as a new patient for her right knee pain. Patient was referred by PCP 01/03/25, at their visit she discussed her HX of osteoarthritis in her knees, with the right knee being particularly painful and swollen. A past fall resulted in knee trauma, pain is exacerbated by walking and using stairs, and she uses a walker for mobility. At today's visit she states that for the past four years she has had knee pain, and about a year ago she fell down the steps at [employer]. She states that she does at home exercises and when she is done the pain radiates into the right hip/pelvic. She has failed the last 6 weeks of conservative treatment which has included Tylenol, physical therapy exercises, a home exercise program and anti-inflammatory medicines. Most of the pain is along the medial aspect of her knee. Know: no HX: Yes Automatic Machine Attendant Required: Yes Automatic Machine Attendant Services: Automatic Machine Attendant Offered & Declined Automatic Machine Attendant Name: Nedra- Sister Allergies levothyroxine sodium (From Synthroid) Adverse Reaction (Mild, Verified 03/06/25 11:03) inadequeate response IV contrast Allergy (Severe, Uncoded 01/03/25 15:59) Anaphylaxis SEAFOOD Allergy (Intermediate, Uncoded 01/03/25 15:59) DOESNT TAKE BECAUSE OF THYROID Medication List - Last Reconciled 03/06/25 by Waldo Josue MD acetaminophen 325 mg PO Q4H PRN [adult diapers pull-ups As directed] oawrjid-yiojvjqfxheww-hrifaudd 250-250-65 mg (Excedrin Migraine) 1 tab PO Q4H PRN budesonide-formoterol 160-4.5 mcg/actuation (Symbicort) 2 puffs inhalation Q12H cholecalciferol (vitamin D3) 50 mcg PO DAILY 90 days cyanocobalamin (vitamin B-12) 1,000 mcg IM QMONTH 30 days cyanocobalamin (vitamin B-12) 1,000 mcg PO DAILY 90 days folic acid 1 mg PO DAILY 90 days ipratropium-albuterol 0.5 mg-3 mg(2.5 mg base)/3 mL 3 mL inhalation Q4-6H PRN magnesium oxide 400 mg PO BEDTIME omeprazole 20 mg PO DAILY oxcarbazepine 600 mg (2 x 300 mg) PO BEDTIME 90 days oxcarbazepine 300 mg PO DAILY 90 days quetiapine 100 mg PO BEDTIME 90 days Synthroid (levothyroxine) 125 mcg PO DAILY@0600 NS syringe with needle (AcceloWeb Luer Slip Syringe-Needle) use 1 needle once a month Ventolin HFA 90 mcg/actuation (albuterol sulfate) 2 puffs inhalation Q4-6H PRN NS walker (Ultra-Light Rollator misc) As directed zinc oxide 20% (Endit (zinc oxide)) 1 appl topical TID 2 weeks PFSH Medical History (Updated 03/06/25 @ 11:19 by Waldo Josue MD) Hypothyroidism Influenza A Mild persistent asthma, uncomplicated Internal and external hemorrhoids without complication Bloody stools Chronic GERD Chronic constipation Pap smear of cervix shows high risk HPV present Surgical History History of bladder surgery History of colonoscopy History of partial hysterectomy Family History Father HTN (hypertension) Mother Asthma HTN (hypertension) Sister Heart disease Brother Liver cancer Son Asthma Social History Household Members: Family and Children Housing: Apartment Do you presently have visiting nurse or other home services: Yes (visitng nurse once a month, 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) Unable to assess alcohol history related to: Unknown Alcohol intake: never Patient Tobacco Use Status: Former Tobacco user Tobacco use type: Cigarette Cigarette Packs Per Day: 2 Years Smoked: 10 years e-Cigarette/Vaping Use: Never Used Second Hand Smoke Exposure: Yes service: No Current occupational status: disabled Cognitive needs: Yes Hearing needs: No Vision needs: No Physical Exam Const Other: Well-nourished well-developed very friendly female awake alert and oriented x3 in no acute distress Extrem Other: Right knee examination shows a minimal effusion, mild crepitus with range of motion, tenderness along her medial joint line, positive Mihir's test, no instability Results Reviewed Results Reviewed: Standing full weight-bearing x-rays of the patient's right knee show mild diffuse joint space narrowing most significant in the medial compartment, no acute bony abnormalities Assessment & Plan Assessment & Plan (1) Tear of medial meniscus of right knee: Code(s): S83.241A - Other tear of medial meniscus, current injury, right knee, initial encounter Category: Medical Plan Sharon presents with right knee pain and mechanical symptoms due to early degenerative joint disease as well as possible medial meniscus tearing. Thus, I will send the patient for an MRI of her right knee for further evaluation. I will see her back once the MRI is completed to discuss the findings and treatment options. Feel free to call me at any time should questions regarding her orthopedic management arise. I spent 20 minutes in reviewing the patient's records and imaging studies, seeing the patient and documenting in the medical record. Orders: Orders MR knee RT wo con 03/07/25 S83.241A - Other tear of medial meniscus, current injury, right knee, initial encounter Coding Level of Care Code New Pt Level 3 (47575) Complex EM visit Add On G2211 Diagnoses Tear of medial meniscus of right knee S83.241A
[2025-03-06 11:03] VITALS: BMI 31.0
--- OUTSIDE RECORDS SUMMARY | 2025-03-06 13:13 | XMS_ITS | Clinical Summary ---
Author Organization 175 [facility] Address [address] [place] [address] Phone Care Team Providers Care Telemetry Nurse Name Role Phone Micaela Fuchs MD Primary Care Provider [phone] Allergies Active Allergy Reactions Criticality Noted Date [...] diaper. Patient had head CT 02/12/2024 at [facility], no acute findings at the time, there [...] see if that can help. 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 Chronic left-sided low back pain 03/06/2016 Anxiety and depression 06/12/2014 Asthma, mild intermittent 06/12/2014 Hypothyroid 05/23/2013 Overview (07/07/2024): Result type: US Soft Tissue Head/Neck Result date: 12 April 2013 10:47 Result status: Auth (Verified) Result title: US Soft Tissue Head/Neck Performed by: Montse Hernandez MD on 12 April 2013 12:01 Verified by: Shawn Grover MD on 12 April 2013 12:06 Encounter info: [id number], [facility] [place] [...] patient's age to complete this topic Insurance [facility] MEDICARE Member Subscriber Plan / Payer (Ef fective 2020-Present) Name:Riki Hillman Sharon Relation to Subscriber:Self Name:Sharon Hanh Payer ID:[id number] Group ID:[id number] Type:Not on file Address: [address] [place] [address] Care Teams Telemetry Nurse Relationship Specialty Start Date End Date Micaela Fuchs MD 2 [facility] , [address] Physician Associ D/B/A: [facility] In Internal Medicine FERNANDO Stuart PCP - General Internal Medicine 06/26/24
--- OUTSIDE RECORDS SUMMARY | 2025-03-06 13:13 | XMS_ITS | Clinical Summary ---
Author Organization [facility] Address [address] [place] [address] Care Team Providers Care Labor Training Manager Name Role Phone Faye Adams PA-C Primary [...] on 12 April 2013 12:06 Encounter info: [id number], [facility] [place], One [place] OP, 04/12/2013 - [...] H/O: hysterectomy 2011 due to fibroid in [place] 03/01 Diverticulosis 03/28/2013 Overview (12/07/2013): Colonoscopy Done [...] on file Insurance [place] MEDICAID Care Teams Labor Training Manager Relationship Specialty Start Date End Date Faye Adams PA-C [address] [place] [address] PCP - General 03/28/13
== END 2025-03-06 11:18 | disposition home or self-care (01) ==
LOC: HO.HOS 10:48
PROVIDERS: PCP Internal Medicine; Visit Provider Orthopaedic Surgery
DX: S83.241A Other tear of medial meniscus, current injury, right knee, initial encounter (principal)
CPT/HCPCS: 99203; G2211

== ENCOUNTER → 2025-03-06 10:48 | Outpatient (BNVA) | payer OTHER, SELFPAY | PROVIDERS: PCP Internal Medicine; Visit Provider Orthopaedic Surgery | DX: S83.241A Other tear of medial meniscus, current injury, right knee, initial encounter (principal); W10.9XXA Fall (on) (from) unspecified stairs and steps, initial encounter; Y93.01 Activity, walking, marching and hiking; Y92.243 City hall as the place of occurrence of the external cause; Y99.9 Unspecified external cause status | CPT/HCPCS: 99202 ==

== ENCOUNTER 2025-03-07 10:15 | Outpatient (AMB) | payer OTHER, SELFPAY ==
--- NOTE | 2025-03-07 10:21 | AM.OFFVISNUR ---
Intake Visit Reasons: B12 shot Allergies levothyroxine sodium (From Synthroid) Adverse Reaction (Mild, Verified 03/06/25 11:03) inadequeate response IV contrast Allergy (Severe, Uncoded 01/03/25 15:59) Anaphylaxis SEAFOOD Allergy (Intermediate, Uncoded 01/03/25 15:59) DOESNT TAKE BECAUSE OF THYROID Office Meds cyanocobalamin (vitamin B-12) 1,000 mcg/mL injection solution Performing Provider: Micaela Fuchs MD Performing Location[facility] Administered by: Holli Ojeda LPN on 03/07/25 10:21 Dose Route Admin Location Dispensed Lot Number Expiration Date [facility] Lump Inspector 1,000 mcg IM right deltoid 1 mL [id number] 04/29/26 41386-242-50 [employer] Total Dispensed Waste 1 mL 0 % Assessment & Plan Assessment & Plan Orders: Orders AMB Vitamin B12 Injection Patient Supplied Today D51.9 - Vitamin B12 deficiency anemia, unspecified Coding
== END 2025-03-07 10:22 | disposition home or self-care (01) ==
LOC: HO.HMCH 10:16
PROVIDERS: PCP Internal Medicine; Visit Provider Internal Medicine
DX: D51.9 Vitamin B12 deficiency anemia, unspecified (principal)

== ENCOUNTER → 2025-03-07 10:15 | Outpatient (BNVA) | payer OTHER, SELFPAY | PROVIDERS: PCP Internal Medicine; Visit Provider Internal Medicine | DX: D51.9 Vitamin B12 deficiency anemia, unspecified (principal) | CPT/HCPCS: 96372; J3420 ==

== ENCOUNTER 2025-03-08 16:26 | Outpatient (REF) | payer OTHER, SELFPAY ==
--- NOTE | ~2025-03-08 | MR_ITS ---
EXAM: MRI Lumbar Spine without Contrast. TECHNIQUE: Multiplanar multisequence MRI of the lumbar spine with performed without contrast. INDICATION: M54.16 - Radiculopathy, lumbar region PRIOR: X-ray October 20, 2017 FINDINGS: 5 non-rib bearing lumbar segments are present on x-ray. Marrow and end-plates: Lesion in posterior left side of L1 and trace coarse trabeculation and increased signal on T1 and T2 sequences consistent with a benign vertebral hemangioma. Modic 2 signal is present at L5-S1. Alignment: L5-S1 demonstrates grade 2 anterolisthesis. Soft tissues: Benign simple renal cysts are present, left greater than right. Conus: The termination of conus medullaris is within normal limits at the level of T12. T12-L1: There is no disc bulge, herniation, spinal stenosis, or foraminal narrowing. L1-L2: Minimal disc bulge does not cause spinal stenosis or foraminal narrowing. L2-L3: There is no disc bulge, herniation, spinal stenosis, or foraminal narrowing. L3-L4: There is no disc bulge, herniation, spinal stenosis, or foraminal narrowing. L4-L5: There is subtle anterolisthesis and broad-based disc bulge with central annular fissuring. There is moderate facet degeneration with minimal ligament flavum thickening. There is no spinal stenosis. There is mild left foraminal narrowing without right-sided narrowing. L5-S1: Anterolisthesis and pseudodisc bulge results in moderate spinal stenosis and moderate bilateral foraminal narrowing. There are chronic bilateral pars interarticularis defects. MR/MR lumbar spine wo con IMPRESSION: L5-S1 demonstrates grade 2 anterolisthesis with chronic bilateral pars intra-articularis defects resulting in moderate spinal stenosis and moderate bilateral foraminal narrowing. Electronically signed by: Marcio Cormier MD 03/08/2025 05:14 PM EDT RP
--- OUTSIDE RECORDS SUMMARY | 2025-03-08 16:33 | XMS_ITS | Clinical Summary ---
Author Organization [facility] Address [address] [place] [address] Care Team Providers Care Document Control Supervisor Name Role Phone Faye Adams PA-C Primary [...] on 12 April 2013 12:06 Encounter info: [id number], [facility], One Time OP, 04/12/2013 - 04/12/2013 * [...] H/O: hysterectomy 2011 due to fibroid in [place] 03/01 Diverticulosis 03/28/2013 Overview (12/07/2013): Colonoscopy Done [...] on file Insurance [place] MEDICA[place] Care Teams Document Control Supervisor Relationship Specialty Start Date End Date Faye Adams PA-C [address] [place] [address] PCP - General 03/28/13
--- OUTSIDE RECORDS SUMMARY | 2025-03-08 16:33 | XMS_ITS | Clinical Summary ---
Author Organization 175 [facility] Address [address] [place] [address] Phone Care Team Providers Care Promotions Coordinator Name Role Phone Micaela Fuchs MD Primary Care Provider [phone] Allergies Active Allergy Reactions Criticality Noted Date [...] diaper. Patient had head CT 02/12[place]20[place] [facility] no acute findings at the time, there [...] see if that can help. 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 Chronic left-sided low back pain 03/06/2016 Anxiety and depression 06/12/2014 Asthma, mild intermittent 06/12/2014 Hypothyroid 05/23/2013 Overview (07/07/2024): Result type: US Soft Tissue Head/Neck Result date: 12 April 2013 10:47 Result status: Auth (Verified) Result title: US Soft Tissue Head/Neck Performed by: Montse Hernandez MD on 12 April 2013 12:01 Verified by: Shawn Grover MD on 12 April 2013 12:06 En[place] info: [id number][place] [facility] [place], 04/12/2013 - 04/12/2013 * [...] patient's age to complete this topic Insurance [facility] MEDICARE Member Subscriber Plan / Payer (Ef fective 2020-Present) Name:Riki Hillman Sharon Relation to Subscriber:Self Name:Sharon Hahn Payer ID:[id number] Group ID:[id number] Type:Not on file Address: [address] [place] [address] Care Teams Promotions Coordinator Relationship Specialty Start Date End Date Micaela Fuchs MD 2 [facility] , [address] Physician Associ D/B/A: Narciso Castat[facility] In Internal Medicine FERNANDO Stuart PCP - General Internal Medicine 06/26/24
== END 2025-03-08 16:27 | disposition home or self-care (01) ==
LOC: HO.MRI 16:26
PROVIDERS: PCP Internal Medicine; Visit Provider Student in an Organized Health Care Education/Training Program
DX: M54.16 Radiculopathy, lumbar region (principal)
CPT/HCPCS: 72148

== ENCOUNTER → 2025-03-08 16:37 | Outpatient (BNV) | payer OTHER, SELFPAY | PROVIDERS: PCP Internal Medicine; Visit Provider Radiology Diagnostic Radiology | DX: M47.27 Other spondylosis with radiculopathy, lumbosacral region (principal); M48.061 Spinal stenosis, lumbar region without neurogenic claudication; M99.63 Osseous and subluxation stenosis of intervertebral foramina of lumbar region | CPT/HCPCS: 72148 ==

== ENCOUNTER 2025-03-27 14:54 | Outpatient (AMB) | payer OTHER, SELFPAY ==
--- NOTE | 2025-03-27 15:24 | A.OFFVIS_ITS ---
Vital Signs 03/27/25 15:25 Height 5 ft 1 in Weight 174 lb 6 oz BMI 32.9 BP 126/74 Blood Pressure Location Rt brachial Position Sitting Pulse 77 Pulse Source Pulse Oximeter Pulse Oximetry (%) 97 Oxygen Delivery Method Room Air Intake Visit Reasons: Shortness of breath Retail Wireless Associate Required: Yes Retail Wireless Associate Language: Mend Worker Services: Retail Wireless Associate Present Retail Wireless Associate Name: Lee Ann Oconnor LM Allergies levothyroxine sodium (From Synthroid) Adverse Reaction (Mild, Verified 03/27/25 15:29) inadequeate response IV contrast Allergy (Severe, Uncoded 03/27/25 15:29) Anaphylaxis SEAFOOD Allergy (Intermediate, Uncoded 03/27/25 15:29) DOESNT TAKE BECAUSE OF THYROID HPI HPI Shortness of breath: Details: Sharon is a pleasant 58 year old female, former minimal smoker, with less than 5 pack year history with underlying asthma, GERD and anxiety. She was initially referred by PCP after admission to [facility] 07/11-07[place]14/24 for acute hypoxic respiratory failure, sepsis secondary to recent influenza with superimposed bacterial pneumonia. CXR and VQ scan unremarkable, unable to obtain CTA due contrast allergy. She was treated with IV steroids/abx,weaned off supplemental oxygen, discharged with doxycycline, cefuroxime and prednisone. Repeat CXR 09/2024 revealed resolution of PNA. She has maintained on Symbicort 160 mcg with good control of respiratory symptoms, using albuterol MDI infrequently. She denies any visits to urgent care or hospitalizations related to respiratory distress since the last visit. Unfortunately over the last week she does report using nebulized therapy more frequently for chest tightness and dry cough which has been slowly improving. She is requesting a new nebulizer, current machine is 15-20 years old. She denies fevers, chills or chest congestion. She also notes ongoing orthopnea as well as intermittent pedal edema, denies prior echo. [facility] Medical History (Updated 03/28/25 @ 15:46 by Temitope Akhtar NP) Hypothyroidism Influenza A Mild persistent asthma, uncomplicated Internal and external hemorrhoids without complication Bloody stools Chronic GERD Chronic constipation Pap smear of cervix shows high risk HPV present Surgical History History of bladder surgery History of colonoscopy History of partial hysterectomy Family History Father HTN (hypertension) Mother Asthma HTN (hypertension) Sister Heart disease Brother Liver cancer Son Asthma Social History Household Members: Family and Children Housing: Apartment Do you presently have visiting nurse or other home services: Yes (visitng nurse once a month, 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) Alcohol intake: never Patient Tobacco Use Status: Former Tobacco user Tobacco use type: Cigarette Cigarette Packs Per Day: 2 Years Smoked: 10 years e-Cigarette/Vaping Use: Never Used Second Hand Smoke Exposure: Yes service: No Current occupational status: disabled Cognitive needs: Yes Hearing needs: No Vision needs: No Review of Systems Const Denies chills, Denies excessive sweating, Denies fever(s), Denies headache(s) and Denies night sweats Eyes Denies dry eyes, Denies irritation and Denies itchy eyes ENT Reports Normal hearing present, Denies headache(s), Denies nasal congestion, Denies nasal discharge, Denies post nasal drip and Denies sore throat Card Denies chest pain, Denies chest pain at rest, Denies chest pain with activity, Denies claudication, Denies leg edema, Denies orthopnea and Denies paroxysmal nocturnal dyspnea Resp Denies chest congestion, Denies excessive phlegm production, Denies pain on inspiration, Denies pain with cough, Denies stridor and Denies wheezing Musc Denies myalgias Neuro Reports Normal hearing present and Denies headache(s) Endo Denies excessive sweating Nikos/Lymph Denies lymphadenopathy Aller/Immun Denies itchy eyes, Denies seasonal rhinorrhea and Denies wheezing Physical Exam Vital Signs: Last Vital Signs Pulse 77 03/27/25 15:25 BP 126/74 03/27/25 15:25 Pulse Ox 97 03/27/25 15:25 Oxygen Delivery Method Room Air 03/27/25 15:25 BMI result Body Mass Index 32.9 Const General: cooperative, healthy appearing, comfortable, no acute distress, well developed and alert Orientation/consciousness: patient oriented x3 Limitations: no limitations HEENT Head: Yes normal to inspection, Yes normocephalic and Yes atraumatic Ears: hearing grossly normal bilaterally and external ears normal Eyes General: appearance normal, both eyes and all related structures Eyelids: Yes eyelids normal Sclerae: sclerae normal EOM: EOMs intact bilaterally Neck Neck: Yes normal visual inspection and Yes no lymphadenopathy Lymphatic: no lymphadenopathy noted Chest Chest palpation & inspection: normal inspection of the chest Resp Other: faint RLL inspiratory crackles Effort & Inspection: normal respiratory effort, able to speak in complete sentences, no audible wheezes, no cough, no stridor, not tachypneic, no tripod positioning and no use of accessory muscles Cardio Jugular venous distension: no JVD Rate: regular rate Rhythm: regular rhythm Skin Other: warm, dry General skin exam: no rashes or lesions noted Neuro General: patient oriented x3 Cranial nerves: Yes Normal hearing present Cognition (Neuro): normal cognition Gait exam (Neuro): Normal gait present Extrem General: Yes normal to inspection, Yes capillary refill normal, Yes no clubbing, cyanosis or edema and Yes no pedal edema Psych Appearance: grossly normal and well kempt Speech and movement: Normal speech and movement present and Clear speech present Affect: normal affect Attitude: cooperative Thought process: Normal thought process present Thought content: Normal thought content present Insight: Good insight present (Psych) Judgement: Good judgement present (Psych) Assessment & Plan Assessment & Plan (1) Asthma: Code(s): J45.909 - Unspecified asthma, uncomplicated Category: Medical (2) Environmental allergies: Code(s): Z91.09 - Other allergy status, other than to drugs and biological substances Category: Medical (3) History of acute respiratory failure: Code(s): Z87.09 - Personal history of other diseases of the respiratory system Category: Medical Plan At this time, Sharon reports good control of respiratory symptoms using Symbicort 160 mcg and albuterol MDI PRN, advised to continue. Given abnormal respiratory exam, will send for CXR today. Will also send for echo for ongoing orthopnea and BLE edema, none present today. She is aware to call if symptoms change. All questions were answered and patient is in agreement of plan. Will follow up in 3 months or sooner if needed. Orders: Orders CA echo transthoracic complete Today R06.00 - Dyspnea, unspecified, R06.01 - Orthopnea XR chest 2V 03/27/25 R06.89 - Other abnormalities of breathing Medications: Refilled ipratropium-albuterol 0.5 mg-3 mg(2.5 mg base)/3 mL 3 mL inhalation Q4-6H PRN 90 mL 0RF wheezing J45.41 - Moderate persistent asthma with (acute) exacerbation, J96.01 - Acute respiratory failure with hypoxia budesonide-formoterol 160-4.5 mcg/actuation (Symbicort) 2 puffs inhalation Q12H 10.2 grams 6RF Coding Level of Care Code Est Pt Level 4 (35065) Diagnoses Asthma J45.909 Environmental allergies Z91.09 History of acute respiratory failure Z87.09
[2025-03-27 15:25] VITALS: BP 126/74; PULSE 77; O2SAT 97; BMI 32.9
--- OUTSIDE RECORDS SUMMARY | 2025-03-27 19:20 | XMS_ITS | Clinical Summary ---
Author Organization [facility] Address [address] [place] [address] Care Team Providers Care Block Cutter Name Role Phone Faye Adams PA-C Primary [...] on 12 April 2013 12:06 Encounter info: [id number], [facility] [...] H/O: hysterectomy 2011 due to fibroid in [place] 03/01 Diverticulosis 03/28/2013 Overview (12/07/2013): Colonoscopy Done [...] on file Insurance [place] MEDICAID Care Teams Block Cutter Relationship Specialty Start Date End Date Faye Adams PA-C [address] [place] [address] PCP - General 03/28/13
--- OUTSIDE RECORDS SUMMARY | 2025-03-27 19:20 | XMS_ITS | Clinical Summary ---
Author Organization 175 [facility] Address [address] [place] [address] Phone Care Team Providers Care Svp Of Digital Name Role Phone Micaela Fuchs MD Primary [...] diaper. Patient had head CT 02/12/2024 at [facility], no acute findings at the time, there [...] see if that can help. 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 Chronic left-sided low back pain 03/06/2016 Anxiety and depression 06/12/2014 Asthma, mild intermittent 06/12/2014 Hypothyroid 05/23/2013 Overview (07/07/2024): Result type: US Soft Tissue Head/Neck Result date: 12 April 2013 10:47 Result status: Auth (Verified) Result title: US Soft Tissue Head/Neck Performed by: Montse Hernandez MD on 12 April 2013 12:01 Verified by: Shawn Grover MD on 12 April 2013 12:06 Encounter info: [id number], [facility] [place], One Time OP, 04/12/2013 - 04/12/2013 * [...] Cervical Cancer Screening: P ap Smear 10/28/1984 RSV Immunization Adult Patients (1 - Risk 50-74 years 1-dose series) 10/28/2013 Zoster Vaccines (1 of 2) 10/28/2013 Depression Screening 05/31/2024 HIV Screening 06/27/2024 Hepatitis [...] patient's age to complete this topic Insurance [facility] MEDICARE Member Subscriber Plan / Payer (Ef fective 2020-Present) Name:Riki HillmanSharon Relation to Subscriber:Self Name:Riki Hillman Sharon Payer ID:[id number] Group ID:[id number] Type:Not on file Address: [address] [place] [address] Care Teams Svp Of Digital Relationship Specialty Start Date End Date Micaela Fuchs MD 2 [facility] , [facility] [address] [facility] Physician Associ D/B/A: Narciso Tomlin In Internal Medicine FERNANDO Stuart PCP - General Internal Medicine 06/26/24
== END 2025-03-27 15:57 | disposition home or self-care (01) ==
LOC: HO.HPSW 14:55
PROVIDERS: PCP Internal Medicine; Visit Provider Nurse Practitioner Family
DX: J45.909 Unspecified asthma, uncomplicated (principal); Z91.09 Other allergy status, other than to drugs and biological substances; Z87.09 Personal history of other diseases of the respiratory system
CPT/HCPCS: 99214

== ENCOUNTER → 2025-03-27 14:54 | Outpatient (BNVA) | payer OTHER, SELFPAY | PROVIDERS: PCP Internal Medicine; Visit Provider Nurse Practitioner Family | DX: J45.41 Moderate persistent asthma with (acute) exacerbation (principal); Z91.09 Other allergy status, other than to drugs and biological substances; Z87.09 Personal history of other diseases of the respiratory system; R06.01 Orthopnea; R06.00 Dyspnea, unspecified | CPT/HCPCS: 99212 ==

== ENCOUNTER 2025-03-29 09:37 | Outpatient (REF) | payer OTHER, SELFPAY ==
--- NOTE | ~2025-03-29 | XR_ITS ---
EXAMINATION: XR CHEST CLINICAL INFORMATION: R06.89 - Other abnormalities of breathing COMPARISON: Chest radiograph on October 12, 2024 TECHNIQUE: 2 views of the chest were obtained. FINDINGS: Lungs: No focal consolidation. Pleura: No pleural effusion or pneumothorax. Heart/Mediastinum: Cardiomediastinal silhouette is within normal limits. Bones: No acute findings. XR/XR chest 2V IMPRESSION: No acute abnormality. Electronically signed by: Zachary Roldan MD 03/29/2025 10:10 AM EDT
--- NOTE | ~2025-03-29 | XR_ITS ---
EXAMINATION: XR FOOT, LEFT CLINICAL INFORMATION: R20.0 - Anesthesia of skin COMPARISON: None available. TECHNIQUE: AP, lateral, and oblique views of the left foot. FINDINGS: No acute fracture or destructive bone lesion. Joint spaces are preserved. No dislocation. Moderate size plantar calcaneal spur. No radiopaque foreign body. XR/XR foot LT min 3V IMPRESSION: No acute findings or destructive bone lesion. Electronically signed by: Zachary Roldan MD 03/29/2025 10:11 AM EDT
--- OUTSIDE RECORDS SUMMARY | 2025-03-29 11:10 | XMS_ITS | Clinical Summary ---
Author Organization 175 [facility] Address [address] [place] [address] Phone Care Team Providers Care Money Order Clerk Name Role Phone Micaela Fuchs MD Primary Care Provider [phone] Allergies Active Allergy Reactions Criticality Noted Date [...] diaper. Patient had head CT 02/12/2024 at [facility], no acute findings at the time, there [...] see if that can help. 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 Chronic left-sided low back pain 03/06/2016 Anxiety and depression 06/12/2014 Asthma, mild intermittent 06/12/2014 Hypothyroid 05/23/2013 Overview (07/07/2024): Result type: US Soft Tissue Head/Neck Result date: 12 April 2013 10:47 Result status: Auth (Verified) Result title: US Soft Tissue Head/Neck Performed by: Montse Hernandez MD on 12 April 2013 12:01 Verified by: Shawn Grover MD on 12 April 2013 12:06 Encounter info: [id number], [facility] [place], One Time OP, [...] patient's age to complete this topic Insurance [facility] MEDICARE Member Subscriber Plan / Payer (Ef fective 2020-Present) Name:Riki HillmanSharon Relation to Subscriber:Self Name:Riki Hillman Sharon Payer ID:[id number] Group ID:[id number] Type:Not on file Address: [address] [place] [address] Care Teams Money Order Clerk Relationship Specialty Start Date End Date Micaela Fuchs MD 2 [facility] , [facility] [address] [facility] Physician Associ D/B/A: [facility] FERNANDO Stuart PCP - General Internal Medicine 06/26/24
--- OUTSIDE RECORDS SUMMARY | 2025-03-29 11:10 | XMS_ITS | Clinical Summary ---
Author Organization [facility] Address [address] [place] [address] Care Team Providers Care Furniture Mover Name Role Phone Faye Adams PA-C Primary Care Provider [phone] Source Comments PLEASE NOTE, if this patient [...] on 12 April 2013 12:06 Encounter info: [id number], [facility] [place], One Time OP, 04/12/2013 - [...] H/O: hysterectomy 2011 due to fibroid in [place] 03/01 Diverticulosis 03/28/2013 Overview (12/07/2013): Colonoscopy Done [...] on file Insurance [place] MEDICAID Care Teams Furniture Mover Relationship Specialty Start Date End Date Faye Adams PA-C [address] [place] [address] PCP - General 03/28/13
== END 2025-03-29 09:38 | disposition home or self-care (01) ==
LOC: HO.XRAY 09:37
PROVIDERS: PCP Internal Medicine; Visit Provider Nurse Practitioner Family
DX: R20.0 Anesthesia of skin (principal); R06.89 Other abnormalities of breathing
CPT/HCPCS: 71046; 73630

== ENCOUNTER → 2025-03-29 09:42 | Outpatient (BNV) | payer OTHER, SELFPAY | PROVIDERS: PCP Internal Medicine; Visit Provider Radiology Body Imaging | DX: R06.89 Other abnormalities of breathing (principal); R20.0 Anesthesia of skin | CPT/HCPCS: 71046; 73630 ==

== ENCOUNTER 2025-04-21 09:31 | Outpatient (REF) | payer OTHER, SELFPAY ==
--- NOTE | ~2025-04-21 | MR_ITS ---
EXAMINATION: MR KNEE WITHOUT CONTRAST, RIGHT CLINICAL INFORMATION: Medial meniscal tear. Pain. COMPARISON: X-ray 01/10/2025 TECHNIQUE: MRI of the knee without contrast was performed using routine sequences on a high-field scanner. FINDINGS: MENISCI: Medial Meniscus: Intrasubstance degenerative signal in the posterior horn and body. There is horizontal signal contacting the undersurface near the free edge, from possible undisplaced tear. Lateral Meniscus: Partial discoid morphology. Degenerative signal in the anterior root. No definite of tear is seen. LIGAMENTS: Cruciate: Intact Collateral: Intact EXTENSOR MECHANISM: Intact ARTICULAR CARTILAGE/BONE: Patellofemoral Compartment: Moderate arthritis. There is nonuniform chondral loss. Small marginal osteophytes. Medial Compartment: Mild-moderate arthritis. Marginal osteophytes. Chondral thinning in the weightbearing compartment. Subchondral cysts. Lateral Compartment: Mild arthritis. JOINT FLUID AND BURSAE: Moderate effusion. 3 mm posterior loose body. Trace Klein's cyst. Subcutaneous edema. Popliteus muscle and tendon are intact. MR/MR knee RT wo con IMPRESSION: * Degenerative signal in the medial meniscal posterior horn and body. Equivocal finding of possible horizontal tear in the posterior horn. * Partial discoid morphology of the lateral meniscus. Anterior root degeneration. * Tricompartment arthritis. * Moderate effusion. 3 mm loose body. Electronically signed by: John Boston MD 04/23/2025 07:30 AM EDUARDA
--- OUTSIDE RECORDS SUMMARY | 2025-04-21 09:36 | XMS_ITS | Clinical Summary ---
Author Organization 175 [facility] Address [address] [place] [address] Phone Care Team Providers Care Metal Polisher And Buffer Apprentice Name Role Phone Micaela Fuchs MD Primary Care Provider [phone] Allergies Active Allergy Reactions Criticality Noted Date [...] diaper. Patient had head CT 02/12/2024 at [facility], no acute findings at the time, there [...] see if that can help. 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 Chronic left-sided low back pain 03/06/2016 Anxiety and depression 06/12/2014 Asthma, mild intermittent 06/12/2014 Hypothyroid 05/23/2013 Overview (07/07/2024): Result type: US Soft Tissue Head/Neck Result date: 12 April 2013 10:47 Result status: Auth (Verified) Result title: US Soft Tissue Head/Neck Performed by: Montse Hernandez MD on 12 April 2013 12:01 Verified by: Shawn Grover MD on 12 April 2013 12:06 En[place] info: [id number], [facility] [place], 04/12/2013 - 04/12/2013 * [...] Health Screening 06/27/2024 COVID-19 Vaccine (1 - 2024-2 6 season) 2025 Influenza Vaccine (#1) 2025 , [...] patient's age to complete this topic Insurance [facility] MEDICARE Member Subscriber Plan / Payer (Ef fective 2020-Present) Name:Riki HillmanSharon Relation to Subscriber:Self Name:Riki Hillman Sharon Payer ID:[id number] Group ID:[id number] Type:Not on file Address: [address] [place] [address] Care Teams Metal Polisher And Buffer Apprentice Relationship Specialty Start Date End Date Micaela Fuchs MD 2 [facility] , [facility] [address] [facility] Physician Associ D/B/A: [facility] FERNANDO Stuart PCP - General Internal Medicine 06/26/24
== END 2025-04-21 09:32 | disposition home or self-care (01) ==
LOC: HO.MRI 09:31
PROVIDERS: PCP Internal Medicine; Visit Provider Orthopaedic Surgery
DX: S83.241A Other tear of medial meniscus, current injury, right knee, initial encounter (principal)
CPT/HCPCS: 73721

== ENCOUNTER → 2025-04-21 09:36 | Outpatient (BNV) | payer OTHER, SELFPAY | PROVIDERS: PCP Internal Medicine; Visit Provider Radiology Diagnostic Ultrasound | DX: S83.241A Other tear of medial meniscus, current injury, right knee, initial encounter (principal); M17.11 Unilateral primary osteoarthritis, right knee; M25.561 Pain in right knee; M23.41 Loose body in knee, right knee | CPT/HCPCS: 73721 ==

== ENCOUNTER 2025-04-25 12:22 | Outpatient (AMB) | payer OTHER, SELFPAY ==
--- NOTE | 2025-04-25 12:30 | A.OFFVIS_ITS ---
Vital Signs 04/25/25 12:32 Height 5 ft 1 in Weight 173 lb BMI 32.7 Intake Visit Reasons: MRI review of right knee Intake Note: Sharon is a 59 year old female who presents today as a new patient for her right knee pain. Patient was referred by PCP 01/03/25, at their visit she discussed her HX of osteoarthritis in her knees, with the right knee being particularly painful and swollen. A past fall resulted in knee trauma, pain is exacerbated by walking and using stairs, and she uses a walker for mobility. At today's visit she states that for the past four years she has had knee pain, and about a year ago she fell down the steps at [employer]. She states that she does at home exercises and when she is done the pain radiates into the right hip/pelvic. She has failed the last 6 weeks of conservative treatment which has included Tylenol, physical therapy exercises, a home exercise program and anti- inflammatory medicines. Most of the pain is along the medial aspect of her knee. The patient states that she has recently been doing stretching exercises at home which have given her fairly good relief. Allergies levothyroxine sodium (From Synthroid) Adverse Reaction (Mild, Verified 04/25/25 12:32) inadequeate response IV contrast Allergy (Severe, Uncoded 04/25/25 12:32) Anaphylaxis SEAFOOD Allergy (Intermediate, Uncoded 04/25/25 12:32) DOESNT TAKE BECAUSE OF THYROID Medication List - Last Reconciled 04/25/25 by Waldo Josue MD [adult diapers pull-ups As directed] hngunjy-foxiqiashzrlf-jnehqttq 250-250-65 mg (Excedrin Migraine) 1 tab PO Q4H PRN budesonide-formoterol 160-4.5 mcg/actuation (Symbicort) 2 puffs inhalation Q12H cholecalciferol (vitamin D3) 50 mcg PO DAILY 90 days cyanocobalamin (vitamin B-12) 1,000 mcg PO DAILY 90 days folic acid 1 mg PO DAILY 90 days ipratropium-albuterol 0.5 mg-3 mg(2.5 mg base)/3 mL 3 mL inhalation Q4-6H PRN magnesium oxide 400 mg PO BEDTIME omeprazole 20 mg PO DAILY oxcarbazepine 600 mg (2 x 300 mg) PO BEDTIME 90 days oxcarbazepine 300 mg PO DAILY 90 days quetiapine 100 mg PO BEDTIME 90 days Synthroid (levothyroxine) 125 mcg PO DAILY@0600 NS syringe with needle (Highlighter Luer Slip Syringe-Needle) use 1 needle once a month Ventolin HFA 90 mcg/actuation (albuterol sulfate) 2 puffs inhalation Q4-6H PRN NS walker (Ultra-Light Rollator misc) As directed [facility] Medical History (Updated 03/28/25 @ 15:46 by Temitope Akhtar NP) Hypothyroidism Influenza A Mild persistent asthma, uncomplicated Internal and external hemorrhoids without complication Bloody stools Chronic GERD Chronic constipation Pap smear of cervix shows high risk HPV present Surgical History History of bladder surgery History of colonoscopy History of partial hysterectomy Family History Father HTN (hypertension) Mother Asthma HTN (hypertension) Sister Heart disease Brother Liver cancer Son Asthma Social History Household Members: Family and Children Housing: Apartment Do you presently have visiting nurse or other home services: Yes (visitng nurse once a month, video and sound recorder 12 hours daily) Alcohol intake: never Patient Tobacco Use Status: Former Tobacco user Tobacco use type: Cigarette Cigarette Packs Per Day: 2 Years Smoked: 10 years e-Cigarette/Vaping Use: Never Used Second Hand Smoke Exposure: Yes service: No Current occupational status: disabled Cognitive needs: Yes Hearing needs: No Vision needs: No Physical Exam Vital Signs: BMI result Body Mass Index 32.7 Extrem Other: Right knee examination shows a minimal effusion, mild crepitus with range of motion, tenderness along her medial joint line, positive Mihir's test, no instability Results Reviewed Results Reviewed: MRI of the patient's right knee shows mild to moderate diffuse degenerative changes as well as a tear of the medial meniscus Assessment & Plan Assessment & Plan (1) Tear of medial meniscus of right knee: Code(s): S83.241A - Other tear of medial meniscus, current injury, right knee, initial encounter Category: Medical Plan Sharon presents with right knee pain and mechanical symptoms due to early degenerative joint disease as well as a medial meniscus tear. I had a lengthy discussion with the patient regarding the treatment options. At this point the patient's symptoms are tolerable to her. She will continue with her home exercise program. She will follow up with me on an as-needed basis should her symptoms worsen in any way. Feel free to call me at any time should questions regarding her orthopedic management arise. I spent 20 minutes in reviewing the patient's records and imaging studies, seeing the patient and documenting in the medical record. Coding Level of Care Code Est Pt Level 3 (57744) Complex visit Add On G2211 Diagnoses Tear of medial meniscus of right knee S83.241A
[2025-04-25 12:32] VITALS: BMI 32.7
--- OUTSIDE RECORDS SUMMARY | 2025-04-25 15:26 | XMS_ITS | Clinical Summary ---
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 Patient had head CT 02/12/2024 at [facility] [place], no acute findings at the time, there [...] see if that can help. 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 Chronic left-sided low back pain 03/06/2016 Anxiety and depression 06/12/2014 Asthma, mild intermittent 06/12/2014 Hypothyroid 05/23/2013 Overview (07/07/2024): Result type: US Soft Tissue Head/Neck Result date: 12 April 2013 10:47 Result status: Auth (Verified) Result title: US Soft Tissue Head/Neck Performed by: Montse Hernandez MD on 12 April 2013 12:01 Verified by: Shawn Grover MD on 12 April 2013 12:06 Encounter info: [id number], [facility] [place], 04/12/2013 - 04/12/2013 * [...] patient's age to complete this topic Insurance [facility] MEDICARE Member Subscriber Plan / Payer (Ef fective 2020-Present) Name:Riki HillmanSharon Relation to Subscriber:Self Name:Riki Hillman Sharon Payer ID:[id number] Group ID:[id number] Type:Not on file Address: [address] [place] [address] Care Teams Scarf And Anneal Operator Relationship Specialty Start Date End Date Micaela Fuchs MD 2 [facility] , [facility] 101 [facility] Physician Associ D/B/A: Narc[facility] Tom[facility] In Internal Medicine FERNANDO Stuart PCP - General Internal Medicine 06/26/24
== END 2025-04-25 12:58 | disposition home or self-care (01) ==
LOC: HO.HOS 12:23
PROVIDERS: PCP Internal Medicine; Visit Provider Orthopaedic Surgery
DX: S83.241A Other tear of medial meniscus, current injury, right knee, initial encounter (principal)
CPT/HCPCS: 99213; G2211

== ENCOUNTER → 2025-04-25 12:22 | Outpatient (BNVA) | payer OTHER, SELFPAY | PROVIDERS: PCP Internal Medicine; Visit Provider Orthopaedic Surgery | DX: S83.241A Other tear of medial meniscus, current injury, right knee, initial encounter (principal); M17.11 Unilateral primary osteoarthritis, right knee; W10.9XXA Fall (on) (from) unspecified stairs and steps, initial encounter; Y92.243 City hall as the place of occurrence of the external cause; Y93.9 Activity, unspecified; Y99.9 Unspecified external cause status | CPT/HCPCS: 99212 ==

== ENCOUNTER 2025-05-07 14:48 | Outpatient (AMB) | payer OTHER, SELFPAY ==
[2025-05-07 15:22] VITALS: BMI 32.7
--- NOTE | 2025-05-07 15:22 | MHC.OFFVIS ---
Vital Signs 05/07/25 15:22 Height 5 ft 1 in Weight 173 lb BMI 32.7 Intake Visit Reasons: Follow Up Right foot pain/Discuss path result Intake Note: Sharon is a 59 year old female who presents to the office today for a follow up for her Right foot pain/Discuss path result. At last a nail biopsy was performed. Results in chart. Pt states the pain has improved in her right foot however she is still experiencing numbness in her toes. Allergies levothyroxine sodium (From Synthroid) Adverse Reaction (Mild, Verified 05/07/25 15:24) inadequeate response IV contrast Allergy (Severe, Uncoded 04/25/25 12:32) Anaphylaxis SEAFOOD Allergy (Intermediate, Uncoded 04/25/25 12:32) DOESNT TAKE BECAUSE OF THYROID HPI HPI Follow Up Right foot pain/Discuss path result: Details: 59-year-old female past medical history of lumbar spondylosis presents today for follow up evaluation of nail biopsy review and left foot numbness and pain. She received her lumbar MRI and was told by her provider that she should pursue surgery if the pain worsens. She has a history of back pain for 3+ years. She states since early January she started experiencing left foot numbness to her toes. She denies any acute injuries or onset. The symptoms are worst after getting up and walking for 5-8 minutes. She denies any motor weakness to her left foot, denies any right lower extremity symptoms. [facility] Medical History (Updated 03/28/25 @ 15:46 by Temitope Akhtar NP) Hypothyroidism Influenza A Mild persistent asthma, uncomplicated Internal and external hemorrhoids without complication Bloody stools Chronic GERD Chronic constipation Pap smear of cervix shows high risk HPV present Surgical History History of bladder surgery History of colonoscopy History of partial hysterectomy Family History Father HTN (hypertension) Mother Asthma HTN (hypertension) Sister Heart disease Brother Liver cancer Son Asthma Social History Household Members: Family and Children Housing: Apartment Do you presently have visiting nurse or other home services: Yes (visitng nurse once a month, vice president industrial relations 12 hours daily) Alcohol intake: never Patient Tobacco Use Status: Former Tobacco user Tobacco use type: Cigarette Cigarette Packs Per Day: 2 Years Smoked: 10 years e-Cigarette/Vaping Use: Never Used Second Hand Smoke Exposure: Yes service: No Current occupational status: disabled Cognitive needs: Yes Hearing needs: No Vision needs: No Review of Systems Const All systems reviewed & are unremarkable except as noted in HPI and below Physical Exam Vital Signs: BMI result Body Mass Index 32.7 Extrem Other: *Bilateral Lower Extremity Focused Exam Vascular: DP/PT 2/4, CFT<3s to digits, TG warm to cool, no pedal edema Derm: Dystrophic discolored left hallux nail 50% white yellow discoloration with mild subungual debris. Mild right lateral border yellow discoloration. Neuro: Negative Tinel sign to the common peroneal nerve, PT nerve, AT nerve, intermediate dorsal cutaneous nerve. No deep peroneal nerve or intermetatarsal nerve symptoms on forefoot compression. Positive straight leg raise test left lower extremity at approximately 45-60 degrees. MSK: No pain on palpation or range of motion of left foot. Normal muscle strength 5/5 to all compartments. Results Reviewed Results Reviewed: EMG/NCV 02/20/2025: Impression: This is a somewhat limited study as patient refused needle examination. Nerve conduction studies are somewhat suggestive a lower lumbar radiculopathy. Assessment & Plan Assessment & Plan (1) Tinea unguium: Code(s): B35.1 - Tinea unguium Category: Medical Plan: Reviewed nail biopsy right hallux nail. Rx Ciclopirox Follow up in 2 months (2) Numbness of left foot: Code(s): R20.0 - Anesthesia of skin Category: Medical Plan: Discussed possible etiology of her lower extremity symptoms. Differential diagnosis including spinal radiculopathy, tarsal tunnel syndrome, CP nerve compression. EMG NCV reviewed with the patient. She is not pursuing any physical therapy or further treatment at this time (3) Lumbar back pain with radiculopathy affecting left lower extremity: Code(s): M54.16 - Radiculopathy, lumbar region Category: Medical Plan: Reviewed MRI with the patient Medications: New ciclopirox 8% Apply to fungal toenails daily. Remove build-up at the end of the week. 1 appl topical BEDTIME 6.6 mL 3RF nail fungus 4 months B35.1 - Tinea unguium Coding Level of Care Code Est Pt Level 3 (34038) Diagnoses Tinea unguium B35.1 Numbness of left foot R20.0 Lumbar back pain with radiculopathy affecting left lower extremity M54.16 Time Spent (min) 20
== END 2025-05-07 15:35 | disposition home or self-care (01) ==
LOC: HO.HPODS 14:49
PROVIDERS: PCP Internal Medicine; Visit Provider Student in an Organized Health Care Education/Training Program
DX: B35.1 Tinea unguium (principal); R20.0 Anesthesia of skin; M54.16 Radiculopathy, lumbar region
CPT/HCPCS: 99213

== ENCOUNTER → 2025-05-07 14:48 | Outpatient (BNVA) | payer OTHER, SELFPAY | PROVIDERS: PCP Internal Medicine; Visit Provider Student in an Organized Health Care Education/Training Program | DX: B35.1 Tinea unguium (principal); R20.0 Anesthesia of skin; M54.16 Radiculopathy, lumbar region | CPT/HCPCS: 99212 ==